=== PATIENT | male | born 1930 | race Hispanic/Latino ===

== ENCOUNTER 2017-01-04 17:10 | Inpatient (IN) | payer MEDICARE, BC ==
[2017-01-04 17:32] VITALS: BMI 26.5
--- NOTE | 2017-01-04 17:42 | ED PDOC ---
Arrival/HPI - General Chief Complaint: Weakness/Neurological Deficit Time Seen by Provider: 01/04/17 17:23 Historian: Patient, Spouse - History of Present Illness Narrative History of Present Illness (Text): 01/04/17 17:37 An 86 year old male, whose past medical history includes high cholesterol and diabetes, was sent by Dr. Lozada for acute stroke. Patient had an MRI of brain done today. Patient reports he had visual changes that developed two days ago. Notes he has less sight in left eye. Patient also notes some decrease in strength and weakness of bilateral legs. Denies any numbness or weakness in legs. Denies any other complaints at this time. Denies any history of stroke. PMD: Dr. Lozada Medications: Metformin Symptom Onset: Sudden Symptom Course: Unchanged Activities at Onset: Rest Context: Home Past Medical History - Provider Review Nursing Documentation Reviewed: Yes - Infectious Disease Hx of Infectious Diseases: None - Endocrine/Metabolic Hx Diabetes Mellitus Type 2: Yes - Psychiatric Hx Substance Use: No Family/Social History - Physician Review Nursing Documentation Reviewed: Yes Family/Social History: Other (non contributory) Smoking Status: Unknown If Ever Smoked Hx Alcohol Use: No Hx Substance Use: No Allergies/Home Meds Allergies/Adverse Reactions: Allergies No Known Allergies Allergy (Verified 01/04/17 17:30) Home Medications: Home Meds Medication Instructions Recorded Confirmed Celecoxib [CeleBREX] 200 mg PO DAILY 01/04/17 01/04/17 Colesevelam HCl [Welchol] 2 tab PO TID 01/04/17 01/04/17 Glimepiride [Amaryl] 4 mg PO BID 01/04/17 01/04/17 [place]-3S/Dha/Epa/Fish Oil [Fish 2 tab PO BID 01/04/17 01/04/17 Oil [place]-3 Softgel] Tamsulosin [Flomax] 0.4 mg PO DAILY 01/04/17 01/04/17 metFORMIN [glucOPHAGE] 500 mg PO DAILY 01/04/17 01/04/17 Review of Systems - Physician Review All systems were reviewed & negative as marked: Yes - Review of Systems Constitutional: Other (weakness in b/l legs). absent: Fevers Eyes: Vision Changes Musculoskeletal: absent: Other (numbness or weakness in legs) Physical Exam Vital Signs Reviewed: Yes Vital Signs Temp Pulse Resp BP Pulse Ox 01/04/17 19:11 97.8 F 55 L 12 130/76 95 01/04/17 17:33 59 L 20 121/66 96 01/04/17 17:31 97.9 F 57 L 17 121/66 98 Appearance: Positive for: Well-Appearing, Non-Toxic, Comfortable Pain Distress: None Mental Status: Positive for: Alert and Oriented X 3 Finger Stick Blood Glucose: 123 - Systems Exam Head: Present: Atraumatic, Normocephalic Pupils: Present: PERRL Extroacular Muscles: Present: EOMI Conjunctiva: Present: Normal Mouth: Present: Moist Mucous Membranes Neck: Present: Normal Range of Motion Respiratory/Chest: Present: Clear to Auscultation, Good Air Exchange. No: Respiratory Distress, Accessory Muscle Use Cardiovascular: Present: Regular Rate and Rhythm, Normal S1, S2. No: Murmurs Abdomen: Present: Normal Bowel Sounds. No: Tenderness, Distention, Peritoneal Signs Back: Present: Normal Inspection Upper Extremity: Present: Normal Inspection. No: Cyanosis, Edema Lower Extremity: Present: Normal Inspection. No: Edema Neurological: Present: GCS=15, CN II-XII Intact, Speech Normal, Motor Func Grossly Intact, Normal Sensory Function, Normal Cerebellar Funct, Norm Deep Tendon Reflexes, Memory Normal Skin: Present: Warm, Dry, Normal Color. No: Rashes Psychiatric: Present: Alert, Oriented x 3, Normal Insight, Normal Concentration Medical Decision Making ED Course and Treatment: 01/04/17 17:51 EKG: Ordered, reviewed, and independently interpreted the EKG. Rate : 56 BPM Rhythm : sinus bradycardia Interpretation : Incomplete right bundle branch block, no STEMI 01/04/17 18:09 chest xray: Creator : Lane Ascencio MD FINDINGS: LUNGS: Left lower lobe infiltrate obscuring the left cardiac border findings accentuated by portable technique and poor inspiratory effort. PLEURA: Small bilateral pleural effusions CARDIOVASCULAR: No radiographic findings to suggest acute or significant cardiovascular disease. OSSEOUS STRUCTURES: No significant abnormalities. VISUALIZED UPPER ABDOMEN: Normal. IMPRESSION: 11 x 9 mm accentuating markings at the lung bases particularly left lower lobe. Two-view chest may be beneficial for clarification of these findings. 01/04/17 18:[address] Lenin Badillo, who recommends giving patient Aspirin. - Lab Interpretations Lab Results: 01/04/17 17:40 01/04/17 17:40 Lab Results 01/04/17 17:40: Blood Type Pending, Antibody Screen Pending, BBK History Checked No verified bt 01/04/17 17:40: Sodium 141, Potassium 4.8, Chloride 109 H, Carbon Dioxide 25, Anion Gap 12, BUN 20, Creatinine 1.1, Est GFR ( Amer) > 60, Est GFR (Non- Af Amer) > 60, Random Glucose 112 H, Calcium 9.8, Total Bilirubin 0.7, AST 30, ALT 18, Alkaline Phosphatase 71, Troponin I < 0.01, Total Protein 7.0, Albumin 4.2, Globulin 2.9, Albumin/Globulin Ratio 1.4, Triglycerides 175 H, Cholesterol 198, LDL Cholesterol Direct 123, HDL Cholesterol 47 01/04/17 17:40: PT 11.1, INR 1.03, APTT 27.5 01/04/17 17:40: WBC 6.0, RBC 4.34, Hgb 13.8 L, Hct 39.7 L, MCV 91.5, MCH 31.8, MCHC 34.8, RDW 13.3, Plt Count 182, MPV 9.3, Gran % 72.4 H, Lymph % (Auto) 16.8 L, [place] % (Auto) 6.5 H, Eos % (Auto) 4.0, Baso % (Auto) 0.3, Gran # 4.31, Lymph # 1.0 L, [place] # 0.4, Eos # 0.2, Baso # 0.02 01/04/17 17:23: POC Glucose (mg/dL) 123 H - RAD Interpretation Radiology Orders: 01/04/17 17:33 CHEST PORTABLE [RAD] Stat - Medication Orders Current Medication Orders: Glimepiride (Amaryl) 4 mg PO BID ENDER Insulin Human Regular (Humulin R High) 0 units SC ACHS ENDER PRN Reason: Protocol Metformin HCl (Glucophage) 500 mg PO DAILY ENDER Tamsulosin HCl (Flomax) 0.4 mg PO DAILY ENDER Discontinued Medications Aspirin (Aspirin Chewable) 324 mg PO STAT STA Stop: 01/04/17 17:47 Last Admin: 01/04/17 17:52 Dose: 324 mg NIHSS Scale ([place]) Time Performed: 17:25 rTPA Inclusion/Exclusion - Inclusion Criteria for Altepase Patient is 18 years or Older: Yes NIHSS Stroke Scale 3 - Date/Time Evaluation Performed Date Performed: 01/04/17 Time Performed: 17:25 - How Severe is the Stroke Level of Consciousness: 0=Alert LOC to Questions: 0=Both comments correct LOC to commands: 0=Obeys both correctly Best Gaze: 0=Normal Visual: 0=No visual loss Facial: 0=Normal Motor Arm - Left: 0=No drift Motor Arm - Right: 0=No drift Motor Leg - Left: 0=No drift Motor Leg - Right: 0=No drift Limb Ataxia: 0=Absent Sensory: 0=Normal Best Language: 0=No aphasia Dysarthia: 0=Normal articulation Extinction & Inattention (Neglect): 0=Normal, no object Score: 0 Severity Of Stroke: 0 = No Stroke - Scribe Statement The provider has reviewed the documentation as recorded by the Summeribwindy Hernandez Provider Scribe Attestation: All medical record entries made by the Scribe were at my direction and personally dictated by me. I have reviewed the chart and agree that the record accurately reflects my personal performance of the history, physical exam, medical decision making, and the department course for this patient. I have also personally directed, reviewed, and agree with the discharge instructions and disposition. Disposition/Present on Arrival - Present on Arrival History of DVT/PE: No History of Uncontrolled Diabetes: No Urinary Catheter: No History of Decub. Ulcer: No History Surgical Site Infection Following: None - Disposition
[2017-01-04 18:03] LABS: BASO # 0.02 K/mm3 (0.0-2.0); BASO % 0.3 % (0.0-3.0); EOS # 0.2 (0.0-0.7); GRAN # 4.31 (1.4-6.5); GRAN % 72.4 % (50.0-68.0); HEMATOCRIT 39.7 % (42.0-52.0); LYMPH % 16.8 % (22.0-35.0); MEAN CELL VOLUME 91.5 fl (80.0-105.0); MEAN CORPUSCULAR HEMOGLOBIN 31.8 pg (25.0-35.0); MEAN CORPUSCULAR HGB CONC 34.8 g/dl (31.0-37.0); MEAN PLATELET VOLUME 9.3 fl (7.0-11.0); MONO # 0.4 (0.1-0.6); MONO % 6.5 % (1.0-6.0); RED CELL DISTRIBUTION WIDTH 13.3 % (11.5-14.5)
--- NOTE | 2017-01-04 18:08 | RAD ---
HISTORY: CVA. Technique: Single view portable semi erect @ 17:55 COMPARISON: No prior. FINDINGS: LUNGS: Left lower lobe infiltrate obscuring the left cardiac border findings accentuated by portable technique and poor inspiratory effort. PLEURA: Small bilateral pleural effusions CARDIOVASCULAR: No radiographic findings to suggest acute or significant cardiovascular disease. OSSEOUS STRUCTURES: No significant abnormalities. VISUALIZED UPPER ABDOMEN: Normal. OTHER FINDINGS: None. IMPRESSION: 11 x 9 mm accentuating markings at the lung bases particularly left lower lobe. Two-view chest may be beneficial for clarification of these findings.
[2017-01-04 18:10] LABS: INR 1.03 (0.93-1.08); PARTIAL THROMBOPLASTIN TIME 27.5 Seconds (23.7-30.8)
[2017-01-04 18:11] LABS: ALB/GLOB RATIO 1.4 (1.1-1.8); ALKALINE PHOSPHATASE 71 U/L (38-126); ALT/SGPT 18 U/L (7-56); AST/SGOT 30 U/L (17-59); BILIRUBIN,TOTAL 0.7 mg/dL (0.2-1.3); BLOOD UREA NITROGEN 20 mg/dL (7-21); CALCIUM 9.8 mg/dL (8.4-10.5); CARBON DIOXIDE 25 mmol/L (21-33); CHLORIDE 109 mmol/L (98-107); CHOLESTEROL 198 mg/dL (130-200); GFR AFRICAN-AMERICAN > 60; GLUCOSE,RANDOM 112 mg/dL (70-110); POTASSIUM 4.8 mmol/L (3.6-5.0); SODIUM 141 mmol/L (132-148)
[2017-01-04 18:25] LABS: TROPONIN I < 0.01 ng/mL
[2017-01-04 19:14] VITALS: O2SAT 95
--- NOTE | 2017-01-04 21:53 | HP ---
HISTORY OF PRESENT ILLNESS: I know Reinaldo for many years. He is a nice 86-year-old man who was brought in by his who tells me he has been a little bit off lately. Starting Tuesday, he had an episode of holding the clicker for the TV, he did not know what it was and it lasted a little while but for the most part he has been close to being himself. When I saw him in the office, he did remember 3 out of 3 objects within 10 minutes, which I thought was pretty good. He was still a little bit off to me, so I was concerned and sent him for an MRI. I got one done in an hour after seeing him and it showed an acute stroke. I discussed it with the radiologist who told him to go to the ER and they would not go, they went home. I called the daughter who I know very well who is a doctor who got him back to the emergency room. We are trying to put him in for an acute stroke if the neurologist gets some carotid Dopplers and see if we can keep him as good as we can, although I do not see too much deficit, a little bit slight sight in the left eye and may be mild decreased strength in both of his legs but minimal. PAST MEDICAL HISTORY: He has a past medical history of diabetes and hypertension. ALLERGIES: HE HAS NO KNOWN DRUG ALLERGIES. FAMILY HISTORY: There is hypertension and diabetes in the family. SOCIAL HISTORY: No smoking, rare alcohol, no drugs. MEDICATIONS: We are trying to collect his medications from the pharmacy. REVIEW OF SYSTEMS: He had a slight vision change in the left eye. No hearing changes. No sore throat. No neck pain, or chest pain or shortness of breath or abdominal pain. He tells me both of his legs are a little bit weak, questionable numbness from time to time. No skin issues. PHYSICAL EXAMINATION: GENERAL: He is well-appearing, nontoxic, comfortable, joking. He is alert and oriented x3 as we said. Blood sugar was 123. VITAL SIGNS: He has 97.9 temperature, 60 pulse, 18 respiratory rate, 121/66 blood pressure, and 98% O2 saturation on room air. HEENT: His head is atraumatic, normocephalic. Extraocular muscles are intact. Pupils are equal and reactive to light. Throat is moist. Tongue is midline. NECK: Supple. HEART: Regular rate. Normal S1 and S2. LUNGS: Decreased breath sounds, but clear to auscultation. ABDOMEN: Soft, nontender. Positive bowel sounds. No guarding. No rebound. No CVA tenderness. EXTREMITIES: No edema. NEUROLOGIC: His GCS is 15. Cranial nerves II through XII are grossly intact. Normal speech. Neurologically, he tells me his left eye is a little bit off and he has got weak legs, but I find him to have equal strength bilaterally, 4/5 bilaterally. SKIN: Warm and dry. LABORATORY DATA: He had multiple tests. He had a chest x-ray. He had an MRI, which showed left [employer] acute stroke. He had a 11 x 9 mm accentuating markings on the left lung bases, partially left lower lobe. PLAN: We will repeat a 2-view x-ray to make sure it is okay. We will get Neurology consulted, get him back on his medications once we find it. He was given an aspirin already. We will check his labs tomorrow, get Physical Therapy onboard, and watch his blood sugars. He is here for acute stroke. Lane Lozada DO
[2017-01-04] MEDS: Insulin Reg-HIGH-Coverage SC SCH (22:25)
[2017-01-05 07:33] LABS: HEMATOCRIT 41.3 % (42.0-52.0); MEAN CELL VOLUME 91.6 fl (80.0-105.0); MEAN CORPUSCULAR HEMOGLOBIN 32.4 pg (25.0-35.0); MEAN CORPUSCULAR HGB CONC 35.4 g/dl (31.0-37.0); MEAN PLATELET VOLUME 8.7 fl (7.0-11.0); RED CELL DISTRIBUTION WIDTH 13.3 % (11.5-14.5); WHITE BLOOD COUNT 5.8 10^3/ul (4.5-11.0)
[2017-01-05 07:40] LABS: ALB/GLOB RATIO 1.6 (1.1-1.8); ALKALINE PHOSPHATASE 75 U/L (38-126); ALT/SGPT 32 U/L (7-56); AST/SGOT 20 U/L (17-59); BILIRUBIN,TOTAL 0.8 mg/dL (0.2-1.3); BLOOD UREA NITROGEN 19 mg/dL (7-21); CALCIUM 9.4 mg/dL (8.4-10.5); CARBON DIOXIDE 25 mmol/L (21-33); CHLORIDE 109 mmol/L (95-110); GFR AFRICAN-AMERICAN > 60; GLUCOSE,RANDOM 129 mg/dL (70-110); POTASSIUM 4.4 mmol/L (3.6-5.0); SODIUM 142 mmol/L (132-148); TOTAL PROTEIN 6.7 g/dL (5.8-8.3)
[2017-01-05 09:42] VITALS: TEMP 98.2
[2017-01-05] MEDS: Insulin Reg-HIGH-Coverage SC SCH ×2 (10:29→13:02)
--- NOTE | 2017-01-05 11:02 | CARD ---
APPROVED REPORT EKG Measurement Heart [id number] MI [id number] <Conclusion> Sinus bradycardia with sinus arrhythmia Incomplete right bundle branch block
[2017-01-05 11:07] VITALS: BP 146/65; PULSE 56; RESP 18
--- NOTE | 2017-01-05 13:32 | RAD ---
HISTORY: cxr COMPARISON: 01/04/2017 TECHNIQUE: Chest PA and lateral FINDINGS: LUNGS: No active pulmonary disease. PLEURA: No significant pleural effusion identified. No pneumothorax apparent. CARDIOVASCULAR: Normal. OSSEOUS STRUCTURES: No significant abnormalities. VISUALIZED UPPER ABDOMEN: Normal. OTHER FINDINGS: None. IMPRESSION: No active disease.
--- NOTE | 2017-01-05 13:53 | CP.PCM.CON ---
<Maricel Badillo - Last Filed: 01/05/17 13:48> History of Present Illness - History of Present Illness History of Present Illness: Neurology Consult Note for Amairani Blood PGY2 Reason for consult: CVA This is an 86Y M with PMH HTN, HLD, DM and BPH who complained of transient loss of peripheral vision on R 2 days ago. Patient was watching tv at home and then noticed the R side of the TV was not showing the picture. Patient did not have any other episodes. The vision loss improved on its own. At the time he did not have weakness, slurred speech, facial droop, numbness/tingling, tongue biting or loss of consciousness. He later went to Dr. Lozada at his office who ordered an MRI. Patient had an MRI at [facility] [place] [facility] which showed L PUBLIC ADDRESS TECHNICIAN infarct. Patient was then transferred to ED for further evaluation. This am, patient reports feeling well. He denies having any vision changes, weakness, CP, SOB, n/v/d, numbness/ tingling, fever or chills. PMH: HTN, HLD, BPH, DM PSH: Denies Home meds: As per MAR All: NKDA SH: Denies EtOH, drug or tobacco use Review of Systems - Review of Systems All systems: reviewed and no additional remarkable complaints except Review of Systems: + transient peripheral vision loss Past Patient History - Infectious Disease Hx of Infectious Diseases: None - Past Social History Smoking Status: Unknown If Ever Smoked Alcohol: None Drugs: Denies Home Situation {Lives}: With Family - CARDIAC Hx Hypertension: Yes - ENDOCRINE/METABOLIC Hx Diabetes Mellitus Type 2: Yes - PSYCHIATRIC Hx Substance Use: No Meds Allergies/Adverse Reactions: Allergies Allergy/AdvReac Type Severity Reaction Status Date / Time No Known Allergies Allergy Verified 01/04/17 17:30 - Medications Medications: Current Medications Glimepiride (Amaryl) 4 mg PO BID [facility] Last Admin: 01/05/17 10:28 Dose: 4 mg Insulin Human Regular (Humulin R High) 0 units SC ACHS ENDER PRN Reason: Protocol Last Admin: 01/05/17 13:02 Dose: 4 units Metformin HCl (Glucophage) 500 mg PO DAILY [facility] Last Admin: 01/05/17 10:28 Dose: 500 mg Tamsulosin HCl (Flomax) 0.4 mg PO DAILY [facility] Last Admin: 01/05/17 10:28 Dose: 0.4 mg Physical Exam - Constitutional Appears: No Acute Distress - Head Exam Head Exam: ATRAUMATIC, NORMAL INSPECTION, NORMOCEPHALIC - Eye Exam Eye Exam: Normal appearance, PERRL Pupil Exam: NORMAL ACCOMODATION, PERRL - ENT Exam ENT Exam: Mucous Membranes Moist - Respiratory Exam Respiratory Exam: Clear to Auscultation Bilateral, NORMAL BREATHING PATTERN. absent: Rales, Rhonchi, Wheezes - Cardiovascular Exam Cardiovascular Exam: REGULAR RHYTHM, +S1, +S2. absent: Gallop, Rubs, Systolic Murmur - GI/Abdominal Exam GI & Abdominal Exam: Normal Bowel Sounds, Soft. absent: Mass, Rebound, Rigid, Tenderness - Extremities Exam Extremities exam: Positive for: normal inspection. Negative for: calf tenderness, pedal edema - Neurological Exam Neurological exam: Alert, CN II-XII Intact, Oriented x3 - Expanded Neurological Exam Expanded Patient oriented to: person, place, time Speech: Fluid Speech Cranial nerves: EOM's Intact: Normal, Facial Palsey w/Forehead Movement: Normal , Facial [place]y w/o Forehead Movement: Normal, Facial Sensation: Normal, Tongue Deviation: Normal Cerebellar Function: Finger to Nose: Normal Upper motor neuron: Babinski Sign: Normal, Pronator Drift: Normal, Sensory Extinction: Normal Neuro motor strength exam: Left Upper Extremity: 5, Right Upper Extremity: 5, Left Lower Extremity: 5, Right Lower Extremity: 5 Coma Scale Eye Opening: SPONTANEOUS Coma Scale Motor Response: OBEYS COMMANDS Coma Scale Verbal: Oriented Coma Scale Total: 15 - Psychiatric Exam Psychiatric exam: Normal Affect, Normal Mood - Skin Skin Exam: Dry, Intact, Normal Color, Warm Results - Vital Signs Recent Vital Signs: Last Vital Signs Temp 98.2 F 01/05/17 08:00 Pulse 56 L 01/05/17 11:05 Resp 18 01/05/17 11:05 BP 146/65 01/05/17 11:05 Pulse Ox 95 01/05/17 11:05 - Labs Result Diagrams: 01/05/17 07:20 01/05/17 07:20 Labs: Laboratory Results - last 24 hr 01/04/17 01/04/17 01/05/17 19:20 22:17 07:20 WBC 5.8 RBC 4.51 Hgb 14.6 Hct 41.3 L MCV 91.6 MCH 32.4 MCHC 35.4 RDW 13.3 Plt Count 161 MPV 8.7 Sodium Potassium Chloride Carbon Dioxide Anion Gap BUN Creatinine Est GFR ( Amer) Est GFR (Non-Af Amer) POC Glucose (mg/dL) 97 Random Glucose Calcium Total Bilirubin AST ALT Alkaline Phosphatase Total Protein Albumin Globulin Albumin/Globulin Ratio Blood Type Confirm O POSITIVE 01/05/17 01/05/17 01/05/17 07:20 09:05 11:57 WBC RBC Hgb Hct MCV MCH MCHC RDW Plt Count MPV Sodium 142 Potassium 4.4 Chloride 109 Carbon Dioxide 25 Anion Gap 12 BUN 19 Creatinine 1.1 Est GFR ( Amer) > 60 Est GFR (Non-Af Amer) > 60 POC Glucose (mg/dL) 160 H 234 H Random Glucose 129 H Calcium 9.4 Total Bilirubin 0.8 AST 20 ALT 32 Alkaline Phosphatase 75 Total Protein 6.7 Albumin 4.1 Globulin 2.5 Albumin/Globulin Ratio 1.6 Blood Type Confirm Assessment & Plan - Assessment and Plan (Free Text) Assessment: This is an 86Y M with PMH HTN, HLD, DM and BPH who complained of transient loss of peripheral vision on R 2 days ago found to have L PUBLIC ADDRESS TECHNICIAN infarct on MRI. Patient does not have any focal neurological deficits at this time. Plan: - HgbA1c: 7.6- Recommend better glucose control - Carotid doppler ordered - Recommend patient take ASA 81mg and Lipitor 20mg daily - As per PT, patient not a candidate for rehab- has normal functioning No further neurological work up needed at this time. Patient is stable to d/c home from neuro stand point. Will sign off at this time. Thank you for this consultation. Please re-consult if needed. Case seen, discussed and reviewed with Dr. Badillo. Amairani Badillo PGY2 - Date & Time Date: 01/05/17 Time: 13:58 <Edwin Badillo - Last Filed: 01/05/17 16:18> Meds - Medications Medications: Current Medications Aspirin (Aspirin Chewable) 81 mg PO DAILY ENDER Atorvastatin Calcium (Lipitor) 20 mg PO DIN ENDER Glimepiride (Amaryl) 4 mg PO BID [facility] Last Admin: 01/05/17 10:28 Dose: 4 mg Insulin Human Regular (Humulin R High) 0 units SC ACHS ENDER PRN Reason: Protocol Last Admin: 01/05/17 13:02 Dose: 4 units Metformin HCl (Glucophage) 500 mg PO DAILY [facility] Last Admin: 01/05/17 10:28 Dose: 500 mg Tamsulosin HCl (Flomax) 0.4 mg PO DAILY [facility] Last Admin: 01/05/17 10:28 Dose: 0.4 mg Results - Vital Signs Recent Vital Signs: Last Vital Signs Temp 98.2 F 01/05/17 08:00 Pulse 56 L 01/05/17 11:05 Resp 18 01/05/17 11:05 BP 146/65 01/05/17 11:05 Pulse Ox 95 01/05/17 11:05 - Labs Result Diagrams: 01/05/17 07:20 01/05/17 07:20 Labs: Laboratory Results - last 24 hr 01/04/17 01/04/17 01/05/17 19:20 22:17 07:20 WBC 5.8 RBC 4.51 Hgb 14.6 Hct 41.3 L MCV 91.6 MCH 32.4 MCHC 35.4 RDW 13.3 Plt Count 161 MPV 8.7 Sodium Potassium Chloride Carbon Dioxide Anion Gap BUN Creatinine Est GFR ( Amer) Est GFR (Non-Af Amer) POC Glucose (mg/dL) 97 Random Glucose Calcium Total Bilirubin AST ALT Alkaline Phosphatase Total Protein Albumin Globulin Albumin/Globulin Ratio Blood Type Confirm O POSITIVE 01/05/17 01/05/17 01/05/17 07:20 09:05 11:57 WBC RBC Hgb Hct MCV MCH MCHC RDW Plt Count MPV Sodium 142 Potassium 4.4 Chloride 109 Carbon Dioxide 25 Anion Gap 12 BUN 19 Creatinine 1.1 Est GFR ( Amer) > 60 Est GFR (Non-Af Amer) > 60 POC Glucose (mg/dL) 160 H 234 H Random Glucose 129 H Calcium 9.4 Total Bilirubin 0.8 AST 20 ALT 32 Alkaline Phosphatase 75 Total Protein 6.7 Albumin 4.1 Globulin 2.5 Albumin/Globulin Ratio 1.6 Blood Type Confirm Attending/Attestation - Attestation I have personally seen and examined this patient.: Yes I have fully participated in the care of the patient.: Yes I have reviewed all pertinent clinical information: Yes
--- NOTE | 2017-01-05 16:32 | US ---
PROCEDURE: Bilateral carotid artery duplex ultrasound HISTORY: Carotid stenosis CVA PHYSICIAN(S): Aleks Downing MD. TECHNIQUE: Duplex sonography and color-flow Doppler were used to evaluate the carotid bifurcations and limited segments of the vertebral arteries bilaterally. FINDINGS: There is mild smooth heterogeneous plaque noted at the carotid bifurcations bilaterally. The peak systolic velocity in the proximal right internal carotid artery is 96 cm/sec. This corresponds to a 20 to 39% proximal right ICA stenosis. Normal systolic velocities are noted in the proximal right external carotid artery. There is blunted antegrade flow in the small right vertebral artery. The peak systolic velocity in the proximal left internal carotid artery is 94 cm/sec. This corresponds to a 20 to 39% proximal left ICA stenosis. Normal systolic velocities are noted in the proximal left external carotid artery. There is antegrade flow in the l dominant eft vertebral artery. IMPRESSION: 1. 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 2. Antegrade flow in both vertebral arteries.
--- NOTE | 2017-01-06 00:25 | DS ---
HOSPITAL COURSE: He is in the emergency room still. He came in last night with an acute CVA on MRI. Neurology has not seen him yet. Tests were not done yet. Physical Therapy has not seen him yet. Fortunately, he has improved this morning, I believe, since yesterday. He feels better. He slept well. No deficits at this time. PHYSICAL EXAMINATION: VITAL SIGNS: He has 97.8 temp, 57 pulse, 130/76 blood pressure, 12 respiratory rate, 95% O2 sat on room air. HEENT: Head is atraumatic and normocephalic. Tongue is midline. His vision is also a little bit better. HEART: Regular rate. LUNGS: Clear to auscultation. ABDOMEN: Soft. EXTREMITIES: No edema. He can move all 4 extremities. Good strength equally bilaterally, may be a little bit stronger today than yesterday. MEDICATIONS: He is on Amaryl, Flomax, Glucophage, and insulin. LABORATORY DATA: He has a 5.8 white count, 14.6 hemoglobin, 41.3 hematocrit with a 161 platelets. INR is 1.03. He has got a 142 sodium, potassium 4.2, BUN 19, creatinine 1.1, GFR is greater than 60, sugar is 129. Calcium is 9.4. Total bili is 0.8, AST is 20, ALT is 32, alk phos 75, total protein 6.7, albumin is 4.1, and globulin 2.5. We will wait to see what Neurology has to say, Physical Therapy has to say, waiting for carotid Doppler, MRA of the head and then hopefully later on this afternoon, we could discharge him, and that is my plan. Lane Lozada DO
== END 2017-01-05 17:50 | disposition home or self-care (01) | DRG 66 ==
LOC: ED 17:10 → ERH 18:22 → 2RNO 01-05 11:11
PROVIDERS: ADMIT Family Medicine; ATTEND Family Medicine
DX: I63.532 Cerebral infarction due to unspecified occlusion or stenosis of left posterior cerebral artery (principal); E11.9 Type 2 diabetes mellitus without complications; I10 Essential (primary) hypertension; N40.0 Benign prostatic hyperplasia without lower urinary tract symptoms; E78.00 Pure hypercholesterolemia, unspecified; R29.700 NIHSS score 0

== ENCOUNTER 2017-01-09 10:29 | Observation (INO) | payer MEDICARE, BC ==
[2017-01-09 10:42] VITALS: BMI 27.1
[2017-01-09 10:54] LABS: BASO # 0.02 K/mm3 (0.0-2.0); BASO % 0.3 % (0.0-3.0); EOS # 0.2 (0.0-0.7); EOS % 3.7 % (1.5-5.0); GRAN # 4.55 (1.4-6.5); HEMATOCRIT 40.5 % (42.0-52.0); LYMPH # 1.3 (1.2-3.4); LYMPH % 19.8 % (22.0-35.0); MEAN CORPUSCULAR HEMOGLOBIN 32.1 pg (25.0-35.0); MEAN CORPUSCULAR HGB CONC 35.3 g/dl (31.0-37.0); MONO # 0.4 (0.1-0.6); MONO % 6.2 % (1.0-6.0); RED CELL DISTRIBUTION WIDTH 13.1 % (11.5-14.5); WHITE BLOOD COUNT 6.5 10^3/ul (4.5-11.0)
[2017-01-09 10:58] LABS: ALB/GLOB RATIO 1.5 (1.1-1.8); ALKALINE PHOSPHATASE 83 U/L (38-126); ALT/SGPT 30 U/L (7-56); AST/SGOT 21 U/L (17-59); BILIRUBIN,TOTAL 0.7 mg/dL (0.2-1.3); BLOOD UREA NITROGEN 20 mg/dL (7-21); CALCIUM 9.5 mg/dL (8.4-10.5); CARBON DIOXIDE 23 mmol/L (21-33); CHLORIDE 108 mmol/L (98-107); CHOLESTEROL 189 mg/dL (130-200); GFR AFRICAN-AMERICAN > 60; GLUCOSE,RANDOM 161 mg/dL (70-110); POTASSIUM 4.5 mmol/L (3.6-5.0); SODIUM 141 mmol/L (132-148); TOTAL PROTEIN 7.1 g/dL (5.8-8.3)
--- NOTE | 2017-01-09 11:04 | CT ---
PROCEDURE: CT HEAD WITHOUT CONTRAST. HISTORY: Code Stroke COMPARISON: Comparison made with prior MRI brain 01/04/2017 TECHNIQUE: Axial computed tomography images were obtained through the head/brain without intravenous contrast. Radiation dose: Total exam DLP = 781.19 mGy-cm. This CT exam was performed using one or more of the following dose reduction techniques: Automated exposure control, adjustment of the mA and/or kV according to patient size, and/or use of iterative reconstruction technique. FINDINGS: HEMORRHAGE: No acute parenchymal subarachnoid nor extra-axial hemorrhage. Hemorrhage. BRAIN: Previously noted acute infarct in the left posterolateral thalamus and posterior body of the caudate nucleus of less well seen on this study compared to high-resolution MRI. Mild chronic periventricular white matter ischemic changes the seen extending peripherally into the deep and subcortical white matter both cerebral hemispheres. In addition, there appear to be a few scattered chronic bilateral basal nuclei lacunar type infarcts. Note that the possibility of a hyperacute infarct cannot be completely excluded on this study therefore clinical correlation recommended Moderate generalized volume loss. . VENTRICLES: No obstructive hydrocephalus. CALVARIUM: Calvarium unremarkable. PARANASAL SINUSES: There is small focal area polypoid like mucosal thickening and a mucous retention cyst formation left maxillary sinus. MASTOID AIR CELLS: Unremarkable as visualized. No inflammatory changes. OTHER FINDINGS: None. IMPRESSION: No acute intracranial hemorrhage. Previously noted acute infarct left posterolateral thalamus and posterior body caudate less well seen compared to high-resolution MRI Mild chronic white matter ischemic changes with scattered chronic bilateral basal nuclei lacunar type infarcts. Note these findings were discussed with Dr. Stratton at approximately at 10:58 P a.m. with written down and read back verification. Moderate volume loss.
[2017-01-09 11:08] LABS: INR 0.99 (0.93-1.08); PARTIAL THROMBOPLASTIN TIME 26.1 Seconds (23.7-30.8)
[2017-01-09 11:12] LABS: TROPONIN I < 0.01 ng/mL
--- NOTE | 2017-01-09 11:16 | ED PDOC ---
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 Patient currently states he "feels fine" but reported that he didn't feel well upon awakening this morning. Of note, family states that this is how he described his symptoms prior to being diagnosed with his most recent stroke. Currently, he denies headache, denies blurred vision or loss of vision, denies dizziness, denies lack of coordination, denies acute gait instability. Denies speech difficulty, denies numbness or tingling to arms or legs, denies palpitations, denies chest pain or shortness of breath, denies numbness or acute focal weakness. Time/Duration: Prior to Arrival (upon awakening this am at 0845) Past Medical History - Infectious Disease Hx of Infectious Diseases: None - Cardiac Hx Hypertension: Yes - Endocrine/Metabolic Hx Diabetes Mellitus Type 2: Yes - Psychiatric Hx Substance Use: No Family/Social History Family/Social History: Unknown Family HX Smoking Status: Unknown If Ever Smoked Hx Alcohol Use: No Hx Substance Use: No Allergies/Home Meds Allergies/Adverse Reactions: Allergies No Known Allergies Allergy (Verified 01/09/17 10:39) Home Medications: Home Meds Medication Instructions Recorded Confirmed Celecoxib [CeleBREX] 200 mg PO DAILY 01/04/17 01/09/17 Colesevelam HCl [Welchol] 2 tab PO TID 01/04/17 01/09/17 Glimepiride [Amaryl] 4 mg PO BID 01/04/17 01/09/17 Meridian-3S/Dha/Epa/Fish Oil [Fish 2 tab PO BID 01/04/17 01/09/17 Oil Meridian-3 Softgel] Tamsulosin [Flomax] 0.4 mg PO DAILY 01/04/17 01/09/17 metFORMIN [glucOPHAGE] 500 mg PO DAILY 01/04/17 01/09/17 Review of Systems - Review of Systems Constitutional: Fatigue. absent: Fevers Eyes: absent: Vision Changes (he denies), Eye Pain Respiratory: absent: SOB Cardiovascular: absent: Chest Pain Gastrointestinal: absent: Abdominal Pain Genitourinary Male: absent: Dysuria, Hematuria, Urinary Output Changes Musculoskeletal: absent: Back Pain Skin: absent: Rash Neurological: absent: Headache, Dizziness, Focal Weakness, Gait Changes, Speech Changes, Facial Droop, Disequilibrium Endocrine: absent: Polyuria Hemo/Lymphatic: absent: Easy Bleeding Physical Exam - Physical Exam Narrative Physical Exam (Text): Head: Atraumatic. Normocephalic. No orbital tenderness. Eyes: PERRL. EOMI. Conjunctivae are not pale. ENT: Mucous membranes are moist and intact. Oropharynx is clear and symmetric. Neck: Supple. Full ROM. No JVD. No lymphadenopathy. Cardiovascular: Regular rate. Regular rhythm. Systolic murmur. Distal pulses intact. Pulmonary/Chest: No evidence of respiratory distress. Clear to auscultation bilaterally. No wheezing, rales or rhonchi. Abdominal: Soft and non-distended. There is no tenderness. No rebound, guarding, or rigidity. No organomegaly. Good bowel sounds. Back: No CVA tenderness. Rectal: no gross bleeding noted Extremities: No edema. No cyanosis. No clubbing. Full range of motion in all extremities. No calf tenderness. Skin: Skin is warm and dry. No petechiae. No purpura. Neurological: Alert, awake, and oriented to person, place, time, and situation. Normal speech. No facial droop. Visual acuity and visual tse are at baseline. No slurred speech. Normal finger to nose. Normal heel to terry. No dysmetria. No focal motor or sensory deficits. No meningeal signs. Reflexes symmetric and intact. Psychiatric: Good eye contact. Normal interaction, affect, and behavior. Family reports that he has periods of forgetfullness intermittently for " several months". ' Vital Signs Reviewed: Yes Vital Signs Temp Pulse Resp BP Pulse Ox 01/09/17 13:27 60 18 138/60 01/09/17 11:53 60 18 138/60 98 01/09/17 10:46 97.8 F 76 17 151/86 H 98 Temperature: Afebrile Pulse: Regular Respiratory Rate: Normal Appearance: Positive for: Well-Appearing, Non-Toxic, Comfortable Pain Distress: None Mental Status: Positive for: Alert and Oriented X 3 Medical Decision Making ED Course and Treatment: Impression: Patient with recent history of CVA, presents with "not feeling well " when he awoke this AM. Currently he denies any symptoms. History supplemented by , son, and daughter at bedside. Plan: -- EKG -- Head CT -- Chest X-ray -- Brain MRI -- Labs -- Urinalysis -- Reassess and disposition, serial neuro exams with direct communication with family, PMD and neurologist. Prior Visits: Notes and results from previous visits were reviewed. Patient was last seen in the emergency department on 01/04/2017 for acute CVA. Patient was admitted. Progress Notes: Patient's history obtained from patient, , and son on initial presentation. Prior to arrival I spoke directly with his PMD Dr. Lane Lozada to review his recent admission, MRI and symptoms. Patient on initial exam states that he currently has no symptoms. Of noted, family states that when he awoke this AM he had expressed that he "wasn't feeling himself" but denied headache or acute visual symptoms or specific weakness or pain. Patient recently had stroke where he had reportedly presented with similar complaints. He denies any acute visual symptoms at this time. By history, patient felt his normal self last night before going to bed, and was watching a baseball game on TV without any complaints last night as per the patient and his . Based on this history, stroke was considered and emergency CT ordered with emergency consultation with neurologist. I discussed initial presentation and history with Dr. Edwin Badillo and updated Dr. Yaneth Lozada. 01/09/2017 11:[address] IMPRESSION: No acute intracranial hemorrhage. Previously noted acute infarct left posterolateral thalamus and posterior body caudate less well seen compared to high-resolution MRI. Mild chronic white matter ischemic changes with scattered chronic bilateral basal nuclei lacunar type infarcts. Note these findings were discussed with Dr. Stratton at approximately at 10:58AM with written down and read back verification. Moderate volume loss. Dicator: Butch Renner DO Based on recent MRI and history of recent stroke, MRI ordered after consultation with neurology: 01/09/2017 11:29 Brain MRI Subacute infarct posterior body left caudate nucleus and left posterolateral thalamus. This infarct appears less conspicuous compared the prior MRI. Mild chronic periventricular white matter ischemic changes. No acute intracranial hemorrhage. Moderate volume loss. Dicator: Butch Solis DO 01/09/2017 13:32 Chest X-ray IMPRESSION: Mckay Bibasilar atelectasis, developing infiltrates could be excluded followup radiographs. Dictator: Butch Solis DO Upon return from CT/MRI, I reviewed exam, CT and MRI readings with patient, family and PMD. Serial neuro exams in Emergency department, he continues to have no acute focal neurologic findings. Patient TOOK ASPIRIN PRIOR TO COMING TO THE Emergency department, confirmed by his . Patient is NOT a tpa candidate as he has had recent stroke, as well as no clear time of onset of symptoms, as well as very minimal symptoms at this time. Contraindications to tpa reviewed in depth with patient and family and PMD as well as confirmed with neurology. Have continued to monitor patient in the Emergency department, on monitor he is in normal sinus rhythm with occasional nonsustaned PACs. Patient admitted for monitoring, neurology consultation, serial exams. 01/09/17 15:11 - Lab Interpretations Lab Results: 01/09/17 10:44 01/09/17 10:44 Lab Results 01/09/17 10:44: Sodium 141, Potassium 4.5, Chloride 108 H, Carbon Dioxide 23, Anion Gap 15, BUN 20, Creatinine 1.2, Est GFR ( Amer) > 60, Est GFR (Non- Af Amer) 57, Random Glucose 161 H, Calcium 9.5, Total Bilirubin 0.7, AST 21, ALT 30, Alkaline Phosphatase 83, Troponin I < 0.01, Total Protein 7.1, Albumin 4.3, Globulin 2.8, Albumin/Globulin Ratio 1.5, Triglycerides 141, Cholesterol 189, LDL Cholesterol Direct 124, HDL Cholesterol 44 01/09/17 10:44: PT 10.7, INR 0.99, APTT 26.1 01/09/17 10:44: WBC 6.5, RBC 4.45, Hgb 14.3, Hct 40.5 L, MCV 91.0, MCH 32.1, MCHC 35.3, RDW 13.1, Plt Count 171, MPV 9.0, Gran % 70.0 H, Lymph % (Auto) 19.8 L, Nobles % (Auto) 6.2 H, Eos % (Auto) 3.7, Baso % (Auto) 0.3, Gran # 4.55, Lymph # 1.3, Nobles # 0.4, Eos # 0.2, Baso # 0.02 - RAD Interpretation Radiology Orders: 01/09/17 10:41 HEAD W/O (CODE STROKE) [CT] Stat CHEST PORTABLE [RAD] Stat 01/09/17 10:42 BRAIN WITHOUT CONTRAST [MRI] Stat - Medication Orders Current Medication Orders: Aspirin (Aspirin Chewable) 81 mg PO DAILY [facility] Glimepiride (Amaryl) 4 mg PO BID [facility] Insulin Human Regular (Humulin R High) 0 units SC ACHS ENDER PRN Reason: Protocol Metformin HCl (Glucophage) 500 mg PO BID [facility] Non-Formulary Medication (Meridian-3s/Dha/Epa/Fish Oil [Fish Oil Meridian-3 Softgel]) 2 tab PO BID [facility] Tamsulosin HCl (Flomax) 0.4 mg PO DAILY [facility] NIHSS Scale ([place]) Time Performed: 10:50 - How Severe is the Stoke Baseline Level of Consciousness: 0=Alert LOC to Questions: 0=Both comments correct LOC to commands: 0=Obeys both correctly Best Gaze: 0=Normal Visual: 0=No visual loss Facial: 0=Normal Motor Arm - Left: 0=No drift Motor Arm - Right: 0=No drift Motor Leg - Left: 0=No drift Motor Leg - Right: 0=No drift Limb Ataxia: 0=Absent Sensory: 0=Normal Best Language: 0=No aphasia Dysarthia: 0=Normal articulation Extinction & Inattention (Neglect): 0=Normal, no object Score: 0 Risk Level: No Stroke Risk Disposition/Present on Arrival - Present on Arrival Any Indicators Present on Arrival: No History of DVT/PE: No History of Uncontrolled Diabetes: No Urinary Catheter: No History of Decub. Ulcer: No History Surgical Site Infection Following: None - Disposition Have Diagnosis and Disposition been Completed?: Yes Diagnosis: CVA (cerebral vascular accident) Disposition: HOSPITALIZED Disposition Time: 11:30 Patient Plan: Admission, Telemetry Condition: SERIOUS
--- NOTE | 2017-01-09 11:30 | MRI ---
PROCEDURE: MRI BRAIN WITHOUT CONTRAST HISTORY: hx of cva, weakness COMPARISON: Comparison made with prior MRI dated 01/04/2015 TECHNIQUE: Multiplanar, multisequence MR images of the brain were obtained without intravenous contrast enhancement. FINDINGS: HEMORRHAGE: No acute parenchymal, subarachnoid or extra-axial hemorrhage. No evidence of hemosiderin deposition identified on gradient echo weighted sequence. DWI: Re- demonstrated is a subacute infarct involving the posterior body of the left caudate and posterolateral the left thalamus. . The infarct is less conspicuous compared the prior MRI. BRAIN PARENCHYMA: Mild chronic periventricular white matter ischemic changes are again noted. . . . Moderate generalized volume loss VENTRICLES: No obstructive hydrocephalus CRANIUM: No acute calvarial abnormalities. ORBITS: Orbits and contents grossly unremarkable PARANASAL SINUSES/MASTOIDS: Clear VASCULAR SYSTEM: Visualized major vascular flow voids at skull base are patent. OTHER FINDINGS: None. IMPRESSION: Subacute infarct posterior body left caudate nucleus and left posterolateral thalamus. This infarct appears less conspicuous compared the prior MRI. Mild chronic periventricular white matter ischemic changes No acute intracranial hemorrhage. Moderate volume loss.
--- NOTE | 2017-01-09 13:34 | RAD ---
HISTORY: code stroke COMPARISON: Comparison made with chest radiograph dated 01/05/2017. FINDINGS: LUNGS: Bibasilar atelectasis; developing infiltrates could be excluded followup radiographs. PLEURA: No significant pleural effusion identified, no pneumothorax apparent. CARDIOVASCULAR: Heart appears enlarged. TheNormal. OSSEOUS STRUCTURES: Mild degenerative changes of both shoulder girdles. Mild multilevel degenerative spondylosis of the thoracic spine VISUALIZED UPPER ABDOMEN: Normal. OTHER FINDINGS: None. IMPRESSION: Mckay Bibasilar atelectasis; developing infiltrates could be excluded followup radiographs.
[2017-01-09 14:49] LABS: URINE BILIRUBIN NEGATIVE (NEGATIVE); URINE BLOOD NEGATIVE (NEGATIVE); URINE GLUCOSE (UA) 250 mg/dL (NEGATIVE); URINE KETONE TRACE mg/dL (NEGATIVE); URINE LEUKOCYTE ESTERASE NEGATIVE Leu/uL (NEGATIVE); URINE UROBILINOGEN 0.2 E.U./dL (<1 E.U./dL)
[2017-01-09 14:52] LABS: URINE APPEARANCE CLEAR (CLEAR); URINE COLOR YELLOW (YELLOW); URINE PROTEIN NEGATIVE mg/dL (<30 mg/dL)
[2017-01-09] MEDS: Insulin Reg-HIGH-Coverage SC SCH ×2 (16:59→22:12)
[2017-01-09] MEDS: DHA PO SCH (19:18)
[2017-01-09] MEDS: OMEGA PO SCH (19:18)
[2017-01-09] MEDS: EPA PO SCH (19:18)
[2017-01-09] MEDS: FISH OIL PO SCH (19:18)
--- NOTE | 2017-01-10 00:31 | HP ---
HISTORY OF PRESENT ILLNESS: I know him very well from the office and recent CVA last week. I got a call from his daughter who is a doctor I have known for many years that he felt weak and felt funny this morning, and we sent him straight to the emergency room. He has a recent CVA. He did well and was sent home on aspirin. He has always been reluctant to take aspirin because his nose bleeds very quickly from them. PAST MEDICAL HISTORY: Diabetes and hypertension. ALLERGIES: NO KNOWN DRUG ALLERGIES. FAMILY HISTORY: There is hypertension and diabetes in the family. SOCIAL HISTORY: No smoking, rare alcohol, no drugs. MEDICATIONS: He is on Celebrex occasionally, WelChol, metformin, Amaryl, omega, fish oil, Flomax for BPH. REVIEW OF SYSTEMS: He had a slight change this morning when he felt weak, this was not right when he woke up, so they called 911, came to the hospital. He does have a slight vision change from the stroke a week ago, but he said this seems to be improving. No sore throat. No neck pain. No chest pain or shortness of breath. No abdominal pain. No nausea, vomiting, constipation, or diarrhea. His legs that were bad last week with heaviness is not that way, the legs are fine at this time. No skin issues. No anxiety. No depression. No sweating. PHYSICAL EXAMINATION: GENERAL: He is well-appearing, nontoxic, comfortable. He is joking. VITAL SIGNS: On physical exam, he has a 97.8 temp, 76 pulse, 17 respiratory rate, 151/86 blood pressure, 98% of O2 sat on oxygen. HEENT: His head is atraumatic, normocephalic. His extraocular muscles are intact. His pupils equal, reactive to light and accommodation. Throat is moist. Tongue is actually midline at this time. NECK: Supple. CARDIOPULMONARY: Heart is regular rate. Normal S1 and S2. No AFib. LUNGS: Clear to auscultation with decreased breath sounds. ABDOMEN: Soft, nontender. Positive bowel sounds. No guarding, no rebound, no CVA tenderness. EXTREMITIES: Have no edema. He can move all 4 extremities well. He has good strength equally bilaterally hands and feet. NEUROLOGIC: A GCS of 15. Cranial nerves II through XII grossly intact. Normal speech. Neurologically, he is fine except the left eye has little off, but he is not complaining at all at this time. SKIN: Warm and dry. No apparent ulcers. He is comfortable. THYROID: Apparently midline. No appreciable lymphadenopathy appreciated. LABORATORY DATA: He has multiple tests. He had a 141 sodium, potassium 4.5, BUN 20, creatinine 1.6, GFR is 57, sugar is 161, calcium is 9.5, total bili is 0.7, AST is 21, ALT is 30, alk phos 83 and 0.01 is his troponin. 7.1 is his total protein, albumin is 12.3, globulin 2.8, triglycerides 141, cholesterol is 189, LDL is 124, HDL is 44, and INR is 0.99. He is taking an aspirin a day. White count 6.5, hemoglobin 14.3, hematocrit 40.5, platelets of 171. He had an MRI of the brain which showed subacute infarct posterior left caudate nucleus of left posterolateral thalamus. This infarct appears less conspicuous compared from a prior MRI, mild chronic periventricular white mater ischemic changes. No acute intracranial hemorrhage, moderate volume loss. He also had a CAT scan of the brain. This showed no acute intracranial hemorrhage, previously noted acute infarct, left posterolateral thalamus and posterior seen compared to the high resolution of the MRI. Mild chronic white mater ischemic changes, chronic bilateral basal nuclei lacunar type infarcts, moderate volume loss. IMPRESSION AND PLAN: We will watch him overnight. Get neurological consult. Get cardiology consult. Check his blood sugars. Check his labs tomorrow. He will be in observation status. Hopefully, he will do very well. This is an H and P on the patient who had most probably a transient ischemic attack and status post cerebrovascular accident last week. Lane Lozada DO [facility]
[2017-01-10 05:58] VITALS: O2SAT 97
[2017-01-10 07:15] LABS: HEMATOCRIT 37.7 % (42.0-52.0); MEAN CORPUSCULAR HEMOGLOBIN 31.5 pg (25.0-35.0); MEAN CORPUSCULAR HGB CONC 34.2 g/dl (31.0-37.0); MEAN PLATELET VOLUME 8.8 fl (7.0-11.0); RED CELL DISTRIBUTION WIDTH 13.1 % (11.5-14.5); WHITE BLOOD COUNT 5.8 10^3/ul (4.5-11.0)
[2017-01-10 07:51] LABS: ALB/GLOB RATIO 1.4 (1.1-1.8); ALKALINE PHOSPHATASE 55 U/L (38-126); ALT/SGPT 29 U/L (7-56); AST/SGOT 23 U/L (17-59); BILIRUBIN,TOTAL 0.5 mg/dL (0.2-1.3); BLOOD UREA NITROGEN 23 mg/dL (7-21); CARBON DIOXIDE 26 mmol/L (21-33); CHLORIDE 110 mmol/L (98-107); GFR AFRICAN-AMERICAN > 60; GLUCOSE,RANDOM 81 mg/dL (70-110); SODIUM 143 mmol/L (132-148); TOTAL PROTEIN 6.1 g/dL (5.8-8.3)
[2017-01-10 07:55] LABS: POTASSIUM 4.6 mmol/L (3.6-5.0)
[2017-01-10] MEDS: Insulin Reg-HIGH-Coverage SC SCH ×2 (08:31→11:30)
--- NOTE | 2017-01-10 09:47 | CP.PCM.CON ---
<Maricel Badillo - Last Filed: 01/10/17 11:46> History of Present Illness - History of Present Illness History of Present Illness: Neurology Consult Note for Amairani Blood PGY2 Reason for consult: TIA This is an 86Y M with PMH HTN, HLD, DM, BPH, CVA who was recently admitted for CVA in [facility] last week who came to ED because patient states he was not feeling well. As per family, he reported feeling the same way when he had the CVA. Patient denies having any vision changes, slurred speech, facial droop, numbness /tingling or weakness at the time. Head CT was done which showed no acute hemorrhage with noted acute infarct from previous CT in L posterolateral thalamus and posterior body of caudate which was less well seen. MRI brain showed subacute infarct posterior body of L caudate nucleus and L posterolateral thalamus and is less conspicuous to previous MRI. This am pt denies CP, SOB, n/v/d, numbness/tingling, vision changes, fever or chills. PMH: HTN, HLD, BPH, DM, CVA PSH: Denies Home meds: As per MAR All: NKDA SH: Denies EtOH, drug or tobacco use Review of Systems - Review of Systems All systems: reviewed and no additional remarkable complaints except Review of Systems: as per HPI Past Patient History - Infectious Disease Hx of Infectious Diseases: None - Past Social History Smoking Status: Unknown If Ever Smoked - CARDIAC Hx Hypertension: Yes - ENDOCRINE/METABOLIC Hx Diabetes Mellitus Type 2: Yes - MUSCULOSKELETAL/RHEUMATOLOGICAL Hx Falls: No - PSYCHIATRIC Hx Substance Use: No Meds Allergies/Adverse Reactions: Allergies Allergy/AdvReac Type Severity Reaction Status Date / Time No Known Allergies Allergy Verified 01/09/17 10:39 - Medications Medications: Current Medications Aspirin (Aspirin Chewable) 81 mg PO DAILY [facility] Atorvastatin Calcium (Lipitor) 80 mg PO DIN [facility] Glimepiride (Amaryl) 4 mg PO BID [facility] Last Admin: 01/09/17 18:44 Dose: 4 mg Insulin Human Regular (Humulin R High) 0 units SC ACHS [facility] PRN Reason: Protocol Last Admin: 01/10/17 08:31 Dose: Not Given Metformin HCl (Glucophage) 500 mg PO BID [facility] Last Admin: 01/09/17 19:15 Dose: 500 mg Non-Formulary Medication ([place]-3s/Dha/Epa/Fish Oil [Fish Oil [place]-3 Softgel]) 2 tab PO BID [facility] Last Admin: 01/09/17 19:18 Dose: Not Given Tamsulosin HCl (Flomax) 0.4 mg PO DAILY [facility] Physical Exam - Constitutional Appears: No Acute Distress - Head Exam Head Exam: ATRAUMATIC, NORMAL INSPECTION, NORMOCEPHALIC - Eye Exam Eye Exam: Normal appearance, PERRL Pupil Exam: NORMAL ACCOMODATION, PERRL - ENT Exam ENT Exam: Mucous Membranes Moist - Respiratory Exam Respiratory Exam: Clear to Auscultation Bilateral, NORMAL BREATHING PATTERN. absent: Rales, Rhonchi, Wheezes - Cardiovascular Exam Cardiovascular Exam: REGULAR RHYTHM, +S1, +S2. absent: Gallop, Rubs, Systolic Murmur - GI/Abdominal Exam GI & Abdominal Exam: Normal Bowel Sounds, Soft. absent: Rebound, Rigid, Tenderness - Extremities Exam Extremities exam: Positive for: normal inspection. Negative for: calf tenderness, pedal edema - Neurological Exam Neurological exam: Alert, CN II-XII Intact, Oriented x3 Additional comments: No focal neurological deficits noted - Psychiatric Exam Psychiatric exam: Normal Affect, Normal Mood - Skin Skin Exam: Dry, Normal Color, Warm Results - Vital Signs Recent Vital Signs: Last Vital Signs Temp 98.4 F 01/10/17 05:57 Pulse 53 L 01/10/17 05:57 Resp 20 01/10/17 05:57 BP 115/52 L 01/10/17 05:57 Pulse Ox 97 01/10/17 05:57 - Labs Result Diagrams: 01/10/17 07:10 01/10/17 07:10 Labs: Laboratory Results - last 24 hr 01/09/17 01/09/17 01/09/17 11:22 14:00 16:52 WBC RBC Hgb Hct MCV MCH MCHC RDW Plt Count MPV Sodium Potassium Chloride Carbon Dioxide Anion Gap BUN Creatinine Est GFR ( Amer) Est GFR (Non-Af Amer) POC Glucose (mg/dL) 217 H Random Glucose Calcium Total Bilirubin AST ALT Alkaline Phosphatase Total Protein Albumin Globulin Albumin/Globulin Ratio Urine Color Yellow Urine Appearance Clear Urine pH 6.0 Ur Specific [place] 1.020 Urine Protein Negative Urine Glucose (UA) 250 H Urine Ketones Trace H Urine Blood Negative Urine Nitrate Negative Urine Bilirubin Negative Urine Urobilinogen 0.2 Ur Leukocyte Esterase Negative Blood Type O POSITIVE Antibody Screen Negative BBK History Checked Patient has bt 01/10/17 01/10/17 07:10 07:10 WBC 5.8 RBC 4.10 Hgb 12.9 L Hct 37.7 L MCV 92.0 MCH 31.5 MCHC 34.2 RDW 13.1 Plt Count 153 MPV 8.8 Sodium 143 Potassium 4.6 Chloride 110 H Carbon Dioxide 26 Anion Gap 12 BUN 23 H Creatinine 1.1 Est GFR ( Amer) > 60 Est GFR (Non-Af Amer) > 60 POC Glucose (mg/dL) Random Glucose 81 Calcium 9.0 Total Bilirubin 0.5 AST 23 ALT 29 Alkaline Phosphatase 55 Total Protein 6.1 Albumin 3.6 Globulin 2.5 Albumin/Globulin Ratio 1.4 Urine Color Urine Appearance Urine pH Ur Specific [place] Urine Protein Urine Glucose (UA) Urine Ketones Urine Blood Urine Nitrate Urine Bilirubin Urine Urobilinogen Ur Leukocyte Esterase Blood Type Antibody Screen BBK History Checked Assessment & Plan - Assessment and Plan (Free Text) Assessment: This is an 86Y M with PMH HTN, HLD, DM, BPH, CVA who was recently admitted for [facility] last week who came to ED because patient states he was not feeling well. Head CT was done which showed no acute hemorrhage with noted acute infarct from previous CT in L posterolateral thalamus and posterior body of caudate which was less well seen. MRI brain showed subacute infarct posterior body of L caudate nucleus and L posterolateral thalamus and is less conspicuous to previous MRI. Symptoms can be secondary to cerebral hypoperfusion since BP has been low since admission. Patient also noted to be bradycardic on EKG. Plan: - Continue ASA - Will increase Lipitor to 80mg x 3 weeks then decrease down to 40mg daily - Physical therapy eval - Maintain euglycemia - Adequate hydration, avoid sudden drops in BP - Cardiology evaluation for bradycardia Case seen, discussed and reviewed with Dr. Badillo. Amairani Badillo PGY2 - Date & Time Date: 01/10/17 Time: 09:51 <Edwin Badillo - Last Filed: 01/10/17 13:07> Meds - Medications Medications: Current Medications Aspirin (Aspirin Chewable) 81 mg PO DAILY [facility] Last Admin: 01/10/17 10:37 Dose: 81 mg Atorvastatin Calcium (Lipitor) 80 mg PO DIN [facility] Glimepiride (Amaryl) 4 mg PO BID [facility] Last Admin: 01/10/17 10:37 Dose: 4 mg Insulin Human Regular (Humulin R High) 0 units SC ACHS [facility] PRN Reason: Protocol Last Admin: 01/10/17 08:31 Dose: Not Given Metformin HCl (Glucophage) 500 mg PO BID [facility] Last Admin: 01/10/17 10:37 Dose: 500 mg Non-Formulary Medication ([place]-3s/Dha/Epa/Fish Oil [Fish Oil [place]-3 Softgel]) 2 tab PO BID [facility] Last Admin: 01/10/17 10:38 Dose: Not Given Tamsulosin HCl (Flomax) 0.4 mg PO DAILY [facility] Last Admin: 01/10/17 10:37 Dose: 0.4 mg Results - Vital Signs Recent Vital Signs: Last Vital Signs Temp 98.2 F 01/10/17 12:00 Pulse 68 01/10/17 12:00 Resp 18 01/10/17 12:00 BP 119/60 01/10/17 12:00 Pulse Ox 97 01/10/17 05:57 - Labs Result Diagrams: 01/10/17 07:10 01/10/17 07:10 Labs: Laboratory Results - last 24 hr 01/09/17 01/09/17 01/10/17 14:00 16:52 07:10 WBC 5.8 RBC 4.10 Hgb 12.9 L Hct 37.7 L MCV 92.0 MCH 31.5 MCHC 34.2 RDW 13.1 Plt Count 153 MPV 8.8 Sodium Potassium Chloride Carbon Dioxide Anion Gap BUN Creatinine Est GFR ( Amer) Est GFR (Non-Af Amer) POC Glucose (mg/dL) 217 H Random Glucose Calcium Total Bilirubin AST ALT Alkaline Phosphatase Total Protein Albumin Globulin Albumin/Globulin Ratio Urine Color Yellow Urine Appearance Clear Urine pH 6.0 Ur Specific [place] 1.020 Urine Protein Negative Urine Glucose (UA) 250 H Urine Ketones Trace H Urine Blood Negative Urine Nitrate Negative Urine Bilirubin Negative Urine Urobilinogen 0.2 Ur Leukocyte Esterase Negative 01/10/17 07:10 WBC RBC Hgb Hct MCV MCH MCHC RDW Plt Count MPV Sodium 143 Potassium 4.6 Chloride 110 H Carbon Dioxide 26 Anion Gap 12 BUN 23 H Creatinine 1.1 Est GFR ( Amer) > 60 Est GFR (Non-Af Amer) > 60 POC Glucose (mg/dL) Random Glucose 81 Calcium 9.0 Total Bilirubin 0.5 AST 23 ALT 29 Alkaline Phosphatase 55 Total Protein 6.1 Albumin 3.6 Globulin 2.5 Albumin/Globulin Ratio 1.4 Urine Color Urine Appearance Urine pH Ur Specific [place] Urine Protein Urine Glucose (UA) Urine Ketones Urine Blood Urine Nitrate Urine Bilirubin Urine Urobilinogen Ur Leukocyte Esterase Attending/Attestation - Attestation I have personally seen and examined this patient.: Yes I have fully participated in the care of the patient.: Yes I have reviewed all pertinent clinical information: Yes
[2017-01-10] MEDS ORDERED: Sodium Chloride 0.9% 1,000 ML IV SCH (10:00)
[2017-01-10] MEDS: DHA PO SCH (10:38)
[2017-01-10] MEDS: OMEGA PO SCH (10:38)
[2017-01-10] MEDS: EPA PO SCH (10:38)
[2017-01-10] MEDS: FISH OIL PO SCH (10:38)
--- NOTE | 2017-01-10 12:22 | CARD ---
APPROVED REPORT EKG Measurement Heart [id number] 194P-2 [id number] <Conclusion> Sinus bradycardia with premature atrial complexes Incomplete right bundle branch block Borderline ECG
[2017-01-10 12:25] VITALS: BP 119/60; PULSE 68; RESP 18; TEMP 98.2
--- NOTE | 2017-01-10 19:33 | CARD ---
APPROVED REPORT EXAM: Two-dimensional and M-mode echocardiogram with Doppler and color Doppler. INDICATION CVA/TIA 2D DIMENSIONS Left Atrium (2D)3.6 (1.6-4.0cm)IVSd1.1 (0.7-1.1cm) LVDd4.2 (3.9-5.9cm)PWd1.4 (0.7-1.1cm) LVDs2.7 (2.5-4.0cm)FS (%) 36.0 % LVEF (%)65.9 (>50%) M-Mode DIMENSIONS Aortic Root3.10 (2.2-3.7cm)Aortic Cusp Exc.1.30 (1.5-2.0cm) Aortic Valve AoV Peak Kvdoclzx268.0cm/Mary Peak GR.13mmHg Mitral Valve E/A ratio0.0 TDI E/Lateral E'0.0E/Medial E'0.0 Tricuspid Valve TR Peak [id number] [id number] Peak Gr.20mmHg [id number] LEFT VENTRICLE The left ventricle is normal size. There is borderline concentric left ventricular hypertrophy. The left ventricular function is normal. The left ventricular ejection fraction is within the normal range. There is normal LV segmental wall motion. Transmitral Doppler flow pattern is Grade I-abnormal relaxation pattern. RIGHT VENTRICLE The right ventricle is normal size. There is normal right ventricular wall thickness. The right ventricular systolic function is normal. ATRIA The left atrium size is normal. The right atrium size is normal. AORTIC VALVE The aortic valve is mildly sclerotic. No aortic regurgitation is present. There is no aortic valvular stenosis. MITRAL VALVE The mitral valve is mildly thickened. There is no mitral valve regurgitation noted. There is no mitral valve stenosis. TRICUSPID VALVE The tricuspid valve is normal in structure. There is no tricuspid valve regurgitation noted. PULMONIC VALVE There is trace pulmonic valvular regurgitation. GREAT VESSELS The aortic root is normal in size. The IVC was not visualized. PERICARDIAL EFFUSION There is a trace loculated anterior pericardial effusion. <Conclusion> The left ventricle is normal size. The left ventricular function is normal. The left ventricular ejection fraction is within the normal range. There is normal LV segmental wall motion. Transmitral Doppler flow pattern is Grade I-abnormal relaxation pattern.
--- NOTE | 2017-01-11 08:48 | DS ---
BRIEF HISTORY AND HOSPITAL COURSE: I saw Reinaldo resting comfortably in bed. He told me he slept well last night. He is eating well. He feels well. I saw Dr. Alexander this morning. He will take a look at him this morning. Hopefully, he will be discharged this afternoon after lunch. He will go home on his Amaryl, aspirin, Flomax, Glucophage, Lipitor, and Lovaza. He has no chest pain, no shortness of breath, no abdominal pain, no vision changes, nothing new. No arm weakness or leg weakness. At this time, he feels well. He has 98.4 temp, 53 pulse, 115/52 blood pressure, 20 respiratory rate, 97% O2 sat on room air. His laboratories revealed 5.8 white count, 12.9 hemoglobin, 37.7 hematocrit, and 153,000 platelets. He has 143 sodium, potassium 4.6, BUN is 23, creatinine 1.1. GFR is greater than 60, sugar is 81, calcium is 9, total bilirubin is 0.5, AST is 23, ALT is 29, alkaline phosphatase is 55, troponin less than 0.01, total bilirubin is 6.1, albumin is 3.6, globulin 2.5. Urine was clean. Waiting for Dr. Alexander to see him. Also, Dr. Badillo, the neurologist, is supposed to see him and give us his point of view. Nothing from Nursing. Nursing said nothing new with him. Nothing new on his vital signs or his telemetry. radiographer angiogram shows sinus rhythm. We are awaiting Neurology and Cardiology; hopefully, we will discharge him after lunch. He will be followed as an outpatient. We changed the observation status. He had a possible TIA situation on top of his stroke he had last week and he is a diabetic. discussed w/ family at length Lane Lozada DO MTDD
--- NOTE | 2017-01-11 09:09 | CON ---
CARDIOLOGY CONSULTATION DATE: 01/10/2017 HISTORY OF PRESENT ILLNESS: The patient is an 86-year-old male, who presents with visual disturbances. CT scan and MRI shows a subacute infarct in the posterior left caudal nucleus and part of the thalamus. The patient's cardiac risk factors includes diabetes mellitus, and hypercholesterolemia. The patient is free of cardiac disease. No previous history of atrial fibrillation. No previous myocardial infarction. He denies angina. Denies shortness of breath. SOCIAL HISTORY: The patient does not smoke. REVIEW OF SYSTEMS: A 14-point review of systems reviewed in detail. There are no cardiac symptoms noted. His visual disturbances have improved. PHYSICAL EXAMINATION: VITAL SIGNS: Blood pressure 115/52, the heart rate is in the 60s and normal sinus rhythm with occasional APCs. NECK: Negative JVD. LUNGS: Without rales. HEART: S1, S2 with a 1/6 systolic ejection murmur. EXTREMITIES: Without edema. EKG shows normal sinus rhythm with APCs. LABORATORY DATA: Include a hemoglobin of 12.9. Chemistries, troponin is negative x1. BUN and creatinine is unremarkable. The glucose is 217. IMPRESSION: 1. Cerebrovascular accident. 2. Atrial premature contraction's without documented atrial fibrillation. 3. Diabetes mellitus. 4. Hypercholesterolemia. 5. Atherosclerosis. Given these findings, I have an extended discussion with the patient's daughter who is a Secondary Art Teacher in the [employer]. The possibility of paroxysmal atrial fibrillation as a cause of his CVA is real. They decided against implantation of the LINQ monitoring system. Instead, we will obtain an echocardiogram. If there is no dilated left atrium or left ventricle, we will consider placing the patient on aspirin and Plavix. If there is a dilated left atrium and ventricle, we will consider placing the patient on anticoagulation and low-dose baby aspirin. Aleks Alexander MD
--- NOTE | 2017-01-11 21:15 | DS ---
HISTORY OF PRESENT ILLNESS: He did very well overnight. No complaints. He is feeling better. There are no acute strokes at this time, just the once in a week earlier. He will go home on his aspirin and his Lipitor. Awaiting for Dr. Alexander to review the 2D echo, and we are going to add either Plavix or possibly Eliquis. I will discuss that with Dr. Alexander today, and I will call up the patient, and I will know the addition of a new medication. He will also have increased metformin to 500 twice a day. I will be following him in the outpatient this week. This is a discharge summary on the patient, who had a questionable TIA, felt funny, observation status, overnight stay for not feeling well. Thought he was having another stroke, but was not. Lane Lozada DO
--- NOTE | 2017-01-12 12:46 | CARD ---
APPROVED REPORT EKG Measurement Heart [id number] [place] 182P-13 [id number] <Conclusion> Normal sinus rhythm Incomplete RBBB.
== END 2017-01-10 16:18 | disposition home or self-care (01) ==
LOC: ED 10:29 → INTOOBSV 11:12 → ERH 11:12 → UNDOADMIN 11:24 → ERH 17:25 → 2RNO 17:44
PROVIDERS: ADMIT Family Medicine; ATTEND Family Medicine
DX: I69.398 Other sequelae of cerebral infarction (principal); H53.9 Unspecified visual disturbance; I49.1 Atrial premature depolarization; E11.9 Type 2 diabetes mellitus without complications; I10 Essential (primary) hypertension; N40.0 Benign prostatic hyperplasia without lower urinary tract symptoms; E78.00 Pure hypercholesterolemia, unspecified; Z79.84 Long term (current) use of oral hypoglycemic drugs
CPT/HCPCS: 36415; 70450; 70551; 71010; 80053; 80061; 81003; 82948; 83036; 84484; 85025; 85027; 85610; 85730; 86850; 86900; 93005; 93306; 97116; 97161; 99285; G0378; G8978; G8979; G8980; J7040

== ENCOUNTER 2018-06-07 14:55 | Emergency (ER) | payer MEDICARE, BC ==
[2018-06-07 14:56] VITALS: BMI 23.6
[2018-06-07 15:28] VITALS: BP 138/74; PULSE 81; RESP 16; TEMP 97.9; O2SAT 97
[2018-06-07 16:24] LABS: URINE BILIRUBIN NEGATIVE (NEGATIVE); URINE BLOOD TRACE-LYSED (NEGATIVE); URINE GLUCOSE (UA) >=1000 mg/dL (NEGATIVE); URINE LEUKOCYTE ESTERASE TRACE Leu/uL (NEGATIVE); URINE PROTEIN NEGATIVE mg/dL (<30 mg/dL); URINE UROBILINOGEN 0.2 E.U./dL (<1 E.U./dL)
[2018-06-07 16:28] LABS: URINE APPEARANCE SL CLOUDY (CLEAR); URINE COLOR YELLOW (YELLOW)
--- NOTE | 2018-06-07 16:35 | ED PDOC ---
Arrival/HPI - General Chief Complaint: Male Genitourinary Time Seen by Provider: 06/07/18 15:48 Historian: Patient - History of Present Illness Narrative History of Present Illness (Text): 87 y/o male with PMH of HLD, DM, CVA presents to the ED c/o dysuria and urinary frequency x 4 days. Pt was placed on cipro 3 days ago but has not had any relief of symptoms. Pt saw PMD Dr. Lozada yesterday, and was advised to continue antibiotic and followup with urology. Pt did not like the office of the urologist, prompting visit to ED. Denies fevers, chills, nausea, vomiting, abdominal pain, dizziness, headache, rectal pain, hematuria, penile discharge, testicular pain or swelling, confusion, numbness, weakness, paresthesias, back pain, or any other associated symptoms. Past Medical History - Provider Review Nursing Documentation Reviewed: Yes - Infectious Disease Hx of Infectious Diseases: None - Cardiac Hx Cardiac Disorders: Yes Hx Hypertension: Yes - Pulmonary Hx Respiratory Disorders: No - Neurological Hx Neurological Disorder: Yes HX Cerebrovascular Accident: Yes - HEENT Hx HEENT Disorder: No - Renal Hx Renal Disorder: No - Endocrine/Metabolic Hx Endocrine Disorders: Yes Hx Diabetes Mellitus Type 2: Yes - Hematological/Oncological Hx Blood Disorders: No - Integumentary Hx Dermatological Disorder: Yes Hx Melanoma: Yes - Musculoskeletal/Rheumatological Hx Falls: No - Genitourinary/Gynecological Hx Genitourinary Disorders: Yes Hx Prostate Problems: Yes - Psychiatric Hx Psychophysiologic Disorder: No Hx Substance Use: No - Surgical History Other/Comment: SKIN R/T MELANOMA - Anesthesia Hx Anesthesia: No Family/Social History - Physician Review Nursing Documentation Reviewed: Yes Family/Social History: No Known Family HX Smoking Status: Former Smoker Hx Alcohol Use: No Hx Substance Use: No Allergies/Home Meds Allergies/Adverse Reactions: Allergies No Known Allergies Allergy (Verified 01/09/17 10:39) Home Medications: Home Meds Medication Instructions Recorded Confirmed Glimepiride [Amaryl] 4 mg PO BID 01/04/17 06/07/18 Tamsulosin [Flomax] 0.4 mg PO DAILY 01/04/17 06/07/18 metFORMIN [glucOPHAGE] 500 mg PO DAILY 01/04/17 06/07/18 Atorvastatin [Lipitor] 40 mg PO DAILY 04/28/17 06/07/18 Clopidogrel [Plavix] 75 mg PO DAILY 04/29/17 06/07/18 Review of Systems - Review of Systems Constitutional: Normal. absent: Fatigue, Fevers Eyes: Normal. absent: Vision Changes ENT: Normal. absent: Sore Throat, Sinus Congestion Respiratory: Normal. absent: SOB, Cough Cardiovascular: Normal. absent: Chest Pain, Palpitations, Syncope Gastrointestinal: Normal. absent: Abdominal Pain, Nausea, Vomiting, Appetite Changes Genitourinary Male: Dysuria, Frequency. absent: Hematuria Musculoskeletal: Normal. absent: Arthralgias, Back Pain Skin: Normal. absent: Rash Neurological: Normal. absent: Headache, Dizziness Endocrine: Normal Hemo/Lymphatic: Normal Psychiatric: Normal Physical Exam Vital Signs Reviewed: Yes Vital Signs Temp Pulse Resp BP Pulse Ox 06/07/18 15:20 97.9 F 81 16 138/74 97 Temperature: Afebrile Blood Pressure: Normal Pulse: Regular Respiratory Rate: Normal Appearance: Positive for: Well-Appearing, Non-Toxic, Comfortable Pain Distress: None Mental Status: Positive for: Alert and Oriented X 3 Finger Stick Blood Glucose: 164 - Systems Exam Head: Present: Atraumatic, Normocephalic Pupils: Present: PERRL Extroacular Muscles: Present: EOMI Conjunctiva: Present: Normal Mouth: Present: Moist Mucous Membranes Neck: Present: Normal Range of Motion. No: Meningeal Signs Respiratory/Chest: Present: Clear to Auscultation, Good Air Exchange. No: Respiratory Distress, Accessory Muscle Use Cardiovascular: Present: Regular Rate and Rhythm, Normal S1, S2 Abdomen: Present: Normal Bowel Sounds. No: Tenderness, Distention, Peritoneal Signs, Rebound, Guarding Back: Present: Normal Inspection. No: CVA Tenderness, Midline Tenderness, Paraspinal Tenderness Upper Extremity: Present: Normal Inspection, Normal ROM, NORMAL PULSES, Neurovascularly Intact, Capillary Refill < 2s. No: Cyanosis, Edema, Temperature Abnormalties Lower Extremity: Present: Normal ROM Neurological: Present: GCS=15, CN II-XII Intact, Speech Normal, Motor Func Grossly Intact, Normal Sensory Function, Gait Normal Skin: Present: Warm, Dry, Normal Color. No: Rashes Psychiatric: Present: Alert, Oriented x 3, Normal Insight, Normal Concentration, Normal Affect, Normal Mood Medical Decision Making ED Course and Treatment: Initial Plan: * UA, culture UA suspicious for UTI Spoke with Dr. Lozada who recommends discharge home with change in antibiotic. Prescribed keflex, first dose here. Will give urology followup with Dr. Olivares. Diagnostic testing results and plan of care discussed with patient. Strict instructions given regarding prescription use, importance of followup, and signs/symptoms to return to ER including fever, chills, altered mental status, abdominal pain, nausea, vomiting, or any other new/worsening symptoms. Pt verbalized understanding of discussion. Patient is A&Ox3, ambulating with steady gait, with vital signs stable for discharge. - Lab Interpretations Lab Results: Urine Color Yellow (YELLOW) 06/07/18 16:00 Urine Appearance Sl cloudy (CLEAR) 06/07/18 16:00 Urine pH 6.0 (4.7-8.0) 06/07/18 16:00 Ur Specific [place] 1.020 (1.005-1.035) 06/07/18 16:00 Urine Protein Negative mg/dL (<30 mg/dL) 06/07/18 16:00 Urine Glucose (UA) >=1000 mg/dL (NEGATIVE) 06/07/18 16:00 Urine Ketones Negative mg/dL (NEGATIVE) 06/07/18 16:00 Urine Blood Trace-lysed (NEGATIVE) H 06/07/18 16:00 Urine Nitrate Negative (NEGATIVE) 06/07/18 16:00 Urine Bilirubin Negative (NEGATIVE) 06/07/18 16:00 Urine Urobilinogen 0.2 E.U./dL (<1 E.U./dL) 06/07/18 16:00 Ur Leukocyte Esterase Trace Bon/uL (NEGATIVE) H 06/07/18 16:00 I have reviewed the lab results: Yes Disposition/Present on Arrival - Present on Arrival Any Indicators Present on Arrival: No History of DVT/PE: No History of Uncontrolled Diabetes: No Urinary Catheter: No History of Decub. Ulcer: No History Surgical Site Infection Following: None - Disposition Have Diagnosis and Disposition been Completed?: Yes Diagnosis: UTI (urinary tract infection) Disposition: HOME/ ROUTINE Disposition Time: 16:30 Patient Plan: Discharge Condition: STABLE Discharge Instructions (ExitCare): Urinary Tract Infections in Adults Additional Instructions: Keflex every 12 hours for [address] Olivares, urology within [address] Lozada within 2 days Return to ER with any new/worsening symptoms Prescriptions: Cephalexin [Keflex] 500 mg PO Q12 7 Days #13 capsule Referrals: Jonatan Olivares MD [Staff Provider] - Follow up with primary Lane Lozada DO [Staff Provider] - Follow up with primary Forms: Content [employer]: [employer] (Sing[place]an)
[2018-06-07 16:38] LABS: URINE BACTERIA MOD /hpf; URINE WBC 15 - 20 /hpf (0-6)
== END 2018-06-07 17:13 | disposition home or self-care (01) ==
LOC: ED 14:55
DX: N39.0 Urinary tract infection, site not specified (principal); E78.5 Hyperlipidemia, unspecified; E11.9 Type 2 diabetes mellitus without complications; I10 Essential (primary) hypertension; Z86.73 Personal history of transient ischemic attack (TIA), and cerebral infarction without residual deficits; Z87.891 Personal history of nicotine dependence

== ENCOUNTER 2018-06-16 17:19 | Outpatient (CLI) | payer MEDICARE, BC | END 2018-06-16 17:20 | disposition home or self-care (01) | LOC: RAD 17:20 ==

== ENCOUNTER 2018-06-23 06:21 | Emergency (ER) | payer MEDICARE, BC ==
[2018-06-23 06:21] VITALS: BMI 23.6
[2018-06-23 06:45] VITALS: RESP 18; TEMP 97.5
--- NOTE | 2018-06-23 07:00 | ED PDOC ---
Arrival/HPI - General Chief Complaint: Male Genitourinary Time Seen by Provider: 06/23/18 06:50 Historian: Patient - History of Present Illness Narrative History of Present Illness (Text): 06/23/18 06:59 87M w/ h/o CVA, basal cell carcinoma s/p resection presenting to the Emergency Room for dysuria and difficulty voiding for the past several weeks. The patient states he had been experiencing a sense of bladder fullness and decreased urinary stream with intermittent dysuria over the past few weeks. He reports seeing Dr. Lozada(PCP)after urinalysis revealed he had a UTI and was treated with Ciprofloxacin. Subsequently, cultures and sensitivities revealed pathogens that showed sensitivity to Keflex and was thus given a regimen to start on. However, the patient had been seeing Dr. August(urology) for his urinary complaints and had been given Proscar, Flomax and additional medications to assist with voiding with no real alleviation in his symptoms. CT a/p perfomed on 06/16/18 revealed enlarged prostate with no evidence of obstruction. He was advised to present to the Emergency Room for Redman placement and follow up on 06/27/18. PCP: Dr. Lozada Specialist: Dr. Mirna August(urology) Time/Duration: > month Symptom Onset: Gradual Symptom Course: Unchanged Quality: Fullness Severity Level: Moderate Context: Home Past Medical History - Provider Review Nursing Documentation Reviewed: Yes - Travel History Have you recently traveled outside [place] w/in the past 3 mons?: No - Infectious Disease Hx of Infectious Diseases: None - Cardiac Hx Cardiac Disorders: Yes Hx Hypertension: Yes - Pulmonary Hx Respiratory Disorders: No - Neurological Hx Neurological Disorder: Yes HX Cerebrovascular Accident: Yes - HEENT Hx HEENT Disorder: No - Renal Hx Renal Disorder: No - Endocrine/Metabolic Hx Endocrine Disorders: Yes Hx Diabetes Mellitus Type 2: Yes - Hematological/Oncological Hx Blood Disorders: No - Integumentary Hx Dermatological Disorder: Yes Hx Melanoma: Yes - Musculoskeletal/Rheumatological Hx Falls: No - Genitourinary/Gynecological Hx Genitourinary Disorders: Yes Hx Prostate Problems: Yes - Psychiatric Hx Psychophysiologic Disorder: No Hx Substance Use: No - Surgical History Other/Comment: SKIN R/T MELANOMA - Anesthesia Hx Anesthesia: No Family/Social History - Physician Review Nursing Documentation Reviewed: Yes Family/Social History: Unknown Family HX Smoking Status: Former Smoker Hx Alcohol Use: No Hx Substance Use: No Allergies/Home Meds Allergies/Adverse Reactions: Allergies No Known Allergies Allergy (Verified 01/09/17 10:39) Home Medications: Home Meds Medication Instructions Recorded Confirmed Glimepiride [Amaryl] 4 mg PO BID 01/04/17 06/23/18 Tamsulosin [Flomax] 0.4 mg PO DAILY 01/04/17 06/23/18 metFORMIN [glucOPHAGE] 500 mg PO DAILY 01/04/17 06/23/18 Atorvastatin [Lipitor] 40 mg PO DAILY 04/28/17 06/23/18 Clopidogrel [Plavix] 75 mg PO DAILY 04/29/17 06/23/18 Review of Systems - Physician Review All systems were reviewed & negative as marked: Yes - Review of Systems Genitourinary Male: Dysuria, Urinary Output Changes (decreased urinary stream) Physical Exam Vital Signs Reviewed: Yes Vital Signs Temp Pulse Resp BP Pulse Ox 06/23/18 06:37 97.5 F L 103 H 18 123/60 95 Temperature: Afebrile Blood Pressure: Normal Pulse: Tachycardic Respiratory Rate: Normal Appearance: Positive for: Well-Appearing, Non-Toxic, Comfortable Pain Distress: None Mental Status: Positive for: Alert and Oriented X 3 - Systems Exam Head: Present: Atraumatic, Normocephalic Pupils: Present: PERRL Extroacular Muscles: Present: EOMI Conjunctiva: Present: Normal Mouth: Present: Moist Mucous Membranes Neck: Present: Normal Range of Motion Respiratory/Chest: Present: Clear to Auscultation, Good Air Exchange. No: Respiratory Distress Cardiovascular: Present: Regular Rate and Rhythm, Normal S1, S2 Abdomen: Present: Tenderness (slight fullness noted to suprapubic region.), Normal Bowel Sounds. No: Distention Upper Extremity: Present: Normal Inspection, Capillary Refill < 2s Neurological: Present: Speech Normal, Motor Func Grossly Intact, Normal Sensory Function Skin: Present: Warm, Dry, Normal Color Psychiatric: Present: Alert, Oriented x 3, Normal Insight, Normal Concentration Medical Decision Making ED Course and Treatment: 06/23/18 07:23 Impression 87y/o M w/ h/o CVA presenting to the Emergency Room for decreased urinary output. Plan --Urinalysis --Urine culture & sensitivities --Urology Consult --Indwelling Redman Placement --Reassess & disposition Progress Notes 06/23/18 07:26 Patient noted to void, but reports in small amounts twice. Attempt to call Dr. Mirna August(urology) with no response. Will attempt again in 15 mins. 06/23/18 07:[address] August who requests bladder scan, Redman placement and post void volume measurements. He agrees with lab submission of urine for culture and specimen. He states he will attempt to come evaluate patient in the Emergency Room prior to his office hours at 0830, but in case he is unable to requests for patient to be discharged with a leg bag and follow up visit on 06/27/18. Relegated updated plan to patient and family. 06/23/18 07:57 Bladder scan reveals urinary volume of 200mL. UA negative for nitrites, esterases and bacteria. 06/23/18 08:16 Post void residual 200mL. Spoke to Dr. August who states patient may keep Redman in and see him in office today or take the Redman out and resume his usual appointment on 06/27/18. Shared decision making with patient and family deciding to keep Redman in place and see Dr. August in office. Nurse prompted to change into leg bag. Patient evaluated by Dr. Lozada(PCP). - Lab Interpretations Lab Results: Lab Results 06/23/18 06:50: Urine Color Yellow, Urine Appearance Clear, Urine pH 6.0, Ur Specific Goodman 1.015, Urine Protein 30 H, Urine Glucose (UA) 250 H, Urine Ketones Negative, Urine Blood Negative, Urine Nitrate Negative, Urine Bilirubin Negative, Urine Urobilinogen 0.2, Ur Leukocyte Esterase Negative, Urine RBC 0 - 2, Urine WBC 1 - 3, Ur Epithelial Cells None, Amorphous Sediment Few, Urine Bacteria Small, Coarse Granular Casts Trace, Urine Other Fiber I have reviewed the lab results: Yes Disposition/Present on Arrival - Present on Arrival Any Indicators Present on Arrival: No History of DVT/PE: No History of Uncontrolled Diabetes: No Urinary Catheter: No History of Decub. Ulcer: No History Surgical Site Infection Following: None - Disposition Have Diagnosis and Disposition been Completed?: Yes Diagnosis: Urinary retention, Prostate enlargement Disposition: HOME/ ROUTINE Disposition Time: 08:37 Patient Plan: Discharge Condition: IMPROVED Discharge Instructions (ExitCare): Urinary Retention (DC), Redman Catheter, Male Print Language: GIBRALTARIAN Additional Instructions: All medical record entries made by the Scribe were at my direction and personally dictated by me. I have reviewed the chart and agree that the record accurately reflects my personal performance of the history, physical exam, medical decision making, and the department course for this patient. I have also personally directed, reviewed, and agree with the discharge instructions and disposition. Please follow up with Dr. August in office at 0930 or later today Referrals: Lane Lozada DO [Primary Care Provider] - Follow up with primary Daquan August MD [Staff Provider] - Follow up with primary Forms: [employer] [facility] (Kyrgyz)
[2018-06-23 07:32] LABS: URINE BILIRUBIN NEGATIVE (NEGATIVE); URINE BLOOD NEGATIVE (NEGATIVE); URINE GLUCOSE (UA) 250 mg/dL (NEGATIVE); URINE LEUKOCYTE ESTERASE NEGATIVE Leu/uL (NEGATIVE); URINE PROTEIN 30 mg/dL (<30 mg/dL); URINE UROBILINOGEN 0.2 E.U./dL (<1 E.U./dL)
[2018-06-23 07:37] LABS: URINE APPEARANCE CLEAR (CLEAR); URINE COLOR YELLOW (YELLOW)
[2018-06-23 07:39] LABS: URINE AMORPHOUS SEDIMENT FEW /hpf; URINE BACTERIA SMALL /hpf; URINE RBC 0 - 2 /hpf (0-2)
[2018-06-23 07:41] LABS: URINE COARSE GRANULAR CAST TRACE /hpf
[2018-06-23 08:58] VITALS: BP 124/87; PULSE 74; O2SAT 98
== END 2018-06-23 09:00 | disposition home or self-care (01) ==
LOC: ED 06:21
DX: N40.1 Benign prostatic hyperplasia with lower urinary tract symptoms (principal); R33.8 Other retention of urine

== ENCOUNTER 2018-06-26 06:35 | Outpatient (CLI) | payer MEDICARE, BC | END 2018-06-26 06:36 | disposition home or self-care (01) | LOC: CARDIO 06:35 ==

== ENCOUNTER 2018-06-30 06:07 | Inpatient (IN) | payer MEDICARE, BC ==
[2018-06-29 06:40] VITALS: BMI 21.8
[2018-06-30] MEDS ORDERED: Iohexol 350mgl/ml 50 ML ONE (06:48)
[2018-06-30] MEDS ORDERED: Lidocaine PF 2% (5 ml) Inj (For Cardiac Arrhy) ONE (06:48)
[2018-06-30] MEDS ORDERED: Iodixanol 320 MG/ML 100 ML BOTTLE IV ONE (06:48)
[2018-06-30] MEDS ORDERED: Phenylephrine 10 mg/ml Inj ONE (06:48)
[2018-06-30] MEDS ORDERED: Iodixanol 320 MG/ML 200 ML BOTTLE IV ONE (06:48)
[2018-06-30] MEDS ORDERED: Heparin 2,000 ML IV ONE (06:49)
[2018-06-30] MEDS ORDERED: Nitroglycerin 50mg in D5W 0 MG/0 ML BOTTLE IV ONE (06:49)
[2018-06-30 07:03] LABS: BASO # 0.02 K/mm3 (0.0-2.0); BASO % 0.2 % (0.0-3.0); EOS # 0.3 (0.0-0.7); EOS % 2.6 % (1.5-5.0); HEMOGLOBIN 12.5 g/dL (14.0-18.0); LYMPH # 0.8 (1.2-3.4); LYMPH % 6.8 % (22.0-35.0); MEAN CELL VOLUME 94.1 fl (80.0-105.0); MEAN CORPUSCULAR HEMOGLOBIN 31.8 pg (25.0-35.0); MEAN CORPUSCULAR HGB CONC 33.8 g/dl (31.0-37.0); MEAN PLATELET VOLUME 8.7 fl (7.0-11.0); MONO # 0.6 (0.1-0.6); MONO % 4.9 % (1.0-6.0); RBC 3.93 10^6/uL (3.5-6.1); RED CELL DISTRIBUTION WIDTH 12.7 % (11.5-14.5); WHITE BLOOD COUNT 11.7 10^3/uL (4.5-11.0)
[2018-06-30] MEDS ORDERED: Adenosine 90 mg/30mL IV ONE (07:06)
[2018-06-30 07:11] LABS: INR 1.04; PARTIAL THROMBOPLASTIN TIME 33.8 Seconds (26.9-38.3); PROTHROMBIN TIME 11.8 SECONDS (9.4-12.5)
[2018-06-30 07:28] LABS: BLOOD UREA NITROGEN 18 mg/dL (7-21); GFR NON-AFRICAN AMERICAN > 60
[2018-06-30] MEDS ORDERED: Midazolam 2 MG/2 ML VIAL ONE ×2 (08:20→08:30)
[2018-06-30] MEDS ORDERED: Iodixanol 320 mg/ml 150 ml Bottle IV ONE (08:48)
[2018-06-30] MEDS ORDERED: Eptifibatide 20 mg/10mL Inj IVP ONE (09:04)
--- NOTE | 2018-06-30 09:20 | CARD ---
APPROVED REPORT Date of service: 06/30/2018 EKG Measurement Heart [id number] <Conclusion> Normal sinus rhythm Inferior infarct, age undetermined Abnormal ECG
[2018-06-30] MEDS ORDERED: Sodium Chloride 0.9% 1,000 ML IV SCH (09:30)
--- NOTE | 2018-06-30 14:22 | CARDCATH ---
PROCEDURE DATE: 06/30/2018 PROCEDURES: 1. Cardiac catheterization and percutaneous transluminal coronary angioplasty. HISTORY: The patient is an 87-year-old male who presents with angina and a positive stress test. He suffers from diabetes mellitus, hypercholesterolemia, and had a CVA in the past. Because of this, cardiac catheterization was recommended. The right femoral artery was cannulated with a 6-Bulgarian sheath. There were no complications. I performed moderate sedation which included the presence of an independent trained observer that assisted in monitoring the patient's level of consciousness and physiologic status. After administration of Versed and fentanyl, my intra service time was 1 hour. The findings on catheterization revealed the left ventricle that contracted normally. Estimated ejection fraction of 60%. The patient had a right dominant circulation. 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 The RCA revealed diffuse atherosclerosis with a long 80-90% stenosis in the proximal portion as well as 80% stenosis in the proximal portion of a large RV branch. The left main artery was unremarkable. The LAD revealed 80% stenoses in its proximal portion and another 80% stenosis in its midportion. The circumflex artery revealed diffuse atherosclerosis without discrete critical lesions. Supra-aortic valvular injection revealed no AI. The patient was started on intravenous Angiomax under fluoroscopic guide, the guiding catheter was placed in the ostium of the left main artery. An 0.014 ATW wire was used to cross the two critical lesions. Two drug-eluting stents were placed, one in the proximal and one in the mid LAD with excellent results with no residual stenosis and NATHANIEL III flow. Two drug-eluting stents were placed in the RCA with excellent results with no residual stenosis and NATHANIEL III flow. Angio-Seal was used to close the femoral artery site. The patient tolerated the procedure well. In summary, the procedure was successful for PTCA and stent of four coronary lesions, two in the LAD, two in the RCA. 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 Given these findings, the patient will need to remain on aspirin and definitely on Plavix. His PRU was found to be subtherapeutic. He has been taking Plavix for a year. He received Integrilin and we will double up his Plavix dose. We will then measure his PRU in 1 week. Aleks Alexander MD [facility] # [id number]
[2018-06-30] MEDS: Insulin Reg-MEDIUM-Coverage SC SCH ×3 (14:51→23:13)
[2018-06-30 16:19] LABS: URINE BILIRUBIN NEGATIVE (NEGATIVE); URINE BLOOD LARGE (NEGATIVE); URINE GLUCOSE (UA) 250 mg/dL (NEGATIVE); URINE LEUKOCYTE ESTERASE NEGATIVE Leu/uL (NEGATIVE); URINE PROTEIN NEGATIVE mg/dL (<30 mg/dL); URINE UROBILINOGEN 0.2 E.U./dL (<1 E.U./dL)
[2018-06-30 16:20] LABS: URINE APPEARANCE CLEAR (CLEAR); URINE COLOR YELLOW (YELLOW)
[2018-06-30 17:14] LABS: URINE RBC 25 - 30 /hpf (0-2)
--- NOTE | 2018-06-30 19:07 | HP ---
DATE OF EXAM: 06/30/2018 HISTORY OF PRESENT ILLNESS: I have been working him up on the outpatient for bladder stones, surgery with Dr. Taran August. So in the process, he did a stress test with Cardiology, Dr. Alexander, found that to be positive. He went for cardiac cath today and had four stents placed, so he is going to be here overnight. He is comfortable after the procedure, a little bit groggy from the anesthesia. He has been put in Intensive. PAST MEDICAL HISTORY: History being 87 years of age with diabetes, high cholesterol, history of cancer. He had a CVA with no deficits. He has skin cancer with bladder stones, UTI history, basal cell carcinoma, melanoma with his brother, removal of basal cell from the arm at [facility]. He had basal cell in the ear. He has arthritis, a chronic urinary tract infection with dysuria. He has bladder stones. We will get Urology involved. He had a left heart cath with four stents. He usually walks with a cane. SOCIAL HISTORY: He quit smoking in 1958. FAMILY HISTORY: His father and grandfather had heart attacks. ALLERGIES: NO KNOWN DRUG ALLERGIES. MEDICATIONS: He had been on Macrodantin. He is going to be on Ecotrin, Flomax, insulin coverage, Lipitor, Macrodantin 50 mg daily, Plavix, Proscar, IV fluids. REVIEW OF SYSTEMS: No acute vision or hearing changes. No chest pain or shortness of breath at this time. No abdominal pain. No extremity pain. No skin issues that he knows of. He is kind of groggy, tired. PHYSICAL EXAMINATION: VITAL SIGNS: He has a 97.5 temp, 89 pulse, 118/56 blood pressure, 18 respiratory rate, and 99% O2 sat on room air. HEENT: Head; atraumatic and normocephalic. HEART: Regular rate. LUNGS: Decreased breath sounds. ABDOMEN: Soft, nontender. Positive bowel sounds. EXTREMITIES: No edema. NEUROLOGICAL: Alert and oriented x3 for the most part, a little groggy right now. SKIN: As far as I could tell is intact, a little poor turgor. LABORATORY DATA: Sodium is 137, potassium 4.4, BUN 18, creatinine 0.9, GFR is greater than 60, sugar is 207, I will put him on coverage, calcium is 10, INR is 1.04. White count 7.7, we will keep an eye on that, hemoglobin 12.5, hematocrit 37, platelets are 284. ASSESSMENT AND PLAN: He will be seen by Cardiology and by Urology. We will check his labs tomorrow. Hopefully tomorrow we will be able to discharge him. Hopefully he will do well. Reinaldo Stokes is here with coronary artery disease, coronary stent, four of them were placed by Dr. Alexander. Lane Lozada DO
--- NOTE | 2018-06-30 22:39 | CARD ---
APPROVED REPORT Date of service: 06/30/2018 EKG Measurement Heart [id number]-12 [id number] <Conclusion> Normal sinus rhythm Incomplete right bundle branch block Borderline ECG
[2018-06-30] MEDS: Meropenem IV 1 gm in NS 1 GM/50 ML BAG IVPB SCH (23:54)
[2018-07-01] MEDS: Vancomycin 750mg 750 MG/250 ML BAG IVPB SCH ×3 (00:05→22:50)
[2018-07-01] MEDS: Meropenem IV 1 gm in NS 1 GM/50 ML BAG IVPB SCH ×3 (05:37→21:56)
--- NOTE | 2018-07-01 05:47 | CON ---
DATE: 06/30/2018 UROLOGY CONSULTATION REASON FOR CONSULTATION: Urinary retention and voiding dysfunction. HISTORY OF PRESENT ILLNESS: Mr. Stokes is a very pleasant gentleman who is currently under the care of Dr. Aleks Alexander and also Dr. Lane Lozada. Mr. Stokes is a very pleasant gentleman. He has significant voiding dysfunction, irritative and obstructive complaints, decreased force of stream, and nocturia. He has bladder stones. He has hematuria. We have been discussing options for treatment; in fact, we have scheduled for a cystolitholapaxy for stone for Tuesday and in preparation for that procedure he was scheduled for a stress test. The stress was abnormal and so in fact we canceled the procedure for the stone. He had, instead of having the stone treated, he ended up having a cardiac catheterization and actually 4 stents were placed today by Dr. Alexander. I had a chance to speak to Dr. Alexander as well and also to Dr. Lozada. Now Urology is consulted regarding voiding dysfunction, specifically the patient is basically in and out of retention. He has to strain to urinate. With lying flat and trying to urinate, he got in trouble, but other times he is okay and he empties his bladder. We have found residuals anywhere between a 100 to 350. Today, the patient actually could not urinate and then he was able to subsequently urinate with about 450 mL and the bladder scan was subsequently 0 and a Redman catheter was inserted via the urethra and it showed 0 residual. There is a little bit of blood in the urine and it is the other reason for the consult. Blood shows a little bit of clot material. Urology is consulted for further recommendations. PAST MEDICAL AND SURGICAL HISTORY: As listed above, others unremarkable. A patient of Dr. Lane Lozada. SOCIAL HISTORY: He has a , children, and grandchildren. He is retired. His daughter happens to be a physician. Many discussions about options for treatment here. We discussed the patient's benefit. on his own. REVIEW OF SYSTEMS: Listed above, others noncontributory. PHYSICAL EXAMINATION: GENERAL: A well-nourished male who is currently resting comfortably. ABDOMEN: Relatively soft. The groin looks grossly intact. No abnormalities are appreciated. The remainder of the exam is otherwise unremarkable. LABORATORY DATA: See chart. DIAGNOSES: He has voiding dysfunction, decreased flow of stream, intermittent bouts of urinary retention and bladder calcified. ASSESSMENT AND PLAN: A very pleasant gentleman with the above history. We discussed various options with the patient, the family, and the . From Urology standpoint when he is cleared medically, we are going to plan for a cystoscope and a litholapaxy for the stones that are in the bladder and flush out any stones and hope that, that will decrease some of his irritation complaints. Again, he also has a history of coronary angioplasty. I do want to mention that I spoke to Dr. Alexander who performed some tests regarding platelet function then later assessed getting for a second. But despite the fact that the patient is on the Plavix, Plavix seems to not be having any major effect on the patient. The patient is on the Plavix now with an extent that he is going to be on that Plavix for quite some time. We will have to discuss whether or not we treat the stones. With the new cardiac stents, he is about as optimized as you are going to get according to Dr. Alexander with the patient having now wide open blood vessels. The issue is that we are not going to want to stop the Plavix. But perhaps we are able under direct vision with a laser and good visualization, to be able to get rid of all the stones. Hence, leave a large Redman catheter for any postoperative bleeding that may occur. We will discuss this, but we are not going to recommend stopping the Plavix. What we are going to review instead is as follows; we are going to monitor the patient and if he is okay then we are not going to do any further treatment, if he is not okay we are going to recommend inserting a Redman catheter. That is the short term; if it is not okay [facility], we are going to plan to treat the stones in the bladder even with the presence of Plavix and possible risk for bleeding rather than the , so further plans will follow pending the results of the consult. Plan for today as follows; 1. Monitor the patient, measure bladder scans, try to keep away from the Redman catheter, when he is able to stand try to have the patient stand to void and then further plans will follow. Taran August MD [facility] # [phone]
[2018-07-01 07:58] LABS: BASO # 0.02 K/mm3 (0.0-2.0); BASO % 0.2 % (0.0-3.0); EOS # 0.4 (0.0-0.7); EOS % 5.2 % (1.5-5.0); LYMPH # 0.5 (1.2-3.4); MEAN CELL VOLUME 94.9 fl (80.0-105.0); MEAN CORPUSCULAR HGB CONC 32.6 g/dl (31.0-37.0); MEAN PLATELET VOLUME 8.7 fl (7.0-11.0); MONO # 0.7 (0.1-0.6); MONO % 8.7 % (1.0-6.0); RBC 3.36 10^6/uL (3.5-6.1); RED CELL DISTRIBUTION WIDTH 12.9 % (11.5-14.5); WHITE BLOOD COUNT 8.2 10^3/uL (4.5-11.0)
[2018-07-01 07:59] LABS: HEMOGLOBIN 10.4 g/dL (14.0-18.0)
[2018-07-01 08:11] LABS: ALB/GLOB RATIO 1.2 (1.1-1.8); ALBUMIN 3.2 g/dL (3.0-4.8); ALT/SGPT 22 U/L (7-56); AST/SGOT 24 U/L (17-59); BLOOD UREA NITROGEN 18 mg/dL (7-21); GFR NON-AFRICAN AMERICAN > 60
[2018-07-01] MEDS ORDERED: Aspirin 325 mg EC Tablets PO STA (09:33)
[2018-07-01] MEDS ORDERED: Sodium Chloride 0.9% 1,000 ML IV STA (09:43)
--- NOTE | 2018-07-01 09:43 | PCM.RRT ---
<AldenAmeena - Last Filed: 07/01/18 09:50> MACROECONOMICS PROFESSOR Nurse Assessment - Situation Date: 07/01/18 Time MACROECONOMICS PROFESSOR was called: 09:14 MACROECONOMICS PROFESSOR Responder Arrival Time: 09:15 MACROECONOMICS PROFESSOR Location:: [address] [place] [address] Room Number: [id number] MACROECONOMICS PROFESSOR Reason for Call: Chest Pain, Respiratory Distress MACROECONOMICS PROFESSOR Called By: RN, Physician - IV IV Inserted during MACROECONOMICS PROFESSOR?: No - Respiratory Oxygen Delivery Method: Nasal Cannula @L/min Oxygen Flow Rate: 2 Received Nebulizer Treatments:: No Was the Patient Ventilated with Bag/Mask 100% O2?: No Secretions Suctioned?: No Was the Patient Intubated?: No Was the Patient Placed on a Ventilator?: No - Diagnostic Test Ordered EKG: Yes (In progress) Chest X-Ray: Yes CT Scan: No - Stat Labs Ordered MACROECONOMICS PROFESSOR Stat Labs Ordered: CBC, BMP, TROPONIN MACROECONOMICS PROFESSOR Other Labs Ordered: Mg/ Phos CPR started during MACROECONOMICS PROFESSOR?: No - Vital Signs Vital Sign: Rapid Response Vital Sign Blood Pressure 131/70 Pulse Rate 72 Respiratory Rate 16 Temperature 97.7 F Oxygen Saturation 100 - Finger Stick Blood Glucose Finger Stick Blood Glucose: 368 - Sepsis Screen Part 2 Sepsis Screen Part 2: Glucose elevated, Pt not on steroids - Vital Signs at end of MACROECONOMICS PROFESSOR Vital Signs at end of MACROECONOMICS PROFESSOR: Rapid Response End Vital Sign Blood Pressure 119/63 Pulse Rate 72 Respiratory Rate 18 Temperature 97.7 F O2 Sat by Pulse Oximetry 99 - Recommendations Notifications: Attending Physician, Consultations, Family or Designated Caregiver I.Reason for MACROECONOMICS PROFESSOR - A) Acute Change in Patient: (Select all that apply): Staff member or family is worried about patient - Neurological Status (Select all that apply): Oriented, Verbal, Follows Commands - Respiratory Oxygen Delivery Method: Nasal Cannula @L/min Oxygen Flow Rate: 2 - Constitutional Appears: Other (anxious) - Head Head Exam: ATRAUMATIC, NORMOCEPHALIC - Eyes Eye Exam: EOMI, Normal appearance - Cardiovascular Exam Cardiovascular Exam: Tachycardia Additional comments: distant heart sounds - Neurological Exam Neurological Exam: Alert, Awake, Oriented x3 - Extremities Exam Extremities Exam: Normal Inspection Plan - Assessment of Findings&Treatment Plan 87 year old male with a past medical history of CVA, DM II, and dyslipidemia who was on the telemetry floor s/p PCI yesterday who suddenly became short of breath and diaphoretic. At the time of my examination, the patient was already placed on director business intelligence with 2L of oxygen was being adminstered via [place]. The patient appeared anxious on exam. Vital signs were normal. An immediate 12 lead EKG was performed considering the high likelihood of an ACS.The EKG showed ST elevations in leads II, III, and aVF. A previous EKG was examined that did not show these findings. Dr. Alexander, (the data collector who performed the patient PCI yesterday) was immediately contacted and informed about the new findings/events. Dr. Alexander asked for a code heart to be called and for the patient to be given 90 mg of Brilinta.The patient will be taken to cardiac lab intern per institutional protocol. The house doctor and other staff will accompany the patient to the cardiac lab intern for a safe hand off to the data collector, Dr. Alexander. The plan is that he be monitored in the ICU post cardiac catheterization. <Yamilex Naidu - Last Filed: 07/01/18 17:05> MACROECONOMICS PROFESSOR Nurse Assessment - Vital Signs Vital Sign: Rapid Response Vital Sign Blood Pressure 131/70 Pulse Rate 72 Respiratory Rate 16 Temperature 97.7 F Oxygen Saturation 100 - Vital Signs at end of MACROECONOMICS PROFESSOR Vital Signs at end of MACROECONOMICS PROFESSOR: Rapid Response End Vital Sign Blood Pressure 96/55 Pulse Rate 76 Respiratory Rate 18 Temperature 97.7 F O2 Sat by Pulse Oximetry 99 Attending/Attestation - Attestation I have personally seen and examined this patient.: Yes I have fully participated in the care of the patient.: Yes I have reviewed all pertinent clinical information, including history, physical exam and plan: Yes Notes (Text): 07/01/18 17:02 Attending note; Patient seen and examined with resident during rapid response. Patient was complaining of chest discomfort, diaphoresis and arm numbness. Patient was alert and awake during examination. EKG showed ST elevation in 2 3 aVF. Case discussed with building associate Dr. Alexander in detail. Patient was given brillinta. Going to cardiac cath for acute inferior wall VT. Case discussed with PMD Dr. stephenson and quality assurance practice manager Dr. Allen in detail. Addendum; status post cardiac cath With PCI of right coronary artery. Patient is started on aspirin, Brilinta and started on IV Integrilin drip. The diagnosis and treatment plan discussed with family in detail by PMD and cardiology by the bedside. Monitor closely in ICU. 07/01/18 17:04
[2018-07-01 09:53] LABS: BASO # 0.01 K/mm3 (0.0-2.0); BASO % 0.1 % (0.0-3.0); EOS # 0.3 (0.0-0.7); EOS % 4.2 % (1.5-5.0); HEMOGLOBIN 10.3 g/dL (14.0-18.0); LYMPH # 0.7 (1.2-3.4); LYMPH % 9.3 % (22.0-35.0); MEAN CELL VOLUME 94.9 fl (80.0-105.0); MEAN CORPUSCULAR HEMOGLOBIN 30.8 pg (25.0-35.0); MEAN CORPUSCULAR HGB CONC 32.5 g/dl (31.0-37.0); MEAN PLATELET VOLUME 8.4 fl (7.0-11.0); MONO # 0.4 (0.1-0.6); MONO % 4.9 % (1.0-6.0); RBC 3.34 10^6/uL (3.5-6.1); RED CELL DISTRIBUTION WIDTH 12.8 % (11.5-14.5); WHITE BLOOD COUNT 7.3 10^3/uL (4.5-11.0)
[2018-07-01] MEDS ORDERED: Lidocaine PF 2% (5 ml) Inj (For Cardiac Arrhy) ONE (09:57)
[2018-07-01] MEDS ORDERED: Iodixanol 320 MG/ML 200 ML BOTTLE IV ONE (09:58)
[2018-07-01] MEDS ORDERED: Iohexol 350mgl/ml 50 ML ONE (09:58)
[2018-07-01] MEDS ORDERED: Midazolam 2 MG/2 ML VIAL ONE ×2 (09:58→10:31)
[2018-07-01] MEDS ORDERED: Iodixanol 320 MG/ML 100 ML BOTTLE IV ONE (09:58)
[2018-07-01] MEDS ORDERED: Heparin 2,000 ML IV ONE (09:59)
--- NOTE | 2018-07-01 10:00 | RAD ---
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 FINDINGS: LUNGS: Mild bibasilar chronic interstitial changes. No focal consolidation. Please note that chest x-ray has limited sensitivity for the detection of pulmonary masses. PLEURA: No significant pleural effusion identified. No definite pneumothorax . CARDIOVASCULAR: Heart size appears within normal limits. Atherosclerotic calcifications of the aorta. OSSEOUS STRUCTURES: Degenerative changes of the spine. VISUALIZED UPPER ABDOMEN: Unremarkable. OTHER FINDINGS: None. IMPRESSION: Mild bibasilar chronic interstitial changes.
[2018-07-01 10:13] LABS: TROPONIN I 0.05 ng/mL
[2018-07-01] MEDS ORDERED: Eptifibatide 20 mg/10mL Inj IVP ONE (10:23)
[2018-07-01 10:30] LABS: ALB/GLOB RATIO 1.2 (1.1-1.8); ALBUMIN 3.1 g/dL (3.0-4.8); ALT/SGPT 23 U/L (7-56); AST/SGOT 23 U/L (17-59); BLOOD UREA NITROGEN 21 mg/dL (7-21); GFR NON-AFRICAN AMERICAN > 60
[2018-07-01] MEDS ORDERED: Eptifibatide 0.75 mg/ml 75 MG/100 ML BAG IV ONE (10:36)
[2018-07-01] MEDS: Eptifibatide 0.75 mg/ml 75 MG/100 ML BAG IV SCH ×2 (11:00→19:45)
--- NOTE | 2018-07-01 11:11 | PN ---
DATE: 07/01/2018 This is a note for thoroughness to the chart of Reinaldo Kike. I received a phone call this morning at approximately 6:15 a.m. from the nurse on 2R regarding management of his Redman catheter. The question was whether to remove a catheter. My first response is, to my knowledge, the patient did not have a Redman. The last time I spoke to the nurse was about 6 p.m. last evening with about the patient had a bladder scan of about 950 mL. I had seen the patient earlier in the day. He was voiding on and off with some difficulty. See the consult note for further plans at that point. So when I spoke to the nurse, the plan was for a straight cath. Apparently, there was some difficulty with that catheterization from that shift. This is a different shift, the 7 p.m. to 7 a.m. shift. It is now calling me. But apparently at that time, there was some difficulty with the catheterization. I have not heard back since from then until now. But at that time, then subsequently they called the house doctor, the general medical examiner, who then inserted Redman catheter when he was asked for assistance. He actually left it with a balloon in. It did not drain right away, but then apparently drained later. According to the nurse, the bladder scan showed 950 mL. Initially, it did not come out well. She used the word "it dripped out." Subsequently, between 7 p.m. and 11 p.m. about 1000 mL came out. Then, she is calling because between 11 p.m. and 6 a.m. only 100 mL came out and now she is calling for management of the Erdman. At this point, we discussed options. I recommended removing the Redman catheter now. But I am putting a note to the chart for thoroughness, because I had subsequently spoke to the medical doctor, who inserted a Redman catheter and I spoke to the nursing catalyst plant supervisor to speak to the nursing staff regarding management of this patient. From Urology standpoint, again I want to emphasize the following that this morning when I received a phone regarding management of his Redman, as far as I know, the patient did not have a Redman. I asked the nursing catalyst plant supervisor to review with the nursing staff that if the patient is in the hospital and he has an urologist, who physically came to see him and then he is lying there with a catheter, most likely his expectation is that the urologist is managing his Redman catheter, and the urologist managing the Redman catheter has no idea he has a catheter in place. The next plan is to review the definition of a straight cath versus a Redman catheter and then a straight catheter specifically in this particular patient my concern is the blowing up the balloon. The straight cath has no balloon on it and that to review with the nursing staff that if there is a difficulty with inserting the catheter, the next thing to do is to call the urologist back and ask management decisions at that point rather than calling the house doctor. At this point, we are going to maintain the patient without a Redman catheter. We are going to monitor him and if he needs a Redman catheter back in, I have asked the nursing staff to call me back, directly to me. I reviewed this with the nursing catalyst plant supervisor with the nurse on the floor and also with the house doctor as well. From both a patient expectation and also from a definition of a straight catheter through an indwelling Redman catheter. Further plans will follow. Taran August MD
--- NOTE | 2018-07-01 11:31 | CP.PCM.PCO ---
Physician Communication Note - Physician Communication Note Physician Communication Note: Code heart called,went to phlebotomy lab assistant; started Abx empirically for fever
--- NOTE | 2018-07-01 14:33 | RAD ---
HISTORY: fever COMPARISON: Chest x-ray performed 06/26/18 TECHNIQUE: Chest, one view. FINDINGS: LUNGS: Chronic appearing interstitial changes. Left basilar atelectasis/infiltrate. PLEURA: No significant pleural effusion identified. No definite pneumothorax . CARDIOVASCULAR: Heart size appears within normal limits. Atherosclerotic calcifications present. OSSEOUS STRUCTURES: Degenerative changes. Osseous demineralization. VISUALIZED UPPER ABDOMEN: Unremarkable. OTHER FINDINGS: None. IMPRESSION: Chronic appearing interstitial changes. Left basilar atelectasis/infiltrate.
[2018-07-01] MEDS: Insulin Reg-MEDIUM-Coverage SC SCH ×3 (14:59→22:29)
--- NOTE | 2018-07-01 16:04 | PN ---
DATE: 07/01/2018 SUBJECTIVE: I came to see Reinaldo this morning. He was sitting in bed. He ate his breakfast in good spirits. No complaints. Yesterday, he had four stents placed by Dr. Aleks Alexander for 80% blockages, and within 30 seconds or less, after I left the room, his daughter, who is a physician, asked me to come back again. He had some diaphoresis, right hand numbness, and some questionable chest discomfort versus a feeling. We had called the Rapid Response. The EKG showed a inferior wall OH. Within an hour, he was taken to the dental laboratory worker. He was given sublingual nitro and he did well with the cardiac catheterization, ballooned opened up the part that was closed. His EKG came back to normal and he was being put in the intensive care unit where he will be on medicines. He is on Brilinta, Ecotrin, Flomax, Lipitor, Merrem, Proscar, IV fluids, Tylenol, vancomycin. Integrilin was ordered through Dr. Alexander. He is presently comfortable. He has also had a history of bladder stones with urinary bleeding, bleeding in the catheter. He had multiple issues with being very uncomfortable in his bladder and urinating. At 9:50, a catheter was placed. He had some blood. He has had some issues with his bladder and his urine and some hematuria. The medications were adjusted as needed for him. PHYSICAL EXAMINATION: VITAL SIGNS: He has a 97.7 temp, 68 pulse, 131/70 blood pressure, 16 respiratory rate, and 100% O2 sat on 2 L. HEENT: Head; atraumatic and normocephalic. He is a little bit stressed, understandable, but he is in good spirits. HEART: Regular rate. LUNGS: Decreased breath sounds. ABDOMEN: Soft. EXTREMITIES: No edema. LABORATORY DATA: He had a 7.3 white count at this point, 10.3 hemoglobin, 205 platelets. Sodium 135, potassium 4.3, BUN is 21, creatinine 1, GFR is greater than 60. His blood sugars are between 180 and 353 and 368. Calcium is 9, phosphorous 3.1, magnesium 1.8, total bili is 0.4, AST is 23, ALT is 23, alk phos 55, lactate dehydrogenase is 332, total creatine kinase is 22. His troponin I was only 0.05 at the time he started with the inferior wall OH which has by now reversed, total protein was 5.9. He had a very rough morning, a lot of issues were going on. He also has, on top of all of this, 101 temperature last night with chills and he was placed on antibiotics, Merrem and vancomycin by Infectious Disease for his fever. So, with the few things going on, possible urosepsis, coronary artery disease, inferior wall myocardial infarction, second cardiac catheterization with stent placement. He will be in the intensive care unit. Lane Lozada DO
--- NOTE | 2018-07-01 19:36 | CON ---
DATE: 07/01/2018 PROFESSOR OF ANTHROPOLOGY CONSULT LOCATION: [facility]. REQUESTING PHYSICIAN: Lane Lozada DO CHIEF COMPLAINT: The patient initially presented for cardiac catheterization. This morning during his hospital stay, the patient had acute myocardial infarction and required code heart. HISTORY OF PRESENT ILLNESS: Mr. Stokes is an 87-year-old male that initially presented to the hospital because the patient has a history of bladder stones and required surgery for that. He is followed by Dr. August. The patient's drafter electronic, Dr. Alexander did a stress test and noted some abnormalities and found to be positive, came in for cardiac cath and had four coronary artery stents placed and the decision was made for him to be at the hospital overnight. This morning, code heart was called, the patient had developed diaphoresis, and feeling unwell. EKG reveal that there was abnormality, possible inferior wall myocardial infarction, code heart was called. The patient's drafter electronic, Dr. Alexander took him to the dental laboratory technician apprentice and he required balloon angioplasty of one of the four stents that was placed during the cardiac catheterization 24 hours prior. At this time, the patient has been admitted to the Intensive Care Unit. He is hemodynamically stable, postprocedure awake and alert. Family is at bedside. The patient has no chest pain. No complaints of shortness of breath. He is oxygenating well with 2 L of nasal cannula. At this time, he is on Brilinta. He is comfortable with family at bedside. PAST MEDICAL HISTORY: Significant for diabetes, hyperlipidemia, skin cancer, bladder stones, arthritis, and chronic UTI. ALLERGIES: THE PATIENT HAS NO KNOWN ALLERGIES. MEDICATIONS: His medications can be evaluated as per the nurse's intake. SOCIAL HISTORY: He stopped smoking in 1959 and no history of drug or EtOH abuse. FAMILY HISTORY: Noncontributory. REVIEW OF SYSTEMS: CONSTITUTIONAL: All negative. EARS, NOSE AND THROAT: All negative. CARDIOVASCULAR: The patient had code heart today, requiring balloon angioplasty of the coronary stents placed yesterday. RESPIRATORY: All negative. GASTROINTESTINAL: All negative. GENITOURINARY: The patient has the chronic UTI and bladder stones. NEUROPSYCHIATRIC: All negative. HEMATOLOGIC: All negative. IMMUNOLOGIC: All negative. ENDOCRINE: All negative. SKIN: Intact and all negative. PHYSICAL EXAMINATION: VITAL SIGNS: Temperature 97.7, pulse 68, respirations are 18, and BP is 131/70. SKIN: Warm and dry. HEENT: Head is atraumatic and normocephalic. Eyes; reactive to light. Ears, nose and throat seemed to be within normal limits. NECK: Supple. No JVD. No thyroid enlargement. No lymph nodes. HEART: Regular rate and rhythm. Normal S1 and S2. LUNGS: Reveal good breath sounds bilaterally. ABDOMEN: Soft. Decreased bowel sounds. GENITALIA AND RECTAL: Deferred. MUSCULOSKELETAL: No joint deformities. EXTREMITIES: Reveal no significant lower extremity edema. NEUROLOGICAL: He seemed to be grossly intact. LABORATORY DATA: As far as his laboratories are concerned; his white count is 7.3, hemoglobin is 10.3, his hematocrit is 31.7 with platelets of 205,000. The patient's sodium is 135, potassium is 4.3, chloride is 101, CO2 of 27 with a BUN of 21, creatinine 1, and glucose of 353. The patient's chest x-ray reveals mild bibasilar on chronic interstitial changes. IMPRESSION: As far as my impression, the patient has coronary artery disease, status post 4 stents being placed. This morning, he had acute myocardial infarction with electrocardiogram changes, requiring a balloon angioplasty. The patient has a history of diabetes, hyperlipidemia, skin cancer, anemia, bladder stones, arthritis, and chronic urinary tract infection. PLAN: As far as our plan, we will continue to monitor closely in the Intensive Care Unit. The patient is on O2 via nasal cannula. The patient is on Brilinta as well as Ecotrin, Flomax, Lipitor, meropenem, Proscar, and IV fluid as well as vancomycin. The patient also is on insulin regimen. We will follow closely and treat aggressively along with the other consultants and the primary care doctor. Tomer Allen MD
--- NOTE | 2018-07-01 20:51 | CARD ---
APPROVED REPORT Date of service: 07/01/2018 EKG Measurement Heart [id number] <Conclusion> Normal sinus rhythm RSR' or QR pattern in V1 suggests right ventricular conduction delay Abnormal ECG
[2018-07-02] MEDS: Eptifibatide 0.75 mg/ml 75 MG/100 ML BAG IV SCH (05:09)
[2018-07-02] MEDS: Meropenem IV 1 gm in NS 1 GM/50 ML BAG IVPB SCH ×3 (05:09→22:00)
[2018-07-02 05:43] LABS: BASO # 0.01 K/mm3 (0.0-2.0); BASO % 0.1 % (0.0-3.0); EOS # 0.3 (0.0-0.7); EOS % 3.3 % (1.5-5.0); HEMOGLOBIN 9.6 g/dL (14.0-18.0); LYMPH # 0.5 (1.2-3.4); LYMPH % 5.7 % (22.0-35.0); MEAN CELL VOLUME 94.5 fl (80.0-105.0); MEAN CORPUSCULAR HGB CONC 32.8 g/dl (31.0-37.0); MEAN PLATELET VOLUME 8.2 fl (7.0-11.0); MONO # 0.5 (0.1-0.6); MONO % 6.4 % (1.0-6.0); RBC 3.1 10^6/uL (3.5-6.1); RED CELL DISTRIBUTION WIDTH 12.8 % (11.5-14.5); WHITE BLOOD COUNT 8.1 10^3/uL (4.5-11.0)
[2018-07-02 06:05] LABS: BLOOD UREA NITROGEN 15 mg/dL (7-21); CALCIUM 8.5 mg/dL (8.4-10.5); GFR NON-AFRICAN AMERICAN > 60
[2018-07-02] MEDS: Insulin Reg-MEDIUM-Coverage SC SCH ×4 (09:26→22:00)
--- NOTE | 2018-07-02 10:16 | PN ---
DATE: 07/02/2018 ACCORDION MAKER NOTE SUBJECTIVE: The patient is resting in bed with O2 via nasal cannula. No complaints of chest pain. No shortness of breath, cough, wheezing and chest congestion. No fever, chills, nausea and vomiting. He states that he does have frequent urination secondary to his bladder stones and recurrent UTI's. The patient continues to be on Brilinta IV. PHYSICAL EXAMINATION: VITAL SIGNS: His temperature is 98.5, pulse is 63, respirations are 21 and BP is 116/44. SKIN: Warm and dry. HEENT: Head is atraumatic and normocephalic. Eyes; reactive to light. Ears, nose and throat seem to be within normal limits. NECK: Supple. No JVD. No thyroid enlargement. No lymph nodes. HEART: Regular rate and rhythm. Normal S1 and S2. LUNGS: Reveals good breath sounds bilaterally. ABDOMEN: Soft. Decreased bowel sounds. GENITALIA: Deferred. RECTAL: Deferred. MUSCULOSKELETAL: No joint deformities. EXTREMITIES: Reveals no significant lower extremity edema. NEUROLOGICAL: He seems to be grossly intact. LABORATORY DATA: As far his laboratories are concerned, his white count is 8.1, hemoglobin is 9.6, hematocrit 29.3 with platelets of 191,000. Sodium is 138, potassium 4.3, chloride 104, CO2 of 28 with the BUN of 15, creatinine is 0.8 and glucose of 161. IMPRESSION: As far as impression, the patient has coronary artery disease and is status post four stents be in place. He has acute myocardial infarction with EKG changes as yesterday and he is status post balloon angioplasty. He has a history of diabetes, hyperlipidemia, skin cancer, anemia, bladder stones, arthritis and chronic urinary tract infections. PLAN: As far as our plan, we will continue to monitor closely and he is on O2 via nasal cannula as well as Brilinta and Ecotrin. He continues to get Flomax, Lipitor, meropenem, Proscar and IV fluids as well as vancomycin. The patient will continue on his insulin regimen as well and we will continue to treat aggressively along with the other consultants and the primary care doctor. Tomer Allen MD [facility] # [id number]
--- NOTE | 2018-07-02 10:21 | CP.PCM.CON ---
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 He was found to have CAD, underwent cardiac cath and stents were placed. Post-procedure he was doing well until he developed 101.8 F temperature. According to the daughter who is a physician, he was shivering and was somewhat disoriented. Before the antibiotics were started, he defervesced and had better mental function as per the daughter. The next morning, the patient developed respiratory issues and he again went to the laborer carpentry dock and is now in the ICU for closer monitoring. He has no more fevers, had urinary retention but has now resolved since having urinary cath done, no headache or dizziness, no chest pain, no cough or rhinorrhea, no sore throat, no abdominal pain, no diarrhea, no dysuria. Infectious Diseases consult is requested to further evaluate and manage. Review of Systems - Review of Systems All systems: reviewed and no additional remarkable complaints except (as per HPI) Past Patient History - Infectious Disease Hx of Infectious Diseases: None - Past Social History Smoking Status: Former Smoker - CARDIAC Hx Cardiac Disorders: Yes Hx Angina: Yes Hx Hypercholesterolemia: Yes Other/Comment: + stress test 07/14 - PULMONARY Hx Respiratory Disorders: No - NEUROLOGICAL Hx Neurological Disorder: Yes Hx Transient Ischemic Attacks (TIA): Yes (01/11) - HEENT Hx HEENT Problems: No - RENAL Hx Chronic Kidney Disease: No - ENDOCRINE/METABOLIC Hx Endocrine Disorders: Yes Hx Diabetes Mellitus Type 2: Yes - HEMATOLOGICAL/ONCOLOGICAL Hx Cancer: Yes (skin cancer) - INTEGUMENTARY Hx Dermatological Problems: Yes Hx Basil Cell: Yes Other/Comment: skin cancer surgery on right arm and recently the left ear - MUSCULOSKELETAL/RHEUMATOLOGICAL Hx Musculoskeletal Disorders: Yes Hx Arthritis: Yes Hx Falls: No Hx Unsteady Gait: Yes Other/Comment: uses a cane for ambulation - GASTROINTESTINAL Hx Gastrointestinal Disorders: No - GENITOURINARY/GYNECOLOGICAL Hx Genitourinary Disorders: Yes Hx Hematuria: Yes Hx Urinary Tract Infection: Yes Other/Comment: work up in progress for bladder stones - PSYCHIATRIC Hx Psychophysiologic Disorder: No Hx Substance Use: No - SURGICAL HISTORY Hx Surgeries: Yes Other/Comment: surgery X4 for skin cancer - ANESTHESIA Hx Anesthesia Reactions: No Hx Malignant Hyperthermia: No Meds Allergies/Adverse Reactions: Allergies Allergy/AdvReac Type Severity Reaction Status Date / Time No Known Allergies Allergy Verified 01/09/17 10:39 - Medications Medications: Current Medications Acetaminophen (Tylenol 325mg Tab) 650 mg PO Q4H PRN PRN Reason: Fever >100.4 F Last Admin: 06/30/18 23:11 Dose: 650 mg Aspirin (Ecotrin) 81 mg PO DAILY [facility] Atorvastatin Calcium (Lipitor) 40 mg PO DIN [facility] Last Admin: 07/01/18 20:06 Dose: 40 mg Finasteride (Proscar) 5 mg PO DAILY [facility] Last Admin: 07/01/18 14:50 Dose: 5 mg Meropenem (Merrem Iv 1 Gm Premix) 1 gm in 50 mls @ 100 mls/hr IVPB Q8 [facility]; Protocol Stop: 07/07/18 23:16 Last Admin: 07/02/18 05:09 Dose: 100 mls/hr Vancomycin HCl (Vancomycin 750 Mg In Ns) 750 mg in 250 mls @ 167 mls/hr IVPB Q12H [facility]; Protocol Stop: 07/08/18 23:16 Last Admin: 07/01/18 22:50 Dose: 167 mls/hr Insulin Human Regular (Humulin R Med) 0 units SC ACHS [facility]; Protocol Last Admin: 07/02/18 09:26 Dose: Not Given Tamsulosin HCl (Flomax) 0.4 mg PO DAILY [facility] Last Admin: 07/01/18 14:54 Dose: 0.4 mg Ticagrelor (Brilinta) 60 mg PO Q12 [facility] Last Admin: 07/01/18 21:56 Dose: 60 mg Physical Exam - Constitutional Appears: No Acute Distress, Chronically Ill - Head Exam Head Exam: NORMAL INSPECTION - Neck Exam Neck exam: Negative for: Meningismus - Respiratory Exam Respiratory Exam: Decreased Breath Sounds - Cardiovascular Exam Cardiovascular Exam: +S1, +S2 - GI/Abdominal Exam GI & Abdominal Exam: Soft. absent: Tenderness Results - Vital Signs Recent Vital Signs: Last Vital Signs Temp 98.5 F 07/02/18 04:00 Pulse 63 07/02/18 06:10 Resp 21 07/02/18 06:10 BP 116/44 L 07/02/18 06:00 Pulse Ox 100 07/02/18 06:10 - Labs Result Diagrams: 07/02/18 05:00 07/02/18 05:00 Labs: Laboratory Results - last 24 hr 07/01/18 07/01/18 07/01/18 07:00 09:30 14:47 WBC RBC Hgb Hct MCV MCH MCHC RDW Plt Count MPV Neut % (Auto) Lymph % (Auto) [place] % (Auto) Eos % (Auto) Baso % (Auto) Lymph # (Auto) [place] # (Auto) Eos # (Auto) Baso # (Auto) Absolute Neuts (auto) Sodium 135 Potassium 4.3 Chloride 101 Carbon Dioxide 27 Anion Gap 11 BUN 21 Creatinine 1.0 Est GFR ( Amer) > 60 Est GFR (Non-Af Amer) > 60 POC Glucose (mg/dL) 274 H Random Glucose 353 H* D Calcium 9.0 Phosphorus 3.1 Magnesium 1.8 Total Bilirubin 0.4 AST 23 ALT 23 Alkaline Phosphatase 65 Lactate Dehydrogenase 332 L Total Creatine Kinase 22 L Troponin I 0.05 D Total Protein 5.9 Albumin 3.1 Globulin 2.7 Albumin/Globulin Ratio 1.2 Procalcitonin 0.15 L 07/01/18 07/01/18 07/01/18 17:48 19:50 22:03 WBC RBC Hgb Hct MCV MCH MCHC RDW Plt Count MPV Neut % (Auto) Lymph % (Auto) [place] % (Auto) Eos % (Auto) Baso % (Auto) Lymph # (Auto) [place] # (Auto) Eos # (Auto) Baso # (Auto) Absolute Neuts (auto) Sodium Potassium Chloride Carbon Dioxide Anion Gap BUN Creatinine Est GFR ( Amer) Est GFR (Non-Af Amer) POC Glucose (mg/dL) 256 H 358 H 167 H Random Glucose Calcium Phosphorus Magnesium Total Bilirubin AST ALT Alkaline Phosphatase Lactate Dehydrogenase Total Creatine Kinase Troponin I Total Protein Albumin Globulin Albumin/Globulin Ratio Procalcitonin 07/02/18 07/02/18 07/02/18 05:00 05:00 07:12 WBC 8.1 RBC 3.10 L Hgb 9.6 L Hct 29.3 L MCV 94.5 MCH 31.0 MCHC 32.8 RDW 12.8 Plt Count 191 MPV 8.2 Neut % (Auto) 84.5 H Lymph % (Auto) 5.7 L [place] % (Auto) 6.4 H Eos % (Auto) 3.3 Baso % (Auto) 0.1 Lymph # (Auto) 0.5 L [place] # (Auto) 0.5 Eos # (Auto) 0.3 Baso # (Auto) 0.01 Absolute Neuts (auto) 6.85 H Sodium 138 Potassium 4.3 Chloride 104 Carbon Dioxide 28 Anion Gap 11 BUN 15 Creatinine 0.8 Est GFR ( Amer) > 60 Est GFR (Non-Af Amer) > 60 POC Glucose (mg/dL) 161 H Random Glucose 154 H Calcium 8.5 Phosphorus Magnesium Total Bilirubin AST ALT Alkaline Phosphatase Lactate Dehydrogenase Total Creatine Kinase Troponin I Total Protein Albumin Globulin Albumin/Globulin Ratio Procalcitonin Assessment & Plan - Assessment and Plan (Free Text) Plan: Assessment systemic inflammatory response syndrome, with post-op fever R/O sepsis but so far no source identified CAD S/P PCI 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
[2018-07-02] MEDS: Vancomycin 750mg 750 MG/250 ML BAG IVPB SCH (12:19)
--- NOTE | 2018-07-02 20:32 | CARD ---
APPROVED REPORT Date of service: 07/02/2018 EKG Measurement Heart [id number] <Conclusion> Normal sinus rhythm Incomplete right bundle branch block Possible Inferior infarct, age undetermined Abnormal ECG
[2018-07-02 21:13] LABS: HEMOGLOBIN 9.3 g/dL (14.0-18.0)
[2018-07-03] MEDS: Meropenem IV 1 gm in NS 1 GM/50 ML BAG IVPB SCH ×2 (05:21→14:49)
[2018-07-03 06:52] LABS: HEMOGLOBIN 9.7 g/dL (14.0-18.0); MEAN CELL VOLUME 93.3 fl (80.0-105.0); MEAN CORPUSCULAR HEMOGLOBIN 30.8 pg (25.0-35.0); MEAN PLATELET VOLUME 8.6 fl (7.0-11.0); RBC 3.15 10^6/uL (3.5-6.1); RED CELL DISTRIBUTION WIDTH 12.6 % (11.5-14.5); WHITE BLOOD COUNT 7.7 10^3/uL (4.5-11.0)
[2018-07-03 07:14] LABS: ALB/GLOB RATIO 1.1 (1.1-1.8); ALBUMIN 2.8 g/dL (3.0-4.8); ALT/SGPT 33 U/L (7-56); AST/SGOT 34 U/L (17-59); BLOOD UREA NITROGEN 16 mg/dL (7-21); CALCIUM 8.6 mg/dL (8.4-10.5); GFR NON-AFRICAN AMERICAN > 60
--- NOTE | 2018-07-03 07:34 | CP.CCUPN ---
<Edgard Hamlin - Last Filed: 07/03/18 13:51> CCU Subjective - Physician Review Events Since Last Encounter (Free Text): 07/03/18 07:32 off integrilin drip Subjective (Free Text): 07/03/18 07:32 Seen and examined, denies chest pain, SOB, blood in the urine of stool. Reports difficulty urinating. CCU Objective - Vital Signs / Intake & Output Vital Signs (Last 4 hours): Vital Signs Temp Pulse Resp BP Pulse Ox 07/03/18 06:53 94 H 07/03/18 06:50 74 11 L 98 07/03/18 06:40 59 L 17 97 07/03/18 06:30 57 L 13 98 07/03/18 06:20 91 H 41 H 85 L 07/03/18 06:10 63 28 H 97 07/03/18 06:00 72 128/58 L 100 07/03/18 05:50 72 15 98 07/03/18 05:40 55 L 10 L 97 07/03/18 05:30 97 H 30 H 85 L 07/03/18 05:20 77 32 H 97 07/03/18 05:10 59 L 56 H 100 07/03/18 05:00 72 29 H 137/64 94 L 07/03/18 04:50 59 L 20 96 07/03/18 04:40 80 32 H 98 07/03/18 04:30 86 19 83 L 07/03/18 04:20 61 23 100 07/03/18 04:10 80 31 H 92 L 07/03/18 04:02 136/80 07/03/18 04:01 83 10 L 78 L 07/03/18 04:00 97.8 F 95 H 30 H 80 L 07/03/18 03:57 60 36 H 07/03/18 03:56 60 30 H 07/03/18 03:55 57 L 21 07/03/18 03:54 56 L 07/03/18 03:53 67 28 H 07/03/18 03:52 64 07/03/18 03:51 71 30 H 07/03/18 03:50 65 15 100 07/03/18 03:43 79 29 H 07/03/18 03:42 78 07/03/18 03:40 89 31 H 88 L Intake and Output (Last 8hrs): Intake & Output 07/02/18 07/03/18 07/03/18 22:59 06:59 14:59 Intake Total 300 Output Total 800 Balance -500 Intake: IV 100 Left inner forearm 100 Oral 200 Output: Urine 800 Urine, Voided 800 - Physical Exam Physical Exam Limitations: Negative for: Altered Mental Status Head: Positive for: Atraumatic, Normocephalic Extroacular Muscles: Positive for: EOMI Conjunctiva: Positive for: Normal Mouth: Positive for: Moist Mucous Membranes Neck: Positive for: Normal Range of Motion Respiratory/Chest: Positive for: Clear to Auscultation, Good Air Exchange. Negative for: Respiratory Distress, Accessory Muscle Use Cardiovascular: Positive for: Regular Rate and Rhythm, Normal S1, S2. Negative for: Tachycardic, Bradycardic Abdomen: Positive for: Tenderness, Normal Bowel Sounds. Negative for: Distention, Peritoneal Signs Upper Extremity: Positive for: Normal Inspection. Negative for: Cyanosis, Edema Lower Extremity: Positive for: Normal Inspection. Negative for: Edema Neurological: Positive for: GCS=15, CN II-XII Intact Skin: Positive for: Warm, Dry, Normal Color Psychiatric: Positive for: Alert, Oriented x 3 - Medications Active Medications: Active Medications Generic Name Dose Route Start Last Admin Trade Name Freq PRN Reason Stop Dose Admin Acetaminophen 650 mg 06/30/18 22:51 06/30/18 23:11 Tylenol 325mg Tab PO 650 mg Q4H PRN Administration Fever >100.4 F Aspirin 81 mg 07/02/18 10:00 07/02/18 10:11 Ecotrin PO 81 mg DAILY ENDER Administration Atorvastatin Calcium 40 mg 06/30/18 17:00 07/02/18 17:18 Lipitor PO 40 mg DIN ENDER Administration Finasteride 5 mg 07/01/18 10:00 07/02/18 10:11 Proscar PO 5 mg DAILY ENDER Administration Meropenem 1 gm in 50 mls @ 100 mls/hr 06/30/18 23:15 07/03/18 05:21 Merrem Iv 1 Gm Premix IVPB 07/07/18 23:16 100 mls/hr Q8 ENDER Administration Protocol Insulin Human Regular 0 units 06/30/18 11:30 07/02/18 22:00 Humulin R Med SC Not Given ACHS ENDER Protocol Tamsulosin HCl 0.4 mg 07/01/18 10:00 07/02/18 10:11 Flomax PO 0.4 mg DAILY ENDER Administration Ticagrelor 60 mg 07/01/18 22:00 07/02/18 22:00 Brilinta PO 60 mg Q12 ENDER Administration - Patient Studies Lab Studies: Microbiology Studies 06/30/18 22:39 Blood Culture - Preliminary Blood NO GROWTH AFTER 48 HOURS 06/30/18 23:30 Urine Culture - Final Urine,Redman No Growth (<1,000 CFU/ML) Lab Studies 07/03/18 07/03/18 07/02/18 Range/Units 05:30 05:30 22:05 WBC 7.7 (4.5-11.0) 10^3/uL RBC 3.15 L (3.5-6.1) 10^6/uL Hgb 9.7 L (14.0-18.0) g/dL Hct 29.4 L (42.0-52.0) % MCV 93.3 (80.0-105.0) fl MCH 30.8 (25.0-35.0) pg MCHC 33.0 (31.0-37.0) g/dl RDW 12.6 (11.5-14.5) % Plt Count 216 (120.0-450.0) 10^3/uL MPV 8.6 (7.0-11.0) fl Sodium 137 (132-148) mmol/L Potassium 3.7 (3.6-5.0) mmol/L Chloride 104 (98-107) mmol/L Carbon Dioxide 24 (21-33) mmol/L Anion Gap 13 (10-20) BUN 16 (7-21) mg/dL Creatinine 0.8 (0.8-1.5) mg/dl Est GFR ( Amer) > 60 Est GFR (Non-Af Amer) > 60 POC Glucose (mg/dL) 219 H (65-110) mg/dL Random Glucose 211 H (70-110) mg/dL Calcium 8.6 (8.4-10.5) mg/dL Total Bilirubin 0.4 (0.2-1.3) mg/dL AST 34 (17-59) U/L ALT 33 (7-56) U/L Alkaline Phosphatase 69 (38-126) U/L Total Protein 5.4 L (5.8-8.3) g/dL Albumin 2.8 L (3.0-4.8) g/dL Globulin 2.6 gm/dL Albumin/Globulin Ratio 1.1 (1.1-1.8) 07/02/18 07/02/18 07/02/18 Range/Units 21:00 16:07 11:13 WBC (4.5-11.0) 10^3/uL RBC (3.5-6.1) 10^6/uL Hgb 9.3 L (14.0-18.0) g/dL Hct 28.5 L (42.0-52.0) % MCV (80.0-105.0) fl MCH (25.0-35.0) pg MCHC (31.0-37.0) g/dl RDW (11.5-14.5) % Plt Count (120.0-450.0) 10^3/uL MPV (7.0-11.0) fl Sodium (132-148) mmol/L Potassium (3.6-5.0) mmol/L Chloride (98-107) mmol/L Carbon Dioxide (21-33) mmol/L Anion Gap (10-20) BUN (7-21) mg/dL Creatinine (0.8-1.5) mg/dl Est GFR ( Amer) Est GFR (Non-Af Amer) POC Glucose (mg/dL) 264 H 234 H (65-110) mg/dL Random Glucose (70-110) mg/dL Calcium (8.4-10.5) mg/dL Total Bilirubin (0.2-1.3) mg/dL AST (17-59) U/L ALT (7-56) U/L Alkaline Phosphatase (38-126) U/L Total Protein (5.8-8.3) g/dL Albumin (3.0-4.8) g/dL Globulin gm/dL Albumin/Globulin Ratio (1.1-1.8) Laboratory Results - last 24 hr 07/02/18 07/02/18 07/02/18 11:13 16:07 21:00 WBC RBC Hgb 9.3 L Hct 28.5 L MCV MCH MCHC RDW Plt Count MPV Sodium Potassium Chloride Carbon Dioxide Anion Gap BUN Creatinine Est GFR ( Amer) Est GFR (Non-Af Amer) POC Glucose (mg/dL) 234 H 264 H Random Glucose Calcium Total Bilirubin AST ALT Alkaline Phosphatase Total Protein Albumin Globulin Albumin/Globulin Ratio 07/02/18 07/03/18 07/03/18 22:05 05:30 05:30 WBC 7.7 RBC 3.15 L Hgb 9.7 L Hct 29.4 L MCV 93.3 MCH 30.8 MCHC 33.0 RDW 12.6 Plt Count 216 MPV 8.6 Sodium 137 Potassium 3.7 Chloride 104 Carbon Dioxide 24 Anion Gap 13 BUN 16 Creatinine 0.8 Est GFR ( Amer) > 60 Est GFR (Non-Af Amer) > 60 POC Glucose (mg/dL) 219 H Random Glucose 211 H Calcium 8.6 Total Bilirubin 0.4 AST 34 ALT 33 Alkaline Phosphatase 69 Total Protein 5.4 L Albumin 2.8 L Globulin 2.6 Albumin/Globulin Ratio 1.1 EKG/Cardiology Studies: Cardiology / EKG Studies 07/02/18 11:15 ELECTROCARDIOGRAM DAILY Comment: Reason For Exam: chest pain Fingerstick Blood Sugar Results: 219 Critical Care Progress Note - Nutrition Nutrition: Nutrition Category Date Time Status Consistent Carbohydrate [DIET] Diets 06/30/18 Breakfast Ordered Assessment/Plan - Assessment and Plan (Free Text) Assessment: Pt is an 87 yo male with a PMH of 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 One of the stents thrombosed and pt underwent another cath to revascularize the throbmosis. Pt was sent to ICU for a integrilin drip. 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 Cardio - HTN - HLD - CAD - EKG stat - no longer on Brilinta drip - continue Brilinta PO - ASA - lipitor - will send pt on ASA81, Brilinta 60BID, Statin Pulm - maintain O2 sat>92 GI - carb consistent diet Nephro/ - BPH - Bladder stones - BUN/Cr 16/0.8 - tamsulosin - finasteride - Urology consulted, Dr August Heme/ Onc - Hgb 9.7 - INR 1.04 - Right groin US ID - merrem - procal 0.15 - ID consulted, Dr Pennie Gonzalez - DM - ISS Dispo: pt to be discharged from Cardio standpoint Pt seen, examined, assessment and plan discussed with Dr Esme Hamlin PGY1 - Date & Time Date: 07/03/18 Time: 07:34 <Florentino Victoria - Last Filed: 07/03/18 14:17> CCU Objective - Vital Signs / Intake & Output Vital Signs (Last 4 hours): Vital Signs Pulse Resp BP Pulse Ox 07/03/18 11:00 82 20 117/52 L 82 L Intake and Output (Last 8hrs): Intake & Output 07/02/18 07/03/18 07/03/18 22:59 06:59 14:59 Intake Total 300 Output Total 800 Balance -500 Intake: IV 100 Left inner forearm 100 Oral 200 Output: Urine 800 Urine, Voided 800 - Medications Active Medications: Active Medications Generic Name Dose Route Start Last Admin Trade Name Freq PRN Reason Stop Dose Admin Acetaminophen 650 mg 06/30/18 22:51 06/30/18 23:11 Tylenol 325mg Tab PO 650 mg Q4H PRN Administration Fever >100.4 F Aspirin 81 mg 07/02/18 10:00 07/03/18 09:09 Ecotrin PO 81 mg DAILY ENDER Administration Atorvastatin Calcium 40 mg 06/30/18 17:00 07/02/18 17:18 Lipitor PO 40 mg DIN ENDER Administration Finasteride 5 mg 07/01/18 10:00 07/03/18 09:09 Proscar PO 5 mg DAILY ENDER Administration Meropenem 1 gm in 50 mls @ 100 mls/hr 06/30/18 23:15 07/03/18 05:21 Merrem Iv 1 Gm Premix IVPB 07/07/18 23:16 100 mls/hr Q8 ENDER Administration Protocol Insulin Human Regular 0 units 06/30/18 11:30 07/03/18 12:06 Humulin R Med SC 3 units ACHS ENDER Administration Protocol Tamsulosin HCl 0.4 mg 07/01/18 10:00 07/03/18 09:09 Flomax PO 0.4 mg DAILY ENDER Administration Ticagrelor 60 mg 07/01/18 22:00 07/03/18 09:09 Brilinta PO 60 mg Q12 ENDER Administration - Patient Studies Lab Studies: Microbiology Studies 06/30/18 22:39 Blood Culture - Preliminary Blood NO GROWTH AFTER 48 HOURS 06/30/18 23:30 Urine Culture - Final Urine,Redman No Growth (<1,000 CFU/ML) Lab Studies 07/03/18 07/03/18 07/03/18 Range/Units 11:50 07:47 05:30 WBC (4.5-11.0) 10^3/uL RBC (3.5-6.1) 10^6/uL Hgb (14.0-18.0) g/dL Hct (42.0-52.0) % MCV (80.0-105.0) fl MCH (25.0-35.0) pg MCHC (31.0-37.0) g/dl RDW (11.5-14.5) % Plt Count (120.0-450.0) 10^3/uL MPV (7.0-11.0) fl Sodium 137 (132-148) mmol/L Potassium 3.7 (3.6-5.0) mmol/L Chloride 104 (98-107) mmol/L Carbon Dioxide 24 (21-33) mmol/L Anion Gap 13 (10-20) BUN 16 (7-21) mg/dL Creatinine 0.8 (0.8-1.5) mg/dl Est GFR ( Amer) > 60 Est GFR (Non-Af Amer) > 60 POC Glucose (mg/dL) 242 H 221 H (65-110) mg/dL Random Glucose 211 H (70-110) mg/dL Calcium 8.6 (8.4-10.5) mg/dL Total Bilirubin 0.4 (0.2-1.3) mg/dL AST 34 (17-59) U/L ALT 33 (7-56) U/L Alkaline Phosphatase 69 (38-126) U/L Total Protein 5.4 L (5.8-8.3) g/dL Albumin 2.8 L (3.0-4.8) g/dL Globulin 2.6 gm/dL Albumin/Globulin Ratio 1.1 (1.1-1.8) 07/03/18 07/02/18 07/02/18 Range/Units 05:30 22:05 21:00 WBC 7.7 (4.5-11.0) 10^3/uL RBC 3.15 L (3.5-6.1) 10^6/uL Hgb 9.7 L 9.3 L (14.0-18.0) g/dL Hct 29.4 L 28.5 L (42.0-52.0) % MCV 93.3 (80.0-105.0) fl MCH 30.8 (25.0-35.0) pg MCHC 33.0 (31.0-37.0) g/dl RDW 12.6 (11.5-14.5) % Plt Count 216 (120.0-450.0) 10^3/uL MPV 8.6 (7.0-11.0) fl Sodium (132-148) mmol/L Potassium (3.6-5.0) mmol/L Chloride (98-107) mmol/L Carbon Dioxide (21-33) mmol/L Anion Gap (10-20) BUN (7-21) mg/dL Creatinine (0.8-1.5) mg/dl Est GFR ( Amer) Est GFR (Non-Af Amer) POC Glucose (mg/dL) 219 H (65-110) mg/dL Random Glucose (70-110) mg/dL Calcium (8.4-10.5) mg/dL Total Bilirubin (0.2-1.3) mg/dL AST (17-59) U/L ALT (7-56) U/L Alkaline Phosphatase (38-126) U/L Total Protein (5.8-8.3) g/dL Albumin (3.0-4.8) g/dL Globulin gm/dL Albumin/Globulin Ratio (1.1-1.8) 07/02/18 Range/Units 16:07 WBC (4.5-11.0) 10^3/uL RBC (3.5-6.1) 10^6/uL Hgb (14.0-18.0) g/dL Hct (42.0-52.0) % MCV (80.0-105.0) fl MCH (25.0-35.0) pg MCHC (31.0-37.0) g/dl RDW (11.5-14.5) % Plt Count (120.0-450.0) 10^3/uL MPV (7.0-11.0) fl Sodium (132-148) mmol/L Potassium (3.6-5.0) mmol/L Chloride (98-107) mmol/L Carbon Dioxide (21-33) mmol/L Anion Gap (10-20) BUN (7-21) mg/dL Creatinine (0.8-1.5) mg/dl Est GFR ( Amer) Est GFR (Non-Af Amer) POC Glucose (mg/dL) 264 H (65-110) mg/dL Random Glucose (70-110) mg/dL Calcium (8.4-10.5) mg/dL Total Bilirubin (0.2-1.3) mg/dL AST (17-59) U/L ALT (7-56) U/L Alkaline Phosphatase (38-126) U/L Total Protein (5.8-8.3) g/dL Albumin (3.0-4.8) g/dL Globulin gm/dL Albumin/Globulin Ratio (1.1-1.8) Laboratory Results - last 24 hr 07/02/18 07/02/18 07/02/18 16:07 21:00 22:05 WBC RBC Hgb 9.3 L Hct 28.5 L MCV MCH MCHC RDW Plt Count MPV Sodium Potassium Chloride Carbon Dioxide Anion Gap BUN Creatinine Est GFR ( Amer) Est GFR (Non-Af Amer) POC Glucose (mg/dL) 264 H 219 H Random Glucose Calcium Total Bilirubin AST ALT Alkaline Phosphatase Total Protein Albumin Globulin Albumin/Globulin Ratio 07/03/18 07/03/18 07/03/18 05:30 05:30 07:47 WBC 7.7 RBC 3.15 L Hgb 9.7 L Hct 29.4 L MCV 93.3 MCH 30.8 MCHC 33.0 RDW 12.6 Plt Count 216 MPV 8.6 Sodium 137 Potassium 3.7 Chloride 104 Carbon Dioxide 24 Anion Gap 13 BUN 16 Creatinine 0.8 Est GFR ( Amer) > 60 Est GFR (Non-Af Amer) > 60 POC Glucose (mg/dL) 221 H Random Glucose 211 H Calcium 8.6 Total Bilirubin 0.4 AST 34 ALT 33 Alkaline Phosphatase 69 Total Protein 5.4 L Albumin 2.8 L Globulin 2.6 Albumin/Globulin Ratio 1.1 07/03/18 11:50 WBC RBC Hgb Hct MCV MCH MCHC RDW Plt Count MPV Sodium Potassium Chloride Carbon Dioxide Anion Gap BUN Creatinine Est GFR ( Amer) Est GFR (Non-Af Amer) POC Glucose (mg/dL) 242 H Random Glucose Calcium Total Bilirubin AST ALT Alkaline Phosphatase Total Protein Albumin Globulin Albumin/Globulin Ratio Radiology Impressions: Radiology Impressions Chest X-Ray 07/03/18 07:24 IMPRESSION: There is a patchy infiltrate in the lingular segment of the left upper lobe adjacent to the left heart border. EKG/Cardiology Studies: Cardiology / EKG Studies 07/03/18 11:03 EKG [ELECTROCARDIOGRAM] Stat Comment: Reason For Exam: c/o chest pain Critical Care Progress Note - Nutrition Nutrition: Nutrition Category Date Time Status Consistent Carbohydrate [DIET] Diets 06/30/18 Breakfast Ordered Attending/Attestation - Attestation I have personally seen and examined this patient.: Yes I have fully participated in the care of the patient.: Yes I have reviewed all pertinent clinical information: Yes Notes (Text): 07/03/18 14:13 87 yo male with early thrombosis of recently put stent, s/p integrillin and now on Brillinta, who recovered nicely from his TX recently. He does have UTI due to cystic bladder stones that he is passing, ID and are on board. cardiology cleared him for discharge home. ccm time 40 min
[2018-07-03] MEDS: Insulin Reg-MEDIUM-Coverage SC SCH ×2 (08:21→12:06)
--- NOTE | 2018-07-03 08:22 | PN ---
DATE: 07/02/2018 SUBJECTIVE: He had a very rough day yesterday. He went through an emergent cardiac cath. He had an episode of a diaphoresis and chest discomfort feeling and right hand numbness. He then proceeded to have an EKG showing inferior wall RI, he was taken straight to the offset label rewinder. He had one section that to be ballooned. He did very well. He was put on Integrilin. He was then placed on Brilinta Intensive Care Unit. He did very well. The EKG reversed to normal sinus rhythm. He is now in Intensive Care Unit, much improved. He is also urinating out a lot of kidney stones which was the original issue we had. I feel like it will be another 24 hours in the Intensive Care Unit if he does well. I think he is out of the as far as the heart is concerned. MEDICATIONS: He is on Brilinta, Ecotrin, Flomax, insulin, Lipitor, Merrem IV, Proscar, and Tylenol. He also has urinary tract infection. PHYSICAL EXAMINATION: VITAL SIGNS: He has a temperature of 98.5, pulse 68, 116/44 blood pressure, 21 respiratory rate, and 100% O2 saturation on 2 liters. HEENT: His head is atraumatic and normocephalic. HEART: Regular rate. LUNGS: Clear to auscultation. ABDOMEN: Soft and nontender. He is eating. EXTREMITIES: No edema out of bed to chair. LABORATORY DATA: He has 8.1 white count, 9.6 hemoglobin, 29.3 hematocrit with 191 platelets. He has a 138 sodium, potassium 4.3, BUN 15, creatinine 0.8, GFR is greater than 60, sugar is 154, and calcium is 8.5. He has been through a lot in the past 36 hours, he is doing so much better. ASSESSMENT AND PLAN: He is being seen by Infections Disease, Cardiology, the food production supervisor, and Urology. If he does well in 24 hours, I will try to discharge him home tomorrow. Lane Lozada DO MTDGregory
[2018-07-03] MEDS ORDERED: Potassium Chloride 20 mEq ER Tab PO ONE (09:05)
--- NOTE | 2018-07-03 10:02 | RAD ---
Date of service: 07/03/2018 HISTORY: Assess for consolidation/HCAP COMPARISON: 07/01/2018 TECHNIQUE: 1 view obtained. FINDINGS: LUNGS: There is a patchy infiltrate in the lingular segment of the left upper lobe adjacent to the left heart border. PLEURA: No significant pleural effusion identified, no pneumothorax apparent. CARDIOVASCULAR: Aortic calcification Normal cardiac size. Mild vascular congestion OSSEOUS STRUCTURES: No significant abnormalities. VISUALIZED UPPER ABDOMEN: Normal. OTHER FINDINGS: None. IMPRESSION: There is a patchy infiltrate in the lingular segment of the left upper lobe adjacent to the left heart border.
--- NOTE | 2018-07-03 10:09 | CARD ---
APPROVED REPORT Date of service: 07/01/2018 EKG Measurement Heart [id number] 196P-16 [id number] <Conclusion> Normal sinus rhythm Nonspecific intraventricular block of RBBB type ST elevation in the inferior leads with minimal reciprocal changes. May represent an acute process. CCR Serial tracings recommended Abnormal ECG
[2018-07-03 11:09] VITALS: BP 117/52; RESP 20
--- NOTE | 2018-07-03 13:10 | PN ---
DATE: 07/03/2018 SUBJECTIVE: He is sitting in the intensive care unit. He got out of bed to chair. Today he is waiting for physical therapy to walk him and see what they recommend. He is on Brilinta, Ecotrin, Flomax, Lipitor, Merrem IV, Proscar, and Tylenol. I think we are probably going to stop the Merrem today. The blood cultures and urine cultures came back negative. I will wait for Infectious Disease to get involved. PHYSICAL EXAMINATION: VITAL SIGNS: He has 97.8 temperature, 77 pulse, 137/64 blood pressure; 92%, 100%, 82% O2 sat that varies on him. HEAD: Atraumatic, normocephalic. HEART: Regular rate. LUNGS: Decreased breath sounds, but clear. ABDOMEN: Soft, discomfort in the bladder area. EXTREMITIES: No edema. Physical Therapy has to walk him to see what he could do. LABORATORY DATA: He has 7.7 white count, 9.7 hemoglobin, 29.4 hematocrit, 216 platelets. He has 137 sodium, potassium 3.7, BUN 16, creatinine 0.8, GFR is greater than 60, sugar is 211, calcium is 8.6. Total bilirubin is 0.4, AST is 34, ALT is 32, alk phos 69, total protein is 5.4. Urine with large blood. ASSESSMENT AND PLAN: He has bladder full of bladder stones. I am waiting for Urology to see him to give us his opinion of anything we could do. I believe Cardiology wants him to be discharged on the medication he is on now and Infectious Disease has to stop the antibiotics or put him on tablets. We have to see if he can walk, so a lot of things are going on. Hopefully, later on today, he can be discharged. Reinaldo Stokes with chronic kidney disease, bladder stones, possible UTI. Lane Lozada DO MTDD
--- NOTE | 2018-07-03 14:50 | CP.PCM.APN ---
Subjective - Date & Time of Evaluation Date of Evaluation: 07/03/18 Time of Evaluation: 12:00 - Subjective Subjective: pt seen and examined at bedside, pt denies cp Review of Systems - Review of Systems All systems: reviewed and no additional remarkable complaints except Objective - Vital Signs/Intake and Output Vital Signs (last 24 hours): Temp Pulse Resp BP Pulse Ox 98.8 F 82 20 117/52 L 82 L 07/03/18 08:00 07/03/18 11:00 07/03/18 11:00 07/03/18 11:00 07/03/18 11:00 Intake and Output: 07/03/18 07/03/18 06:59 18:59 Intake Total 300 Output Total 800 Balance -500 - Medications Medications: Current Medications Acetaminophen (Tylenol 325mg Tab) 650 mg PO Q4H PRN PRN Reason: Fever >100.4 F Last Admin: 06/30/18 23:11 Dose: 650 mg Aspirin (Ecotrin) 81 mg PO DAILY [facility] Last Admin: 07/03/18 09:09 Dose: 81 mg Atorvastatin Calcium (Lipitor) 40 mg PO DIN [facility] Last Admin: 07/02/18 17:18 Dose: 40 mg Finasteride (Proscar) 5 mg PO DAILY [facility] Last Admin: 07/03/18 09:09 Dose: 5 mg Meropenem (Merrem Iv 1 Gm Premix) 1 gm in 50 mls @ 100 mls/hr IVPB Q8 [facility]; Protocol Stop: 07/07/18 23:16 Last Admin: 07/03/18 05:21 Dose: 100 mls/hr Insulin Human Regular (Humulin R Med) 0 units SC ACHS [facility]; Protocol Last Admin: 07/03/18 12:06 Dose: 3 units Tamsulosin HCl (Flomax) 0.4 mg PO DAILY [facility] Last Admin: 07/03/18 09:09 Dose: 0.4 mg Ticagrelor (Brilinta) 60 mg PO Q12 [facility] Last Admin: 07/03/18 09:09 Dose: 60 mg - Labs Labs: 07/03/18 05:30 07/03/18 05:30 PT 11.8 SECONDS (9.4-12.5) 06/30/18 06:45 INR 1.04 06/30/18 06:45 APTT 33.8 Seconds (26.9-38.3) 06/30/18 06:45 - Constitutional Appears: No Acute Distress - Eye Exam Eye Exam: Normal appearance - Respiratory Exam Respiratory Exam: Clear to Ausculation Bilateral - Cardiovascular Exam Cardiovascular Exam: Irregular Rhythm, +S1, +S2 - GI/Abdominal Exam GI & Abdominal Exam: Soft, Normal Bowel Sounds - Neurological Exam Neurological Exam: Alert, Awake - Skin Skin Exam: Dry, Intact, Warm Assessment and Plan - Assessment and Plan (Free Text) Plan: pt s/p [address] Alexander for possible DC home per PMD. BPCI/TIC - BPCIA/TIC Educated pt/family on BPCIA/CIR/Med to Bed Programs: N/A Flyers given, including [facility] Beneficiary letter: N/A Pt/family verbalized understanding & agreed to program: N/A
[2018-07-03 15:30] VITALS: PULSE 74; O2SAT 100
[2018-07-03 15:45] VITALS: TEMP 97.7
--- NOTE | 2018-07-03 15:48 | PN ---
DATE: 07/03/2018 CARDIOLOGY FOLLOWUP SUBJECTIVE: The patient is in a chair, asymptomatic. PHYSICAL EXAMINATION VITAL SIGNS: Blood pressure 117/52 and heart rate in the 80s. NECK: Negative JVD. LUNGS: Without rales. HEART: Reveals S1 and S2. EXTREMITIES: Without edema. The right groin site had a small hematoma and left groin site is stable. LABORATORY DATA: Unremarkable. Hemoglobin 9.7. IMPRESSION: 1. Stable post emergency percutaneous transluminal coronary angioplasty and stent of an in-stent thrombosis on Tuesday. 2. Multivessel percutaneous transluminal coronary angioplasty and stent. 3. Diabetes mellitus. 4. Coronary artery disease. 5. Hypercholesterolemia. 6. Diabetes mellitus. Given these findings, the patient is doing well post catheterization and angioplasty. The ultrasound report is negative for pseudoaneurysm. Aleks Alexander MD
--- NOTE | 2018-07-03 16:03 | CARD ---
APPROVED REPORT Date of service: 07/03/2018 EKG Measurement Heart [id number] [place] 150P-28 [id number] <Conclusion> Normal sinus rhythm Incomplete right bundle branch block Inferior infarct, age undetermined Cannot rule out Anterior infarct, age undetermined Abnormal ECG
--- NOTE | 2018-07-03 16:08 | CARDCATH ---
PROCEDURE DATE: 07/01/2018 HISTORY: The patient is an 87-year-old male who underwent previous PTCA and stent today before of the LAD and RCA. He was doing well the morning of the this morning until he developed substernal pressure with diaphoresis and noted to have ST elevations in II, III and aVF. The patient was brought to the labor gang supervisor for emergency procedure. PROCEDURE: Emergency cardiac catheterization and PT and PTCA. The left femoral artery was cannulated with 6-Congolese sheath. There were no complications. I performed moderate sedation which included the presence and independent trained observer that assisted in monitoring the patient's level of consciousness and physiologic status. After administration of Versed and fentanyl, intra service time was 45 minutes. The left femoral artery was cannulated. The 6-Congolese sheath. Initial angiogram revealed an occluded RCA at the previous proximal stent. The stent in the LAD both in the mid and distal portion were patent. The patient was started on intravenous Angiomax and IV Integrilin. Under fluoroscopic guide, the guide was placed in the ostium of the RCA, an 0.014 ATW wire was used to cross the lesion, balloons of the total occlusion followed by increasing balloon size to 2.5 with dilated from the proximal stent into the distal stent. Repeat coronary arteriography revealed an excellent result with no residual stenosis and NATHANIEL III flow. Manual compression closed left femoral artery site. The patient tolerated the procedure well. IN SUMMARY: The procedure was an emergency PTCA and acute stent thrombosis of the RCA. This is done by the left femoral artery. Cardiac catheterization revealed an occluded RCA, but patent two stent in the LAD. Given these findings, we will change his antiplatelet therapy to aspirin and Brilinta. We will cancel any urologic procedures planned. Aleks Alexander MD
--- NOTE | 2018-07-03 16:53 | US ---
PROCEDURE: Duplex arterial ultrasound of the right groin. HISTORY: Recent cardiac catheterization. Pain and pulsatile mass in the right groin. Evaluate for pseudoaneurysm or fistula. PHYSICIAN(S): Aleks Downing MD. FINDINGS: The right common femoral artery is patent with a normal triphasic waveform. No sonographic evidence of a pseudoaneurysm or AV fistula is seen. The right superficial femoral artery and profunda femoral artery are patent proximally. The visualized venous segments the right groin are patent and compressible. There is a small 2 cm hematoma in the right groin IMPRESSION: 1. No sonographic evidence for pseudoaneurysm or AV fistula in the right groin.
--- NOTE | 2018-07-04 05:11 | PN ---
DATE: 07/03/2018 SUBJECTIVE: The patient was seen earlier today in 129, bed 1. No fevers. No chills. Comfortable. PHYSICAL EXAMINATION: VITAL SIGNS: Temperature is 97, blood pressure is 120/70, respiratory rate is 18. HEENT: Unremarkable. NECK: Supple. LUNGS: Decreased breath sounds. HEART: Normal S1 and S2. LABORATORY DATA: Laboratory examination reveals a white count of 7.7, hemoglobin of 9. Chemistries are noted. Microbiology reveals blood cultures and urine cultures are negative. ASSESSMENT AND PLAN: This is an 87-year-old male who was seen earlier today in the intensive care unit in 129, bed 1. On examination, he was found to have responsive, postoperative fever, was given antibiotics. Cultures are negative. The patient is with coronary artery disease, cerebrovascular accident, hyperlipidemia, dyslipidemia, benign prostatic hypertrophy. Case was discussed with the staff with negative urine culture and negative blood cultures. Benson Casper MD
== END 2018-07-03 15:50 | disposition home or self-care (01) | DRG 246 ==
LOC: CATH 06:07 → 2RSO 10:02 → CATH 07-01 11:13 → CCU 07-01 11:14
PROVIDERS: ADMIT Family Medicine; ATTEND Internal Medicine Cardiovascular Disease
PROC: 027137Z Dilation of Coronary Artery, Two Arteries with Four or More Drug-eluting Intraluminal Devices, Percutaneous Approach (ICD-10-PCS; principal; 2018-06-30)
PROC: 4A023N8 Measurement of Cardiac Sampling and Pressure, Bilateral, Percutaneous Approach (ICD-10-PCS; 2018-06-30)
PROC: B2111ZZ Fluoroscopy of Multiple Coronary Arteries using Low Osmolar Contrast (ICD-10-PCS; 2018-06-30)
PROC: 3E033PZ Introduction of Platelet Inhibitor into Peripheral Vein, Percutaneous Approach (ICD-10-PCS; 2018-06-30)
PROC: 3E033PZ Introduction of Platelet Inhibitor into Peripheral Vein, Percutaneous Approach (ICD-10-PCS; 2018-06-30)
PROC: 02703ZZ Dilation of Coronary Artery, One Artery, Percutaneous Approach (ICD-10-PCS; 2018-07-01)
PROC: 4A023N7 Measurement of Cardiac Sampling and Pressure, Left Heart, Percutaneous Approach (ICD-10-PCS; 2018-07-01)
PROC: B2111ZZ Fluoroscopy of Multiple Coronary Arteries using Low Osmolar Contrast (ICD-10-PCS; 2018-07-01)
DX: I25.119 Atherosclerotic heart disease of native coronary artery with unspecified angina pectoris (principal); I21.19 ST elevation (STEMI) myocardial infarction involving other coronary artery of inferior wall; R65.10 Systemic inflammatory response syndrome (SIRS) of non-infectious origin without acute organ dysfunction; N39.0 Urinary tract infection, site not specified; T82.867A Thrombosis due to cardiac prosthetic devices, implants and grafts, initial encounter; N21.0 Calculus in bladder; R31.9 Hematuria, unspecified; R33.8 Other retention of urine; R35.0 Frequency of micturition; R50.82 Postprocedural fever; Z86.73 Personal history of transient ischemic attack (TIA), and cerebral infarction without residual deficits; Z87.440 Personal history of urinary (tract) infections; Z85.820 Personal history of malignant melanoma of skin; E11.22 Type 2 diabetes mellitus with diabetic chronic kidney disease; E78.00 Pure hypercholesterolemia, unspecified; E78.5 Hyperlipidemia, unspecified; I12.9 Hypertensive chronic kidney disease with stage 1 through stage 4 chronic kidney disease, or unspecified chronic kidney disease; N18.9 Chronic kidney disease, unspecified; N20.0 Calculus of kidney; N40.0 Benign prostatic hyperplasia without lower urinary tract symptoms; Z87.442 Personal history of urinary calculi; Z87.891 Personal history of nicotine dependence; Y84.0 Cardiac catheterization as the cause of abnormal reaction of the patient, or of later complication, without mention of misadventure at the time of the procedure

== ENCOUNTER 2018-07-07 12:55 | Inpatient (IN) | payer MEDICARE, BC ==
[2018-07-07 13:00] VITALS: BMI 22.1
[2018-07-07] MEDS ORDERED: Sodium Chloride 0.9% 1,000 ML IV SCH (13:45)
[2018-07-07 14:08] LABS: BASO # 0.01 K/mm3 (0.0-2.0); BASO % 0.1 % (0.0-3.0); EOS # 0.1 (0.0-0.7); EOS % 0.5 % (1.5-5.0); HEMOGLOBIN 10.8 g/dL (14.0-18.0); LYMPH # 0.2 (1.2-3.4); LYMPH % 1.4 % (22.0-35.0); MEAN CELL VOLUME 92.5 fl (80.0-105.0); MEAN CORPUSCULAR HGB CONC 33.5 g/dl (31.0-37.0); MONO # 0.2 (0.1-0.6); MONO % 1.4 % (1.0-6.0); PLATELET COUNT 287 10^3/uL (120.0-450.0); RBC 3.48 10^6/uL (3.5-6.1); RED CELL DISTRIBUTION WIDTH 12.7 % (11.5-14.5); URINE BILIRUBIN NEGATIVE (NEGATIVE); URINE BLOOD TRACE-INTACT (NEGATIVE); URINE GLUCOSE (UA) 500 mg/dL (NEGATIVE); URINE LEUKOCYTE ESTERASE TRACE Leu/uL (NEGATIVE); URINE PROTEIN NEGATIVE mg/dL (<30 mg/dL); URINE UROBILINOGEN 0.2 E.U./dL (<1 E.U./dL); WHITE BLOOD COUNT 12.5 10^3/uL (4.5-11.0)
[2018-07-07 14:10] LABS: URINE APPEARANCE CLEAR (CLEAR); URINE COLOR YELLOW (YELLOW)
[2018-07-07 14:15] LABS: URINE AMORPHOUS SEDIMENT FEW /hpf; URINE BACTERIA MANY /hpf
--- NOTE | 2018-07-07 14:16 | ED PDOC ---
Arrival/HPI - General Chief Complaint: Fever Historian: Patient - History of Present Illness Narrative History of Present Illness (Text): 07/07/18 16:22 87 year old male, with a past medical history of CVA, basal cell carcinoma, HLD, and DM,, who presents to the emergency department complaining of body chills onset prior to arrival. Patient reports he was en route to the hospital for out patient bladder ultrasound when symptoms began. He endorses recent cardiac catheterization with stent placement x 2. He denies any fevers, shortness of breath, nausea, vomiting, diarrhea, chest pain, or any other complaints. Time/Duration: Prior to Arrival Symptom Onset: Sudden Symptom Course: Unchanged Activities at Onset: Light Context: Sitting Past Medical History - Provider Review Nursing Documentation Reviewed: Yes - Infectious Disease Hx of Infectious Diseases: None - Cardiac Other/Comment: Cardiac cath - Pulmonary Hx Respiratory Disorders: No - Neurological HX Cerebrovascular Accident: Yes (with no deficits.) - HEENT Hx HEENT Disorder: No - Renal Hx Renal Disorder: No - Endocrine/Metabolic Hx Diabetes Mellitus Type 2: Yes - Hematological/Oncological Hx Cancer: Yes (skin cancer) - Integumentary Hx Dermatological Disorder: Yes Hx Basal Cell Carcinoma: Yes Other/Comment: skin cancer surgery on right arm and recently the left ear - Musculoskeletal/Rheumatological Hx Arthritis: Yes - Gastrointestinal Hx Gastrointestinal Disorders: No - Genitourinary/Gynecological Hx Genitourinary Disorders: Yes Hx Hematuria: Yes Hx Urinary Tract Infection: Yes Other/Comment: work up in progress for bladder stones - Psychiatric Hx Psychophysiologic Disorder: No Hx Substance Use: No - Surgical History Other/Comment: surgery X4 for skin cancer. cardiac cath - Anesthesia Hx Anesthesia: Yes Hx Anesthesia Reactions: No Hx Malignant Hyperthermia: No - Suicidal Assessment Feels Threatened In Home Enviroment: No Family/Social History - Physician Review Nursing Documentation Reviewed: Yes Family/Social History: Unknown Family HX Smoking Status: Former Smoker Hx Alcohol Use: No Hx Substance Use: No Allergies/Home Meds Allergies/Adverse Reactions: Allergies No Known Allergies Allergy (Verified 07/07/18 13:00) Home Medications: Home Meds Medication Instructions Recorded Confirmed Glimepiride [Amaryl] 4 mg PO BID 01/04/17 07/07/18 Tamsulosin [Flomax] 0.4 mg PO DAILY 01/04/17 07/07/18 metFORMIN [glucOPHAGE] 1,000 mg PO DAILY 01/04/17 07/07/18 Atorvastatin [Lipitor] 40 mg PO DAILY 04/28/17 07/07/18 Finasteride [Proscar] 5 mg PO DAILY 06/26/18 07/07/18 Nitrofurantoin Macrocrystals 100 mg PO Q12H 06/26/18 07/07/18 [Macrobid] Aspirin [Ecotrin] 81 mg PO DAILY 07/03/18 07/07/18 Ticagrelor [Brilinta] 60 mg PO BID 07/03/18 07/07/18 Review of Systems - Physician Review All systems were reviewed & negative as marked: Yes - Review of Systems Constitutional: Other (+chills). absent: Fevers Respiratory: absent: SOB, Cough Cardiovascular: absent: Chest Pain Gastrointestinal: absent: Nausea, Vomiting Musculoskeletal: absent: Back Pain, Neck Pain Neurological: absent: Headache, Dizziness Endocrine: absent: Diaphoresis Physical Exam Vital Signs Temp Pulse Resp BP Pulse Ox 07/07/18 13:59 97.9 F 111 H 18 158/72 H 96 Temperature: Afebrile Blood Pressure: Hypertensive Pulse: Tachycardic Respiratory Rate: Normal Appearance: Positive for: Well-Appearing, Non-Toxic, Comfortable Pain Distress: None Mental Status: Positive for: Alert and Oriented X 3 - Systems Exam Head: Present: Atraumatic, Normocephalic Pupils: Present: PERRL Extroacular Muscles: Present: EOMI Conjunctiva: Present: Normal Mouth: Present: Moist Mucous Membranes Neck: Present: Normal Range of Motion Respiratory/Chest: Present: Clear to Auscultation, Good Air Exchange. No: Respiratory Distress, Accessory Muscle Use Cardiovascular: Present: Regular Rate and Rhythm, Normal S1, S2. No: Murmurs Abdomen: No: Tenderness, Distention, Peritoneal Signs Back: Present: Normal Inspection Upper Extremity: Present: Normal Inspection. No: Cyanosis, Edema Lower Extremity: Present: Normal Inspection. No: Edema Neurological: Present: GCS=15, CN II-XII Intact, Speech Normal Skin: Present: Dry, Normal Color, Cold. No: Warm, Rashes Psychiatric: Present: Alert, Oriented x 3, Normal Insight, Normal Concentration Medical Decision Making ED Course and Treatment: 07/07/18 14:13 Impression: 87 year old male presents to the emergency department complaining of body chills prior to arrival. Differential Diagnosis included but are not limited to: Plan: -- EKG -- Labs -- Chest X-ray -- Blood culture -- Urine culture -- IV Fluids -- Blood culture -- Reassess and disposition Prior Visits: Notes and results from previous visits were reviewed. Progress Notes: 07/07/18 16:14 Chest X-Ray reviewed by radiologist, shows: Subtle patchy infiltrates within the lateral aspects of bilateral mid lung zones. Bladder Ultrasound reviewed by radiologist, shows: -Prevoid urinary bladder: Measures approximately 10.5 x 8.0 x 9.9 cm, calculated volume 574.2 mL -Postvoid urinary bladder: Patient unable to void. -Enlarged heterogeneous prostate gland. Recommend correlation with PSA. -Trabeculated urinary bladder contour with evidence of numerous small urinary bladder diverticula. Bilateral ureteral jets were not identified. Echogenic foci consistent with urinary bladder calculi. 07/07/18 16:20 Spoke with Kierra Sherman M.D, who is aware and agrees with the plan to admit p atient. - Lab Interpretations Lab Results: Urine Color Yellow (YELLOW) 07/07/18 13:55 Urine Appearance Clear (CLEAR) 07/07/18 13:55 Urine pH 6.0 (4.7-8.0) 07/07/18 13:55 Ur Specific [place] 1.015 (1.005-1.035) 07/07/18 13:55 Urine Protein Negative mg/dL (<30 mg/dL) 07/07/18 13:55 Urine Glucose (UA) 500 mg/dL (NEGATIVE) H 07/07/18 13:55 Urine Ketones 15 mg/dL (NEGATIVE) H 07/07/18 13:55 Urine Blood Trace-intact (NEGATIVE) H 07/07/18 13:55 Urine Nitrate Negative (NEGATIVE) 07/07/18 13:55 Urine Bilirubin Negative (NEGATIVE) 07/07/18 13:55 Urine Urobilinogen 0.2 E.U./dL (<1 E.U./dL) 07/07/18 13:55 Ur Leukocyte Esterase Trace Bon/uL (NEGATIVE) H 07/07/18 13:55 - RAD Interpretation Radiology Orders: 07/07/18 13:03 CHEST PORTABLE [RAD] Stat BLADDER ONLY/RESIDUAL URINE [US] Stat - Medication Orders Current Medication Orders: Sodium Chloride (Sodium Chloride 0.9%) 1,000 mls @ 60 mls/hr IV .[id number] ENDER - Scribe Statement The provider has reviewed the documentation as recorded by the Tawnya Zhou Provider Scribe Attestation: All medical record entries made by the Scribe were at my direction and personally dictated by me. I have reviewed the chart and agree that the record accurately reflects my personal performance of the history, physical exam, medical decision making, and the department course for this patient. I have also personally directed, reviewed, and agree with the discharge instructions and disposition. Disposition/Present on Arrival - Present on Arrival Any Indicators Present on Arrival: No History of DVT/PE: No History of Uncontrolled Diabetes: No Urinary Catheter: No History of Decub. Ulcer: No History Surgical Site Infection Following: None - Disposition Have Diagnosis and Disposition been Completed?: Yes Diagnosis: UTI (urinary tract infection) Disposition: HOSPITALIZED Disposition Time: 14:45 Condition: FAIR
[2018-07-07 14:48] LABS: ALB/GLOB RATIO 1.2 (1.1-1.8); ALBUMIN 3.7 g/dL (3.0-4.8); ALT/SGPT 27 U/L (7-56); ANISOCYTOSIS 1+; AST/SGOT 36 U/L (17-59); BLOOD UREA NITROGEN 16 mg/dL (7-21); CALCIUM 9.2 mg/dL (8.4-10.5); GFR NON-AFRICAN AMERICAN > 60; HYPOCHROMIA 1+; LYMPHOCYTE 3 % (22.0-35.0); MONOCYTE 2 % (1.0-6.0); NEUTROPHIL 95 % (50.0-70.0); PLATELET ESTIMATE NORMAL (NORMAL); TROPONIN I 0.33 ng/mL
--- NOTE | 2018-07-07 15:00 | US ---
Indication: r/o bladder stones Technique: Bladder only/residual urine ultrasound Comparison: None available Findings: Prevoid urinary bladder: Measures approximately 10.5 x 8.0 x 9.9 cm, calculated volume 574.2 mL Postvoid urinary bladder: Patient unable to void. Trabeculated urinary bladder contour with evidence of numerous small urinary bladder diverticula. Bilateral ureteral jets were not identified. Echogenic foci consistent with urinary bladder calculi. The heterogeneous appearing prostate gland measures approximately 7.1 x 6.1 x 7.6 cm, volume 173.5 mL. No significant pelvic free fluid identified. Impression: Prevoid urinary bladder: Measures approximately 10.5 x 8.0 x 9.9 cm, calculated volume 574.2 mL Postvoid urinary bladder: Patient unable to void. Enlarged heterogeneous prostate gland. Recommend correlation with PSA. Trabeculated urinary bladder contour with evidence of numerous small urinary bladder diverticula. Bilateral ureteral jets were not identified. Echogenic foci consistent with urinary bladder calculi.
[2018-07-07] MEDS ORDERED: cefTRIAXone 1 gm 1 GM/100 ML BAG IVPB STA (15:01)
[2018-07-07] MEDS: Sodium Chloride 0.9% 1,000 ML IV SCH (15:12)
--- NOTE | 2018-07-07 15:34 | RAD ---
HISTORY: r/o infiltrate COMPARISON: Chest x-ray performed 07/03/18 TECHNIQUE: Chest, one view. FINDINGS: LUNGS: Subtle patchy infiltrates within the lateral aspects of bilateral mid lung zones. PLEURA: No significant pleural effusion identified. No definite pneumothorax . CARDIOVASCULAR: The cardiomediastinal silhouette appears within normal limits of size. No significant atherosclerotic calcification present. OSSEOUS STRUCTURES: No acute osseous abnormality identified. VISUALIZED UPPER ABDOMEN: Unremarkable. OTHER FINDINGS: None. IMPRESSION: Subtle patchy infiltrates within the lateral aspects of bilateral mid lung zones.
--- NOTE | 2018-07-07 15:35 | CARD ---
APPROVED REPORT Date of service: 07/07/2018 EKG Measurement Heart [id number] [id number] <Conclusion> Sinus tachycardia RSR' or QR pattern in V1 suggests right ventricular conduction delay Inferior infarct, age undetermined Possible Anterior infarct, age undetermined Abnormal ECG
[2018-07-07] MEDS ORDERED: Meropenem IV 1 gm in NS 1 GM/50 ML BAG IVPB SCH (18:00)
[2018-07-07] MEDS ORDERED: Vancomycin 1gm in NS 250ml 1 GM/250 ML BAG IVPB STA (18:01)
[2018-07-07 19:27] LABS: VENOUS BLOOD GAS BASE EXCESS 1.6 mmol/L (0.0-2.0); VENOUS BLOOD GAS PO2 157 mm/Hg (30-55); VENOUS BLOOD PH 7.48 (7.32-7.43)
[2018-07-07] MEDS: Vancomycin 1gm in NS 250ml 1 GM/250 ML BAG IVPB SCH (19:49)
[2018-07-07] MEDS ORDERED: Influenza Vaccine 60 mcg/0.5 mL SYR (4YR UP) IM ONE (23:12)
[2018-07-07] MEDS ORDERED: Pneumococcal 23-Valent Vaccine IM ONE (23:12)
--- NOTE | 2018-07-08 00:24 | CON ---
DATE OF CONSULTATION: 07/07/2018 CARDIOLOGY CONSULTATION HISTORY: The patient is an 87-year-old male, who recently underwent PTCA and stent of two lesions in the LAD as well as two lesions in the RCA. He had acute stent thrombosis of the right coronary artery the next morning due to his presumed Plavix intake, which later on he admitted he was not taking, and he was changed to . On 07/03/2018, the patient underwent emergency PTCA and stents for occluded RCA with successful recannulization He was doing well, however, having difficulty with urination with frequency. He presented today with shaking chills. He denies chest pain, denies shortness of breath. PHYSICAL EXAMINATION: VITAL SIGNS: Temperature is 99.8, blood pressure 135/67. NECK: Negative JVD. LUNGS: Without rales. CARDIAC: Heart rate S1, S2. EXTREMITIES: Without edema. LABORATORY DATA: EKG shows no acute changes. White count of up to 12,000. Chemistries, BUN and creatinine are unremarkable with a troponin of 0.33, which is likely a residual from his acute coronary artery syndrome on 07/03/2018. IMPRESSION: 1. Rule out urinary tract infection. 2. Sepsis. 3. Status post percutaneous transluminal coronary angioplasty and stent of two vessels. 4. Status post non-ST elevation myocardial infarction. 5. Coronary artery disease. 6. Diabetes mellitus. 7. Kidney stones. Given these findings, we will continue the patient on his aspirin and . The patient will likely need IV antibiotics after cultures are back. Aleks Alexander MD
--- NOTE | 2018-07-08 01:30 | HP ---
DATE OF EXAM: 07/07/2018 HISTORY OF PRESENT ILLNESS: I was called by the family. He is having some chills and not feeling well, body aches and rigors and he has a history of having a recent catheterization with four stents placed and then he had another inferior wall ID and had another cath with a balloon and now he went home. He also has a history of bladder stones and was seen urologist, now he came in with a fever, chills and send him to the emergency room. He had a CVA in the past, diabetes, history of skin cancer, basal cell carcinoma on the right arm and left ear, hematuria, urinary tract infection, and bladder stones. Surgery x4 for skin cancer, cardiac cath. FAMILY HISTORY: Unknown. SOCIAL HISTORY: Former smoker. No alcohol. No drugs. ALLERGIES: NO KNOWN DRUG ALLERGIES. MEDICATIONS: He is on Amaryl, Flomax, Glucophage, Lipitor, and Proscar. He has been on Macrobid, Ecotrin, and Brilinta now. REVIEW OF SYSTEMS: No acute vision or hearing changes. He got chills and rigors and shaking. No shortness of breath. No cough. No chest pain or palpitations. No nausea, vomiting, constipation, or diarrhea. No neck pain or back pain. No headache. No dizziness. He is little bit weak. He has got lower abdomen discomfort. No extremity issues. No skin issues. PHYSICAL EXAMINATION: VITAL SIGNS: 99.8 temperature, 111 pulse, 18 respiratory rate, 158/72 blood pressure, and 96% O2 sat. GENERAL: He is not well-appearing, little bit toxic, uncomfortable, very tired, not sleeping well, clinically exhausted looking, thin and frail, alert and oriented x3. HEENT: Head is atraumatic and normocephalic. Extraocular muscles are intact. Pupils are equal and reactive to light and accommodation. Throat is normal. HEART: Regular rate. Normal S1 and S2. LUNGS: Decreased breath sounds, but clear to auscultation. ABDOMEN: Soft and nontender. Positive bowel sounds. EXTREMITIES: No edema. GCS is 15. Cranial nerves II through XII grossly intact. SKIN: Warm and dry. No apparent ulcers. NEUROLOGIC: Alert and oriented x3. LABORATORY DATA: He had multiple issues going on, I sent him to the emergency room for bladder stone, ultrasound ended up in the ER with chills. He had multiple tests done. Chest x-ray showed mid zone bilateral patchy infiltrates. Also he had trabeculated urinary bladder and numerous small urinary bladder diverticula, bilateral ureteral jets were not identified. Multiple urinary bladder calculi and enlarged prostate. EKG showed sinus tachycardia, inferior infarct age undetermined, and possible anterior infarct age undetermined. He has a 12.5 white count, 10.8 hemoglobin, 32.2 hematocrit with 287 platelets. Sodium 132, potassium 4.6, BUN 16, creatinine 0.9, GFR is greater than 60, sugar is 266, and calcium is 9.2. AST is 36, ALT is 27, alk phos is 94, and troponin is 0.33. He was just recently cath, urine had many bacteria. ASSESSMENT AND PLAN: He is here for urinary tract infection and sepsis probably. I will wait for Infectious Disease, also bilateral mid zone infiltrates, bladder stones, recent cardiac catheterization x2 with stent placement, and inferior wall myocardial infarction. We will have Cardiology, Infectious Disease, Urology, and Pulmonary consults. We will watch him closely. Lane Lozada DO
[2018-07-08] MEDS: Meropenem IV 1 gm in NS 1 GM/50 ML BAG IVPB SCH ×4 (01:51→21:18)
--- NOTE | 2018-07-08 01:52 | CON ---
DATE OF CONSULTATION: 07/07/2018 HISTORY OF PRESENT ILLNESS: This is an 87-year-old gentleman with history of coronary artery disease, recent stent placement, CVA, hyperlipidemia, diabetes mellitus type 2, who presented to [facility] with rigors, body chills of acute onset. Of note, the patient has recurrent UTI with history of bladder stones. The patient was suggested to have cystoscopy, which was canceled before due to coronary artery disease requiring stenting, which was done. However, cystoscopy has never been done afterwards. The patient was admitted to ER where he received antibiotics, fluid, and was admitted to telemetry floor. No nausea, no vomiting, no diarrhea, and no constipation. PAST MEDICAL HISTORY: CVA, carcinoma , and diabetes. FAMILY HISTORY: Noncontributory. HOME MEDICATIONS: Glimepiride, tamsulosin, metformin, Lipitor, Proscar, nitrofurantoin, aspirin, and Brilinta. ALLERGIES: NKDA. SOCIAL HISTORY: No alcohol or illicit drug abuse. No tobacco smoking, however, ex-smoker. REVIEW OF SYSTEMS: Review of 12 organs system, other than mentioned in history of present illness is negative. FAMILY HISTORY: Noncontributory. PHYSICAL EXAMINATION: VITAL SIGNS: Blood pressure 138/67, temperature 101.3, heart rate 97, oxygen saturation 95% on room air, respiratory rate 18. HEENT: Head and neck, atraumatic. LUNGS: Clear to auscultation bilaterally. HEART: Regular rate and rhythm, S1 and S2 are normal. ABDOMEN: Soft, mildly tender in suprapubic area. SKIN: Moist. NEURO: The patient moves all extremities spontaneously. MUSCULOSKELETAL: No C/C/E. NEURO: The patient moves all extremities spontaneously. PSYCH: The patient is alert, awake, and oriented x3. LABORATORY DATA: WBC 12.5, hemoglobin 10.8, platelet count 287. Sodium 132, potassium 4.6, chloride 94, carbon dioxide 26, BUN 16, creatinine 0.9, glucose 266, troponin 0.33. Urine positive for bacteria, wbc's, leukocyte esterase, but negative for nitrites. Chest x-ray showed questionable faint infiltrates. Bladder ultrasound showed more than 570 mL of urine retained in the bladder. However, the patient was unable to void. ASSESSMENT AND PLAN: This is an 87-year-old gentleman, who presented with severe sepsis secondary to urinary tract infection in the setting of urinary retention and the cystic bladder stones. Septic workup was initiated including blood culture, urine culture, procalcitonin. Broad-spectrum antibiotics were started meropenem, vancomycin, and IV fluid were given. Redman catheter was placed by Genitourinary consult. The patient is also on Brilinta since we placed stents. We will continue to target euvolemia, glycemia, normothermia, and oxygen saturation more than 90%. We will continue with deep venous thrombosis and gastrointestinal prophylaxis. Florentino Victoria MD
[2018-07-08] MEDS: Sodium Chloride 0.9% 1,000 ML IV SCH ×3 (05:46→21:18)
[2018-07-08] MEDS: Vancomycin 1gm in NS 250ml 1 GM/250 ML BAG IVPB SCH ×2 (06:22→19:47)
[2018-07-08 06:24] LABS: HEMOGLOBIN 10.4 g/dL (14.0-18.0); MEAN CELL VOLUME 93.2 fl (80.0-105.0); MEAN CORPUSCULAR HEMOGLOBIN 30.7 pg (25.0-35.0); MEAN CORPUSCULAR HGB CONC 32.9 g/dl (31.0-37.0); MEAN PLATELET VOLUME 8.3 fl (7.0-11.0); RBC 3.39 10^6/uL (3.5-6.1); RED CELL DISTRIBUTION WIDTH 12.8 % (11.5-14.5); WHITE BLOOD COUNT 8.2 10^3/uL (4.5-11.0)
--- NOTE | 2018-07-08 06:27 | PCM.URO ---
Urology Progress Note - Objective Lab Studies: Reviewed (see dictated note as well pt with adequate urine output plans:for now maintain alexander catheter) Lab Results Last 24 Hours: Laboratory Results - last 24 hr 07/07/18 07/07/18 07/07/18 13:55 13:55 13:55 WBC 12.5 H D RBC 3.48 L Hgb 10.8 L Hct 32.2 L MCV 92.5 MCH 31.0 MCHC 33.5 RDW 12.7 Plt Count 287 MPV 8.0 Neut % (Auto) 96.6 H Lymph % (Auto) 1.4 L [place] % (Auto) 1.4 Eos % (Auto) 0.5 L Baso % (Auto) 0.1 Lymph # (Auto) 0.2 L [place] # (Auto) 0.2 Eos # (Auto) 0.1 Baso # (Auto) 0.01 Absolute Neuts (auto) 12.05 H Neutrophils % (Manual) 95 H Lymphocytes % (Manual) 3 L Monocytes % (Manual) 2 Platelet Evaluation Normal Hypochromasia 1+ Anisocytosis (manual) 1+ pO2 VBG pH VBG pCO2 VBG HCO3 VBG Total CO2 VBG O2 Sat (Calc) VBG Base Excess VBG Potassium Glucose Lactate FiO2 Sodium 132 Potassium 4.6 Chloride 94 L Carbon Dioxide 26 Anion Gap 17 BUN 16 Creatinine 0.9 Est GFR ( Amer) > 60 Est GFR (Non-Af Amer) > 60 POC Glucose (mg/dL) Random Glucose 266 H Calcium 9.2 Total Bilirubin 0.6 AST 36 ALT 27 Alkaline Phosphatase 94 Lactate Dehydrogenase 491 Total Creatine Kinase 48 Troponin I 0.33 H* D Total Protein 6.9 Albumin 3.7 Globulin 3.2 Albumin/Globulin Ratio 1.2 Venous Blood Potassium Urine Color Yellow Urine Appearance Clear Urine pH 6.0 Ur Specific Dairy 1.015 Urine Protein Negative Urine Glucose (UA) 500 H Urine Ketones 15 H Urine Blood Trace-intact H Urine Nitrate Negative Urine Bilirubin Negative Urine Urobilinogen 0.2 Ur Leukocyte Esterase Trace H Urine RBC 2 - 5 H Urine WBC 2 - 5 Ur Epithelial Cells None Amorphous Sediment Few Urine Bacteria Many 07/07/18 07/07/18 17:38 19:11 WBC RBC Hgb Hct MCV MCH MCHC RDW Plt Count MPV Neut % (Auto) Lymph % (Auto) [place] % (Auto) Eos % (Auto) Baso % (Auto) Lymph # (Auto) [place] # (Auto) Eos # (Auto) Baso # (Auto) Absolute Neuts (auto) Neutrophils % (Manual) Lymphocytes % (Manual) Monocytes % (Manual) Platelet Evaluation Hypochromasia Anisocytosis (manual) pO2 157 H VBG pH 7.48 H VBG pCO2 33.0 L VBG HCO3 24.6 VBG Total CO2 25.6 VBG O2 Sat (Calc) 99.2 H VBG Base Excess 1.6 VBG Potassium 4.0 Glucose 229 H Lactate 1.0 FiO2 21.0 Sodium 131.0 L Potassium Chloride 98.0 Carbon Dioxide Anion Gap BUN Creatinine Est GFR ( Amer) Est GFR (Non-Af Amer) POC Glucose (mg/dL) 219 H Random Glucose Calcium Total Bilirubin AST ALT Alkaline Phosphatase Lactate Dehydrogenase Total Creatine Kinase Troponin I Total Protein Albumin Globulin Albumin/Globulin Ratio Venous Blood Potassium 4.0 Urine Color Urine Appearance Urine pH Ur Specific Dairy Urine Protein Urine Glucose (UA) Urine Ketones Urine Blood Urine Nitrate Urine Bilirubin Urine Urobilinogen Ur Leukocyte Esterase Urine RBC Urine WBC Ur Epithelial Cells Amorphous Sediment Urine Bacteria Intake & Output: Intake & Output 07/07/18 07/07/18 07/08/18 06:59 18:59 06:59 Intake Total 1640 Output Total 1675 Balance -35 Weight 150 lb 151 lb 4.8 oz Intake: IV 800 Left Wrist 800 Oral 240 Tube Feeding 0 TPN/PPN 0 Blood Product 0 Lipid 0 Albumin 0 Other 600 Output: Urine 1675 Urethral (Alexander) 1675 Stool 0 Urine/Stool Mix 0 Emesis 0 Oral Regurgitation 0 Other 0 Other: Voiding Method Toilet # Bowel Movements 0 Vital Signs: Vital Signs - 24 hr 07/07/18 07/07/18 07/07/18 13:59 14:29 15:22 Temperature 97.9 F 99.8 F H 99.8 F H Pulse Rate 111 H 110 H 97 H Pulse Rate [ Apical] Respiratory 18 18 18 Rate Blood Pressure 158/72 H 135/67 138/67 O2 Sat by Pulse 96 97 95 Oximetry 07/07/18 07/07/18 07/07/18 18:17 18:20 18:25 Temperature Pulse Rate 93 H 94 H 92 H Pulse Rate [ Apical] Respiratory Rate Blood Pressure O2 Sat by Pulse Oximetry 07/07/18 07/07/18 07/07/18 18:32 19:00 20:01 Temperature 98 F Pulse Rate 88 90 83 Pulse Rate [ Apical] Respiratory 26 H 20 Rate Blood Pressure 105/50 L 95/47 L O2 Sat by Pulse 98 98 Oximetry 07/07/18 07/07/18 07/07/18 21:00 22:00 22:56 Temperature Pulse Rate 77 71 Pulse Rate [ 94 H Apical] Respiratory 11 L 23 18 Rate Blood Pressure 104/45 L 109/44 L O2 Sat by Pulse 97 99 Oximetry 07/07/18 07/08/18 07/08/18 23:00 00:00 00:18 Temperature 98.9 F Pulse Rate 76 76 71 Pulse Rate [ Apical] Respiratory 26 H 21 Rate Blood Pressure 113/51 L 119/46 L O2 Sat by Pulse 99 98 Oximetry 07/08/18 07/08/18 07/08/18 00:56 01:00 01:10 Temperature Pulse Rate 65 65 65 Pulse Rate [ Apical] Respiratory 19 19 21 Rate Blood Pressure 105/50 L O2 Sat by Pulse 98 98 99 Oximetry 07/08/18 07/08/18 07/08/18 01:20 01:30 01:40 Temperature Pulse Rate 65 63 65 Pulse Rate [ Apical] Respiratory 22 21 23 Rate Blood Pressure O2 Sat by Pulse 97 99 99 Oximetry 07/08/18 07/08/18 07/08/18 01:50 02:00 02:10 Temperature Pulse Rate 66 74 70 Pulse Rate [ Apical] Respiratory 16 24 20 Rate Blood Pressure 105/42 L O2 Sat by Pulse 99 99 100 Oximetry 07/08/18 07/08/18 07/08/18 02:17 02:20 02:30 Temperature Pulse Rate 68 74 Pulse Rate [ Apical] Respiratory 22 25 H Rate Blood Pressure O2 Sat by Pulse 100 99 100 Oximetry 07/08/18 07/08/18 07/08/18 02:40 02:50 03:00 Temperature Pulse Rate 63 66 75 Pulse Rate [ Apical] Respiratory 21 23 30 H Rate Blood Pressure 120/53 L O2 Sat by Pulse 100 100 100 Oximetry 07/08/18 07/08/18 07/08/18 03:10 03:20 03:30 Temperature Pulse Rate 68 68 71 Pulse Rate [ Apical] Respiratory 20 23 23 Rate Blood Pressure O2 Sat by Pulse 98 98 99 Oximetry 07/08/18 07/08/18 07/08/18 03:40 03:50 04:00 Temperature Pulse Rate 69 67 67 Pulse Rate [ Apical] Respiratory 24 23 24 Rate Blood Pressure 125/44 L O2 Sat by Pulse 99 99 99 Oximetry 07/08/18 07/08/18 07/08/18 04:10 04:20 04:30 Temperature Pulse Rate 70 69 74 Pulse Rate [ Apical] Respiratory 30 H 26 H 28 H Rate Blood Pressure O2 Sat by Pulse 97 99 99 Oximetry 07/08/18 07/08/18 07/08/18 04:40 04:50 05:00 Temperature Pulse Rate 66 67 78 Pulse Rate [ Apical] Respiratory 24 23 26 H Rate Blood Pressure 135/55 L O2 Sat by Pulse 99 99 99 Oximetry 07/08/18 07/08/18 07/08/18 05:10 05:20 05:30 Temperature Pulse Rate 68 73 84 Pulse Rate [ Apical] Respiratory 24 25 H Rate Blood Pressure O2 Sat by Pulse 99 98 98 Oximetry 07/08/18 07/08/18 07/08/18 05:40 05:50 06:00 Temperature Pulse Rate 79 80 76 Pulse Rate [ Apical] Respiratory 19 13 20 Rate Blood Pressure 117/44 L O2 Sat by Pulse 98 99 99 Oximetry 07/08/18 06:10 Temperature Pulse Rate 68 Pulse Rate [ Apical] Respiratory Rate Blood Pressure O2 Sat by Pulse 98 Oximetry
[2018-07-08 07:23] LABS: ALB/GLOB RATIO 1.1 (1.1-1.8); ALBUMIN 3.1 g/dL (3.0-4.8); ALT/SGPT 20 U/L (7-56); AST/SGOT 27 U/L (17-59); BLOOD UREA NITROGEN 13 mg/dL (7-21); CALCIUM 8.8 mg/dL (8.4-10.5); GFR NON-AFRICAN AMERICAN > 60
--- NOTE | 2018-07-08 10:43 | CP.PCM.PN ---
Subjective - Date & Time of Evaluation Date of Evaluation: 07/08/18 Time of Evaluation: 07:15 - Subjective Subjective: Patient seen and examined. Doing better today. Objective - Vital Signs/Intake and Output Vital Signs (last 24 hours): Temp Pulse Resp BP Pulse Ox 98.9 F 68 22 108/41 L 98 07/08/18 00:00 07/08/18 07:47 07/08/18 07:40 07/08/18 07:00 07/08/18 07:40 Intake and Output: 07/08/18 07/08/18 06:59 18:59 Intake Total 1640 Output Total 1675 Balance -35 - Medications Medications: Current Medications Acetaminophen (Tylenol 325mg Tab) 650 mg PO Q4H PRN PRN Reason: Pain, moderate (4-7) Last Admin: 07/08/18 10:25 Dose: 650 mg Aspirin (Ecotrin) 81 mg PO DAILY [facility] Last Admin: 07/08/18 09:19 Dose: 81 mg Atorvastatin Calcium (Lipitor) 40 mg PO DAILY [facility] Finasteride (Proscar) 5 mg PO DAILY [facility] Last Admin: 07/08/18 09:20 Dose: 5 mg Glimepiride (Amaryl) 4 mg PO BID [facility] Last Admin: 07/08/18 09:19 Dose: 4 mg Sodium Chloride (Sodium Chloride 0.9%) 1,000 mls @ 100 mls/hr IV .Q10H [facility] Last Admin: 07/08/18 05:46 Dose: 100 mls/hr Meropenem (Merrem Iv 1 Gm Premix) 1 gm in 50 mls @ 100 mls/hr IVPB Q8 [facility]; Protocol Stop: 07/16/18 22:01 Last Admin: 07/08/18 05:46 Dose: 100 mls/hr Vancomycin HCl (Vancomycin 1gm) 1 gm in 250 mls @ 167 mls/hr IVPB Q12H [facility]; Protocol Stop: 07/14/18 19:16 Last Admin: 07/08/18 06:22 Dose: 167 mls/hr Metformin HCl (Glucophage) 1,000 mg PO DAILY [facility] Last Admin: 07/08/18 09:19 Dose: 1,000 mg Tamsulosin HCl (Flomax) 0.4 mg PO DAILY [facility] Last Admin: 07/08/18 09:19 Dose: 0.4 mg Ticagrelor (Brilinta) 60 mg PO BID [facility] Last Admin: 07/08/18 09:19 Dose: 60 mg - Labs Labs: 07/08/18 06:00 07/08/18 06:00 - Constitutional Appears: Non-toxic, No Acute Distress - Head Exam Head Exam: NORMAL INSPECTION - Eye Exam Eye Exam: Normal appearance - ENT Exam ENT Exam: Mucous Membranes Moist - Neck Exam Neck Exam: Full ROM - Respiratory Exam Respiratory Exam: Clear to Ausculation Bilateral, NORMAL BREATHING PATTERN - Cardiovascular Exam Cardiovascular Exam: REGULAR RHYTHM, +S1, +S2 - GI/Abdominal Exam GI & Abdominal Exam: Soft, Normal Bowel Sounds - Extremities Exam Extremities Exam: Normal Inspection - Neurological Exam Neurological Exam: Alert, Awake - Psychiatric Exam Psychiatric exam: Normal Affect - Skin Skin Exam: Normal Color, Warm Assessment and Plan - Assessment and Plan (Free Text) Assessment: Patient is 87yo male with PMhx of CVA, CAD with stents, DM, HLD, admitted with severe sepsis 2/2 UTI CAD CVA DM HLD Dehydration Severe Sepsis UTI - currently afebrile, HD stable, comfortable in NAD, doing well - Labs, imaging, chart reviewed - WBc downtrending, Cr normal, good UOP - Urology following - ID following Recommend: - cont with supp o2 as needed, duonebs PRN - Abx as per ID - follow up cultures, UCx, BCx, Procal - follow up ID - IVF hydration - ASA, Brillinta, BB - Statin - follow up cardio, repeat cardiac enzymes - GI ppx - DVT ppx - Monitor in MICU
--- NOTE | 2018-07-08 15:38 | PN ---
DATE: 07/08/2018 SUBJECTIVE: I saw him in the Intensive Care Unit today. He came in with a chills, rigors, and looks like an infection situation, elevated white count of 12 with a low grade temperature of 99.8. He is seen out of bed to chair doing a lot better. He was started on Merrem and vancomycin. Discussed at length with his son and daughter, the daughter is a doctor. Multiple questions spent at least 30-40 minutes with them. He also has a Redman catheter in place which is making his bladder much better. He was able to sleep last night. He has had no chest pain. No shortness of breath. No abdominal pain. No chills. No fevers. No problems at this time. He is able to stand and walk from bed to the chair. Much better spirits. He also has a little bit of an appetite, he ate and went to the bathroom. PHYSICAL EXAMINATION: GENERAL: Very alert and comfortable. No complaints. VITAL SIGNS: He has a 98.4 temperature, 68 pulse, 22 respiratory rate, and 98% O2 saturation on 2 liters. HEENT: His head is atraumatic and normocephalic. HEART: Regular rate. LUNGS: Decreased breath sounds, but clear. ABDOMEN: Soft. EXTREMITIES: No edema. MEDICATIONS: He is currently on Amaryl, Brilinta, Ecotrin, Flomax, Glucophage, Lipitor, Merrem, Proscar, IV fluids, Tylenol, and vancomycin. LABORATORY DATA: He has an 8.2 white count better than 12.5 when he came in, hemoglobin is 10.4, hematocrit 31.6, and platelets 276. Lactate was 1. He has a 137 sodium, potassium 3.9, BUN 13, creatinine 1, GFR is greater than 60, sugar is 65, sugar is also 219, calcium is 8.8, and total bili is 0.5. AST is 27, ALT is 20, alk phos 68, total protein is 5.9, his troponin was 0.33, but he also had cath twice within the past week. He had many bacteria in the urine. Chest x-ray did show bilateral mid lung zone pneumonia. ASSESSMENT AND PLAN: He is being treated for bilateral pneumonia and for urinary tract infection. He is doing better physical therapy; out of bed to chair. Discussed at length with the son and daughter. Check his labs tomorrow. Out of bed to chair. If he does well tomorrow, we will get him out of Intensive Care Unit tomorrow. I will see him with the cultures tomorrow. Lane Lozada DO [facility]
--- NOTE | 2018-07-08 20:21 | PN ---
DATE: 07/08/[address] Aleks Alexander. SUBJECTIVE: The patient denies any chest pain. The patient was reported to me by the family to have had a run of atrial fibrillation while in the emergency room. My review of all the rhythm strips that are recorded were missing that episode of atrial fibrillation. PHYSICAL EXAMINATION: VITAL SIGNS: Blood pressure 112/50, heart rate 74, temperature 98.4 and respirations 36. HEENT: Normocephalic. CHEST: Clear. HEART: S1 and S2. Regular. EXTREMITIES: No edema. LABORATORY DATA: Today's hemoglobin and hematocrit 10.4 and 31.6, white count and platelet count are within normal limits. Today's SMA-7 is within normal limits except for glucose of 65. Troponin on admission was 0.33. Admitting EKG with sinus tachycardia at rate of 121, old inferior infarct and poor R wave progression. The most recent cardiac catheterization was one week ago. The patient underwent emergency [employer] for acute stent thrombosis in the RCA and was found to have patent two stents in the LAD at that time. ASSESSMENT: 1. Coronary artery disease with history of recent PTCA for acute stent thrombosis of the right coronary artery on 07/03/2018. 2. Rule out urosepsis. 3. Questionable run of atrial fibrillation. 4. Borderline troponin elevation. RECOMMENDATIONS: Continue current Brilinta at 60 mg twice a day, aspirin 81 mg once a day, metformin 1 g daily, Lipitor 40 mg once a day, IV meropenem at 1 g every 8 hours, normal saline at 100 mL an hour, and IV vancomycin 1 g every 12 hours. Start atenolol 12.5 mg daily. Tank Bhakta MD
--- NOTE | 2018-07-08 21:14 | CON ---
DATE OF CONSULTATION: 07/08/2018 The patient is seen earlier this morning in Room 129, Bed 3. CHIEF COMPLAINT: Fever and shortness of breath for several days. HISTORY OF PRESENT ILLNESS: This is an 87-year-old male with past medical history significant for recent hospitalization, history of basal cell carcinoma, hyperlipidemia, diabetes mellitus, asthma, coronary artery disease, BPH, cerebrovascular accident, who had recent hospitalization and now returns with fever. The patient had been in the intensive care unit earlier this month and at this time the patient was admitted to the emergency room, was seen by Dr. Kumar in the emergency room yesterday, complained of fevers and chills, and the patient had the recent cardiac catheterization and stent placements and he is complaining of shortness of breath. PAST MEDICAL HISTORY: Significant for coronary artery disease, cerebrovascular accident, basal cell cancer, hyperlipidemia, diabetes, asthma, BPH. PAST SURGICAL HISTORY: Significant for cardiac catheterization with stent placement. MEDICATIONS: Include the patient to be on metformin, ticagrelor, tamsulosin, Macrobid, atorvastatin, aspirin. ALLERGIES: THE PATIENT HAS NO KNOWN ALLERGIES. REVIEW OF SYSTEMS: A 12-point review of systems is performed. PHYSICAL EXAMINATION: GENERAL: The patient is in bed, in no acute distress. He is answering appropriately. VITAL SIGNS: Temperature of 98, respiratory rate of 22, heart rate of 68, and blood pressure is 108/40. HEENT: Unremarkable. NECK: Supple. LUNGS: Decreased breath sounds. HEART: Normal S1, S2. ABDOMEN: Soft, nontender. No organomegaly. No rebound or guarding. No masses. LABORATORY DATA: White count of 12,500, hemoglobin of 10, platelets of 287,000. BUN of 16, creatinine of 0.9, troponin 0.33. The patient had a chest x-ray, which shows bilateral infiltrates. ASSESSMENT AND PLAN: He is an 87-year-old who was admitted with fevers, leukocytosis, tachycardia, infiltrate, recent hospitalization. 1. Sepsis with healthcare-associated pneumonia. We will treat the patient with vancomycin and meropenem. Pending blood cultures, urine cultures, sputum cultures, MRSA screen and procalcitonin. We will follow with you. Overall, long-term prognosis is quite poor. Benson Casper MD [facility] # [id number]
[2018-07-08 23:24] VITALS: O2SAT 97
[2018-07-09] MEDS: Meropenem IV 1 gm in NS 1 GM/50 ML BAG IVPB SCH ×3 (05:56→21:12)
[2018-07-09] MEDS: Vancomycin 1gm in NS 250ml 1 GM/250 ML BAG IVPB SCH (06:19)
[2018-07-09] MEDS: Sodium Chloride 0.9% 1,000 ML IV SCH (06:20)
[2018-07-09 06:31] LABS: HEMOGLOBIN 9.8 g/dL (14.0-18.0); MEAN CELL VOLUME 93.1 fl (80.0-105.0); MEAN CORPUSCULAR HEMOGLOBIN 30.7 pg (25.0-35.0); MEAN PLATELET VOLUME 8.4 fl (7.0-11.0); RBC 3.19 10^6/uL (3.5-6.1); RED CELL DISTRIBUTION WIDTH 12.9 % (11.5-14.5); WHITE BLOOD COUNT 6.5 10^3/uL (4.5-11.0)
[2018-07-09 06:42] LABS: ALB/GLOB RATIO 1.1 (1.1-1.8); ALBUMIN 2.8 g/dL (3.0-4.8); ALT/SGPT 37 U/L (7-56); AST/SGOT 46 U/L (17-59); BLOOD UREA NITROGEN 10 mg/dL (7-21); CALCIUM 8.2 mg/dL (8.4-10.5); GFR NON-AFRICAN AMERICAN > 60
[2018-07-09] MEDS ORDERED: Potassium Chloride 20 mEq ER Tab PO ONE (09:46)
[2018-07-09] MEDS ORDERED: Potassium Chloride 40 mEq/30 ml LIQ UD PO ONE (10:42)
--- NOTE | 2018-07-09 10:48 | CP.PCM.PN ---
Subjective - Date & Time of Evaluation Date of Evaluation: 07/09/18 Time of Evaluation: 07:45 - Subjective Subjective: Pt seen and examined, sleeping comfortably in NAD. Family at bedside. Objective - Vital Signs/Intake and Output Vital Signs (last 24 hours): Temp Pulse Resp BP Pulse Ox 97.8 F 62 23 96/41 L 97 07/08/18 16:00 07/09/18 04:00 07/08/18 23:10 07/09/18 10:34 07/08/18 23:10 Intake and Output: 07/09/18 07/09/18 06:59 18:59 Intake Total 2210 Output Total 1300 Balance 910 - Medications Medications: Current Medications Acetaminophen (Tylenol 325mg Tab) 650 mg PO Q4H PRN PRN Reason: Pain, moderate (4-7) Last Admin: 07/08/18 10:25 Dose: 650 mg Aspirin (Ecotrin) 81 mg PO DAILY [facility] Last Admin: 07/09/18 10:32 Dose: 81 mg Atenolol (Tenormin) 12.5 mg PO DAILY [facility] Last Admin: 07/09/18 10:34 Dose: Not Given Atorvastatin Calcium (Lipitor) 40 mg PO DAILY [facility] Last Admin: 07/09/18 10:40 Dose: Not Given Finasteride (Proscar) 5 mg PO DAILY [facility] Last Admin: 07/09/18 10:32 Dose: 5 mg Glimepiride (Amaryl) 4 mg PO BID [facility] Last Admin: 07/08/18 09:19 Dose: 4 mg Meropenem (Merrem Iv 1 Gm Premix) 1 gm in 50 mls @ 100 mls/hr IVPB Q8 [facility]; Protocol Stop: 07/16/18 22:01 Last Admin: 07/09/18 05:56 Dose: 100 mls/hr Metformin HCl (Glucophage) 1,000 mg PO DAILY [facility] Last Admin: 07/09/18 10:33 Dose: 1,000 mg Tamsulosin HCl (Flomax) 0.4 mg PO DAILY [facility] Last Admin: 07/09/18 10:32 Dose: 0.4 mg Ticagrelor (Brilinta) 60 mg PO BID [facility] Last Admin: 07/09/18 10:32 Dose: 60 mg - Labs Labs: 07/09/18 05:40 07/09/18 05:40 - Constitutional Appears: Non-toxic, No Acute Distress - Head Exam Head Exam: NORMAL INSPECTION - Eye Exam Eye Exam: Normal appearance - ENT Exam ENT Exam: Mucous Membranes Moist - Respiratory Exam Respiratory Exam: Clear to Ausculation Bilateral, NORMAL BREATHING PATTERN - Cardiovascular Exam Cardiovascular Exam: REGULAR RHYTHM, +S1, +S2 - GI/Abdominal Exam GI & Abdominal Exam: Soft, Normal Bowel Sounds - Neurological Exam Neurological Exam: Alert, Awake - Psychiatric Exam Psychiatric exam: Normal Mood - Skin Skin Exam: Normal Color, Warm Assessment and Plan - Assessment and Plan (Free Text) Assessment: Patient is 87yo male with PMhx of CVA, CAD with stents, DM, HLD, admitted with severe sepsis 2/2 UTI CAD CVA DM HLD Dehydration Severe Sepsis UTI - currently afebrile, HD stable, comfortable in NAD, doing well - Labs, imaging, chart reviewed - Cr normal, good UOP - Urology following - ID following - overall clinically significantly improved Recommend: - cont with supp o2 as needed, duonebs PRN - Abx as per ID - follow up cultures, UCx, BCx - follow up ID - DC IVF - ASA, Brillinta, BB - Statin - follow up cardio - GI ppx - DVT ppx - Stable, transfer to tele
[2018-07-09 13:09] VITALS: TEMP 97.7
--- NOTE | 2018-07-09 13:20 | PN ---
DATE: 07/09/2018 SUBJECTIVE: The patient is responsive, was seen earlier this morning in 129, bed 3 and family member sleeping in the chair. There have been no fevers reported. The patient is doing better. PHYSICAL EXAMINATION: VITAL SIGNS: Temperature of 97.8, blood pressure is 121/43, respiratory rate of 20, heart rate of 65. HEENT: Unremarkable. NECK: Supple. LUNGS: Have decreased breath sounds. HEART: Normal S1, S2. ABDOMEN: Soft. LABORATORY DATA: The laboratory examination reveals the patient's white count is down to 6.5, hemoglobin of 9 and platelets are 238 with a BUN of 10, creatinine of 0.7. Troponin is elevated 0.16 and procalcitonin is 0.39. Urinalysis is noted. Microbiology reveals the blood cultures are negative. Urine cultures are negative and nasal MRSA screen is negative. Review of orders reveals the patient to be on meropenem and vancomycin. ASSESSMENT AND PLAN: This is an 87-year-old, admitted with fevers, leukocytosis, tachycardia, infiltrate, recent hospitalization. Sepsis with healthcare-associated pneumonia. We will discontinue the vancomycin as the methicillin-resistant Staphylococcus aureus screen is negative. Blood and urine cultures are negative. Procalcitonin is negative and today is day #3 of meropenem, would complete 4 to 7 days of antibiotics. We will discontinue the vancomycin. Case discussed with Dr. Lane Lozada. Benson Casper MD
--- NOTE | 2018-07-09 14:02 | PN ---
DATE: 07/09/2018 SUBJECTIVE: I saw him resting in the Intensive Care Unit. He is sitting up in bed. He is eating his food. He is feeling better, breathing better. He actually slept two nights in a row. He has a Redman catheter in him which I told him we are keeping it in. I will change the catheter every 30 days. He is comfortable right now. He is in good spirits. Breathing well. No chest pain; that is solved. No shortness of breath, that has improved. No abdominal pain, that has improved. He sat out of the bed to chair yesterday, will do that again today. He is on Amaryl, Brilinta, Ecotrin, Flomax, Glucophage, Lipitor, Merrem IV, Proscar, IV fluids, Tenormin and Tylenol. PHYSICAL EXAMINATION: GENERAL: He is much more alert, comfortable. VITAL SIGNS: He has a 97.8 temperature which is better, 62 pulse, 121/42 blood pressure, 23 respiratory rate, and 97% O2 saturation on room air. HEENT: His head is atraumatic and normocephalic. HEART: Regular rate. LUNGS: Decreased breath sounds, but clear. He is in for bilateral pneumonia which I think is improving. ABDOMEN: Soft, nontender. Even though he has bladder stones that pain has dissipated with a Redman catheter. EXTREMITIES: No edema. He is moving better. He can move his legs and arms better which is great.. LABORATORY DATA: He has 6.5 white count; much improved, 9.8 hemoglobin, 29.7 hematocrit with 238 platelets. He has 137 sodium, potassium 3.5; I will give him some potassium. BUN 10, creatinine 0.7. GFR is greater than 60, sugar is 61. Calcium is 8.2. Total bilirubin is 0.4, AST is 46, ALT is 37, alkaline phosphatase 67. Troponin I dropped to 0.16, He has a 5.5 albumin. Urine when he came in. ASSESSMENT AND PLAN: The plan is get chest x-ray tomorrow. Hopefully change him to tomorrow afternoon and discharge him tomorrow afternoon if everything goes well and transfer him to telemetry today. Discussed with the family, the daughter is a doctor so they understand what the plan is. He has incentive spirometry, is to use breaths every hour, drink a glass of water and for the most part I am happy with him and I will transfer him to telemetry and if he does well in the next 24 hours, I hope we will get him discharged tomorrow afternoon. Lane Lozada DO MTDGregory
--- NOTE | 2018-07-09 17:14 | PN ---
DATE: 07/09/2018 PULMONARY PROGRESS NOTE SUBJECTIVE: The patient was seen and examined at the bedside. He states he feels better with less shortness of breath. Family is at bedside. PHYSICAL EXAMINATION: VITAL SIGNS: His temperature is 97.8, pulse 62, respirations 20, blood pressure is 110/70, pulse oximetry on nasal cannula is 97%. HEENT: Head normocephalic and atraumatic. NECK: Supple with no jugular vein distention. CARDIOVASCULAR: S1, S2, no S3, regular. PULMONARY: Slightly diminished breath sounds at both bases with no rhonchi, rales, or wheezing. GASTROINTESTINAL: Soft and nontender. No organomegaly. EXTREMITIES: No pedal edema. No cyanosis. SKIN: No acute skin rash. NEUROLOGIC: No focal deficits. LABORATORY DATA: Reviewed. His WBCs are 6.5, hemoglobin of 9.8, platelet count 238,000. His potassium is slightly reduced at 3.5. The rest of the chemistries are within normal limits. ASSESSMENT AND PLAN: 1. Urosepsis. 2. History of cerebrovascular accident. 3. Coronary artery disease status post stenting. 4. Abnormal chest x-ray. PLAN: I have reviewed his initial chest x-ray and as per my yesterdays' note, I do not see an infiltrate. So, it was my opinion that his bout of high fever and chills was caused by urinary retention and urosepsis. I have discussed it with ICU team as well as Dr. Casper of Infectious Disease who is treating him with double antibiotics. We will continue following closely and repeat chest x-ray and if needed CT. Abhijeet Anderson MD DD:
--- NOTE | 2018-07-09 22:13 | PN ---
DATE: 07/09/2018 SUBJECTIVE: The patient denies chest pain, no reported groin bleeding. PHYSICAL EXAMINATION: VITAL SIGNS: Blood pressure 96/41, heart rate 62, temperature 97.8, and respirations 20. HEENT: Normocephalic. CHEST: Clear. HEART: S1 and S2, regular. EXTREMITIES: No edema. LABORATORY DATA: Today's hemoglobin and hematocrit 9.8 and 29.7. White count and platelet count are within normal limits. Today's SMA-7: Sodium 137, potassium 3.5, chloride 107, CO2 of 24, glucose 61, BUN 10, and creatinine 0.7. ASSESSMENT: 1. Coronary artery disease, status post recent percutaneous transluminal coronary angioplasty to acute stent thrombosis of the right coronary artery. 2. Mild hypokalemia. 3. Borderline elevated troponin. RECOMMENDATIONS: Continue Brilinta 60 mg twice a day, aspirin 81 mg once a day, Lipitor at 40 mg once a day, IV meropenem at 1 g every 8 hours and Tenormin 12.5 mg once a day. The patient did receive 20 mEq of K-Dur today. Tank Bhakta MD
[2018-07-10] MEDS: Meropenem IV 1 gm in NS 1 GM/50 ML BAG IVPB SCH (05:40)
[2018-07-10 06:56] LABS: HEMOGLOBIN 9.4 g/dL (14.0-18.0); MEAN CELL VOLUME 92.2 fl (80.0-105.0); MEAN CORPUSCULAR HEMOGLOBIN 30.4 pg (25.0-35.0); MEAN PLATELET VOLUME 8.5 fl (7.0-11.0); RBC 3.09 10^6/uL (3.5-6.1); RED CELL DISTRIBUTION WIDTH 12.8 % (11.5-14.5); WHITE BLOOD COUNT 6.5 10^3/uL (4.5-11.0)
[2018-07-10 07:09] LABS: ALBUMIN 2.7 g/dL (3.0-4.8); ALT/SGPT 42 U/L (7-56); AST/SGOT 38 U/L (17-59); BLOOD UREA NITROGEN 13 mg/dL (7-21); CALCIUM 8.5 mg/dL (8.4-10.5); GFR NON-AFRICAN AMERICAN > 60
--- NOTE | 2018-07-10 07:57 | PN ---
DATE: 07/10/2018 PULMONARY NOTE SUBJECTIVE: The patient appears comfortable this morning. He is not short of breath at rest. PHYSICAL EXAMINATION: VITAL SIGNS: Temperature is 97.7, pulse 71, respirations 18, blood pressure 116/60, and oxygen saturation on room air - 98%. HEENT: Normocephalic and atraumatic. NECK: No JVD. CARDIOVASCULAR: Systolic ejection murmur at the lower left sternal border. No S3 gallop. LUNGS: Decreased breath sounds at the bases. No rhonchi. No wheezing. GI: Soft, nontender and nondistended. Bowel sounds are positive. EXTREMITIES: No clubbing, cyanosis or edema. Calves are nontender to palpation. SKIN: No acute rash. NEUROLOGIC: Exam is limited at the present time. IMPRESSION: 1. Urosepsis. 2. Coronary artery disease, status post multiple cardiac stents. 3. Mild anemia. 4. Abnormal chest x-ray. PLAN: The patient appears very comfortable this morning. He is not short of breath at rest. He does state that he is feeling much, much better overall. I did discuss the case with the night nurse at length. The night nurse stated the patient had a very good night. I did review the note by my partner Dr. Anderson, and the last chest x-ray which was done. There are no significant/acute changes on the most present film - compared to the previous films. In addition, the procalcitonin is negative. I would continue with the antibiotic coverage as per infectious disease. Input by Dr. Casper is noted. Temperatures have fully resolved. The leukocytosis has also fully resolved. Clinical status of the patient is significantly improved - compared to his initial presentation. However, given the above, the future status/prognosis for this elderly patient does remain guarded. I will discuss the above with the entire ICU team in the next few moments. I will also discuss the above with the attending physician later this morning. José Miguel Wood MD MTDGregory
--- NOTE | 2018-07-10 08:28 | CON ---
DATE: 07/08/2018 PULMONARY CONSULTATION The patient was seen and examined at bedside in Intensive Care Unit. He is currently on nasal cannula. His oxygen saturation is actually 97-98 on nasal cannula. He is not in respiratory distress. His daughter, who is a diesel automotive technician present at the bedside. HISTORY OF PRESENT ILLNESS: The patient was admitted to [facility] after he developed chills and fever up to [address] [facility] to have an ultrasound of his bladder and kidneys. He has a history of recent cardiac catheterization with stent placement. He had one episode of chills after the cardiac catheterization one week ago as well. His other medical history includes CVA, hyperlipidemia, and diabetes mellitus. He is not complaining of cough, but does cough occasionally. His other complaints negative for nausea, vomiting, diarrhea, or constipation. PAST MEDICAL HISTORY: See above. FAMILY HISTORY: No history of inherited diseases. HOME MEDICATIONS: Glimepiride, tamsulosin, metformin, Lipitor, Proscar, Macrobid, aspirin and Brilinta. ALLERGIES: NO KNOWN ALLERGIES. SOCIAL HISTORY: Nonsmoker, nondrinker, never used illicit drugs. REVIEW OF SYSTEMS: Conducted by reviewing all sources. RESPIRATORY: See history of present illness. CARDIOVASCULAR: Recent cardiac catheterization and multiple stent placements. UROLOGIC: The patient is being worked up for BPH and urinary obstruction. The rest of the systems were reviewed and found to be negative. PHYSICAL EXAMINATION VITAL SIGNS: His blood pressure is 130/60, temperature is 99.2, heart rate 88, oxygen saturation 95% on room air, and respiratory rate is 20. HEENT: Examination of head, normocephalic and atraumatic. LUNGS: Few coarse rhonchi. No wheezing. CARDIOVASCULAR: S1 and S2, regular. PULMONARY: Clear to auscultation with few basilar rhonchi. No wheezing. GASTROINTESTINAL: Soft, nontender. No organomegaly. : Within normal limits SKIN: Clear with no acute skin rash. No cyanosis. NEUROLOGIC: Limited at present time. PSYCHIATRIC: The patient is awake, alert, and oriented. LABORATORY DATA: WBC on admission 12.5, hemoglobin of 10.8, platelet count 287,000. Cardiac troponins are 0.33. Urine is positive for bacteria. Blood cultures are pending. CHEST X-RAY: I personally reviewed the chest x-ray which reveals some increased interstitial markings, but no acute infiltrates or effusions. ASSESSMENT 1. Sepsis syndrome. 2. Urinary tract infection. 3. Rule out pneumonia. PLAN: The patient was started on broad-spectrum antibiotics, meropenem, and vancomycin as well as intravenous fluids. Nebulizer treatment and supplemental oxygen were supplied with this treatment. His condition started improving and currently, he is not in acute distress. We will await repeat chest x-ray. In the meantime, continue with current intervention. The case was discussed with ICU team. Abhijeet Anderson MD MTDD
--- NOTE | 2018-07-10 10:34 | RAD ---
Date of service: 07/10/2018 HISTORY: pneu COMPARISON: 07/07/2018 TECHNIQUE: Chest PA and lateral views FINDINGS: LUNGS: Interstitial changes in both lower lobes. No focal consolidation PLEURA: No significant pleural effusion identified. No pneumothorax apparent. CARDIOVASCULAR: Aortic calcification Normal cardiac size. No pulmonary vascular congestion. OSSEOUS STRUCTURES: No significant abnormalities. VISUALIZED UPPER ABDOMEN: Normal. OTHER FINDINGS: None. IMPRESSION: Interstitial changes in both lower lobes. No focal consolidation
--- NOTE | 2018-07-10 11:59 | OP ---
PROCEDURE DATE: 07/07/2018 It is a bedside procedure. PREOPERATIVE DIAGNOSES: Urinary retention, bladder stones, hematuria, urgency, frequency, and nocturia. POSTOPERATIVE DIAGNOSES: Urinary retention, bladder stones, hematuria, urgency, frequency, and nocturia. PROCEDURE: Insertion of a Redman catheter. SURGEON: Taran August MD ESTIMATED BLOOD LOSS: None. COMPLICATIONS: None. We inserted a Redman catheter with greater than 500 mL of clear yellow urine. INDICATIONS: See the history and physical, consultation. The patient is admitted now with "urosepsis" (the possibility for pneumonia). He has a very complicated history, long history. He is an 87-year-old gentleman, almost 88, in September would be 88. He has the following urology history of bladder stones, urinary retention, urgency, frequency, but he also has intermittent retention. On retrograde bladder scan is not in retention. We discussed options for insertion of Redman catheter. He was going to undergo treatment for bladder stones but then on further workup, he was found to have coronary artery disease requiring stents and he is now on Brilinta, some of the blood thinner. In the interim, we decided not to be treating his stones. He passed some stones on his own, some of the stones are small and passable, some are little bit larger. After discussing various options at this point and given the medical history, the patient is now admitted. He is currently on the second floor here where we inserted Redman catheter for retention and he is actually going to the ICU for monitoring given his age and general medical condition. DESCRIPTION OF PROCEDURE: After explaining to the patient and the family in detail about what we are going to do, under sterile technique, we inserted a Redman catheter via the urethra. We used a coud tip catheter inserted without any difficulty. He has a normal phallus without discharge. Redman catheter is inserted. The urine is noted to be clear and left to straight drainage. The plan is to maintain Redman, see how the patient does clinically and then we can discuss further options. Taran August MD
--- NOTE | 2018-07-10 12:44 | PN ---
DATE: 07/10/2018 SUBJECTIVE: See the previously dictated notes from 07/07/2018. Over the course of weekend, I spoke with the nursing staff and today I see the patient is resting comfortably in bed. He is much happy with an indwelling Redman catheter. He said he is getting good enough sleep. The urine is clear. PAST MEDICAL AND SURGICAL HISTORY: No other changes. The patient is still in the ICU. PHYSICAL EXAMINATION: No change. DIAGNOSES: Urinary retention, voiding dysfunction, bladder stones, hematuria, urgency, frequency, irritated and obstructive complaints. ASSESSMENT AND PLAN: In summary, a very pleasant 87-year-old gentleman, he may be going home today. He may be going to telemetry, then home. We will have to see that from urology standpoint, we will maintain the Redman. I also recommend that we place the Redman through a leg bag the daytime use, then overnight, then for night time and then further plans being followed using the treatment of the stone. He can use discussed using Flomax . Further plans to follow. But for now, maintain Redman, do not remove, and then further plans to follow. Taran August MD
--- NOTE | 2018-07-10 15:16 | PCM.URO ---
Urology Progress Note - Objective Lab Studies: Reviewed (maintain alexander) Lab Results Last 24 Hours: Laboratory Results - last 24 hr 07/10/18 07/10/18 06:35 06:35 WBC 6.5 RBC 3.09 L Hgb 9.4 L Hct 28.5 L MCV 92.2 MCH 30.4 MCHC 33.0 RDW 12.8 Plt Count 224 MPV 8.5 Sodium 137 Potassium 3.9 Chloride 105 Carbon Dioxide 26 Anion Gap 9 L BUN 13 Creatinine 0.8 Est GFR ( Amer) > 60 Est GFR (Non-Af Amer) > 60 Random Glucose 169 H Calcium 8.5 Total Bilirubin 0.2 AST 38 ALT 42 Alkaline Phosphatase 70 Total Protein 5.4 L Albumin 2.7 L Globulin 2.6 Albumin/Globulin Ratio 1.0 L Intake & Output: Intake & Output 07/09/18 07/10/18 07/10/18 18:59 06:59 18:59 Intake Total 100 Output Total 1300 Balance -1200 Weight 187 lb Intake: IV 100 Anitbiotics 100 IVPB 0 Oral 0 Output: Urine 1300 Urethral (Alexander) 1300 Stool 0 Urine/Stool Mix 0 Emesis 0 Oral Regurgitation 0 Other 0 Other: # Bowel Movements 2 Vital Signs: Vital Signs - 24 hr 07/09/18 07/09/18 07/09/18 15:20 15:30 15:40 Pulse Rate 77 74 73 Respiratory 27 H Rate 07/09/18 07/09/18 07/09/18 15:50 16:00 16:10 Pulse Rate 71 72 74 Respiratory 29 H 25 H 22 Rate 07/09/18 07/09/18 07/09/18 16:20 16:30 16:40 Pulse Rate 70 71 69 Respiratory 27 H 23 28 H Rate 07/09/18 07/09/18 07/09/18 16:50 17:00 17:10 Pulse Rate 80 72 76 Respiratory 19 27 H Rate 07/09/18 07/09/18 07/09/18 17:20 17:30 17:40 Pulse Rate 82 85 81 Respiratory 20 27 H 20 Rate 07/09/18 07/09/18 07/09/18 17:50 18:00 18:10 Pulse Rate 80 82 87 Respiratory 36 H 35 H 16 Rate 07/09/18 07/09/18 07/09/18 18:20 18:30 18:40 Pulse Rate 80 82 82 Respiratory 18 18 Rate 07/09/18 07/09/18 07/09/18 18:50 19:00 19:10 Pulse Rate 79 77 81 Respiratory 24 36 H 22 Rate 07/09/18 07/09/18 07/09/18 19:23 19:30 19:40 Pulse Rate 72 70 72 Respiratory 16 17 Rate 07/09/18 07/09/18 07/09/18 19:50 20:00 20:03 Pulse Rate 73 71 68 Respiratory 15 17 Rate 07/09/18 07/09/18 07/09/18 20:10 20:20 20:30 Pulse Rate 74 72 80 Respiratory 22 26 H Rate 07/09/18 07/09/18 07/09/18 20:40 20:50 21:00 Pulse Rate 69 69 73 Respiratory 23 24 18 Rate 07/09/18 07/09/18 07/09/18 21:10 21:20 21:30 Pulse Rate 71 71 77 Respiratory 15 17 19 Rate 07/09/18 07/09/18 07/09/18 21:40 21:50 22:00 Pulse Rate 74 70 70 Respiratory 25 H 18 22 Rate 07/09/18 07/09/18 07/10/18 22:10 22:20 02:00 Pulse Rate 68 81 84 Respiratory 24 20 Rate 07/10/18 06:00 Pulse Rate 71 Respiratory Rate
--- NOTE | 2018-07-10 15:43 | PN ---
DATE: 07/10/2018 SUBJECTIVE: The patient is sitting in a chair, awake, feeling well. OBJECTIVE: VITAL SIGNS: Blood pressure is 100 systolic, heart rate in the 70s. NECK: Negative JVD. LUNGS: Without rales. HEART: S1, S2. EXTREMITIES: Without edema. LABORATORY DATA: Hemoglobin is 9.4. Chemistries are unremarkable. Glucose is 169. IMPRESSION: 1. Recent non-ST elevation myocardial infarction. 2. Urinary sepsis. 3. Status post percutaneous transluminal coronary angioplasty and stent of two vessels. 4. Number for the patient is resistant to Plavix. Given these findings, the patient will continue on the Brilinta 60 mg twice a day. The patient will be treated with urology. Will continue will continue on his Redman catheter. Aleks Alexander MD
[2018-07-10 16:36] VITALS: BP 104/45; PULSE 82; RESP 23
--- NOTE | 2018-07-10 19:09 | CP.PCM.PN ---
Subjective - Date & Time of Evaluation Date of Evaluation: 07/10/18 Time of Evaluation: 06:30 - Subjective Subjective: No fevers, not in distress. Objective - Vital Signs/Intake and Output Vital Signs (last 24 hours): Temp Pulse Resp BP Pulse Ox 97.7 F 68 23 96/41 L 97 07/09/18 12:00 07/09/18 20:03 07/08/18 23:10 07/09/18 10:34 07/08/18 23:10 - Medications Medications: Current Medications Acetaminophen (Tylenol 325mg Tab) 650 mg PO Q4H PRN PRN Reason: Pain, moderate (4-7) Last Admin: 07/08/18 10:25 Dose: 650 mg Aspirin (Ecotrin) 81 mg PO DAILY [facility] Last Admin: 07/09/18 10:32 Dose: 81 mg Atenolol (Tenormin) 12.5 mg PO DAILY [facility] Last Admin: 07/09/18 10:34 Dose: Not Given Atorvastatin Calcium (Lipitor) 40 mg PO DAILY [facility] Last Admin: 07/09/18 10:40 Dose: Not Given Finasteride (Proscar) 5 mg PO DAILY [facility] Last Admin: 07/09/18 10:32 Dose: 5 mg Glimepiride (Amaryl) 4 mg PO BID [facility] Last Admin: 07/08/18 09:19 Dose: 4 mg Meropenem (Merrem Iv 1 Gm Premix) 1 gm in 50 mls @ 100 mls/hr IVPB Q8 [facility]; Pro tocol Stop: 07/16/18 22:01 Last Admin: 07/09/18 13:47 Dose: 100 mls/hr Metformin HCl (Glucophage) 1,000 mg PO DAILY [facility] Last Admin: 07/09/18 10:33 Dose: 1,000 mg Tamsulosin HCl (Flomax) 0.4 mg PO DAILY [facility] Last Admin: 07/09/18 10:32 Dose: 0.4 mg Ticagrelor (Brilinta) 60 mg PO BID [facility] Last Admin: 07/09/18 17:54 Dose: 60 mg - Labs Labs: 07/09/18 05:40 07/09/18 05:40 - Constitutional Appears: Chronically Ill - Head Exam Head Exam: NORMAL INSPECTION - Respiratory Exam Respiratory Exam: Decreased Breath Sounds - Cardiovascular Exam Cardiovascular Exam: +S1, +S2 - GI/Abdominal Exam GI & Abdominal Exam: Soft. 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
--- NOTE | 2018-07-10 21:22 | CON ---
DATE: 07/07/2018 UROLOGY CONSULT REASON FOR THE CONSULTATION: Urinary retention. HISTORY OF PRESENT ILLNESS: A pleasant gentleman, who is 87, almost 88-year-old admitted with urosepsis. The consultation is for insertion of Redman catheter and management recommendations. The patient is very pleasant, known well to hospital. He is intermittently on retention from bladder scans are 100 mL to about 300 mL. He had bladder stones (irrigation of bladder stones could resolve retention). Urgency, frequency, nocturia, irritated and obstructive complaints. He is now admitted with urosepsis. From Urology standpoint, he has retention with the bladder scan and his belly abdominal wall artery. PAST MEDICAL AND SURGICAL HISTORY: He has coronary artery disease. He has recently had cardiac stent placed by Dr. Alexander. 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 From urology standpoint, at this point, we have the patient with voiding dysfunction and Urology is consulted for the problems listed below. PAST MEDICAL AND SURGICAL HISTORY: As listed. REVIEW OF SYSTEMS: As listed. PHYSICAL EXAMINATION: ABDOMEN: Relatively distended. GENITOURINARY: Normal phallus without discharge. RECTAL: Deferred. See the separately dictated procedure note. We inserted the Redman catheter with large residual, greater than 400 mL. DIAGNOSES: 1. Gross hematuria. 2. Bladder stones. 3. Urinary retention. 4. Irritated and obstructive complaints. In summary, a very pleasant gentleman. We will see how he does clinically. He is now uroseptic. The risk of infection . From Urology standpoint, we would recommend leaving the Redman as it is draining steadily now, that has been going in and out, and making decision. We will see the patient in a week and then make further recommendations and plan. For now, plan is as follows: 1. Maintain Redman. 2. Antibiotic. 3. Follow urine output and make decisions and follow the patient clinically. Taran August MD
--- NOTE | 2018-07-11 01:37 | DS ---
HISTORY OF PRESENT ILLNESS: He is doing quite well in the Intensive Care Unit. I try to discharge him to telemetry as I did not have any bed. Awaiting to gave him physical therapy if had any recommendations, we just told him services. 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 He will go home on doxycycline 100 mg twice a day for 5 days. He will continue with his regular medications Amaryl, Brilinta, Ecotrin, Flomax, Glucophage, Lipitor, Proscar, Tenormin, and Tylenol. He is in good spirits and feeling a lot better. No chills. No shortness of breath. No abdominal pain. No chest pain. PHYSICAL EXAMINATION: VITAL SIGNS: He has a temperature of 97.7, he has a pulse of 71, he has a respiratory rate of 22, and blood pressure is 121/43. HEENT: Head is atraumatic and normocephalic. HEART: Regular rate. LUNGS: Decreased breath sounds, but clear. ABDOMEN: Soft. EXTREMITIES: No edema. LABORATORY DATA: He has a 6.5 white count, 9.4 hemoglobin, 28.5 hematocrit with 224 platelets. Sodium 137, potassium 3.9, BUN is 13, creatinine 0.8, GFR is greater than 60, sugar is 169, calcium is 8.5, and total bili is 0.2. AST is 38, ALT is 42, alk phos is 70, and total protein is 5.4. ASSESSMENT AND PLAN: He has been through a lot with his heart a week ago with coronary artery disease, 2 catheterizations, multiple stents ballooned, and bladder full stones. He will be on Redman catheter, I am hoping for Urology to teach him how to do the Redman catheter and the leg bag. I discussed with the to pick him up, I think they are going to arrange to pick him up after lunch. She will see what the chest x-ray says, physical therapy, he will be on doxycycline and then he is going leg bag, we keep the Redman catheter in. We will see him in the office this week. We will follow up with Dr. August in a week. Lane Lozada DO MTDGregory
== END 2018-07-10 14:00 | disposition home or self-care (01) | DRG 871 ==
LOC: ED 12:55 → ERH 15:03 → 2RNO 16:56 → CCU 18:37
PROVIDERS: ADMIT Family Medicine; ATTEND Family Medicine
PROC: 0T9B70Z Drainage of Bladder with Drainage Device, Via Natural or Artificial Opening (ICD-10-PCS; principal; 2018-07-10)
DX: A41.9 Sepsis, unspecified organism (principal); J18.9 Pneumonia, unspecified organism; I21.4 Non-ST elevation (NSTEMI) myocardial infarction; N39.0 Urinary tract infection, site not specified; N21.0 Calculus in bladder; R65.20 Severe sepsis without septic shock; E11.9 Type 2 diabetes mellitus without complications; E86.0 Dehydration; E87.6 Hypokalemia; I25.10 Atherosclerotic heart disease of native coronary artery without angina pectoris; N20.0 Calculus of kidney; E78.5 Hyperlipidemia, unspecified; I10 Essential (primary) hypertension; N40.1 Benign prostatic hyperplasia with lower urinary tract symptoms; R33.8 Other retention of urine; R31.0 Gross hematuria; D64.9 Anemia, unspecified; T82.867D Thrombosis due to cardiac prosthetic devices, implants and grafts, subsequent encounter; Y83.1 Surgical operation with implant of artificial internal device as the cause of abnormal reaction of the patient, or of later complication, without mention of misadventure at the time of the procedure; Z79.02 Long term (current) use of antithrombotics/antiplatelets; Z87.891 Personal history of nicotine dependence; Z85.828 Personal history of other malignant neoplasm of skin; Z79.84 Long term (current) use of oral hypoglycemic drugs; Z79.82 Long term (current) use of aspirin; Z86.73 Personal history of transient ischemic attack (TIA), and cerebral infarction without residual deficits

== ENCOUNTER 2018-07-12 05:42 | Inpatient (IN) | payer MEDICARE, BC ==
[2018-07-12] MEDS ORDERED: Sodium Chloride 0.9% 1,000 ML IV SCH (07:00)
--- NOTE | 2018-07-12 07:23 | ED PDOC ---
Arrival/HPI - General Chief Complaint: Male Genitourinary Historian: Spouse - History of Present Illness Narrative History of Present Illness (Text): 07/12/18 08:01 87 year old M with past medical history of CVA, basal cell carcinoma, HLD, and DM presents with , complaining of alexander catheter not draining urine since last night. Per , patient's urine has been coming out of penis instead. On 07/10/2018, Patient visited Dr. August and had alexander catether changed, multiple bladder stones removed and prescribed antibiotics. Patient also complains of subjective fever and chills. Patient denies hematuria any other complaint. Time/Duration: Prior to Arrival Symptom Onset: Sudden Symptom Course: Unchanged Activities at Onset: Light Context: Home Past Medical History - Provider Review Nursing Documentation Reviewed: Yes - Infectious Disease Hx of Infectious Diseases: None - Cardiac Hx Cardiac Disorders: Yes - Pulmonary Hx Respiratory Disorders: Yes (USED TO SMOKE CIGARETTES.QUIT IN HIS 30'S) - Neurological HX Cerebrovascular Accident: Yes - HEENT Hx HEENT Disorder: No - Renal Hx Renal Disorder: Yes (BLADDER INFECTION) Hx Kidney Stones: Yes - Endocrine/Metabolic Hx Diabetes Mellitus Type 2: Yes - Hematological/Oncological Hx Blood Disorders: Yes Hx Cancer: Yes (skin cancer WITH SX) - Integumentary Hx Dermatological Disorder: Yes Hx Basal Cell Carcinoma: Yes Other/Comment: skin cancer surgery on right arm and recently the left ear - Musculoskeletal/Rheumatological Hx Musculoskeletal Disorders: Yes Hx Arthritis: Yes Hx Falls: No Hx Unsteady Gait: Yes (CANE) - Gastrointestinal Hx Gastrointestinal Disorders: No - Genitourinary/Gynecological Hx Genitourinary Disorders: Yes (RETENTION) Hx Hematuria: Yes Hx Prostate Problems: Yes (ENLARGED-BPH) Hx Urinary Tract Infection: Yes Other/Comment: work up in progress for bladder stones HAD PASSED 19 STONES - Psychiatric Hx Psychophysiologic Disorder: No Hx Substance Use: No - Surgical History Hx Cardiac Catheterization: Yes (4 STENTS) Hx Coronary Stent: Yes (4) Other/Comment: surgery X4 for skin cancer. cardiac cath - Anesthesia Hx Anesthesia: Yes Hx Anesthesia Reactions: No Hx Malignant Hyperthermia: No - Suicidal Assessment Feels Threatened In Home Enviroment: No Family/Social History - Physician Review Nursing Documentation Reviewed: Yes Family/Social History: Unknown Family HX Smoking Status: Former Smoker Hx Alcohol Use: No Hx Substance Use: No Allergies/Home Meds Allergies/Adverse Reactions: Allergies No Known Allergies Allergy (Verified 07/12/18 11:57) Home Medications: Home Meds Medication Instructions Recorded Confirmed Tamsulosin [Flomax] 0.4 mg PO Q12 01/04/17 07/15/18 metFORMIN [glucOPHAGE] 1,000 mg PO BID 01/04/17 07/15/18 Atorvastatin [Lipitor] 40 mg PO DAILY 04/28/17 07/15/18 Finasteride [Proscar] 5 mg PO DAILY 06/26/18 07/15/18 Aspirin [Ecotrin] 81 mg PO DAILY 07/03/18 07/15/18 Ticagrelor [Brilinta] 60 mg PO BID 07/03/18 07/15/18 Celecoxib [Celebrex] 200 mg PO DAILY 07/12/18 07/15/18 Clopidogrel [Plavix] 75 mg PO DAILY 07/12/18 07/15/18 Review of Systems - Physician Review All systems were reviewed & negative as marked: Yes - Review of Systems Constitutional: Fevers, Other (chills) ENT: absent: Sore Throat, Rhinorrhea Respiratory: absent: SOB, Cough Cardiovascular: absent: Chest Pain, Syncope Gastrointestinal: absent: Abdominal Pain, Diarrhea, Nausea, Vomiting Genitourinary Male: absent: Dysuria, Hematuria Neurological: absent: Headache, Dizziness Physical Exam Vital Signs Reviewed: Yes Vital Signs Temp Pulse Resp BP Pulse Ox 07/12/18 06:55 100.5 F H 07/12/18 06:46 100.5 F H 118 H 20 158/75 H 98 07/12/18 05:50 97.3 F L 100 H 19 140/100 H 97 Temperature: Afebrile Blood Pressure: Hypertensive Pulse: Tachycardic Respiratory Rate: Normal Appearance: Positive for: Well-Appearing, Non-Toxic, Comfortable Pain Distress: Mild Mental Status: Positive for: Alert and Oriented X 3 - Systems Exam Head: Present: Atraumatic, Normocephalic Pupils: Present: PERRL Extroacular Muscles: Present: EOMI Conjunctiva: Present: Other (mild pallor) Mouth: Present: Dry Neck: Present: Normal Range of Motion Respiratory/Chest: Present: Clear to Auscultation, Good Air Exchange. No: Respiratory Distress, Accessory Muscle Use Cardiovascular: Present: Normal S1, S2, Tachycardic. No: Murmurs Abdomen: No: Tenderness, Distention, Peritoneal Signs Back: Present: Normal Inspection. No: CVA Tenderness Upper Extremity: Present: Normal Inspection. No: Cyanosis, Edema Lower Extremity: Present: Normal Inspection. No: Edema Neurological: Present: GCS=15, Speech Normal Skin: Present: Warm, Dry, Normal Color. No: Rashes Psychiatric: Present: Alert, Oriented x 3, Normal Insight, Normal Concentration Medical Decision Making ED Course and Treatment: 07/12/18 07:18 87 year old M presents with complaining of alexander catether not draining urine since last night. Patient reports catheter has been previously changed by Dr. August. Nurses were able to flush 500 cc of urine and noted low grade fever. Dr. Lozada has been previously contacted by previous physician. Plan: -- Urinalysis -- Vancomycin -- Saline IV -- Reassess and disposition Prior Visits: Notes and results from previous visits were reviewed. Progress Notes: 07/12/18 07:38 Dr. Lozada visited patient at bedside, accepts patient under his care and admit. Consult Dr. Casper, Dr. Olivares and Dr. Alexander 07/12/18 07:57 Not ordering fluid bolus for sepsis due to advanced age but patient is receiving IV fluid. 07/12/18 08:17 EKG shows Sinus at 103 BPM with incomplete RBBB, no acute ST/T wave a bnormalities. Similar to EKG on 07/07/18. Interpreted by me. 07/12/18 10:11 Chest X-ray Chronic interstitial changes. No focal consolidation - Medication Orders Current Medication Orders: Sodium Chloride (Sodium Chloride 0.9%) 1,000 mls @ 100 mls/hr IV .Q10H ENDER Last Admin: 07/12/18 07:10 Dose: 100 mls/hr eMAR Start Stop Document 07/12/18 07:10 RG (Rec: 07/12/18 07:10 RG [id number]) Intravenous Solution Start Date 07/12/18 Start Time 07:10 Discontinued Medications Acetaminophen (Tylenol 650 Mg Supp) 650 mg RC STAT STA Stop: 07/12/18 06:47 Last Admin: 07/12/18 06:55 Dose: 650 mg MAR Pain/Vitals Document 07/12/18 06:55 RG (Rec: 07/12/18 07:09 [id number]) Vitals Temperature (97.6 F-99.6 F) 100.5 F Temperature Source Rectal - Scribe Statement The provider has reviewed the documentation as recorded by the Tawnya King All medical record entries made by the Tawnya were at my direction and personally dictated by me. I have reviewed the chart and agree that the record accurately reflects my personal performance of the history, physical exam, medical decision making, and the department course for this patient. I have also personally directed, reviewed, and agree with the discharge instructions and disposition. Disposition/Present on Arrival - Present on Arrival Any Indicators Present on Arrival: No History of DVT/PE: No History of Uncontrolled Diabetes: No Urinary Catheter: No History of Decub. Ulcer: No History Surgical Site Infection Following: None - Disposition Have Diagnosis and Disposition been Completed?: Yes Diagnosis: UTI (urinary tract infection), Sepsis, Hyperglycemia Disposition: HOSPITALIZED Disposition Time: 07:40 Patient Plan: Admission Condition: STABLE
[2018-07-12] MEDS ORDERED: Vancomycin 1gm in NS 250ml 1 GM/250 ML BAG IVPB STA ×2 (07:44→08:01)
[2018-07-12 07:48] LABS: URINE BILIRUBIN NEGATIVE (NEGATIVE); URINE BLOOD LARGE (NEGATIVE); URINE COLOR YELLOW (YELLOW); URINE GLUCOSE (UA) NEGATIVE (NEGATIVE); URINE LEUKOCYTE ESTERASE SMALL Leu/uL (NEGATIVE); URINE PROTEIN TRACE mg/dL (<30 mg/dL); URINE UROBILINOGEN 0.2 E.U./dL (<1 E.U./dL)
[2018-07-12 07:48] LABS: BASO # 0.01 K/mm3 (0.0-2.0); BASO % 0.1 % (0.0-3.0); EOS # 0.2 (0.0-0.7); EOS % 1.3 % (1.5-5.0); HEMOGLOBIN 10.9 g/dL (14.0-18.0); LYMPH # 0.4 (1.2-3.4); LYMPH % 3.1 % (22.0-35.0); MEAN CELL VOLUME 92.8 fl (80.0-105.0); MEAN CORPUSCULAR HEMOGLOBIN 30.3 pg (25.0-35.0); MEAN CORPUSCULAR HGB CONC 32.6 g/dl (31.0-37.0); MEAN PLATELET VOLUME 8.7 fl (7.0-11.0); MONO # 0.2 (0.1-0.6); MONO % 1.6 % (1.0-6.0); PLATELET COUNT 323 10^3/uL (120.0-450.0); RED CELL DISTRIBUTION WIDTH 12.7 % (11.5-14.5); WHITE BLOOD COUNT 14.2 10^3/uL (4.5-11.0)
[2018-07-12 07:48] LABS: VENOUS BLOOD GAS BASE EXCESS 2.4 mmol/L (0.0-2.0); VENOUS BLOOD PH 7.42 (7.32-7.43)
[2018-07-12 07:49] LABS: URINE APPEARANCE CLEAR (CLEAR)
[2018-07-12 07:55] LABS: ALB/GLOB RATIO 1.2 (1.1-1.8); ALBUMIN 3.9 g/dL (3.0-4.8); ALT/SGPT 47 U/L (7-56); AST/SGOT 46 U/L (17-59); BLOOD UREA NITROGEN 13 mg/dL (7-21); CALCIUM 9.7 mg/dL (8.4-10.5); GFR NON-AFRICAN AMERICAN > 60
[2018-07-12 07:55] LABS: URINE RBC 20 - 25 /hpf (0-2)
[2018-07-12 07:56] LABS: URINE AMORPHOUS SEDIMENT FEW /hpf; URINE BACTERIA MANY /hpf; URINE EPITHELIAL CELLS 0 - 2 /hpf (0-5)
[2018-07-12] MEDS ORDERED: Meropenem IV 1 gm in NS 1 GM/50 ML BAG IVPB STA (08:00)
[2018-07-12 08:23] LABS: INR 1.16; PARTIAL THROMBOPLASTIN TIME 35.2 Seconds (26.9-38.3); PROTHROMBIN TIME 13.1 SECONDS (9.4-12.5)
[2018-07-12 08:25] LABS: EOSINOPHIL 5 % (0.0-3.0); LYMPHOCYTE 3 % (22.0-35.0); NEUTROPHIL 92 % (50.0-70.0)
[2018-07-12 08:26] LABS: PLATELET ESTIMATE NORMAL (NORMAL)
[2018-07-12] MEDS ORDERED: Barium Sulfate Susp 2.1% w/v, 2.0% w/w 450 mL Bottle PO ONE (09:14)
[2018-07-12] MEDS: Sodium Chloride 0.45% 1,000 ML IV SCH (09:22)
--- NOTE | 2018-07-12 09:28 | RAD ---
Date of service: 07/12/2018 HISTORY: Sepsis Patient COMPARISON: 07/10/2018 TECHNIQUE: 1 view obtained. FINDINGS: LUNGS: Chronic interstitial changes. No focal consolidation PLEURA: No significant pleural effusion identified, no pneumothorax apparent. CARDIOVASCULAR: Aortic calcification Normal cardiac size. No pulmonary vascular congestion. OSSEOUS STRUCTURES: No significant abnormalities. VISUALIZED UPPER ABDOMEN: Normal. OTHER FINDINGS: None. IMPRESSION: Chronic interstitial changes. No focal consolidation
--- NOTE | 2018-07-12 10:42 | HP ---
DATE OF EXAM: 07/12/2018 HISTORY OF PRESENT ILLNESS: I known Reinaldo very well from many years and recent 3 admission to the hospital. He is an 87-year-old white male who is dealing with a bladder stone issues with multiple urinary tract infection. He is now had a Redman catheter placed with unchanged yesterday by the Urologist Dr. August. He then got clogged and leaking around it and this morning in the emergency room there is 500 mL plus bladder stones and some blood clots. He is an 87-year-old white man with history of CVA, basal cell carcinoma, high cholesterol and diabetes. He had 2 caths about 3 weeks ago, one with 4 stents placed, the second one was within 24 hours for a ballooned open up clogged area which did very well with no subsequent damage to the heart. Now dealing with a bladder stones, Redman catheter, trying to prevent urinary tract infections. He has multiple bladder stones at least in the past 2 weeks, passed. He is here with a temperature of 100+, lethargic and a little bit of bloody urine with stones. He had a CVA, bladder infections, kidney stones, bladder stones, diabetes, skin cancer and removed. He has been transfused at basal cell carcinoma, skin cancer on the right arm, recently in the left ear. He has arthritis, no falls. He is unsteady, but uses the cane. He has a urinary retention, hematuria, enlarged prostate, I think bladder stones he passed. He has 4 stents in the coronary arteries, 4 skin cancer surgeries and cardiac cath. FAMILY HISTORY: Hypertension in the family. SOCIAL HISTORY: Former smoker. No alcohol. No drugs. ALLERGIES: NO KNOWN DRUG ALLERGIES. MEDICATIONS: He is on Amaryl, Flomax, Glucophage, Lipitor, Proscar, Ecotrin and Brilinta and he is on Macrobid. On the outpatient, he has fevers. No chills at this time, he had chills the last time, very lethargic. No sore throat. No shortness of breath or cough. No chest pain. No palpitations. No abdominal pain. No nausea, vomiting, constipation and diarrhea. No back pain. He has having some problems urinating, discomfort with the Redman catheter. He had some hematuria, stones, bladder distention. No headache or dizziness. PHYSICAL EXAMINATION: VITAL SIGNS: He is 100.5 temp, 118 pulse, 20 respiratory rate, 150/75 blood pressure also 140/100 blood pressure and 97% O2 sat. GENERAL: He is lethargic in the ER this morning. He is alert, if you speak to him, not toxic but uncomfortable, not his baseline. He looks washed out. Alert and oriented x3. HEENT: Head is atraumatic and normocephalic. Extraocular muscles intact. Pupil equally reactive to light. Throat is dry. NECK: Supple. No JVD. Thyroid is midline. No palpable lymphadenopathy cervically. Good range of motion. HEART: Regular rate. Normal S1 and S2. LUNGS: Decreased breath sounds. Poor inspiration, but clear to auscultation bilaterally. No wheezes. No rhonchi. No rales. ABDOMEN: At this time, is soft and nontender. Positive bowel sounds. No guarding. No rebound. No CVA tenderness. No bladder tenderness. He said he has that earlier when the Redman catheter came in with leaking. EXTREMITIES: No edema. NEUROLOGIC: GCS is 15. Cranial nerves II through XII grossly intact. SKIN: Warm and dry. No apparent rash. Poor turgor. Alert and oriented x3. LABORATORY DATA: He has multiple tests done. He has urine which showed large blood, small leukocyte, many bacteria. Sodium 138, potassium 4.4, BUN 13, creatinine 0.8, GFR is greater than 60, sugar is 228, calcium is 9.7, phosphorous 2.9, magnesium 1.5, total bili is 0.7, AST is 46, ALT is 47, alk phos 102 and total protein 7.1. His lactate was elevated at 2.5. INR was 1.16. White count is 40.2, elevated; 10.9 hemoglobin, 32.4 hematocrit with a 323 platelets. Chest x-ray is pending. He is here for UTI, sepsis picture, bladder stones with urinary retention, he will need to have Urology Dr. August is away, we are calling Dr. Olivares. Dr. Alexander is his [employer] and Infectious Disease they already started him on Merrem and vancomycin. He is on IV fluids. He might need to have continues bladder irrigation to empty out the bladder, I will discuss that with Urology. Lane Lozada DO MARCOS
[2018-07-12 10:55] LABS: VENOUS BLOOD GAS BASE EXCESS 3.2 mmol/L (0.0-2.0); VENOUS BLOOD GAS PO2 43 mm/Hg (30-55); VENOUS BLOOD PH 7.41 (7.32-7.43)
[2018-07-12] MEDS: Insulin Reg-MEDIUM-Coverage SC SCH ×3 (11:53→22:40)
[2018-07-12] MEDS: Meropenem IV 1 gm in NS 1 GM/50 ML BAG IVPB SCH ×2 (13:33→21:45)
[2018-07-12 14:25] VITALS: BMI 20.7
[2018-07-12] MEDS ORDERED: Pneumococcal 23-Valent Vaccine IM ONE (14:25)
[2018-07-12 19:20] LABS: HEMOGLOBIN 9.6 g/dL (14.0-18.0); MEAN CORPUSCULAR HEMOGLOBIN 30.6 pg (25.0-35.0); MEAN CORPUSCULAR HGB CONC 33.2 g/dl (31.0-37.0); MEAN PLATELET VOLUME 8.4 fl (7.0-11.0); RBC 3.14 10^6/uL (3.5-6.1); WHITE BLOOD COUNT 10.8 10^3/uL (4.5-11.0)
--- NOTE | 2018-07-12 20:06 | CARD ---
APPROVED REPORT Date of service: 07/12/2018 EKG Measurement Heart [id number] <Conclusion> Unusual P axis, possible ectopic atrial tachycardia Incomplete right bundle branch block Inferior infarct, age undetermined Poor R wave progression in Precordial leads Abnormal ECG
[2018-07-13] MEDS: Sodium Chloride 0.45% 1,000 ML IV SCH (02:00)
--- NOTE | 2018-07-13 02:56 | CON ---
DATE: 07/12/2018 ENDOCRINOLOGY CONSULTATION HISTORY OF PRESENT ILLNESS: This is an 87-year-old male with known history of type 2 diabetes on oral hypoglycemic therapy, presenting here with urinary retention secondary to bacteremia and a concomitant urinary tract infection, who is now being referred for diabetic evaluation and management. PAST MEDICAL HISTORY: As mentioned above, history of type 2 diabetes on a combination of metformin taken as 1 g daily and Amaryl at 4 mg b.i.d. History of hypertension and dyslipidemia. History of coronary artery disease. He also has underlying COPD. FAMILY HISTORY: Positive for hypertension and heart disease. SOCIAL HISTORY: The patient has a supportive family. No known substance use. REVIEW OF SYSTEMS: As mentioned above, admits to generalized body weakness with episodes of bouts of dizziness and lightheadedness. Also admits to bifrontal headaches with noticeable visual blurring. No chest pains or palpitations. Often his oral intake has been variable with occasional dyspepsia and with lower abdominal and pelvic pain. Also admits to recent dysuria and nocturia as noted. PHYSICAL EXAMINATION: GENERAL: This is an average built male in no apparent distress. VITAL SIGNS: Blood pressure of 140/80, pulse of 70 beats per minute and regular, temperature 98, respirations 20. HEENT: Head normocephalic. Eyes anicteric with pink conjunctivae. Funduscopy not possible at this time. Ears, nose, and throat otherwise normal. NECK: Supple. Thyroid gland is normal sized. No carotid bruits or any cervical adenopathy. CARDIOPULMONARY: Some adynamic precordium. S1 and S2 is rapid and regular. LUNGS: Clear to auscultation. ABDOMEN: Flat, soft with positive bowel sounds. EXTREMITIES: No peripheral edema. Pulses are +2 bilaterally. LABORATORIES: Showed the chemistries; BUN of 23, sodium 138, potassium 4.4, chloride 99, CO2 of 26, glucose 218, and creatinine 3.3. The patient's glucose levels have ranged from 116 to 235 mg/dL. ASSESSMENT: This is an 87-year-old male with uncontrolled type 2 diabetes, presenting here with bacteremia with underlying urinary tract infection, who is now being referred for diabetic evaluation and management. PLAN OF MANAGEMENT: We will continue with the Amaryl given at 4 mg t.i.d. as ordered. We will also consider the addition of Januvia if hyperglycemic level persists and would actually discourage the use of metformin therapy, especially with advanced age in the patient and concomitant underlying bacteremia. We will obtain hemoglobin A1c to confirm his prior glycemic control and baseline thyroid function studies will be ordered. We will also obtain serial chemistries and supplement accordingly as needed. We will follow. Barbra Lee MD
[2018-07-13] MEDS: Meropenem IV 1 gm in NS 1 GM/50 ML BAG IVPB SCH ×3 (05:51→21:48)
[2018-07-13 07:17] LABS: HEMOGLOBIN 9.5 g/dL (14.0-18.0); MEAN CELL VOLUME 92.3 fl (80.0-105.0); MEAN CORPUSCULAR HEMOGLOBIN 30.6 pg (25.0-35.0); MEAN CORPUSCULAR HGB CONC 33.2 g/dl (31.0-37.0); MEAN PLATELET VOLUME 8.9 fl (7.0-11.0); RBC 3.1 10^6/uL (3.5-6.1); RED CELL DISTRIBUTION WIDTH 12.9 % (11.5-14.5); WHITE BLOOD COUNT 7.7 10^3/uL (4.5-11.0)
[2018-07-13 07:43] LABS: ALBUMIN 2.7 g/dL (3.0-4.8); ALT/SGPT 25 U/L (7-56); AST/SGOT 30 U/L (17-59); BLOOD UREA NITROGEN 14 mg/dL (7-21); CALCIUM 8.3 mg/dL (8.4-10.5); GFR NON-AFRICAN AMERICAN > 60
[2018-07-13] MEDS: Budesonide 0.5 mg/2 ml Inhal Susp UD IH SCH (08:38)
[2018-07-13] MEDS: Arformoterol 15 mcg/2 ml Inh Sol IH SCH (08:38)
[2018-07-13] MEDS: Insulin Reg-MEDIUM-Coverage SC SCH (08:55)
--- NOTE | 2018-07-13 09:18 | CON ---
DATE OF CONSULTATION: 07/13/2018 CARDIOLOGY CONSULTATION HISTORY: The patient is an 87-year-old male, who presents with issues related to his Redman catheter. The patient's past medical history includes recent non-STEMI as well as multivessel PTCA and stent in the past. The patient is resistant to Plavix and was placed on Brilinta 60 b.i.d. He has had multiple kidney stones, which he has passed. Currently, the patient is chest-pain free. No shortness of breath. He does suffer from hypertension, diabetes, and hypercholesterolemia. SOCIAL HISTORY: The patient does not smoke. REVIEW OF SYSTEMS: Fourteen-point review of systems is reviewed in detail. No angina. No shortness of breath. No edema in the lower extremities. No bleeding issues noted. PHYSICAL EXAMINATION: VITAL SIGNS: Blood pressure is 103 systolic, heart rate is in the 70s. NECK: Negative JVD. LUNGS: Without rales. HEART: Reveals S1, S2. EXTREMITIES: Without edema. EKG shows no acute changes. LABORATORY DATA: Hemoglobin is 9.5. Troponin is negative x1. BUN and creatinine are unremarkable with a glucose of 126. IMPRESSION: 1. Stable angina. 2. Coronary artery disease. 3. History of multivessel percutaneous transluminal coronary angioplasty and stent. 4. Recent tyt-AR-jslbswehi myocardial infarction. 5. Kidney stones. 6. Diabetes mellitus. 7. Hypertension. 8. Hypercholesterolemia. PLAN: Given these findings, the patient's cardiac status is stable. We will continue on low-dose aspirin as well as Brilinta 60 b.i.d. Aleks Alexander MD
--- NOTE | 2018-07-13 09:48 | CON ---
DATE OF CONSULTATION: 07/13/2018 PULMONARY CONSULTATION REASON FOR CONSULTATION: Hemoptysis. REFERRING PHYSICIAN: Dr. Lozada. SOURCE OF HISTORY: History is obtained via extensive discussion with the night nurse. I have also reviewed the chart at length. I have also discussed the case with the patient at length. The patient does not appear to be an adequate historian. HISTORY OF PRESENT ILLNESS: The patient is a chronically ill 87-year-old male, with past medical history significant for bladder stones, multiple urinary tract infections, coronary artery disease, status post multiple cardiac stents, status post recent myocardial infarction, diabetes mellitus, hypercholesterolemia, who presents back to [facility] with multiple blood clots in his Redman catheter. In the emergency room, the patient was noted to have high fevers. He was thus admitted for additional evaluation. Again, I did discuss the case with the night nurse at length. There is no history of shortness of breath at rest or dyspnea on exertion There is a history of chronic occasional cough with no significant sputum production. There is no history of chest pain or chest pain - brought on or made worse with deep respirations. The patient did cough up a very small amount (5-10 mL) of blood yesterday--?? from throat. This episode was during the daytime. The night nurse notes no hemoptysis during her shift. As above, the patient did present with fevers. No history of chills or infectious exposure. No history of night sweats, weight loss or appetite change prior to the above events. No history of calf pains. No history of syncope or diaphoresis. No history of recent travel or trauma. REVIEW OF SYSTEMS: No history of nausea, vomiting or diarrhea. No acute neurologic symptoms. Rest of the review of systems is negative. ALLERGIES: NO KNOWN ALLERGIES. SOCIAL HISTORY: Positive for former tobacco usage. No alcohol. FAMILY HISTORY: No inheritable diseases. MEDICATIONS: Home medications include Glucophage, Brilinta, Flomax, Proscar, Plavix, Celebrex, Lipitor, and Ecotrin. PHYSICAL EXAMINATION: GENERAL: The patient appears comfortable at rest. He is not short of breath. VITAL SIGNS: (Last noted in the computer): Temperature 98.7, pulse 71, respirations 18, blood pressure 103/48. Oxygen saturation on room air is 95%. HEENT: Normocephalic, atraumatic. NECK: No JVD. CARDIOVASCULAR: Systolic ejection murmur at the lower left sternal border. No S3 gallop. LUNGS: Decreased breath sounds at the bases. Minimal bilateral rhonchi. No wheezing. EXTREMITIES: No clubbing, cyanosis, or edema. Calves are nontender to palpation. GASTROINTESTINAL: Abdomen is soft, nontender and nondistended. Bowel sounds are positive. SKIN: No acute rash. NEUROLOGIC: Exam limited at the present time. PERTINENT LABORATORY DATA: CAT scan of the chest was done yesterday and reviewed. There is evidence of pulmonary fibrosis with subpleural honeycombing. There is no pulmonary mass or nodule noted. His central airways are clear. CBC: White count 10.8K, hemoglobin 9.6, hematocrit 28.9, platelets of 220,000. Complete metabolic profile: Glucose 228. Rest of the metabolic profile is within normal limits. IMPRESSION: 1. Urosepsis. 2. Mild bronchitis. 3. Pulmonary fibrosis. 4. Coronary artery disease, status post multiple cardiac stents. 5. Anemia. PLAN: Again, I did discuss the case with the night nurse at length. I have also reviewed the chart at length. I have also discussed the case with the patient at length. The patient presents back to [facility] with main complaints of blood clots blocking his Redman catheter. The patient does have a history of recent urinary tract infection. As above, the patient did present with high fevers. His urinalysis was consistent with an acute infection. He was thus admitted for additional evaluation. I did review the nursing notes and discussed the case with the nurse at length. Apparently, yesterday during the day, the patient coughed up a very small amount of blood(? from throat). There have been no signs of further hemoptysis over the past, at least 12 hours. Keeping in mind, the patient is on Brilinta and Plavix at home. He also presented with blood clots in his Redman catheter. I did review the CT scan of the chest. Findings are noted above. Specifically, there are no signs of pulmonary mass or nodule noted. The central airways are clear. On physical exam, the patient does have minimal bronchospasm. He was a former smoker. I will start him on nebulizer treatments this morning. Inputs by Endocrine and Infectious Disease are also noted. The patient does appear clinically improved this morning. Again, there have been no signs of hemoptysis for least 12 hours. However, given the above, the future status/prognosis for this elderly patient does remain guarded. I will discuss the above with Dr. Lozada. Thank you very much for this pulmonary consultation. José Miguel Wood MD MTDGregory
--- NOTE | 2018-07-13 10:42 | CT ---
Date of service: 07/12/2018 PROCEDURE: CT Chest without contrast HISTORY: hemoptosis COMPARISON: None available. TECHNIQUE: Contiguous axial images were obtained through the chest without intravenous contrast enhancement. Sagittal and coronal reconstructions were performed. Radiation dose: Total exam DLP = 416.23 mGy-cm. This CT exam was performed using one or more of the following dose reduction techniques: Automated exposure control, adjustment of the mA and/or kV according to patient size, and/or use of iterative reconstruction technique. FINDINGS: LUNGS: There is peripheral interstitial fibrosis in both lungs especially at the lung bases. Emphysematous changes are also seen. There are no prior studies for comparison. MEDIASTINUM: Unremarkable thoracic aorta. No aneurysm. Normal sized heart. Main pulmonary artery unremarkable. No vascular congestion. No lymphadenopathy. Aortic and coronary artery calcifications are seen PLEURA: No pleural fluid. No pneumothorax. BONES: No fracture. No destructive lesion. UPPER ABDOMEN: Grossly unremarkable. OTHER FINDINGS: None. IMPRESSION: There is peripheral interstitial fibrosis in both lungs especially at the lung bases. Emphysematous changes are also seen. There are no prior studies for comparison.
--- NOTE | 2018-07-13 11:31 | PN ---
DATE: 07/13/2018 SUBJECTIVE: I saw him resting in bed. He actually slept very well last night. He has a Redman catheter in place and the urine looks very clear and yellow. He had bladder stones. He is comfortable, slept well, talking quite well. No chest pain or shortness of breath. No abdominal pain. No pain at all. He is very comfortable at this time. He also has bad CAD. MEDICATIONS: He is on Amaryl, Brilinta, Brovana, doxycycline, Ecotrin, Flomax, Glucophage, insulin, Lipitor, Merrem IV, Proscar, Pulmicort, IV fluids, Tylenol, vancomycin. He is on triple antibiotics right now. PHYSICAL EXAMINATION: VITAL SIGNS: He has 98.2 temperature, 78 pulse, 96/50 blood pressure, 18 respiratory rate, 95% O2 sat. HEAD: Atraumatic, normocephalic. HEART: Regular rate. LUNGS: Decreased breath sounds, but clear. ABDOMEN: Soft, nontender. Positive bowel sounds. He has had an appetite. No guarding, no rebound. EXTREMITIES: No edema. He has a very good exam at this time. LABORATORY DATA: He has 7.7 white count, came down nicely, 9.5 hemoglobin, 28.6 hematocrit with 221 platelets. He has lactate which came down to normal 1.2, it was 2.5 when he came in. He has sodium 133, potassium 3.8, BUN 14, creatinine 0.9, GFR is greater than 60, sugar is 126, calcium is 8.3. Total bili is 0.5, AST is 30, ALT is 25, alk phos 61, total protein is 5.3. He had many bacteria in the urine. ASSESSMENT AND PLAN: He is being seen by Endocrinology. There were consults for Cardiology due to his bad coronary artery disease and recent stents. Infectious Disease for intravenous antibiotics. Also Urology for bladder stones, Endocrinology for possible other issues that might be going on, Pulmonary because he coughed up some blood, I believe it was from a very dry throat and straining. The exam was quite well. The CAT scan showed some fibrosis in the lungs, probably from his days of smoking. I want to get him out of bed to chair, he needs physical therapy. I think he will need to have a longer period of time of intravenous antibiotics, this is the third or fourth time in the hospital for the same thing. I think he will need at least 10 to 14 days of intravenous antibiotics. So, I have put in a consult for transitional care unit evaluation once he is done with the hospital side and my plan is for transitional care unit to finish out the antibiotics after three overnights. Long discussions with family every day. Lane Lozada DO
[2018-07-13] MEDS: Vancomycin 1gm in NS 250ml 1 GM/250 ML BAG IVPB SCH ×2 (11:45)
[2018-07-13] MEDS: Insulin Lispro (humaLOG) LOW Coverage SC SCH ×2 (11:49→18:39)
--- NOTE | 2018-07-13 12:50 | CP.PCM.PCO ---
Additional Comments - Additional Comments Additional Comments: Patient afebrile today TMAX 07/12/18 102.4 continue IV antibiotics as per ID, PT eval pending.
--- NOTE | 2018-07-13 14:41 | PN ---
DATE: 07/13/2018 ENDOCRINOLOGY FOLLOWUP NOTE LOCATION: Room #272 SUBJECTIVE: This is an 87-year-old male with known history of type 2 diabetes, hypertension with also recent bladder stone removal with an indwelling catheter in place, presenting here with urosepsis and is now receiving IV antibiotic management and is also being followed closely for metabolic management. His glycemic levels are fluctuating, but improved and the glucose levels overnight have ranged from 116 to 165 mg/dL. LABORATORY DATA: Chemistry showed BUN of 14, sodium 133, potassium 3.8, chloride of 100, CO2 of 28. glucose 126, and creatinine is 0.9. ASSESSMENT: This is an 87-year-old male with uncontrolled type 2 diabetes with optimal glycemic fluctuations and is now being followed closely for metabolic management. PLAN OF MANAGEMENT: We will continue the Amaryl given as 4 mg b.i.d. as ordered. We will discontinue once daily as ordered. We will add Januvia, given as 50 mg once daily in the morning as ordered. We will modify the covering scale to soraida hypoglycemia and detailed orders have been given. We will follow and advise accordingly. Barbra Lee MD
--- NOTE | 2018-07-13 21:21 | CP.PCM.CON ---
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 He has history of urinary bladder stones, and at times he has blood clots clogging the Eduardo. He has also been having fevers. The patient has some suprapubic pain as well. He denies headache or dizziness, no chest pain, no SOB, no cough or rhinorrhea, no nausea or vomiting, no diarrhea, no dysphagia. Infectious Diseases consult is requested to further evaluate and manage. Review of Systems - Review of Systems All systems: reviewed and no additional remarkable complaints except (as per HPI) Past Patient History - Infectious Disease Hx of Infectious Diseases: None - Past Social History Smoking Status: Former Smoker - CARDIAC Hx Cardiac Disorders: Yes (CAD,AAA) - PULMONARY Hx Respiratory Disorders: Yes (USED TO SMOKE CIGARETTES.QUIT IN HIS 30'S) - NEUROLOGICAL Hx Neurological Disorder: Yes HX Cerebrovascular Accident: Yes - HEENT Hx HEENT Problems: Yes (RINCON) - RENAL Hx Chronic Kidney Disease: Yes (BLADDER INFECTION-EDUARDO URINARY RETENTION) Hx Kidney Stones: Yes - ENDOCRINE/METABOLIC Hx Endocrine Disorders: Yes Hx Diabetes Mellitus Type 2: Yes - HEMATOLOGICAL/ONCOLOGICAL Hx Blood Disorders: Yes Hx Cancer: Yes (skin cancer WITH SX BASAL CELL,LEFT EAR,RIGHT ARM.) - INTEGUMENTARY Hx Dermatological Problems: Yes Hx Basil Cell: Yes Other/Comment: skin cancer surgery on right arm and recently the left ear - MUSCULOSKELETAL/RHEUMATOLOGICAL Hx Musculoskeletal Disorders: Yes Hx Arthritis: Yes Hx Falls: No Hx Unsteady Gait: Yes (CANE) - GASTROINTESTINAL Hx Gastrointestinal Disorders: No - GENITOURINARY/GYNECOLOGICAL Hx Genitourinary Disorders: Yes (RETENTION) Hx Hematuria: Yes Hx Prostate Problems: Yes (ENLARGED-BPH) Hx Urinary Tract Infection: Yes Other/Comment: work up in progress for bladder stones HAD PASSED 19 STONES AND MORE - PSYCHIATRIC Hx Psychophysiologic Disorder: No Hx Substance Use: No - SURGICAL HISTORY Hx Surgeries: Yes (STENTS X 4) Hx Cardiac Catheterization: Yes (4 STENTS) Hx Coronary Stent: Yes (4) Other/Comment: surgery X4 for skin cancer. cardiac cath - ANESTHESIA Hx Anesthesia: Yes Hx Anesthesia Reactions: No Hx Malignant Hyperthermia: No Meds Allergies/Adverse Reactions: Allergies Allergy/AdvReac Type Severity Reaction Status Date / Time No Known Allergies Allergy Verified 07/12/18 11:57 - Medications Medications: Current Medications Acetaminophen (Tylenol 325 Mg Supp) 325 mg RC STAT PRN PRN Reason: Fever >100.4 F Last Admin: 07/12/18 10:03 Dose: 325 mg Acetaminophen (Tylenol 325mg Tab) 650 mg PO Q4H PRN PRN Reason: temp greater than 99 Last Admin: 07/12/18 15:26 Dose: 650 mg Aspirin (Ecotrin) 81 mg PO DAILY [facility] Last Admin: 07/12/18 11:51 Dose: 81 mg Atorvastatin Calcium (Lipitor) 40 mg PO DIN [facility] Last Admin: 07/12/18 17:57 Dose: 40 mg Finasteride (Proscar) 5 mg PO DAILY [facility] Last Admin: 07/12/18 11:51 Dose: 5 mg Glimepiride (Amaryl) 4 mg PO BID [facility] Last Admin: 07/12/18 17:59 Dose: Not Given Meropenem (Merrem Iv 1 Gm Premix) 1 gm in 50 mls @ 12.5 mls/hr IVPB Q8 [facility]; Protocol Last Admin: 07/12/18 21:45 Dose: 12.5 mls/hr Sodium Chloride (Sodium Chloride 0.45%) 1,000 mls @ 60 mls/hr IV .[id number] [facility] Last Admin: 07/12/18 09:22 Dose: 60 mls/hr Vancomycin HCl (Vancomycin 1gm) 1 gm in 250 mls @ 167 mls/hr IVPB Q12H [facility]; Protocol Insulin Human Regular (Humulin R Med) 0 units SC ACHS [facility]; Protocol Last Admin: 07/12/18 17:58 Dose: 3 u Metformin HCl (Glucophage Xr) 1,000 mg PO DAILY [facility] Last Admin: 07/12/18 11:51 Dose: 1,000 mg Tamsulosin HCl (Flomax) 0.4 mg PO DAILY [facility] Last Admin: 07/12/18 11:51 Dose: 0.4 mg Ticagrelor (Brilinta) 60 mg PO BID [facility] Last Admin: 07/12/18 21:45 Dose: 60 mg Physical Exam - Constitutional Appears: Chronically Ill - Head Exam Head Exam: NORMAL INSPECTION - Respiratory Exam Respiratory Exam: Decreased Breath Sounds - Cardiovascular Exam Cardiovascular Exam: +S1, +S2 - GI/Abdominal Exam GI & Abdominal Exam: Soft, Tenderness (mild, suprapubic). absent: Distended, Guarding, Rebound, Rigid Results - Vital Signs Recent Vital Signs: Last Vital Signs Temp 99.3 F 07/12/18 18:05 Pulse 57 L 07/12/18 18:00 Resp 20 07/12/18 18:00 BP 95/50 L 07/12/18 18:00 Pulse Ox 100 07/12/18 09:08 - Labs Result Diagrams: 07/13/18 07:00 07/13/18 07:00 Labs: Laboratory Results - last 24 hr 07/12/18 07/12/18 07/12/18 07:21 07:21 07:22 WBC 14.2 H D RBC 3.60 Hgb 10.9 L Hct 33.4 L MCV 92.8 MCH 30.3 MCHC 32.6 RDW 12.7 Plt Count 323 MPV 8.7 Neut % (Auto) 93.9 H Lymph % (Auto) 3.1 L [place] % (Auto) 1.6 Eos % (Auto) 1.3 L Baso % (Auto) 0.1 Lymph # (Auto) 0.4 L [place] # (Auto) 0.2 Eos # (Auto) 0.2 Baso # (Auto) 0.01 Absolute Neuts (auto) 13.29 H Neutrophils % (Manual) 92 H Lymphocytes % (Manual) 3 L Monocytes % (Manual) TEST NOT PERFORMED Eosinophils % (Manual) 5 H Platelet Evaluation Normal PT INR APTT pO2 VBG pH VBG pCO2 VBG HCO3 VBG Total CO2 VBG O2 Sat (Calc) VBG Base Excess VBG Potassium Glucose Lactate FiO2 Crit Value Called To Crit Value Called By Blood Gas Notified Time Sodium 138 Potassium 4.4 Chloride 99 Carbon Dioxide 26 Anion Gap 16 BUN 13 Creatinine 0.8 Est GFR ( Amer) > 60 Est GFR (Non-Af Amer) > 60 POC Glucose (mg/dL) Random Glucose 228 H Calcium 9.7 Phosphorus Magnesium Total Bilirubin 0.7 AST 46 ALT 47 Alkaline Phosphatase 102 Troponin I Total Protein 7.1 Albumin 3.9 Globulin 3.2 Albumin/Globulin Ratio 1.2 Venous Blood Potassium Urine Color Yellow Urine Appearance Clear Urine pH 6.0 Ur Specific [place] 1.010 Urine Protein Trace H Urine Glucose (UA) Negative Urine Ketones Negative Urine Blood Large H Urine Nitrate Negative Urine Bilirubin Negative Urine Urobilinogen 0.2 Ur Leukocyte Esterase Small H Urine RBC 20 - 25 H Urine WBC 5 - 10 H Ur Epithelial Cells 0 - 2 Amorphous Sediment Few Urine Bacteria Many Urine Other Fiber 07/12/18 07/12/18 07/12/18 07:30 07:55 07:55 WBC RBC Hgb Hct MCV MCH MCHC RDW Plt Count MPV Neut % (Auto) Lymph % (Auto) [place] % (Auto) Eos % (Auto) Baso % (Auto) Lymph # (Auto) [place] # (Auto) Eos # (Auto) Baso # (Auto) Absolute Neuts (auto) Neutrophils % (Manual) Lymphocytes % (Manual) Monocytes % (Manual) Eosinophils % (Manual) Platelet Evaluation PT 13.1 H INR 1.16 APTT 35.2 pO2 TNP VBG pH 7.42 VBG pCO2 42.0 VBG HCO3 27.2 VBG Total CO2 28.5 H VBG O2 Sat (Calc) 42.1 VBG Base Excess 2.4 H VBG Potassium 4.4 Glucose 241 H Lactate 2.5 H FiO2 21.0 Crit Value Called [place] [id number] Blood Gas Notified Time 745 Sodium 137.0 Potassium Chloride 102.0 Carbon Dioxide Anion Gap BUN Creatinine Est GFR ( Amer) Est GFR (Non-Af Amer) POC Glucose (mg/dL) Random Glucose Calcium Phosphorus 2.9 Magnesium 1.5 L Total Bilirubin AST ALT Alkaline Phosphatase Troponin I Total Protein Albumin Globulin Albumin/Globulin Ratio Venous Blood Potassium 4.4 Urine Color Urine Appearance Urine pH Ur Specific [place] Urine Protein Urine Glucose (UA) Urine Ketones Urine Blood Urine Nitrate Urine Bilirubin Urine Urobilinogen Ur Leukocyte Esterase Urine RBC Urine WBC Ur Epithelial Cells Amorphous Sediment Urine Bacteria Urine Other 07/12/18 07/12/18 07/12/18 08:17 10:33 10:50 WBC RBC Hgb Hct MCV MCH MCHC RDW Plt Count MPV Neut % (Auto) Lymph % (Auto) [place] % (Auto) Eos % (Auto) Baso % (Auto) Lymph # (Auto) [place] # (Auto) Eos # (Auto) Baso # (Auto) Absolute Neuts (auto) Neutrophils % (Manual) Lymphocytes % (Manual) Monocytes % (Manual) Eosinophils % (Manual) Platelet Evaluation PT INR APTT pO2 43 VBG pH 7.41 VBG pCO2 45.0 VBG HCO3 28.5 H VBG Total CO2 29.9 H VBG O2 Sat (Calc) 77.7 H VBG Base Excess 3.2 H VBG Potassium 4.2 Glucose 228 H Lactate 1.2 FiO2 21.0 Crit Value Called To Crit Value Called By Blood Gas Notified Time Sodium 135.0 Potassium Chloride 100.0 Carbon Dioxide Anion Gap BUN Creatinine Est GFR ( Amer) Est GFR (Non-Af Amer) POC Glucose (mg/dL) 237 H Random Glucose Calcium Phosphorus Magnesium Total Bilirubin AST ALT Alkaline Phosphatase Troponin I 0.03 D Total Protein Albumin Globulin Albumin/Globulin Ratio Venous Blood Potassium 4.2 Urine Color Urine Appearance Urine pH Ur Specific [place] Urine Protein Urine Glucose (UA) Urine Ketones Urine Blood Urine Nitrate Urine Bilirubin Urine Urobilinogen Ur Leukocyte Esterase Urine RBC Urine WBC Ur Epithelial Cells Amorphous Sediment Urine Bacteria Urine Other 07/12/18 07/12/18 07/12/18 16:03 19:00 21:09 WBC 10.8 D RBC 3.14 L Hgb 9.6 L Hct 28.9 L MCV 92.0 MCH 30.6 MCHC 33.2 RDW 13.0 Plt Count 220 MPV 8.4 Neut % (Auto) Lymph % (Auto) [place] % (Auto) Eos % (Auto) Baso % (Auto) Lymph # (Auto) [place] # (Auto) Eos # (Auto) Baso # (Auto) Absolute Neuts (auto) Neutrophils % (Manual) Lymphocytes % (Manual) Monocytes % (Manual) Eosinophils % (Manual) Platelet Evaluation PT INR APTT pO2 VBG pH VBG pCO2 VBG HCO3 VBG Total CO2 VBG O2 Sat (Calc) VBG Base Excess VBG Potassium Glucose Lactate FiO2 Crit Value Called To Crit Value Called By Blood Gas Notified Time Sodium Potassium Chloride Carbon Dioxide Anion Gap BUN Creatinine Est GFR ( Amer) Est GFR (Non-Af Amer) POC Glucose (mg/dL) 235 H 116 H Random Glucose Calcium Phosphorus Magnesium Total Bilirubin AST ALT Alkaline Phosphatase Troponin I Total Protein Albumin Globulin Albumin/Globulin Ratio Venous Blood Potassium Urine Color Urine Appearance Urine pH Ur Specific [place] Urine Protein Urine Glucose (UA) Urine Ketones Urine Blood Urine Nitrate Urine Bilirubin Urine Urobilinogen Ur Leukocyte Esterase Urine RBC Urine WBC Ur Epithelial Cells Amorphous Sediment Urine Bacteria Urine Other Assessment & Plan - Assessment and Plan (Free Text) Plan: Assessment systemic inflammatory response syndrome, R/O due to bladder stones with inter mittent blockage of Eduardo catheter, R/O sepsis source not clear CAD S/P PCI 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 Lozada will monitor clinically
[2018-07-14] MEDS: Insulin Lispro (humaLOG) LOW Coverage SC SCH ×5 (04:13→22:18)
[2018-07-14] MEDS: Vancomycin 1gm in NS 250ml 1 GM/250 ML BAG IVPB SCH (05:11)
[2018-07-14] MEDS: Meropenem IV 1 gm in NS 1 GM/50 ML BAG IVPB SCH ×3 (05:12→22:17)
--- NOTE | 2018-07-14 07:18 | CP.PCM.PN ---
Subjective - Date & Time of Evaluation Date of Evaluation: 07/14/18 Time of Evaluation: 07:17 - Subjective Subjective: PGY-[address] Lee, Carlos Pt sitting comfortably in bed reading newspaper, getting neb treatment. No Fever/chills. No acute complaint. Appetite improves. Did not feel dizzy, blurry vision, tachycardia, palpitation when sugar dipped to 50s this am. Objective - Vital Signs/Intake and Output Vital Signs (last 24 hours): Temp Pulse Resp BP Pulse Ox 97.8 F 73 73 H 122/66 98 07/14/18 06:00 07/14/18 06:00 07/14/18 06:00 07/14/18 06:00 07/14/18 06:00 Intake and Output: 07/14/18 07/14/18 06:59 18:59 Intake Total 1480 Output Total 1775 Balance -295 - Medications Medications: Current Medications Acetaminophen (Tylenol 325 Mg Supp) 325 mg RC STAT PRN PRN Reason: Fever >100.4 F Last Admin: 07/12/18 10:03 Dose: 325 mg Acetaminophen (Tylenol 325mg Tab) 650 mg PO Q4H PRN PRN Reason: temp greater than 99 Last Admin: 07/12/18 15:26 Dose: 650 mg Arformoterol Tartrate (Brovana) 15 mcg IH [id number] [facility] Last Admin: 07/13/18 08:38 Dose: 15 mcg Aspirin (Ecotrin) 81 mg PO DAILY [facility] Last Admin: 07/13/18 09:50 Dose: 81 mg Atorvastatin Calcium (Lipitor) 40 mg PO DIN [facility] Last Admin: 07/13/18 18:36 Dose: 40 mg Budesonide (Pulmicort Respules) 0.5 mg IH [id number] [facility] Last Admin: 07/13/18 08:38 Dose: 0.5 mg Finasteride (Proscar) 5 mg PO DAILY [facility] Last Admin: 07/13/18 09:50 Dose: 5 mg Glimepiride (Amaryl) 4 mg PO BID [facility] Last Admin: 07/13/18 18:36 Dose: 4 mg Meropenem (Merrem Iv 1 Gm Premix) 1 gm in 50 mls @ 12.5 mls/hr IVPB Q8 [facility]; Protocol Last Admin: 07/14/18 05:12 Dose: 12.5 mls/hr Sodium Chloride (Sodium Chloride 0.45%) 1,000 mls @ 60 mls/hr IV .[id number] [facility] Last Admin: 07/13/18 02:00 Dose: Not Given Vancomycin HCl (Vancomycin 1gm) 1 gm in 250 mls @ 167 mls/hr IVPB Q12H [facility]; Protocol Last Admin: 07/14/18 05:11 Dose: 167 mls/hr Doxycycline Hyclate 100 mg/ (Sodium Chloride) 100 mls @ 100 mls/hr IVPB Q12 [facility]; Protocol Last Admin: 07/13/18 21:47 Dose: 100 mls/hr Insulin Human Lispro (Humalog Low) 0 units SC ACHS [facility]; Protocol Last Admin: 07/14/18 04:13 Dose: Not Given Sitagliptin Phosphate (Januvia) 50 mg PO DAILY [facility] Last Admin: 07/13/18 11:44 Dose: 50 mg Tamsulosin HCl (Flomax) 0.4 mg PO DAILY [facility] Last Admin: 07/13/18 09:50 Dose: 0.4 mg Ticagrelor (Brilinta) 60 mg PO BID [facility] Last Admin: 07/13/18 18:36 Dose: 60 mg - Labs Labs: 07/13/18 07:00 07/13/18 07:00 PT 13.1 SECONDS (9.4-12.5) H 07/12/18 07:55 INR 1.16 07/12/18 07:55 APTT 35.2 Seconds (26.9-38.3) 07/12/18 07:55 - Constitutional Appears: No Acute Distress - Head Exam Head Exam: ATRAUMATIC, NORMAL INSPECTION, NORMOCEPHALIC - Eye Exam Eye Exam: EOMI, Normal appearance, PERRL. absent: Scleral icterus Pupil Exam: NORMAL ACCOMODATION - ENT Exam ENT Exam: Mucous Membranes Moist - Neck Exam Additional comments: supple - Respiratory Exam Respiratory Exam: Clear to Ausculation Bilateral. absent: Rales, Rhonchi, Wheezes - Cardiovascular Exam Cardiovascular Exam: REGULAR RHYTHM, +S1, +S2 - GI/Abdominal Exam GI & Abdominal Exam: Soft, Normal Bowel Sounds. absent: Tenderness Additional comments: No suprapubic tenderness - Extremities Exam Extremities Exam: absent: Calf Tenderness, Pedal Edema Additional comments: urine clear/no blood. alexander intact - Back Exam Back Exam: absent: CVA tenderness (L), CVA tenderness (R) - Neurological Exam Neurological Exam: Alert, Awake, Oriented x3 - Psychiatric Exam Psychiatric exam: Normal Affect, Normal Mood - Skin Skin Exam: Dry, Warm Assessment and Plan - Assessment and Plan (Free Text) Plan: Mr Stokes, 87M, with PMHx CVA, CAD with MORALES x 4 (PCI with balloon on 07/11/18, prior stents 3 weeks ago), basal cell carcinoma (R arm, recently L ear recently), HLD, DM, BPH complicated by urinary retention with chronic alexander, admitted for fever 102.2 possibly due to urosepsis vs SIRS r/o alexander obstructi ons. Uncontrolled DM2 - Amaryl 4mg bid - Discontinue januvia 50 AM - ISSS that starts when BG > 350 - Pending A1C - On Heart health/Carb consist diet - (Home: Metformin max) - HOLD; He was on amaryl 4 BID but stopped since the New Year. s/r/d/w Dr Lee
[2018-07-14 07:40] LABS: HEMOGLOBIN 9.7 g/dL (14.0-18.0); MEAN CELL VOLUME 91.3 fl (80.0-105.0); MEAN CORPUSCULAR HEMOGLOBIN 30.3 pg (25.0-35.0); MEAN CORPUSCULAR HGB CONC 33.2 g/dl (31.0-37.0); RBC 3.2 10^6/uL (3.5-6.1); RED CELL DISTRIBUTION WIDTH 12.8 % (11.5-14.5); WHITE BLOOD COUNT 7.2 10^3/uL (4.5-11.0)
[2018-07-14] MEDS ORDERED: Barium Sulfate Susp 2.1% w/v, 2.0% w/w 450 mL Bottle PO ONE (08:04)
[2018-07-14 08:14] LABS: ALBUMIN 2.7 g/dL (3.0-4.8); ALT/SGPT 56 U/L (7-56); AST/SGOT 69 U/L (17-59); BLOOD UREA NITROGEN 13 mg/dL (7-21); CALCIUM 8.3 mg/dL (8.4-10.5); GFR NON-AFRICAN AMERICAN > 60
[2018-07-14] MEDS: Budesonide 0.5 mg/2 ml Inhal Susp UD IH SCH ×2 (08:33→20:15)
[2018-07-14] MEDS: Arformoterol 15 mcg/2 ml Inh Sol IH SCH ×2 (08:33→20:15)
--- NOTE | 2018-07-14 09:58 | PN ---
DATE: 07/14/2018 PULMONARY NOTE SUBJECTIVE: The patient appears comfortable this morning. He is not short of breath at rest. PHYSICAL EXAMINATION: VITAL SIGNS: Temperature is 97.8, pulse 73, respirations 18, blood pressure 122/66. Oxygen saturation on room air - 98%. HEENT: Normocephalic, atraumatic. No JVD. CARDIOVASCULAR: Systolic ejection murmur at the lower left sternal border. No S3 gallop. LUNGS: Decreased breath sounds at the bases. Much less/very minimal rhonchi. No wheezing. GASTROINTESTINAL: Abdomen is soft, nontender and nondistended. Bowel sounds are positive. EXTREMITIES: No clubbing, cyanosis or edema. Calves are nontender to palpation. SKIN: No acute rash. NEUROLOGIC: Exam limited at the present time. IMPRESSION: 1. Urosepsis. 2. Mild bronchitis. 3. Pulmonary fibrosis. 4. Coronary artery disease, status post multiple cardiac stents. 5. Anemia. PLAN: The patient appears quite comfortable this morning. He is not short of breath at rest. He does state to feeling better. I did discuss the case with the night nurse at length. The night nurse stated the patient had an uneventful night. There have been no further signs of hemoptysis. On physical exam, there is certainly less bronchospasm noted. In addition, the alveolar-arterial gradient is also less. I will continue the current nebulizer treatments and inhaled steroids for now. Inputs by Infectious Disease and Endocrine are also noted. Clinical status of the patient has certainly improved - compared to the initial presentation. However, given the above, the future status/prognosis for this elderly patient does remain guarded. I will discuss the above with Dr. Lozada. José Miguel Wood MD MTDD
[2018-07-14] MEDS: Clotrimazole/Betamethasone Cream(15 gm) TOP SCH ×2 (10:29→21:12)
--- NOTE | 2018-07-14 11:12 | PN ---
DATE: 07/14/2018 CARDIOLOGY FOLLOWUP SUBJECTIVE: The patient is chair without shortness of breath, without chest pain. PHYSICAL EXAMINATION VITAL SIGNS: of her 122/66 and heart rate is in normal sinus rhythm in the 70s. The patient is afebrile. NECK: Negative JVD. LUNGS: Without rales. HEART: Reveals S1 and S2. EXTREMITIES: Without edema. LABORATORY DATA: Hemoglobin is 9.7. BUN and creatinine are unremarkable. Glucose is 135. IMPRESSION: 1. Stable angina. 2. Coronary artery disease. 3. Multivessel percutaneous transluminal coronary angioplasty and stent. 4. History of recent non-ST elevation myocardial infarction. 5. Diabetes mellitus. 6. Hypertension. 7. Hypercholesterolemia. 8. Urinary tract infection. Given these findings, the patient is doing well from a cardiac perspective. He is currently on IV antibiotics. Aleks Alexander MD
--- NOTE | 2018-07-14 11:21 | PN ---
DATE: 07/14/2018 SUBJECTIVE: I saw him sitting in bed. Today he is alert. He slept fairly well last night, which is good for him. He does sleep. The Redman catheter is in place with nice yellow clear urine. No No blood. No stones. He is very comfortable. No pain. He does have a skin rash on his back, I get him some Lotrisone cream. MEDICATIONS: He is currently on IV fluids, Amaryl, Brilinta, Brovana, Vibramycin, Ecotrin, Flomax, insulin, Januvia, Lipitor, Lotrisone , Merrem, Proscar, budesonide, Tylenol, vancomycin. OBJECTIVE: VITAL SIGNS: He has a 97.8 temperature, 73 pulse, 122/66 blood pressure, 13 respiratory rate, 98% O2 sat on room air. HEENT: Head is atraumatic, normocephalic. Very alert, talking comfortable back to his baseline, very sharp this morning. HEART: Regular rate. LUNGS: Decreased breath sounds, but clear, a little reddish rash in the back could be fungus, we will put him on Lotrisone cream. ABDOMEN: Soft, nontender, positive bowel sounds. EXTREMITIES: No edema. LABORATORY DATA: The urine is very crystal clear yellow urine. He has a 7.2 white count, 9.7 hemoglobin, 29.2 hematocrit with a 192 platelets. He has a 137 sodium, potassium 3.9, BUN 13, creatinine 0.8, GFR is greater than 60, sugar is 135, calcium 8.3, total bili is 0.3, AST is 69, ALT is 56, alk phos 58, total protein is 5.4. He Is having a good morning. He is doing well. He is on IV antibiotics. The micro was negative which is great. This is fourth time in situation of coming in and looking septic with urine, looking horrible. Elevated temperatures in the 100-101 and with the urine that looking very bad and he quickly response. He will need at least 10 days of antibiotics, but as per infectious disease, I want to get him to TCU for physical therapy and finish off the IV antibiotics. Also a CAT scan of the abdomen and pelvis. I am still looking for another source or possibly this infection although the real pain is from the bladder, bladder stones in the kidneys. I want to make sure, I am not missing anything else. His CAT scan of the chest showed fibrosis. He is to be a smoker. Lives in [place]. I will continue aggressive treatment and care on Reinaldo Stokes. Lane Lozada DO MTDGregory
--- NOTE | 2018-07-14 12:03 | CP.PCM.PN ---
Subjective - Date & Time of Evaluation Date of Evaluation: 07/14/18 Time of Evaluation: 10:15 - Subjective Subjective: Patient is comfortable on a chair, no fevers, did his PT and felt well. Talked to the daughter at bedside who is a senior pricing analyst and states that his father was on Macrobid and Doxycycline prior to coming in for this admission. Pt. states he has no abdominal or suprapubic pain. Objective - Vital Signs/Intake and Output Vital Signs (last 24 hours): Temp Pulse Resp BP Pulse Ox 98 F 62 20 107/57 L 99 07/13/18 17:44 07/13/18 18:00 07/13/18 17:44 07/13/18 17:44 07/13/18 17:44 Intake and Output: 07/13/18 07/14/18 18:59 06:59 Intake Total 2320 Output Total 1300 Balance 1020 - Medications Medications: Current Medications Acetaminophen (Tylenol 325 Mg Supp) 325 mg RC STAT PRN PRN Reason: Fever >100.4 F Last Admin: 07/12/18 10:03 Dose: 325 mg Acetaminophen (Tylenol 325mg Tab) 650 mg PO Q4H PRN PRN Reason: temp greater than 99 Last Admin: 07/12/18 15:26 Dose: 650 mg Arformoterol Tartrate (Brovana) 15 mcg IH [id number] [facility] Last Admin: 07/13/18 08:38 Dose: 15 mcg Aspirin (Ecotrin) 81 mg PO DAILY [facility] Last Admin: 07/13/18 09:50 Dose: 81 mg Atorvastatin Calcium (Lipitor) 40 mg PO DIN [facility] Last Admin: 07/13/18 18:36 Dose: 40 mg Budesonide (Pulmicort Respules) 0.5 mg IH [id number] [facility] Last Admin: 07/13/18 08:38 Dose: 0.5 mg Finasteride (Proscar) 5 mg PO DAILY [facility] Last Admin: 07/13/18 09:50 Dose: 5 mg Glimepiride (Amaryl) 4 mg PO BID [facility] Last Admin: 07/13/18 18:36 Dose: 4 mg Meropenem (Merrem Iv 1 Gm Premix) 1 gm in 50 mls @ 12.5 mls/hr IVPB Q8 [facility]; Protocol Last Admin: 07/13/18 15:30 Dose: 12.5 mls/hr Sodium Chloride (Sodium Chloride 0.45%) 1,000 mls @ 60 mls/hr IV .[id number] [facility] Last Admin: 07/13/18 02:00 Dose: Not Given Vancomycin HCl (Vancomycin 1gm) 1 gm in 250 mls @ 167 mls/hr IVPB Q12H [facility]; Protocol Last Admin: 07/13/18 11:45 Dose: 167 mls/hr Doxycycline Hyclate 100 mg/ (Sodium Chloride) 100 mls @ 100 mls/hr IVPB Q12 [facility]; Protocol Last Admin: 07/13/18 09:50 Dose: 100 mls/hr Insulin Human Lispro (Humalog Low) 0 units SC ACHS [facility]; Protocol Last Admin: 07/13/18 18:39 Dose: Not Given Sitagliptin Phosphate (Januvia) 50 mg PO DAILY [facility] Last Admin: 07/13/18 11:44 Dose: 50 mg Tamsulosin HCl (Flomax) 0.4 mg PO DAILY [facility] Last Admin: 07/13/18 09:50 Dose: 0.4 mg Ticagrelor (Brilinta) 60 mg PO BID [facility] Last Admin: 07/13/18 18:36 Dose: 60 mg - Labs Labs: 07/13/18 07:00 07/13/18 07:00 PT 13.1 SECONDS (9.4-12.5) H 07/12/18 07:55 INR 1.16 07/12/18 07:55 APTT 35.2 Seconds (26.9-38.3) 07/12/18 07:55 - Constitutional Appears: No Acute Distress, Chronically Ill - Head Exam Head Exam: NORMAL INSPECTION - Respiratory Exam Respiratory Exam: Decreased Breath Sounds - Cardiovascular Exam Cardiovascular Exam: +S1, +S2 - GI/Abdominal Exam GI & Abdominal Exam: Soft. 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
--- NOTE | 2018-07-14 12:39 | CT ---
Date of service: 07/14/2018 PROCEDURE: CT Abdomen and Pelvis without intravenous contrast HISTORY: uti COMPARISON: None. TECHNIQUE: Technique. Contrast dose: Radiation dose: Total exam DLP = 472.98 mGy-cm. This CT exam was performed using one or more of the following dose reduction techniques: Automated exposure control, adjustment of the mA and/or kV according to patient size, and/or use of iterative reconstruction technique. FINDINGS: LOWER THORAX: There is interstitial fibrosis in the periphery of both lower lobes. LIVER: Unremarkable. No gross lesion or ductal dilatation. GALLBLADDER AND BILE DUCTS: Unremarkable. PANCREAS: Unremarkable. No gross lesion or ductal dilatation. SPLEEN: Unremarkable. ADRENALS: Unremarkable. No mass. KIDNEYS AND URETERS: Unremarkable. No hydronephrosis. No solid mass. VASCULATURE: Unremarkable. No aortic aneurysm. Aortic calcification BOWEL: Unremarkable. No obstruction. No gross mural thickening. APPENDIX: Unremarkable. Normal appendix. PERITONEUM: Unremarkable. No free fluid. No free air. LYMPH NODES: Unremarkable. No enlarged lymph nodes. BLADDER: See below REPRODUCTIVE: The prostate is severely enlarged measuring 10 cm in height by 7.5 cm wide by 6.6 cm AP. Multiple small stones are seen layered in the urinary bladder. A Redman catheter is seen in place BONES: Multilevel disc degeneration OTHER FINDINGS: None. IMPRESSION: The prostate is severely enlarged measuring 10 cm in height by 7.5 cm wide by 6.6 cm AP. Multiple small stones are seen layered in the urinary bladder. A Redman catheter is seen in place
--- NOTE | 2018-07-14 13:23 | CP.PCM.PCO ---
Additional Comments - Additional Comments Additional Comments: continue IV antibiotics as per ID, CT severly enlarged prostate gland, urology following, keep alexander catheter intact.
--- NOTE | 2018-07-14 13:24 | PN ---
DATE: 07/14/2018 ENDOCRINOLOGY FOLLOWUP NOTE In room 272. SUBJECTIVE: This is an 87-year-old male with recent urinary tract infection, bacteremia and currently receiving IV antibiotics as noted and this is being followed closely also for metabolic management. His glycemic levels were low normal overnight with glucose levels ranging from 59-150 mg/dL. His glucose levels otherwise have ranged from 138-196 mg/dL. LABORATORY DATA: His chemistry showed a BUN of 30, sodium 137, potassium 3.9, chloride 104, CO2 of 27, glucose 135 and creatinine 0.8. ASSESSMENT: This is an 87-year-old male with uncontrolled type 2 diabetes with extremes of glycemic fluctuations presenting here with urinary tract infection and bacteremia with an indwelling catheter and is now being followed closely for metabolic management. PLAN OF MANAGEMENT: We have actually discontinue his Januvia given as 50 mg once daily for now and observe his glycemic fluctuance overnight as noted. We will continue the Amaryl given as 4 mg twice a day as ordered. However, and hold off the initiation of metformin therapy as ordered. We will obtain serial chemistries and supplement accordingly as needed. We will also continue the serial chemistries and supplement accordingly as needed. We will follow with you. Barbra Lee MD
[2018-07-15] MEDS: Meropenem IV 1 gm in NS 1 GM/50 ML BAG IVPB SCH (05:32)
[2018-07-15 07:34] LABS: HEMOGLOBIN 9.3 g/dL (14.0-18.0); MEAN CELL VOLUME 91.8 fl (80.0-105.0); MEAN CORPUSCULAR HEMOGLOBIN 30.5 pg (25.0-35.0); MEAN CORPUSCULAR HGB CONC 33.2 g/dl (31.0-37.0); MEAN PLATELET VOLUME 8.9 fl (7.0-11.0); RBC 3.05 10^6/uL (3.5-6.1); WHITE BLOOD COUNT 7.7 10^3/uL (4.5-11.0)
[2018-07-15 07:54] LABS: ALBUMIN 2.7 g/dL (3.0-4.8); ALT/SGPT 73 U/L (7-56); AST/SGOT 69 U/L (17-59); BLOOD UREA NITROGEN 13 mg/dL (7-21); CALCIUM 8.5 mg/dL (8.4-10.5); GFR NON-AFRICAN AMERICAN > 60
[2018-07-15] MEDS: Insulin Lispro (humaLOG) LOW Coverage SC SCH ×2 (08:01→12:03)
[2018-07-15] MEDS: Budesonide 0.5 mg/2 ml Inhal Susp UD IH SCH (08:07)
[2018-07-15] MEDS: Arformoterol 15 mcg/2 ml Inh Sol IH SCH (08:07)
--- NOTE | 2018-07-15 08:32 | PQF ---
PROVIDER RESPONSE TEXT: As per ID REVIEWER QUERY TEXT: Rule Out Sepsis Clarification Rule out Sepsis is documented in the Medical Record. Please clarify whether: -- Patient has sepsis - Please document confirmed, suspected or probable causative organism - Please document confirmed, suspected or probable localized infection - Please clarify if sepsis is related to a device - Please clarify if sepsis was present on admission -- Sepsis was ruled out (include corresponding diagnosis for patient?s clinical picture and treatment ) -- Patient had sepsis which is resolved -- Other, please specify The patient's Clinical Indicators include: Blood and urine cultures were negative. ID it web development consultant notes SIRS, source unclear. Pleas specify if sepsis determined to be present, was ruled out, undetermined. If present, specify so urce, ? UTI. Query created by: Lesley Stern on 07/14/2018 11:18 AM Electronically signed by: Lane Lozada DO 07/15/2018 8:28 AM
[2018-07-15] MEDS: Clotrimazole/Betamethasone Cream(15 gm) TOP SCH (10:07)
--- NOTE | 2018-07-15 10:13 | PN ---
DATE: 07/15/2018 SUBJECTIVE: The patient appears comfortable this morning. He is not short of breath at rest. OBJECTIVE: VITAL SIGNS: Temperature is 98.3, pulse 77, respirations 18, blood pressure 124/57. Oxygen saturation on room air 96%-98%. HEENT: Normocephalic, atraumatic. NECK: No JVD. CARDIOVASCULAR: Systolic ejection murmur at the lower left sternal border. No S3 gallop. LUNGS: Decreased breath sounds at the bases. No rhonchi. No wheezing. EXTREMITIES: No clubbing, cyanosis or edema. Calves are nontender to palpation. GASTROINTESTINAL: Abdomen is soft, nontender and nondistended. Bowel sounds are positive. SKIN: No acute rash. NEUROLOGIC: Limited at the present time. IMPRESSION: 1. Urosepsis. 2. Mild bronchitis. 3. Pulmonary fibrosis. 4. Coronary artery disease, status post multiple cardiac stents. 5. Anemia. PLAN: The patient appears very comfortable this morning. He is not short of breath at rest. He states he is feeling good. I did discuss the case with the night nurse at length. The night nurse stated the patient had an uneventful night. On physical exam, the patient's bronchospasm has primarily resolved. In addition, there is no significant alveolar arterial gradient. I will continue the current nebulizer treatments and inhaled steroids for now. Inputs by Infectious Disease and Endocrine are also noted. Clinical status of the patient is significantly improved - compared to the initial presentation. His hemoptysis has fully resolved. He does state to feeling much better. However, given the above, the future status/prognosis for this elderly patient does remain guarded. I will discuss the above with Dr. Lozada. José Miguel Wood MD MTDD
--- NOTE | 2018-07-15 11:09 | CP.PCM.PN ---
Subjective - Date & Time of Evaluation Date of Evaluation: 07/15/18 Time of Evaluation: 09:45 - Subjective Subjective: No fevers, not in distress, no abdominal pain, no nausea, no SOB, no cough. Objective - Vital Signs/Intake and Output Vital Signs (last 24 hours): Temp Pulse Resp BP Pulse Ox 97.8 F 73 73 H 122/66 97 07/14/18 06:00 07/14/18 06:00 07/14/18 06:00 07/14/18 06:00 07/14/18 11:25 Intake and Output: 07/14/18 07/14/18 06:59 18:59 Intake Total 1480 Output Total 1775 Balance -295 - Medications Medications: Current Medications Acetaminophen (Tylenol 325 Mg Supp) 325 mg RC STAT PRN PRN Reason: Fever >100.4 F Last Admin: 07/12/18 10:03 Dose: 325 mg Acetaminophen (Tylenol 325mg Tab) 650 mg PO Q4H PRN PRN Reason: temp greater than 99 Last Admin: 07/12/18 15:26 Dose: 650 mg Arformoterol Tartrate (Brovana) 15 mcg IH [id number] [facility] Last Admin: 07/14/18 08:33 Dose: 15 mcg Aspirin (Ecotrin) 81 mg PO DAILY [facility] Last Admin: 07/14/18 10:26 Dose: 81 mg Atorvastatin Calcium (Lipitor) 40 mg PO DIN [facility] Last Admin: 07/13/18 18:36 Dose: 40 mg Betamethasone/Clotrimazole (Lotrisone) 0 gm TOP BID [facility] Last Admin: 07/14/18 10:29 Dose: 1 applic Budesonide (Pulmicort Respules) 0.5 mg IH [id number] [facility] Last Admin: 07/14/18 08:33 Dose: 0.5 mg Finasteride (Proscar) 5 mg PO DAILY [facility] [place] Last Admin: 07/14/18 10:26 Dose: 5 mg Glimepiride (Amaryl) 4 mg PO BID [facility] [place] Last Admin: 07/14/18 10:29 Dose: 4 mg Meropenem (Merrem Iv 1 Gm Premix) 1 gm in 50 mls @ 12.5 mls/hr IVPB Q8 [facility]; Protocol Last Admin: 07/14/18 05:12 Dose: 12.5 mls/hr Sodium Chloride (Sodium Chloride 0.45%) 1,000 mls @ 60 mls/hr IV .[id number] [facility] [place] Last Admin: 07/13/18 02:00 Dose: Not Given Insulin Human Lispro (Humalog Low) 0 units SC ACHS [facility]; Protocol Last Admin: 07/14/18 07:30 Dose: Not Given Tamsulosin HCl (Flomax) 0.4 mg PO DAILY [facility] Last Admin: 07/14/18 10:26 Dose: 0.4 mg Ticagrelor (Brilinta) 60 mg PO BID [facility] Last Admin: 07/14/18 10:26 Dose: 60 mg - Labs Labs: 07/14/18 07:15 07/14/18 07:15 PT 13.1 SECONDS (9.4-12.5) H 07/12/18 07:55 INR 1.16 07/12/18 07:55 APTT 35.2 Seconds (26.9-38.3) 07/12/18 07:55 - Constitutional Appears: Non-toxic, Chronically Ill - Head Exam Head Exam: NORMAL INSPECTION - Neck Exam Neck Exam: absent: Meningismus - Respiratory Exam Respiratory Exam: Decreased Breath Sounds - Cardiovascular Exam Cardiovascular Exam: +S1, +S2 - GI/Abdominal Exam GI & Abdominal Exam: Soft. 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
[2018-07-15 11:56] VITALS: O2SAT 95
[2018-07-15 12:27] VITALS: BP 110/66; PULSE 79; RESP 19; TEMP 97.1
--- NOTE | 2018-07-15 23:59 | PN ---
DATE: 07/15/2018 ENDOCRINOLOGY FOLLOWUP NOTE LOCATION: Room 272. This is an 87-year-old male with recent uncontrolled type 2 diabetes, presenting here with bacteremia and concomitant urinary tract infection with underlying bladder calculi and is now being followed closely for metabolic management. His glycemic levels are fluctuating, but improved and the glucose values have ranged from 77 to 125 and 222 mg/dL. His chemistry showed a BUN of 13, sodium 137, potassium 3.9, chloride 103, CO2 of 29, glucose 71, and creatinine 0.8. His A1c is 7.8%. So at this time, we will continue the Amaryl given as 4 mg b.i.d. before breakfast and dinner as ordered. We will also continue the low-dose correction scale using Humalog insulin as given. We will obtain serial chemistries and supplement accordingly as needed. We will follow. Barbra Lee MD
--- NOTE | 2018-07-16 01:54 | DS ---
HISTORY OF PRESENT ILLNESS: He is being transferred to the Transitional Care Unit. He had UTI with bladder stones, coronary artery disease, diabetes, and pulmonary fibrosis. His urine was crystal clear yellow, which is great. He is being seen by Cardiology, Infectious Disease, Urology, Endocrinology, and Pulmonary. MEDICATIONS: He is on IV fluids, Amaryl, Brilinta, Brovana, Flomax, Lipitor, Lotrisone cream, Merrem IV, Proscar, Pulmicort, and Tylenol. OBJECTIVE: VITAL SIGNS: He has a 98.3 temperature, 77 pulse, 124/57 blood pressure, 18 respiratory rate, and 96% O2 sat on room air. HEENT: Head; atraumatic and normocephalic. HEART: Regular rate. LUNGS: Decreased breath sounds, but clear. ABDOMEN: Soft. EXTREMITIES: No edema. He wants to shower, they would not let him shower on the hospital side, the nurses did not let him shower. LABORATORY DATA: He has 7.7 white count, 9.3 hemoglobin, 28 hematocrit with 254 platelets. Sodium 137, potassium 3.9, BUN 30, creatinine 0.8, GFR is greater than 60, sugar 71, calcium 8.5, and total bili is 0.4. AST is 69, ALT is 73, alk phos 73, and total protein is 5.4. ASSESSMENT AND PLAN: He has got multiple consults, Pulmonary, Endocrinology, Infectious Disease, and Cardiology. He had a bit of urosepsis, mild bronchitis, pulmonary fibrosis, coronary artery disease and multiple stents, and anemia. He is doing much better. He need some physical therapy and more IV antibiotics as per Infectious Disease, I believe 10-14 days. There is a very large prostate with multiple small stones are seen in the urinary bladder and enlarged prostate. We will continue with aggressive treatment and care. Lane Lozada DO MTDD
--- NOTE | 2018-07-16 15:52 | PN ---
DATE: 07/15/2018 LOCATION: Room 272. SUBJECTIVE: This is an 87-year-old male with known history of type 2 diabetes and hypertension, presenting here with urinary tract infection, bacteremia, and currently receiving IV antibiotics and is also being followed closely for further management. His glucose values are fluctuating, but improved and have ranged from 77, 125 and 222 mg/dL. His chemistries showed a BUN of 13, sodium 137, potassium 3.9, chloride 103, CO2 of 29, glucose 71, and creatinine 0.8. So, at this time, we will continue the Amaryl given as 4 mg b.i.d. before meals as ordered. We will continue also the low dose correction scale using Humalog insulin as given. We will obtain serial chemistries and supplement accordingly as needed. We will follow. Barbra Lee MD
== END 2018-07-15 13:20 | DRG 694 ==
LOC: ED 05:42 → ERH 08:00 → 2RSO 10:27
PROVIDERS: ADMIT Family Medicine; ATTEND Family Medicine
DX: N21.0 Calculus in bladder (principal); R04.2 Hemoptysis; R65.10 Systemic inflammatory response syndrome (SIRS) of non-infectious origin without acute organ dysfunction; T83.098A Other mechanical complication of other urinary catheter, initial encounter; N40.1 Benign prostatic hyperplasia with lower urinary tract symptoms; R33.8 Other retention of urine; E11.65 Type 2 diabetes mellitus with hyperglycemia; J44.9 Chronic obstructive pulmonary disease, unspecified; J84.10 Pulmonary fibrosis, unspecified; I25.118 Atherosclerotic heart disease of native coronary artery with other forms of angina pectoris; E11.51 Type 2 diabetes mellitus with diabetic peripheral angiopathy without gangrene; I11.0 Hypertensive heart disease with heart failure; I50.9 Heart failure, unspecified; E78.00 Pure hypercholesterolemia, unspecified; D64.9 Anemia, unspecified; N20.0 Calculus of kidney; E78.5 Hyperlipidemia, unspecified; Y84.6 Urinary catheterization as the cause of abnormal reaction of the patient, or of later complication, without mention of misadventure at the time of the procedure; I25.2 Old myocardial infarction; Z85.828 Personal history of other malignant neoplasm of skin; Z87.891 Personal history of nicotine dependence; Z79.84 Long term (current) use of oral hypoglycemic drugs; Z86.73 Personal history of transient ischemic attack (TIA), and cerebral infarction without residual deficits; Z79.02 Long term (current) use of antithrombotics/antiplatelets; Z79.82 Long term (current) use of aspirin; Z95.5 Presence of coronary angioplasty implant and graft

== ENCOUNTER 2018-07-15 13:23 | Inpatient (IN) | payer OTHER, BC ==
[2018-07-15] MEDS: Meropenem IV 1 gm in NS 1 GM/50 ML BAG IVPB SCH ×2 (14:45→21:31)
[2018-07-15] MEDS: Sodium Chloride 0.45% 1,000 ML IV SCH (14:49)
[2018-07-15] MEDS: Clotrimazole/Betamethasone Cream(15 gm) TOP SCH (17:40)
[2018-07-15] MEDS: Arformoterol 15 mcg/2 ml Inh Sol IH SCH (20:16)
[2018-07-15] MEDS: Budesonide 0.5 mg/2 ml Inhal Susp UD IH SCH (20:16)
[2018-07-16] MEDS: Meropenem IV 1 gm in NS 1 GM/50 ML BAG IVPB SCH ×3 (05:54→21:55)
[2018-07-16] MEDS: Sodium Chloride 0.45% 1,000 ML IV SCH ×2 (05:55→23:01)
[2018-07-16 07:07] LABS: BASO # 0.02 {null, K/mm3} (0.0-2.0); BASO % 0.3 % (0.0-3.0); EOS # 0.5 (0.0-0.7); EOS % 7.1 % (1.5-5.0); HEMOGLOBIN 9.6 g/dL (14.0-18.0); LYMPH # 0.7 (1.2-3.4); LYMPH % 10.6 % (22.0-35.0); MEAN CORPUSCULAR HEMOGLOBIN 29.6 pg (25.0-35.0); MEAN CORPUSCULAR HGB CONC 32.2 g/dl (31.0-37.0); MEAN PLATELET VOLUME 8.5 fl (7.0-11.0); MONO # 0.4 (0.1-0.6); MONO % 5.7 % (1.0-6.0); RBC 3.24 {null, 10^6/uL} (3.5-6.1); RED CELL DISTRIBUTION WIDTH 12.9 % (11.5-14.5); WHITE BLOOD COUNT 6.3 {null, 10^3/uL} (4.5-11.0)
[2018-07-16] MEDS: Budesonide 0.5 mg/2 ml Inhal Susp UD IH SCH ×2 (07:30→20:53)
[2018-07-16] MEDS: Arformoterol 15 mcg/2 ml Inh Sol IH SCH ×2 (07:30→20:53)
[2018-07-16 07:31] LABS: ALT/SGPT 88 U/L (7-56); AST/SGOT 72 U/L (17-59); BLOOD UREA NITROGEN 12 mg/dL (7-21); CALCIUM 8.9 mg/dL (8.4-10.5); GFR NON-AFRICAN AMERICAN > 60
--- NOTE | 2018-07-16 09:10 | PN ---
DATE: 07/16/2018 PULMONARY NOTE SUBJECTIVE: The patient appears comfortable this morning. He is not short of breath at rest. OBJECTIVE: VITAL SIGNS: Temperature is 98.0, pulse 72, respirations 18, blood pressure 117/60. Oxygen saturation on room air - 97%. HEENT: Normocephalic, atraumatic. NECK: No JVD. CARDIOVASCULAR: Systolic ejection murmur at the lower left sternal border. No S3 gallop. LUNGS: Decreased breath sounds at the bases. Very minimal rhonchi. No wheezing. EXTREMITIES: No clubbing, cyanosis or edema. Calves are nontender to palpation. GASTROINTESTINAL: Abdomen is soft, nontender and nondistended. Bowel sounds are positive. SKIN: No acute rash. NEUROLOGIC: Limited at the present time. IMPRESSION: 1. Urosepsis. 2. Mild bronchitis. 3. Pulmonary fibrosis. 4. Coronary artery disease, status post multiple cardiac stents. 5. Anemia. PLAN: The patient appears very comfortable this morning. He is not short of breath at rest. He does state to feeling much better overall. I did discuss the case with the night nurse at length. The night nurse stated the patient had an uneventful night. On physical exam, there is no significant bronchospasm noted. In addition, there is no significant alveolar arterial gradient. I will continue the current nebulizer treatments and inhaled steroids for now. Inputs by Infectious Disease, Genitourinary, and Cardiology are also noted. The patient remains on antibiotic therapy. Clinical status of the patient does appear significantly improved - compared to the initial presentation. However, given the above, the future status/prognosis for this elderly patient does remain guarded. The patient is now on the transitional unit - where he will participate with physical therapy. I will discuss the above with Dr. Lozada. José Miguel Wood MD MTDGregory
[2018-07-16] MEDS: Clotrimazole/Betamethasone Cream(15 gm) TOP SCH ×2 (10:18→17:35)
--- NOTE | 2018-07-16 14:08 | PN ---
DATE: 07/16/2018 LOCATION: Room 321 U. SUBJECTIVE: This is an 87-year-old male admitted with urosepsis and bacteremia and is now receiving IV antibiotic management and is also being followed closely for metabolic management. His glycemic levels are fluctuating but improved and the glucose values have ranged from 88 to 137 mg/dL. His chemistry showed a BUN of 12, sodium 138, Nexium 4.6, chloride 103, CO2 of 30, glucose 88 and creatinine 0.8. ASSESSMENT: This is an 87-year-old male with uncontrolled type 2 diabetes with improved metabolic profile on just oral hypoglycemic drug therapy given as normal therapy as noted. He also has ongoing intravenous IV antibiotic management for a urinary tract infection with bacteremia as noted. PLAN OF MANAGEMENT: We will continue the Amaryl given as 4 mg b.i.d. before meals as ordered. We will obtain serial chemistries and supplement accordingly as needed. We will also continue the low-dose correction scale using Humalog insulin as given. Moreover, we will continue the IV hydration as ordered and obtain serial chemistries and adjust accordingly as indicated. We will follow. Barbra Lee MD
--- NOTE | 2018-07-16 14:51 | HP ---
DATE OF EXAM: 07/16/2018 He was transferred from the hospital side, now he is on the Transitional Care Unit side. HISTORY OF PRESENT ILLNESS: He is an 87-year-old white man who has been in and out of the hospital 3-4 times over the past 2-4 weeks. I have known him for many years. He is having a hard time with bladder stones, went for a cardiac clearance for procedure with urology, ended up having [address] Alexander. Within 24 hours, he had to go back due to an inferior wall MA and chest pain and he had the part ballooned opened, he is doing quite well since then except he is having UTI, sepsis, now he came back again with the same thing. He is doing much better now on IV antibiotics, but he was moved to the Transitional Care Unit for more IV antibiotics. He has a Redman catheter in place with the urine looking quite well per the urologist. He also has some clogging in the Redman catheter due to bladder stones and clots were formed, right now the urine is clear. He is an 87-year-old ill man with a CVA, history of basal cell carcinoma, high cholesterol, diabetes. He had two cardiac caths about 3 weeks ago, 4 stents placed. He had a balloon. He has bladder stones, Redman catheter which I think is a good situation for him. He has much less discomfort in the bladder and penis area and he can sleep now. He has passed over 30-40 bladder stones in the past 3-4 weeks. He had over 100+ temperature to come into the hospital at this time. He has diabetes, skin cancer removed. He has been transfused. He has had skin cancer few times, left ear, on his arms. He has arthritis. He has an unsteady gait that is for he is now in the Transitional Care Unit. He has a very severely enlarged prostate. He has had hematuria. Also has fibrosis in the lungs. FAMILY HISTORY: Hypertension in the family former. SOCIAL HISTORY: Former smoker. No alcohol. No drugs. ALLERGIES: NO KNOWN DRUG ALLERGIES. MEDICATIONS: He is on Amaryl, Flomax, Glucophage, Lipitor, Proscar, Ecotrin, Brilinta. He was on Macrobid in the outpatient, now he is on IV antibiotics. He is on Brilinta, Lotrisone cream, Merrem IV, IV fluids. REVIEW OF SYSTEMS: He has no apparent vision or hearing changes. No sore throat. No neck pain. No chest pain or palpitations. No shortness of breath or cough. No nausea, vomiting, constipation, diarrhea. No bladder discomfort even with a Redman in place. He is actually more comfortable. No leg pain. No. He does have a rash in his back, which looks fungal to me, he is on Lotrisone cream, he had no complaints this morning when I saw him. PHYSICAL EXAMINATION: VITAL SIGNS: He has 98.0 temperature, 70 pulse, 117/60 blood pressure, 18 respiratory rate. He has 97% O2 sat. GENERAL: He is sitting out of bed to chair, much more energy, he is hungry, he is eating much more, alert, talking well, nontoxic, much better in his face with color. He needs a shave. He is alert and oriented x3. HEENT: Head is atraumatic, normocephalic. Extraocular muscles are intact. Pupils are equal, reactive to light and accommodation. Throat is moist. NECK: Supple. No JVD. Thyroid midline. No palpable lymphadenopathy appreciated. Good range of motion. HEART: Regular rate. Normal S1 and S2. LUNGS: Decreased breath sounds, poor inspiration, but clear to auscultation. No wheezes, no rhonchi, no rales. ABDOMEN: Soft, nontender, positive bowel sounds. No guarding or rebound or CVA tenderness. No issues with the bladder. No palpable or bladder swelling. EXTREMITIES: No edema. NEUROLOGIC: GCS is 15. Cranial nerves II-XII grossly intact. Alert and oriented x3. SKIN: Warm and dry in the back. There is a healing fungal rash, from the bed and sweating. LABORATORY DATA: He had some blood test. He has 138 sodium, potassium 4.6, BUN 12, creatinine 0.8, GFR greater than 60, sugar is 88, calcium is 8.9, total bili is 0.5, AST is 76, ALT is 88, which is elevated for him. I will check with GI about elevated liver enzymes, alk phos 82, total protein is 5.9, albumin is 3. White count is 6.3, hemoglobin is 9.6, hematocrit 29.8, platelets of 244. ASSESSMENT AND PLAN: He will be seen by multiple physicians, Cardiology secondary to coronary artery disease and the stents placed and Infectious Disease for IV antibiotics, Urology, Pulmonary, GI for his opinion on elevated liver enzymes. We will continue with aggressive treatment and care on Reinaldo Stokes. For the most, he has improved greatly, 7 days of IV antibiotics. Check his labs tomorrow, out of bed to chair. I talked to the family. Lane Lozada DO MTDGregory
--- NOTE | 2018-07-17 00:26 | CON ---
DATE: 07/16/2018 LOCATION: Patient is seen earlier this morning in room 321. CHIEF COMPLAINT: Weakness since several days. HISTORY OF PRESENT ILLNESS: This is an 87-year-old male known to me, who was admitted to the acute care, now transferred to transitional care. 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 Patient has had cardiac cath and stent. 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 PAST SURGICAL HISTORY: Significant for cardiac catheterization with stent placement. ALLERGIES: PATIENT HAS NO KNOWN ALLERGIES. MEDICATIONS: Reviewed; include metformin, Brilinta, Flomax, and aspirin. REVIEW OF SYSTEMS: A 12-point review of system is performed. PHYSICAL EXAMINATION VITAL SIGNS: Patient is in bed with a temperature of 98, in the hospital patient did have a temperature of 102.4, heart rate of 71, respiratory rate of 18, blood pressure is 128/70. HEENT: Unremarkable. NECK: Supple. LUNGS: Decreased breath sounds. HEART: Normal S1 and S2. ABDOMEN: Soft and nontender. LABORATORY EXAMINATION: Reveals a white count of 14.2, hemoglobin 10, and platelets of 323. Coagulation is noted. Chemistries reveal a BUN of 13, creatinine of 0.8. Urinalysis is noted, 5-10 wbc's and small leukocyte esterase. Microbiology reveals urine culture is negative, blood cultures are negative. note from today is reviewed. ASSESSMENT AND PLAN: This is an 87-year-old with systemic inflammatory response syndrome with urinary bladder stone, negative blood cultures, negative urine cultures, on meropenem. We will complete a short course of antibiotics and follow with you. Benson Casper MD
[2018-07-17] MEDS: Meropenem IV 1 gm in NS 1 GM/50 ML BAG IVPB SCH ×2 (05:59→14:11)
[2018-07-17] MEDS: Insulin Lispro (humaLOG) LOW Coverage SC SCH ×4 (06:50→21:26)
--- NOTE | 2018-07-17 07:18 | CP.PCM.PN ---
Subjective - Date & Time of Evaluation Date of Evaluation: 07/17/18 Time of Evaluation: 07:18 - Subjective Subjective: PGY-3 for Carlos Salmon No acute event overnight. Family visits from out of states and enjoyed easter treat brought by family. Appetite improves compared to last week. Tolerated physical therapy yesterday. No fever/chills Objective - Vital Signs/Intake and Output Vital Signs (last 24 hours): Temp Pulse Resp BP Pulse Ox 97.5 F L 71 201 H 129/78 97 07/16/18 10:00 07/16/18 10:00 07/16/18 10:00 07/16/18 10:00 07/16/18 10:00 Intake and Output: 07/17/18 07/17/18 06:59 18:59 Output Total 1999 Balance -1999 - Medications Medications: Current Medications Acetaminophen (Tylenol 325 Mg Supp) 325 mg RC Q4H PRN PRN Reason: Fever >100.4 F Acetaminophen (Tylenol 325mg Tab) 650 mg PO Q4H PRN PRN Reason: mild pain 1-4 Arformoterol Tartrate (Brovana) 15 mcg IH [id number] [facility] Last Admin: 07/16/18 20:53 Dose: 15 mcg Aspirin (Ecotrin) 81 mg PO 0800 [facility] Last Admin: 07/16/18 08:05 Dose: 81 mg Atorvastatin Calcium (Lipitor) 40 mg PO DIN [facility] Last Admin: 07/16/18 17:25 Dose: 40 mg Betamethasone/Clotrimazole (Lotrisone) 1 gm TOP BID [facility] Last Admin: 07/16/18 17:35 Dose: Not Given Budesonide (Pulmicort Respules) 0.5 mg IH [id number] [facility] Last Admin: 07/16/18 20:53 Dose: 0.5 mg Finasteride (Proscar) 5 mg PO DAILY [facility] Last Admin: 07/16/18 10:18 Dose: 5 mg Glimepiride (Amaryl) 4 mg PO BIDWM [facility] Last Admin: 07/16/18 17:25 Dose: 4 mg Sodium Chloride (Sodium Chloride 0.45%) 1,000 mls @ 60 mls/hr IV .[id number] [facility] Last Admin: 07/16/18 23:01 Dose: 60 mls/hr Meropenem (Merrem Iv 1 Gm Premix) 1 gm in 50 mls @ 100 mls/hr IVPB Q8 [facility]; Protocol Last Admin: 07/17/18 05:59 Dose: 100 mls/hr Insulin Human Lispro (Humalog Low) 0 units SC ACHS [facility]; Protocol Last Admin: 07/17/18 06:50 Dose: Not Given Tamsulosin HCl (Flomax) 0.4 mg PO DAILY [facility] Last Admin: 07/16/18 10:18 Dose: 0.4 mg Ticagrelor (Brilinta) 60 mg PO BID [facility] Last Admin: 07/16/18 17:25 Dose: 60 mg - Labs Labs: 07/16/18 06:00 07/16/18 06:00 - Constitutional Appears: No Acute Distress - Head Exam Head Exam: ATRAUMATIC, NORMAL INSPECTION, NORMOCEPHALIC - Eye Exam Eye Exam: EOMI, Normal appearance, PERRL. absent: Scleral icterus Pupil Exam: NORMAL ACCOMODATION - ENT Exam ENT Exam: Mucous Membranes Moist - Neck Exam Additional comments: supple - Respiratory Exam Respiratory Exam: Clear to Ausculation Bilateral. absent: Rales, Rhonchi, Wheezes - Cardiovascular Exam Cardiovascular Exam: REGULAR RHYTHM, +S1, +S2 - GI/Abdominal Exam GI & Abdominal Exam: Soft, Normal Bowel Sounds. absent: Guarding, Rigid, Tenderness Additional comments: No suprapubic tenderss - Extremities Exam Extremities Exam: absent: Calf Tenderness, Pedal Edema Additional comments: alexander intact, clear light straw color urine, no blood. - Back Exam Back Exam: absent: CVA tenderness (L), CVA tenderness (R) - Neurological Exam Neurological Exam: Alert, Awake, Oriented x3 - Psychiatric Exam Psychiatric exam: Normal Affect, Normal Mood - Skin Skin Exam: Dry, Warm Assessment and Plan - Assessment and Plan (Free Text) Plan: Mr Stokes, 87M, with PMHx CVA, CAD with MORALES x 4 (PCI with balloon on 07/11/18, prior stents 4 weeks ago), basal cell carcinoma (R arm, recently L ear recently), HLD, DM, BPH complicated by urinary retention with chronic alexander, recently admitted for SIRS with urinary bladder stone on mere, negative blood and urine culture. Uncontrolled DM2 with labile sugar, A1C 7.8 - Amaryl 4mg bid with meal - ISSS - low - On Heart health/Carb consist diet - (Home: Metformin max) - HOLD; He was on amaryl 4 BID but stopped since the New Year. s/r/d/w Dr Lee
[2018-07-17] MEDS: Budesonide 0.5 mg/2 ml Inhal Susp UD IH SCH ×2 (07:21→19:55)
[2018-07-17] MEDS: Arformoterol 15 mcg/2 ml Inh Sol IH SCH ×2 (07:21→19:55)
[2018-07-17 07:28] LABS: HEMOGLOBIN 10.1 g/dL (14.0-18.0); MEAN CELL VOLUME 92.1 fl (80.0-105.0); MEAN CORPUSCULAR HEMOGLOBIN 29.7 pg (25.0-35.0); MEAN CORPUSCULAR HGB CONC 32.3 g/dl (31.0-37.0); MEAN PLATELET VOLUME 8.7 fl (7.0-11.0); RBC 3.4 {null, 10^6/uL} (3.5-6.1); RED CELL DISTRIBUTION WIDTH 12.9 % (11.5-14.5); WHITE BLOOD COUNT 7.8 {null, 10^3/uL} (4.5-11.0)
--- NOTE | 2018-07-17 07:44 | CP.PCM.CON ---
<Scott Staples - Last Filed: 07/17/18 12:55> History of Present Illness - History of Present Illness History of Present Illness: PGY4 GI fellow consult note Patient is a 87-year-old male with a past medical history of CVA, BPH, diabetes, CHF, CAD status post cardiac stenting early June 2018, hyperlipidemia, GERD, basal cell carcinoma of the skin as well as history of urinary stones admitted for urosepsis. GI consulted for abnormal liver tests. During my encounter the TCU, patient was without any acute complaints. He denies any known history of liver problems. He states he is not sure what medications he is on but denies any new medications, alcohol, significant Tylenol use nor any herbal supplemental use. no prior EGD nor colonoscopy. He states that he moves his bowels usually every day or at the every other day without signs of bleeding. However, he states been a few days since he has had a bowel movement which he attributes to decreased by mouth intake. 12 point review of systems negative other than stated above. Medical history: See above Surgical history: Cardiac cath with stent early June 2018 Medications: Reviewed in chart Family history: Hypertension Social history: Former smoker, denied 2 Allergies: No known drug allergies Past Patient History - Infectious Disease Hx of Infectious Diseases: None - Past Social History Smoking Status: Former Smoker - CARDIAC Hx Cardiac Disorders: Yes (cad, AAA) - PULMONARY Hx Respiratory Disorders: Yes (USED TO SMOKE CIGARETTES.QUIT IN HIS 30'S) - NEUROLOGICAL HX Cerebrovascular Accident: Yes - HEENT Hx HEENT Problems: Yes ([place]OG[place]) - RENAL Hx Chronic Kidney Disease: Yes (BLADDER INFECTION-EDUARDO URINARY RETENTION) Hx Kidney Stones: Yes - ENDOCRINE/METABOLIC Hx Diabetes Mellitus Type 2: Yes - HEMATOLOGICAL/ONCOLOGICAL Hx Blood Disorders: Yes Hx Cancer: Yes (skin cancer WITH SX BASAL CELL,LEFT EAR,RIGHT ARM.) - INTEGUMENTARY Hx Dermatological Problems: Yes Hx Basil Cell: Yes Other/Comment: skin cancer surgery on right arm and recently the left ear - MUSCULOSKELETAL/RHEUMATOLOGICAL Hx Arthritis: Yes - GASTROINTESTINAL Hx Gastrointestinal Disorders: No - GENITOURINARY/GYNECOLOGICAL Hx Genitourinary Disorders: Yes (RETENTION) Hx Hematuria: Yes Hx Prostate Problems: Yes (ENLARGED-BPH) Hx Urinary Tract Infection: Yes Other/Comment: work up in progress for bladder stones HAD PASSED 19 STONES AND MORE - PSYCHIATRIC Hx Psychophysiologic Disorder: No - SURGICAL HISTORY Hx Surgeries: Yes (STENTS X 4) Other/Comment: surgery X4 for skin cancer. cardiac cath - ANESTHESIA Hx Anesthesia: Yes Hx Anesthesia Reactions: No Hx Malignant Hyperthermia: No Meds Allergies/Adverse Reactions: Allergies Allergy/AdvReac Type Severity Reaction Status Date / Time No Known Allergies Allergy Verified 07/12/18 11:57 - Medications Medications: Current Medications Acetaminophen (Tylenol 325 Mg Supp) 325 mg RC Q4H PRN PRN Reason: Fever >100.4 F Acetaminophen (Tylenol 325mg Tab) 650 mg PO Q4H PRN PRN Reason: mild pain 1-4 Arformoterol Tartrate (Brovana) 15 mcg IH [id number] [facility] Last Admin: 07/17/18 07:21 Dose: 15 mcg Aspirin (Ecotrin) 81 mg PO 0800 [facility] Last Admin: 07/16/18 08:05 Dose: 81 mg Atorvastatin Calcium (Lipitor) 40 mg PO DIN [facility] Last Admin: 07/16/18 17:25 Dose: 40 mg Betamethasone/Clotrimazole (Lotrisone) 1 gm TOP BID [facility] Last Admin: 07/16/18 17:35 Dose: Not Given Budesonide (Pulmicort Respules) 0.5 mg IH [id number] [facility] Last Admin: 07/17/18 07:21 Dose: 0.5 mg Finasteride (Proscar) 5 mg PO DAILY [facility] Last Admin: 07/16/18 10:18 Dose: 5 mg Glimepiride (Amaryl) 4 mg PO BIDWM [facility] Last Admin: 07/16/18 17:25 Dose: 4 mg Sodium Chloride (Sodium Chloride 0.45%) 1,000 mls @ 60 mls/hr IV .[id number] [facility] Last Admin: 07/16/18 23:01 Dose: 60 mls/hr Meropenem (Merrem Iv 1 Gm Premix) 1 gm in 50 mls @ 100 mls/hr IVPB Q8 [facility]; Protocol Last Admin: 07/17/18 05:59 Dose: 100 mls/hr Insulin Human Lispro (Humalog Low) 0 units SC ACHS [facility]; Protocol Last Admin: 07/17/18 06:50 Dose: Not Given Tamsulosin HCl (Flomax) 0.4 mg PO DAILY [facility] Last Admin: 07/16/18 10:18 Dose: 0.4 mg Ticagrelor (Brilinta) 60 mg PO BID [facility] Last Admin: 07/16/18 17:25 Dose: 60 mg Physical Exam - Constitutional Appears: Well, No Acute Distress - Head Exam Head Exam: ATRAUMATIC, NORMAL INSPECTION - Eye Exam Eye Exam: EOMI. absent: Scleral icterus - ENT Exam ENT Exam: Mucous Membranes Moist. absent: Mucous Membranes Dry - Respiratory Exam Respiratory Exam: NORMAL BREATHING PATTERN. absent: Accessory Muscle Use - Cardiovascular Exam Cardiovascular Exam: REGULAR RHYTHM, RRR - GI/Abdominal Exam GI & Abdominal Exam: Normal Bowel Sounds, Soft. absent: Bruit, Diminished Bowel Sounds, Distended, Firm, Guarding, Hernia, Mass, Organomegaly, Pulsatile Mass, Rebound, Rigid, Tenderness - Extremities Exam Extremities exam: Positive for: normal inspection. Negative for: pedal edema - Neurological Exam Neurological exam: Alert, CN II-XII Intact - Psychiatric Exam Psychiatric exam: Normal Affect, Normal Mood - Skin Skin Exam: Normal Color, Warm Results - Vital Signs Recent Vital Signs: Last Vital Signs Temp 97.5 F L 07/16/18 10:00 Pulse 71 07/16/18 10:00 Resp 201 H 07/16/18 10:00 BP 129/78 07/16/18 10:00 Pulse Ox 97 07/16/18 10:00 - Labs Result Diagrams: 07/17/18 07:00 07/17/18 07:00 Labs: Laboratory Results - last 24 hr 07/17/18 07/17/18 05:55 07:00 WBC 7.8 D RBC 3.40 L Hgb 10.1 L Hct 31.3 L MCV 92.1 MCH 29.7 MCHC 32.3 RDW 12.9 Plt Count 241 MPV 8.7 POC Glucose (mg/dL) 139 H Assessment & Plan - Assessment and Plan (Free Text) Assessment: 87-year-old male with past medical history of CVA, diabetes, CHF, CAD status post stenting in June 2018, renal stones admitted for urosepsis, GI consulted for abnormal liver tests. # Abnormal liver tests: CMP with mild elevation in transaminases. No cholestatic abnormalities. no history of liver disease. patient unsure regarding details of his medication regimen. Perhaps related to statin? liver tests are improving. Plan: Screen for viral hepatitis Monitor liver tests Continue statin Patient seen and examined with Dr. Jose. Please see attestation for further recommendations/changes. portions of this note dictated but not severely proofread <Becky Jsoe - Last Filed: 07/17/18 13:05> Meds - Medications Medications: Current Medications Acetaminophen (Tylenol 325 Mg Supp) 325 mg RC Q4H PRN PRN Reason: Fever >100.4 F Acetaminophen (Tylenol 325mg Tab) 650 mg PO Q4H PRN PRN Reason: mild pain 1-4 Arformoterol Tartrate (Brovana) 15 mcg IH [id number] [facility] Last Admin: 07/17/18 07:21 Dose: 15 mcg Aspirin (Ecotrin) 81 mg PO 0800 [facility] Last Admin: 07/17/18 08:10 Dose: 81 mg Atorvastatin Calcium (Lipitor) 40 mg PO DIN [facility] Last Admin: 07/16/18 17:25 Dose: 40 mg Betamethasone/Clotrimazole (Lotrisone) 1 gm TOP BID [facility] Last Admin: 07/17/18 10:24 Dose: 1 applic Budesonide (Pulmicort Respules) 0.5 mg IH [id number] [facility] Last Admin: 07/17/18 07:21 Dose: 0.5 mg Finasteride (Proscar) 5 mg PO DAILY [facility] Last Admin: 07/17/18 10:24 Dose: 5 mg Glimepiride (Amaryl) 4 mg PO BIDWM [facility] Last Admin: 07/17/18 08:10 Dose: 4 mg Sodium Chloride (Sodium Chloride 0.45%) 1,000 mls @ 60 mls/hr IV .[id number] [facility] Last Admin: 07/16/18 23:01 Dose: 60 mls/hr Meropenem (Merrem Iv 1 Gm Premix) 1 gm in 50 mls @ 100 mls/hr IVPB Q8 [facility]; Protocol Last Admin: 07/17/18 05:59 Dose: 100 mls/hr Insulin Human Lispro (Humalog Low) 0 units SC ACHS [facility]; Protocol Last Admin: 07/17/18 12:09 Dose: 2 units Tamsulosin HCl (Flomax) 0.4 mg PO DAILY [facility] Last Admin: 07/17/18 10:24 Dose: 0.4 mg Ticagrelor (Brilinta) 60 mg PO BID [facility] Last Admin: 07/17/18 10:24 Dose: 60 mg Results - Vital Signs Recent Vital Signs: Last Vital Signs Temp 97.5 F L 07/16/18 10:00 Pulse 88 07/17/18 11:31 Resp 201 H 07/16/18 10:00 BP 129/78 07/16/18 10:00 Pulse Ox 99 07/17/18 11:31 - Labs Result Diagrams: 07/17/18 07:00 07/17/18 07:00 Labs: Laboratory Results - last 24 hr 07/17/18 07/17/18 07/17/18 05:55 07:00 07:00 WBC 7.8 D RBC 3.40 L Hgb 10.1 L Hct 31.3 L MCV 92.1 MCH 29.7 MCHC 32.3 RDW 12.9 Plt Count 241 MPV 8.7 Sodium 138 Potassium 4.5 Chloride 101 Carbon Dioxide 31 Anion Gap 10 BUN 13 Creatinine 0.8 Est GFR ( Amer) > 60 Est GFR (Non-Af Amer) > 60 POC Glucose (mg/dL) 139 H Random Glucose 123 H Calcium 8.9 Total Bilirubin 0.5 AST 45 ALT 64 H Alkaline Phosphatase 92 Total Protein 6.2 Albumin 3.2 Globulin 3.0 Albumin/Globulin Ratio 1.1 07/17/18 11:25 WBC RBC Hgb Hct MCV MCH MCHC RDW Plt Count MPV Sodium Potassium Chloride Carbon Dioxide Anion Gap BUN Creatinine Est GFR ( Amer) Est GFR (Non-Af Amer) POC Glucose (mg/dL) 223 H Random Glucose Calcium Total Bilirubin AST ALT Alkaline Phosphatase Total Protein Albumin Globulin Albumin/Globulin Ratio Attending/Attestation - Attestation I have personally seen and examined this patient.: Yes I have fully participated in the care of the patient.: Yes I have reviewed all pertinent clinical information: Yes Notes (Text): 07/17/18 13:01 I have seen and examined the patient with the GI fellow. In summary, this is a 87 yo M with PMH of CVA, CHF, and CAD s/p stents (06/2018) on ASA/Brilinta here with nephrolithiasis and urosepsis found to have mild elevation in AST/ALT. CT abd/pelvis essentially unremarkable except for small hemangioma. No family h/o liver disease. Currently, still on statin. However, AST/ALT improving and have almost normalized. Denies NSAID use. Minimal Tylenol use. General: NAD, elderly man, sitting up in the chair Abd: soft, nt, nd Plan: -possibly with some underlying NAFLD, less likely 2/2 abx or statin -no abnormalities noted on CT abdomen -regardless, very mild elevation and now normalizing -no evidence of portal htn or synthetic dysfunction -ok to continue statin -check hepatitis panel -otherwise, stable from GI standpoint and will sign off 07/17/18 13:05
[2018-07-17 08:05] LABS: ALB/GLOB RATIO 1.1 (1.1-1.8); ALBUMIN 3.2 g/dL (3.0-4.8); ALT/SGPT 64 U/L (7-56); AST/SGOT 45 U/L (17-59); BLOOD UREA NITROGEN 13 mg/dL (7-21); CALCIUM 8.9 mg/dL (8.4-10.5); GFR NON-AFRICAN AMERICAN > 60
[2018-07-17] MEDS: Clotrimazole/Betamethasone Cream(15 gm) TOP SCH ×2 (10:24→17:32)
--- NOTE | 2018-07-17 10:49 | PN ---
DATE: 07/17/2018 PULMONARY NOTE SUBJECTIVE: The patient appears quite comfortable this morning. He is not short of breath at rest. OBJECTIVE: VITALS (Last noted in the computer): Temperature is 97.5, pulse 71, respirations 18, blood pressure 129/78. Oxygen saturation on room air - 97%. HEENT: Normocephalic, atraumatic. No JVD. CARDIOVASCULAR: Systolic ejection murmur at the lower left sternal border. No S3 gallop. LUNGS: Decreased breath sounds at the bases. No rhonchi or wheezing this morning. EXTREMITIES: No clubbing, cyanosis, or edema. Calves are nontender to palpation. GASTROINTESTINAL: Abdomen is soft, nontender, and nondistended. Bowel sounds are positive. SKIN: No acute rash. NEUROLOGIC: Limited at the present time. IMPRESSION: 1. Urosepsis. 2. Mild bronchitis. 3. Pulmonary fibrosis. 4. Coronary artery disease, status post multiple cardiac stents. 5. Anemia. PLAN: The patient appears quite comfortable this morning. He is not short of breath at rest. He does state to feeling much better overall. On physical exam, his bronchospasm continues to resolve. In addition, there is no significant alveolar arterial gradient. I will continue the current nebulizer treatments and inhaled steroids for now. The patient remains on antibiotic therapy - as per Infectious Disease. Input by Dr. Casper is noted. Clinical status of the patient is certainly improved - compared to the initial presentation. However, given the above, the future status/prognosis for this elderly patient does remain guarded. I will discuss the above with Dr. Lozada. José Miguel Wood MD [facility]
--- NOTE | 2018-07-17 12:33 | PN ---
DATE: 07/17/2018 SUBJECTIVE: He is doing well in the TCU. He is getting his IV antibiotics. He is in good spirits. He is trying physical therapy. He is eating well. No chest pain or shortness of breath. No bladder pains. His urine in the Redman catheter is shiny bright yellow, no sediment. PHYSICAL EXAMINATION: VITAL SIGNS: He has a 97.5 temperature, 71 pulse, 129/78 blood pressure, 18 respiratory rate, 97% O2 sat on room air. HEAD: Atraumatic, normocephalic. Throat is moist. NECK: Supple. HEART: Regular rate. LUNGS: Decreased breath sounds but clear. ABDOMEN: Soft. EXTREMITIES: No edema. He is walking well with physical therapy. He has a 138 sodium, potassium 4.5, BUN 30, creatinine 0.8, GFR is greater than 60, sugar is 123, calcium 8.9, total bili is 0.5, AST is 45, ALT is 64, alk phos 92. The liver enzymes definitely improved greatly. Total protein 6.2. White count 7.8, hemoglobin 10.1, better, hematocrit 31.3, platelets of 241. We will continue as per Infectious Disease. He is improving. He had SIRS, urinary bladder stones. He is on Merrem. As per Infectious Disease, will likely discharge him from the TCU, I will. Discussed with the family. Continue aggressive treatment and care on Reinaldo Stokes. Lane Lozada DO
--- NOTE | 2018-07-17 14:14 | PN ---
DATE: 07/17/2018 LOCATION: Room 321 U. SUBJECTIVE: This is an 87-year-old male with recent admission for urosepsis and currently receiving IV antibiotic management and is also being followed closely for metabolic management because of recent hyperglycemic accelerations as noted thereof. His chemistry showed a BUN of 13, sodium 138, potassium 4.5, chloride 101, CO2 of 31, glucose 123 and creatinine 0.8. His glucose levels today have ranged from 137 to 139 mg/dL. His A1c was reported as 7.8%. So, at this time, we will continue Amaryl given as 4 mg b.i.d. with meals as ordered. We will continue also the low-dose correction scale using Humalog insulin as given. We will hold off the addition of any basal insulin at this time. We will consider, however, the addition of Januvia given as 50 mg if hyperglycemic accelerations persist thereof. We will obtain serial chemistries and supplement accordingly as needed. We will follow. Barbra Lee MD
[2018-07-17] MEDS: Sodium Chloride 0.45% 1,000 ML IV SCH (15:19)
--- NOTE | 2018-07-17 16:17 | PN ---
DATE: 07/17/2018 CARDIOLOGY FOLLOWUP SUBJECTIVE: The patient is in the TCU, ambulating with physical therapy without issues. PHYSICAL EXAMINATION VITAL SIGNS: Blood pressure is 113/60, heart rates in the 80s. NECK: Negative JVD. LUNGS: Without rales. HEART: S1, S2. EXTREMITIES: Without edema. LABORATORY DATA: Hemoglobin is 10.1. Chemistries, BUN and creatinine are unremarkable. Glucose is 123. IMPRESSION 1. Stable angina. 2. Coronary artery disease. 3. History of non-ST elevation myocardial infarction in the past. 4. Nonreactive to Plavix. 5. Urinary tract infection. 6. Hypercholesterolemia. PLAN: Given these findings, the patient is doing well in rehab. We will continue his aspirin and Brilinta. Aleks Alexander MD
--- NOTE | 2018-07-17 22:35 | PN ---
DATE: 07/17/2018 SUBJECTIVE: The patient is seen in bed, in no acute distress. He was seen earlier today, nontoxic. PHYSICAL EXAMINATION: VITAL SIGNS: Temperature is 98, blood pressure is 109/60, respiratory rate of 20, heart rate of 69. HEENT: Unremarkable. NECK: Supple. LUNGS: Have decreased breath sounds. HEART: Normal S1 and S2. ABDOMEN: Soft, nontender. LABORATORY EXAMINATION: Reveals a white count of 7.8, hemoglobin of 10. BUN of 13, creatinine of 0.8. Microbiology is noted. ASSESSMENT AND PLAN: This is an 87-year-old male who was seen in 321 earlier today with systemic inflammatory response syndrome, urinary bladder stone, negative blood cultures, negative urine cultures, on meropenem. Dr. Alexander's progress note is reviewed. We will discontinue the meropenem. No further antibiotics needed. Benson Casper MD
--- NOTE | 2018-07-18 04:56 | PN ---
DATE: 07/17/2018 ENDOCRINOLOGY FOLLOWUP NOTE LOCATION: In room 321, [facility]. SUBJECTIVE: This is an 87-year-old male with recent uncontrolled type 2 diabetes with recent hyperglycemic accelerations related to the intercurrent urinary tract infection with bacteremia and is now being followed closely for metabolic management. He is receiving also ongoing IV antibiotics as noted and tolerated. His glucose values overnight have ranged from 196-215 mg/dL. LABORATORY DATA: His chemistry showed a BUN of 13, sodium 138, potassium 4.5, chloride 101, CO2 of 31, glucose 123, and creatinine 0.8. ASSESSMENT AND PLAN: So, at this time, we will continue the Amaryl given as 4 mg b.i.d. with meals as ordered. We will consider the addition of Januvia if hyperglycemic levels persists otherwise. We will obtain serial chemistries and supplement accordingly as needed. We will follow. Barbra Lee MD
[2018-07-18] MEDS: Insulin Lispro (humaLOG) LOW Coverage SC SCH ×4 (06:31→21:43)
[2018-07-18] MEDS: Budesonide 0.5 mg/2 ml Inhal Susp UD IH SCH ×2 (07:14→20:38)
[2018-07-18] MEDS: Arformoterol 15 mcg/2 ml Inh Sol IH SCH ×2 (07:15→20:38)
[2018-07-18 07:19] LABS: MEAN CELL VOLUME 92.2 fl (80.0-105.0); MEAN CORPUSCULAR HEMOGLOBIN 29.9 pg (25.0-35.0); MEAN CORPUSCULAR HGB CONC 32.4 g/dl (31.0-37.0); MEAN PLATELET VOLUME 8.3 fl (7.0-11.0); RBC 3.35 {null, 10^6/uL} (3.5-6.1); RED CELL DISTRIBUTION WIDTH 13.1 % (11.5-14.5); WHITE BLOOD COUNT 9.9 {null, 10^3/uL} (4.5-11.0)
[2018-07-18 07:41] LABS: ALBUMIN 3.1 g/dL (3.0-4.8); ALT/SGPT 54 U/L (7-56); AST/SGOT 41 U/L (17-59); BLOOD UREA NITROGEN 14 mg/dL (7-21); CALCIUM 8.8 mg/dL (8.4-10.5); GFR NON-AFRICAN AMERICAN > 60
--- NOTE | 2018-07-18 09:01 | CP.PCM.PN ---
Subjective - Date & Time of Evaluation Date of Evaluation: 07/18/18 Time of Evaluation: 08:58 - Subjective Subjective: PGY-[address] Lee, Endo Pt finished all 100% of his breakfast. He took some candies yesterday morning. No acute complaint. Objective - Vital Signs/Intake and Output Vital Signs (last 24 hours): Temp Pulse Resp BP Pulse Ox 98.6 F 79 20 134/72 97 07/18/18 06:00 07/18/18 06:00 07/18/18 06:00 07/18/18 06:00 07/18/18 06:00 - Medications Medications: Current Medications Acetaminophen (Tylenol 325 Mg Supp) 325 mg RC Q4H PRN PRN Reason: Fever >100.4 F Acetaminophen (Tylenol 325mg Tab) 650 mg PO Q4H PRN PRN Reason: mild pain 1-4 Arformoterol Tartrate (Brovana) 15 mcg IH [id number] [facility] Last Admin: 07/18/18 07:15 Dose: 15 mcg Aspirin (Ecotrin) 81 mg PO 0800 [facility] Last Admin: 07/18/18 08:06 Dose: 81 mg Atorvastatin Calcium (Lipitor) 40 mg PO DIN [facility] Last Admin: 07/17/18 17:35 Dose: 40 mg Betamethasone/Clotrimazole (Lotrisone) 1 gm TOP BID [facility] Last Admin: 07/17/18 17:32 Dose: Not Given Budesonide (Pulmicort Respules) 0.5 mg IH [id number] [facility] Last Admin: 07/18/18 07:14 Dose: 0.5 mg Finasteride (Proscar) 5 mg PO DAILY [facility] Last Admin: 07/17/18 10:24 Dose: 5 mg Glimepiride (Amaryl) 4 mg PO BIDWM [facility] Last Admin: 07/18/18 08:06 Dose: 4 mg Sodium Chloride (Sodium Chloride 0.45%) 1,000 mls @ 60 mls/hr IV .[id number] [facility] Last Admin: 07/17/18 15:19 Dose: 60 mls/hr Insulin Human Lispro (Humalog Low) 0 units SC ACHS [facility]; Protocol Last Admin: 07/18/18 06:31 Dose: Not Given Tamsulosin HCl (Flomax) 0.4 mg PO DAILY [facility] Last Admin: 07/17/18 10:24 Dose: 0.4 mg Ticagrelor (Brilinta) 60 mg PO BID [facility] Last Admin: 07/17/18 17:35 Dose: 60 mg - Labs Labs: 07/18/18 06:40 07/18/18 06:40 - Constitutional Appears: No Acute Distress - Head Exam Head Exam: ATRAUMATIC, NORMAL INSPECTION, NORMOCEPHALIC - Eye Exam Eye Exam: EOMI, Normal appearance, PERRL. absent: Scleral icterus Pupil Exam: NORMAL ACCOMODATION - ENT Exam ENT Exam: Mucous Membranes Moist - Neck Exam Additional comments: supple - Respiratory Exam Respiratory Exam: Clear to Ausculation Bilateral, NORMAL BREATHING PATTERN. absent: Rales, Rhonchi, Wheezes - Cardiovascular Exam Cardiovascular Exam: REGULAR RHYTHM, +S1, +S2 - GI/Abdominal Exam GI & Abdominal Exam: Soft, Normal Bowel Sounds. absent: Guarding, Rigid, Tenderness Additional comments: No suprapubic tendenrss - Extremities Exam Extremities Exam: absent: Calf Tenderness, Pedal Edema Additional comments: alexander intact, urine clear, non-bloody, not cloudy - Back Exam Back Exam: absent: CVA tenderness (L), CVA tenderness (R) - Neurological Exam Neurological Exam: Alert, Awake, Oriented x3 Neuro motor strength exam: Left Upper Extremity: 5, Right Upper Extremity: 5, Left Lower Extremity: 5, Right Lower Extremity: 5 - Psychiatric Exam Psychiatric exam: Normal Affect, Normal Mood - Skin Skin Exam: Dry, Warm Assessment and Plan - Assessment and Plan (Free Text) Plan: Mr Stokes, 87M, with PMHx CVA, CAD with MORALES x 4 (PCI with balloon on 07/11/18, prior stents 4 weeks ago), basal cell carcinoma (R arm, recently L ear recently), HLD, DM, BPH complicated by urinary retention with chronic alexander, recently admitted for SIRS with urinary bladder stone s/p merem, negative blood and urine culture. Uncontrolled DM2 with labile sugar, A1C 7.8 - Amaryl 4mg bid with meal - ISSS - low - On Heart health/Carb consist diet - If sugar consistently in 200s, will add low dose januvia - (Home: Metformin max) - HOLD; He was on amaryl 4 BID but stopped since the New Year. s/r/d/w Dr Lee
--- NOTE | 2018-07-18 09:12 | US ---
HISTORY: Leg pain and swelling. Evaluate for DVT PHYSICIAN(S): Aleks Downing MD. TECHNIQUE: Duplex sonography and color-flow Doppler with graded compression were used to evaluate the deep venous systems of both lower extremities. FINDINGS: The visualized deep venous systems of both lower extremities are sonographically normal and compressible. Normal wave forms and augmentation are seen. There is no sonographic evidence for deep venous thrombosis in the visualized segments of both lower extremities. IMPRESSION: No sonographic evidence for deep venous thrombosis in the visualized segments of both lower extremities.
[2018-07-18] MEDS: Clotrimazole/Betamethasone Cream(15 gm) TOP SCH ×2 (10:29→18:07)
--- NOTE | 2018-07-18 10:36 | PN ---
DATE: 07/18/2018 PULMONARY NOTE SUBJECTIVE: The patient appears quite comfortable this morning. He is not short of breath at rest. PHYSICAL EXAMINATION: VITAL SIGNS: (Last noted in the computer): Temperature is 97.6, pulse 69, respirations 18/20, blood pressure 109/64. Oxygen saturation on room air - 96-99%. HEENT: Normocephalic, atraumatic. No JVD. CARDIOVASCULAR: Systolic ejection murmur at the lower left sternal border. No S3 gallop. LUNGS: Decreased breath sounds at the bases. No rhonchi. No wheezing. GASTROINTESTINAL: Abdomen is soft, nontender and nondistended. Bowel sounds are positive. EXTREMITIES: No clubbing, cyanosis or edema. Calves are nontender to palpation. SKIN: No acute rash. NEUROLOGIC: Exam limited at the present time. IMPRESSION: 1. Urosepsis. 2. Mild bronchitis. 3. Pulmonary fibrosis. 4. Coronary artery disease, status post multiple cardiac stents. 5. Anemia. PLAN: The patient appears quite comfortable this morning. He is not short of breath at rest. He does state to feeling much better overall. On physical exam, his bronchospasm has resolved. In addition, the oxygen saturation on room air is now 96-99%. I will continue the current nebulizer treatments and inhaled steroids for now. Inputs by Endocrine, Cardiology, and Infectious Disease are also noted. Clinical status of the patient has significantly improved overall. However, given the above, the future status/prognosis for this elderly patient does remain guarded. I will discuss the above with Dr. Lozada. José Miguel Wood MD MTDGregory
--- NOTE | 2018-07-18 11:38 | PN ---
DATE: 07/18/2018 SUBJECTIVE: He is actually doing quite well today. His urine looks nice, clear and yellow. No sediment. No bladder stones. He is alert. He is eating. He is doing well with therapy. He tells me he did not get therapy yesterday. He needs to see what he does today. PHYSICAL EXAMINATION: VITAL SIGNS: Temperature 98.6, 79 pulse, 134/72 blood pressure, 20 respiratory rate, 97% O2 sat on room air. HEAD: Atraumatic, normocephalic. HEART: Regular rate. LUNGS: Clear to auscultation. ABDOMEN: Soft. EXTREMITIES: No edema. He is on Amaryl, Brilinta, Brovana, Ecotrin, Flomax, insulin, Lipitor, Lotrisone, Proscar, Pulmicort, IV fluids, Tylenol. He is off the Merrem. He has a 136 sodium, potassium 4.2, BUN 40, creatinine 0.8, GFR is greater than 60, sugar is 106, calcium is 8.8, total bili is 0.6. AST is 41, ALT is 54, alk phos 89, total protein is 6.1. He has a 9.9 white count, 10 hemoglobin, 30.9 hematocrit with 229 platelets. He is being seen by Endocrinology, Infectious Disease, Cardiology. His ultrasounds of both lower extremities were negative. I will see how he is doing with physical therapy. I am hoping in the next 24 to 48 hours, he has a chance of being discharged. In the next 2 to 3 days, see what he does with his therapy and his urine. Continue aggressive treatment and care on Reinaldo Stokes. He is now off antibiotics. Lane Lozada DO
[2018-07-18 12:03] LABS: HEPATITIS B SURFACE AG Negative (NEGATIVE)
[2018-07-18 12:09] LABS: HEPATITIS A IGM NEGATIVE (NEGATIVE); HEPATITIS B CORE AB NEGATIVE (NEGATIVE)
[2018-07-18 12:21] LABS: HEPATITIS C ANTIBODY NEGATIVE (NEGATIVE)
--- NOTE | 2018-07-18 15:50 | PN ---
DATE: 07/18/2018 SUBJECTIVE: The patient is seen in 321. He is awake and alert, doing well, uneventful evening last night. PHYSICAL EXAMINATION: VITAL SIGNS: Temperature is 98, blood pressure is 130/70, respiratory 20. HEENT: Unremarkable. NECK: Supple. LUNGS: Have decreased breath sounds. HEART: Normal S1 and S2. ABDOMEN: Soft. LABORATORY DATA: Laboratory examination reveals a white count of 9.9, hemoglobin of 10. Chemistries are noted. Microbiology is reviewed. Blood cultures from acute care are negative. MEDICATIONS: Review of orders reveals the patient to be off of antibiotics. ASSESSMENT AND PLAN: This is an 87-year-old male was seen in transitional care earlier today, awake and alert doing well with systemic inflammatory response syndrome, with urinary bladder stone, negative urine culture, negative blood cultures. He had received meropenem, currently now off of antibiotics, afebrile. We have encouraged to discontinue the heparin lock to minimize the development of new infections. Benson Casper MD
[2018-07-18] MEDS: Sodium Chloride 0.45% 1,000 ML IV SCH ×2 (18:08→22:49)
[2018-07-19] MEDS: Sodium Chloride 0.45% 1,000 ML IV SCH ×2 (01:05→10:17)
[2018-07-19] MEDS: Insulin Lispro (humaLOG) LOW Coverage SC SCH ×4 (06:39→22:32)
[2018-07-19] MEDS: Budesonide 0.5 mg/2 ml Inhal Susp UD IH SCH (07:16)
[2018-07-19] MEDS: Arformoterol 15 mcg/2 ml Inh Sol IH SCH (07:16)
[2018-07-19 07:27] LABS: MEAN CELL VOLUME 90.5 fl (80.0-105.0); MEAN CORPUSCULAR HEMOGLOBIN 29.7 pg (25.0-35.0); MEAN CORPUSCULAR HGB CONC 32.8 g/dl (31.0-37.0); MEAN PLATELET VOLUME 8.5 fl (7.0-11.0); RBC 3.37 {null, 10^6/uL} (3.5-6.1); RED CELL DISTRIBUTION WIDTH 13.1 % (11.5-14.5)
[2018-07-19 08:03] LABS: ALBUMIN 3.1 g/dL (3.0-4.8); ALT/SGPT 38 U/L (7-56); AST/SGOT 35 U/L (17-59); BLOOD UREA NITROGEN 13 mg/dL (7-21); CALCIUM 8.8 mg/dL (8.4-10.5); GFR NON-AFRICAN AMERICAN > 60
--- NOTE | 2018-07-19 08:14 | CP.PCM.PN ---
Subjective - Date & Time of Evaluation Date of Evaluation: 07/19/18 Time of Evaluation: 09:26 - Subjective Subjective: PGY-[address] Lee, Carlos Pt in bed comfortably. tolerated physical therapy. No acute event overnight Objective - Vital Signs/Intake and Output Vital Signs (last 24 hours): Temp Pulse Resp BP Pulse Ox 97.8 F 106 H 20 132/63 93 L 07/18/18 16:00 07/18/18 16:00 07/18/18 16:00 07/18/18 16:00 07/18/18 16:00 Intake and Output: 07/19/18 07/19/18 06:59 18:59 Output Total 1800 Balance -1800 - Medications Medications: Current Medications Acetaminophen (Tylenol 325 Mg Supp) 325 mg RC Q4H PRN PRN Reason: Fever >100.4 F Acetaminophen (Tylenol 325mg Tab) 650 mg PO Q4H PRN PRN Reason: mild pain 1-4 Arformoterol Tartrate (Brovana) 15 mcg IH [id number] [facility] Last Admin: 07/19/18 07:16 Dose: 15 mcg Aspirin (Ecotrin) 81 mg PO 0800 [facility] Last Admin: 07/19/18 08:03 Dose: 81 mg Atorvastatin Calcium (Lipitor) 40 mg PO DIN [facility] Last Admin: 07/18/18 18:05 Dose: 40 mg Betamethasone/Clotrimazole (Lotrisone) 1 gm TOP BID [facility] Last Admin: 07/18/18 18:07 Dose: 1 applic Budesonide (Pulmicort Respules) 0.5 mg IH [id number] [facility] Last Admin: 07/19/18 07:16 Dose: 0.5 mg Finasteride (Proscar) 5 mg PO DAILY [facility] Last Admin: 07/18/18 10:29 Dose: 5 mg Glimepiride (Amaryl) 4 mg PO BIDWM [facility] Last Admin: 07/19/18 08:03 Dose: 4 mg Sodium Chloride (Sodium Chloride 0.45%) 1,000 mls @ 60 mls/hr IV .[id number] [facility] Last Admin: 07/19/18 01:05 Dose: Not Given Insulin Human Lispro (Humalog Low) 0 units SC ACHS [facility]; Protocol Last Admin: 07/19/18 06:39 Dose: Not Given Tamsulosin HCl (Flomax) 0.4 mg PO DAILY [facility] Last Admin: 07/18/18 10:29 Dose: 0.4 mg Ticagrelor (Brilinta) 60 mg PO BID [facility] Last Admin: 07/18/18 18:05 Dose: 60 mg - Labs Labs: 07/19/18 07:00 07/19/18 07:00 - Constitutional Appears: No Acute Distress - Head Exam Head Exam: ATRAUMATIC, NORMAL INSPECTION, NORMOCEPHALIC - Eye Exam Eye Exam: EOMI, Normal appearance, PERRL. absent: Scleral icterus Pupil Exam: NORMAL ACCOMODATION - ENT Exam ENT Exam: Mucous Membranes Moist - Neck Exam Additional comments: supple - Respiratory Exam Respiratory Exam: Clear to Ausculation Bilateral. absent: Rales, Rhonchi, Wheezes - Cardiovascular Exam Cardiovascular Exam: REGULAR RHYTHM, +S1, +S2 - GI/Abdominal Exam GI & Abdominal Exam: Soft, Normal Bowel Sounds. absent: Tenderness - Extremities Exam Extremities Exam: absent: Calf Tenderness, Pedal Edema - Neurological Exam Neurological Exam: Alert, Awake, Oriented x3 - Psychiatric Exam Psychiatric exam: Normal Affect, Normal Mood - Skin Skin Exam: Dry, Warm Assessment and Plan - Assessment and Plan (Free Text) Plan: Mr Stokes, 87M, with PMHx CVA, CAD with MORALES x 4 (PCI with balloon on 07/11/18, prior stents 4 weeks ago), basal cell carcinoma (R arm, recently L ear recently), HLD, DM, BPH complicated by urinary retention with chronic alexander, recently admitted for SIRS with urinary bladder stone s/p merem, negative blood and urine culture. Uncontrolled DM2 with labile sugar, A1C 7.8 - Amaryl 4mg bid with meal - ISSS - low - On Heart health/Carb consist diet - If sugar consistently in 200s, will add low dose januvia 25 daily - (Home: Metformin max) - HOLD; He was on amaryl 4 BID but stopped since the New Year. s/r/d/w Dr Lee
--- NOTE | 2018-07-19 08:16 | PN ---
DATE: 07/19/2018 SUBJECTIVE: The patient appears quite comfortable this morning. He is not short of breath at rest. PHYSICAL EXAMINATION: VITAL SIGNS: Temperature is 97.8, pulse is 88, respiratory rate 18/20, blood pressure 132/63. Oxygen saturation on room air 93%--99%. HEENT: Normocephalic, atraumatic. No JVD. CARDIOVASCULAR: Systolic ejection murmur at the lower left sternal border. No S3 gallop. LUNGS: Decreased breath sounds at the bases. No rhonchi. No wheezing. EXTREMITIES: No clubbing, cyanosis or edema. Calves are nontender to palpation. GASTROINTESTINAL: Abdomen is soft, nontender and nondistended. Bowel sounds are positive. SKIN: No acute rash. NEUROLOGIC: Exam limited at the present time. IMPRESSION: 1. Urosepsis. 2. Mild bronchitis. 3. Pulmonary fibrosis. 4. Coronary artery disease, status post multiple cardiac stents. 5. Anemia. PLAN: The patient appears quite comfortable this morning. He is not short of breath at rest. He does state to feeling much better overall. On physical exam, there is no bronchospasm noted. In addition, there is no significant alveolar arterial gradient. I will continue the current nebulizer treatments and inhaled steroids for now. Inputs by Infectious Disease, Endocrine, and Cardiology are also noted. Clinical status of the patient is significantly improved - compared to the initial presentation. However, given the above, the future status/prognosis for this elderly patient does remain guarded. I will discuss the above with Dr. Lozada. José Miguel Wood MD MTDD
[2018-07-19] MEDS: Clotrimazole/Betamethasone Cream(15 gm) TOP SCH ×2 (10:16→17:26)
--- NOTE | 2018-07-19 11:57 | PN ---
DATE: 07/19/2018 SUBJECTIVE: I saw him resting comfortably in the bed this morning. Last night, he had some discomfort, I believe, the Redman catheter was clogged with bladder stones. He has a bunch of them in there. They were able to flush it and made a big difference and then they got out the urine, it is still clear. No signs of blood. He is on IV fluids. I decreased from 60 to 30 mL an hour. He started drinking more by himself. He is on Amaryl, Brilinta, Brovana, Ecotrin, Flomax, insulin coverage, Lipitor, Lotrisone, Proscar, Pulmicort, Tylenol. Also, he tells me his left ankle is hurting him. He is not sure what he did or what happened. It is tender to palpation. I am going to get an x-ray to make sure it is okay. PHYSICAL EXAMINATION: VITAL SIGNS: He has 97.8 temperature, 79 pulse, , 132/63 blood pressure, 20 respiratory rate, 93% up to 97% O2 sat. HEENT: Head is atraumatic, normocephalic. GENERAL: He is quite comfortable now in the bed, but the left ankle is tender to palpation. The Redman catheter is draining nicely with clear bright urine. HEART: Regular rate. LUNGS: Clear to auscultation. ABDOMEN: Soft, nontender. Positive bowel sounds. No bladder palpable pressure. EXTREMITIES: No edema with the left ankle hurts to palpation. LABORATORY DATA: He has an 11 white count, 10 hemoglobin, 30.5 hematocrit with 236 platelets. I am watching that white count. He stopped the antibiotics a day ago. Sodium 135, potassium 4.2, BUN 13, creatinine 0.8, GFR is greater than 60, sugar 124, calcium 8.8, total bilirubin is 0.6, AST is 35, ALT is 38, alk phos 91, total protein 6.1. Hepatitis A, B and C are all negative. ASSESSMENT AND PLAN: He is being seen by multiple physicians. He had multiple issues. He has urosepsis, mild bronchitis, pulmonary fibrosis, coronary artery disease, and multiple cardiac stents and caths, anemia, and he has got left ankle pain, and we are going to hopefully get him to drink more water and decrease IV fluids and hopefully would do physical therapy. Lane Lozada DO MTDD
--- NOTE | 2018-07-19 12:40 | RAD ---
Date of service: 07/19/2018 PROCEDURE: Left Ankle Radiographs. HISTORY: pain COMPARISON: None available. TECHNIQUE: 3 views obtained. FINDINGS: BONES: Normal. No fracture. JOINTS: Normal. No osteoarthritis. Ankle mortise maintained. Talar dome intact SOFT TISSUES: Normal. OTHER FINDINGS: Vascular calcifications IMPRESSION: Normal left ankle radiographs.
--- NOTE | 2018-07-19 22:31 | PN ---
DATE: 07/19/2018 SUBJECTIVE: The patient is in bed in no acute distress, nontoxic. PHYSICAL EXAMINATION VITAL SIGNS: Temperature is 97, blood pressure is 101/40, respiratory rate of 18. HEENT: Unremarkable. NECK: Supple. LUNGS: Have decreased breath sounds. HEART: Normal S1, S2. ABDOMEN: Soft. LABORATORY DATA: Reveals white count of 11,000. BUN of 13, creatinine 0.8. Serology is noted. Microbiology reviewed. The patient had an ankle x-ray which showed normal x-ray of the ankle. ASSESSMENT AND PLAN: An 87-year-old male transitional care, was seen earlier today in room 321, awake and alert, doing well with systemic inflammatory response syndrome, urinary bladder stone, negative urine culture, negative blood culture, meropenem currently, now off of antibiotics. We will follow with you. Benson Casper MD
--- NOTE | 2018-07-20 00:30 | PN ---
DATE: 07/19/2018 ENDOCRINOLOGY FOLLOWUP NOTE LOCATION: Room 321. SUBJECTIVE: This is an 87-year-old male with recent uncontrolled type 2 insulin-requiring diabetes, now being followed closely for metabolic management. His glycemic levels are fluctuating with a variability of his oral intake and the glucose levels overnight have ranged from 274 to 301 mg/dL. It was 262 at bedtime last night. LABORATORY DATA: His chemistries today showed a BUN of 13, sodium 135, potassium 4.2, chloride of 100, CO2 of 28, glucose of 124, and creatinine 0.8. His glucose levels today have ranged from 130 to 288 mg/dL. ASSESSMENT: This is an 87-year-old male undergoing intravenous antibiotic management for urinary tract infection with no culture evidence of any bacteremia at this time as noted. However, he has an indwelling Redman catheter with underlying bladder calculi and a very strong possibility of bacterial colonization thereof. He also has uncontrolled type 2 diabetes with transient hyperglycemic accelerations and also concomitant dietary discretion contributing to the abovementioned thereof. PLAN OF MANAGEMENT: We will continue the low-dose correction scale, use Humalog insulin as given. We will also add Januvia given as 50 mg once daily as ordered. We will continue the Amaryl given as 4 mg b.i.d. with meals as given. We will obtain serial chemistries and supplement accordingly as needed. We will follow. Barbra Lee MD
[2018-07-20] MEDS: Sodium Chloride 0.45% 1,000 ML IV SCH (04:00)
[2018-07-20] MEDS: Insulin Lispro (humaLOG) LOW Coverage SC SCH ×4 (06:40→22:18)
[2018-07-20 07:18] LABS: HEMOGLOBIN 9.5 g/dL (14.0-18.0); MEAN CELL VOLUME 90.3 fl (80.0-105.0); MEAN CORPUSCULAR HEMOGLOBIN 29.9 pg (25.0-35.0); MEAN CORPUSCULAR HGB CONC 33.1 g/dl (31.0-37.0); MEAN PLATELET VOLUME 8.3 fl (7.0-11.0); RBC 3.18 {null, 10^6/uL} (3.5-6.1)
[2018-07-20] MEDS: Arformoterol 15 mcg/2 ml Inh Sol IH SCH ×2 (07:48→21:55)
[2018-07-20] MEDS: Budesonide 0.5 mg/2 ml Inhal Susp UD IH SCH ×2 (07:48→21:55)
[2018-07-20 07:50] LABS: ALBUMIN 2.9 g/dL (3.0-4.8); ALT/SGPT 49 U/L (7-56); AST/SGOT 44 U/L (17-59); BLOOD UREA NITROGEN 14 mg/dL (7-21); CALCIUM 8.6 mg/dL (8.4-10.5); GFR NON-AFRICAN AMERICAN > 60
--- NOTE | 2018-07-20 08:08 | CP.PCM.PN ---
Subjective - Date & Time of Evaluation Date of Evaluation: 07/20/18 Time of Evaluation: 08:07 - Subjective Subjective: PGY-3 for Carlos Salmon In physical therapy, no acute complaint Objective - Vital Signs/Intake and Output Vital Signs (last 24 hours): Temp Pulse Resp BP Pulse Ox 97.3 F L 93 H 20 101/43 L 99 07/19/18 14:00 07/19/18 14:00 07/19/18 14:00 07/19/18 11:39 07/19/18 14:00 Intake and Output: 07/20/18 07/20/18 06:59 18:59 Intake Total 1860 Output Total 2350 Balance -490 - Medications Medications: Current Medications Acetaminophen (Tylenol 325 Mg Supp) 325 mg RC Q4H PRN PRN Reason: Fever >100.4 F Acetaminophen (Tylenol 325mg Tab) 650 mg PO Q4H PRN PRN Reason: mild pain 1-4 Arformoterol Tartrate (Brovana) 15 mcg IH [id number] [facility] Last Admin: 07/20/18 07:48 Dose: 15 mcg Aspirin (Ecotrin) 81 mg PO 0800 [facility] Last Admin: 07/19/18 08:03 Dose: 81 mg Atorvastatin Calcium (Lipitor) 40 mg PO DIN [facility] Last Admin: 07/19/18 17:26 Dose: 40 mg Betamethasone/Clotrimazole (Lotrisone) 1 gm TOP BID [facility] Last Admin: 07/19/18 17:26 Dose: 1 applic Budesonide (Pulmicort Respules) 0.5 mg IH [id number] [facility] Last Admin: 07/20/18 07:48 Dose: Not Given Finasteride (Proscar) 5 mg PO 0600 [facility]; Protocol Last Admin: 07/20/18 05:12 Dose: 5 mg Glimepiride (Amaryl) 4 mg PO BIDWM [facility] Last Admin: 07/19/18 17:25 Dose: 4 mg Sodium Chloride (Sodium Chloride 0.45%) 1,000 mls @ 30 mls/hr IV .Q24H [facility] Last Admin: 07/20/18 04:00 Dose: 30 mls/hr Insulin Human Lispro (Humalog Low) 0 units SC ACHS [facility]; Protocol Last Admin: 07/20/18 06:40 Dose: Not Given Sitagliptin Phosphate (Januvia) 50 mg PO DAILY [facility] Tamsulosin HCl (Flomax) 0.4 mg PO 1800 [facility]; Protocol Last Admin: 07/19/18 17:25 Dose: 0.4 mg Ticagrelor (Brilinta) 60 mg PO BID [facility] Last Admin: 07/19/18 17:24 Dose: 60 mg - Labs Labs: 07/20/18 07:00 07/20/18 07:00 - Constitutional Appears: No Acute Distress - Head Exam Head Exam: ATRAUMATIC, NORMAL INSPECTION, NORMOCEPHALIC - Eye Exam Eye Exam: EOMI, Normal appearance, PERRL. absent: Scleral icterus Pupil Exam: NORMAL ACCOMODATION - ENT Exam ENT Exam: Mucous Membranes Moist - Neck Exam Additional comments: supple - Respiratory Exam Respiratory Exam: Clear to Ausculation Bilateral. absent: Rales, Rhonchi, Wheezes - Cardiovascular Exam Cardiovascular Exam: REGULAR RHYTHM, +S1, +S2 - GI/Abdominal Exam GI & Abdominal Exam: Soft. absent: Guarding, Rigid, Tenderness - Extremities Exam Extremities Exam: absent: Calf Tenderness, Pedal Edema Additional comments: alexander intact - Neurological Exam Neurological Exam: Alert, Awake, Oriented x3 - Psychiatric Exam Psychiatric exam: Normal Affect, Normal Mood - Skin Skin Exam: Warm Assessment and Plan - Assessment and Plan (Free Text) Plan: Mr Stokes, 87M, with PMHx CVA, CAD with MORALES x 4 (PCI with balloon on 07/11/18, prior stents 4 weeks ago), basal cell carcinoma (R arm, recently L ear recently), HLD, DM, BPH complicated by urinary retention with chronic alexander, recently admitted for SIRS with urinary bladder stone s/p merem, negative blood and urine culture. Uncontrolled DM2 with labile sugar, A1C 7.8 - Amaryl 4mg bid with meal, added januvia 50 daily - ISSS - low starting BG > 300 - On Heart health/Carb consist diet - (Home: Metformin max) - HOLD; He was on amaryl 4 BID but stopped since the New Year. s/r/d/w Dr Lee
--- NOTE | 2018-07-20 08:10 | PN ---
DATE: 07/20/2018 SUBJECTIVE: The patient appears very comfortable this morning. He is not short of breath at rest. PHYSICAL EXAMINATION: VITAL SIGNS: (Last noted in the computer): Temperature is 97.3, pulse this morning is 88, respiratory rate 18/20, blood pressure 101/43. Oxygen saturation on room air - 99%. HEENT: Normocephalic, atraumatic. No JVD. CARDIOVASCULAR: Systolic ejection murmur at the lower left sternal border. No S3 gallop. LUNGS: Decreased breath sounds at the bases. No rhonchi. No wheezing. EXTREMITIES: No clubbing, cyanosis or edema. Calves are nontender to palpation. GASTROINTESTINAL: Abdomen is soft, nontender and nondistended. Bowel sounds are positive. SKIN: No acute rash. NEUROLOGIC: Exam limited at the present time. IMPRESSION: 1. Urosepsis. 2. Mild bronchitis. 3. Pulmonary fibrosis. 4. Coronary artery disease, status post multiple cardiac stents. 5. Anemia. PLAN: The patient appears very comfortable this morning. He is not short of breath at rest. He does state to feeling much better overall. On physical exam, there is no bronchospasm noted. In addition, the oxygen saturation on room air is 99%. I will continue the current nebulizer treatments and inhaled steroids for now. Inputs by Endocrine and Infectious Disease are also noted. Clinical status of the patient is significantly improved - compared to the initial presentation. However, again, the future status/prognosis for this elderly patient does remain guarded. I will discuss the above with Dr. Lozada. José Miguel Wood MD MTDD
[2018-07-20] MEDS: Clotrimazole/Betamethasone Cream(15 gm) TOP SCH ×2 (11:23→17:42)
--- NOTE | 2018-07-20 11:34 | PN ---
DATE: 07/20/2018 SUBJECTIVE: I saw him in the transitional care unit. He is resting comfortably in bed. He had a problem with his catheter last night but it got fixed by the Nursing. The family needs to understand how to manage his Redman catheter when he goes home, also had it flushed if he gets bladder stones in it. Hopefully that will be thought by nurse. I will put a physician nurse communication about that. He is on glimepiride or Amaryl, Brilinta, Brovana, Ecotrin, Flomax, insulin, Januvia, Lipitor, Lotrisone cream, Proscar, Pulmicort, Tylenol. I discontinued the IV fluids today. He is going to have to drink 4 pitches of water a day, discussed that with him that is important. PHYSICAL EXAMINATION: VITAL SIGNS: He has 97.3 temperature, 86 pulse, 101/42 blood pressure, 20 respiratory rate, 99% O2 sat on room air. HEENT: Head is atraumatic, normocephalic. HEART: Regular rate. LUNGS: Clear to auscultation. ABDOMEN: Soft, nontender. Positive bowel sounds. No guarding. No rebound. It is very soft, especially above the bladder is fine. EXTREMITIES: No edema. The left ankle does not even hurt today, it hurt yesterday. LABORATORY DATA: He has a 9 white count, 9.5 hemoglobin, 28.7 hematocrit with 229 platelets. Sodium 132, potassium 4, BUN is 40, creatinine 0.8, GFR is greater than 60, sugar is 127, calcium is 8.6, total bilirubin is 0.5, AST is 44, ALT is 49, alk phos is 86, total protein is 6. His hepatitis screen is completely normal. He did have x-ray of the ankle yesterday, which was hurting him, which was normal, left ankle radiograph and it does not hurt him today. The venous Dopplers were negative. ASSESSMENT AND PLAN: We are stopping his intravenous fluids today. Encouraged him to drink 4 pitches of water a day to keep up his fluid. We will check his urine tomorrow. He has to get out of bed every day and walk and he is in the transitional care unit. Reinaldo Stokes has a urinary tract infection with bladder stones. Lane Lozada DO [facility] # [id number]
--- NOTE | 2018-07-20 12:14 | PN ---
DATE: 07/20/2018 LOCATION: Room [facility]. SUBJECTIVE: This is an 87-year-old male with recent uncontrolled type 2 insulin-requiring diabetes with frequent glycemic fluctuations as noted thereof. His oral intake is also quite variable with occasional episodes of dietary indiscretion with preferential food intake from home. His glucose levels overnight have improved and have ranged from 94 to 146 mg/dL. His chemistry showed a BUN of 14, sodium 133, potassium 4, chloride 99, CO2 of 27, glucose 127 and creatinine 0.8. ASSESSMENT: This is an 87-year-old male with uncontrolled type 2 insulin-requiring diabetes with ongoing intravenous antibiotic treatment for urosepsis and urinary tract infection as noted. PLAN OF MANAGEMENT: We will continue only the low-dose correction scale using Humalog insulin just for inpatient diabetic management. We will continue the dual oral hypoglycemic drug therapy as given to improve his metabolic profile otherwise. We will continue the Januvia given as 50 mg once daily and Amaryl given as 4 mg b.i.d. with meals as ordered. We will obtain serial chemistries and supplement accordingly as needed. We will follow. Barbra Lee MD
--- NOTE | 2018-07-20 22:12 | PN ---
DATE: 07/20/2018 SUBJECTIVE: The patient is in bed, in no acute distress, nontoxic. No fevers and chills. PHYSICAL EXAMINATION: VITAL SIGNS: Temperature is 98, blood pressure is 120/60, respiratory rate 16. HEENT: Unremarkable. NECK: Supple. LUNGS: Have decreased breath sounds. HEART: Normal S1 and S2. ABDOMEN: Soft, nontender. LABORATORY EXAMINATION: Reveals a white count of 9, hemoglobin of 9. Chemistries are noted. ASSESSMENT AND PLAN: This is an 87-year-old male, was seen in room 321 today who is awake and alert, doing well, with systemic inflammatory response syndrome, urinary bladder stone, negative urine cultures, negative blood cultures. He is currently off of antibiotics. The patient was treated with antibiotics initially. Review of orders confirms that the patient is off of antibiotics. He is at risk for developing nosocomial infections. Benson Casper MD
[2018-07-21] MEDS: Insulin Lispro (humaLOG) LOW Coverage SC SCH ×4 (06:41→21:49)
[2018-07-21 07:02] LABS: HEMOGLOBIN 9.5 g/dL (14.0-18.0); MEAN CELL VOLUME 89.2 fl (80.0-105.0); MEAN CORPUSCULAR HEMOGLOBIN 30.1 pg (25.0-35.0); MEAN CORPUSCULAR HGB CONC 33.7 g/dl (31.0-37.0); RBC 3.16 {null, 10^6/uL} (3.5-6.1); RED CELL DISTRIBUTION WIDTH 12.8 % (11.5-14.5); WHITE BLOOD COUNT 8.5 {null, 10^3/uL} (4.5-11.0)
[2018-07-21 07:32] LABS: ALT/SGPT 58 U/L (7-56); AST/SGOT 60 U/L (17-59); BLOOD UREA NITROGEN 16 mg/dL (7-21); CALCIUM 8.7 mg/dL (8.4-10.5); GFR NON-AFRICAN AMERICAN > 60
--- NOTE | 2018-07-21 07:40 | PN ---
DATE: 07/21/2018 PULMONARY NOTE SUBJECTIVE: The patient appears very comfortable this morning. He is not short of breath at rest. OBJECTIVE: VITAL SIGNS: (Last noted in the computer): Temperature is 97.0, pulse 72, respirations 18, blood pressure 122/64. Oxygen saturation on room air - 100%. HEENT: Normocephalic, atraumatic. No JVD. CARDIOVASCULAR: Systolic ejection murmur at the lower left sternal border. No S3 gallop. LUNGS: Decreased breath sounds at the bases. No rhonchi. No wheezing. EXTREMITIES: No clubbing, cyanosis or edema. Calves are nontender to palpation. GASTROINTESTINAL: Abdomen is soft, nontender and nondistended. Bowel sounds are positive. SKIN: No acute rash. NEUROLOGIC: Exam limited at the present time. IMPRESSION: 1. Urosepsis. 2. Mild bronchitis. 3. Pulmonary fibrosis. 4. Coronary artery disease, status post multiple cardiac stents. 5. Anemia. PLAN: The patient appears very comfortable this morning. He is not short of breath at rest. He does state to feeling much better overall. On physical exam, his bronchospasm has resolved. In addition, the alveolar arterial gradient has also resolved. Oxygen saturation on room air is now 100%. I will continue the current nebulizer treatments and inhaled steroids for now. Inputs by Infectious Disease and Endocrine are also noted. Clinical status of the patient is significantly improved - compared to the initial presentation. However, again, the future status/prognosis for this elderly patient does remain guarded. I will discuss the above with Dr. Lozada. José Miguel Wood MD MTDGregory
[2018-07-21] MEDS: Budesonide 0.5 mg/2 ml Inhal Susp UD IH SCH ×2 (08:30→19:40)
[2018-07-21] MEDS: Arformoterol 15 mcg/2 ml Inh Sol IH SCH ×2 (08:30→19:40)
[2018-07-21] MEDS: Clotrimazole/Betamethasone Cream(15 gm) TOP SCH ×2 (10:07→17:45)
--- NOTE | 2018-07-21 10:47 | CP.PCM.PN ---
Subjective - Date & Time of Evaluation Date of Evaluation: 07/21/18 Time of Evaluation: 10:47 - Subjective Subjective: PGY-[address] Lee, Endo Sugar 60 at 5am, but pt had no symptoms of tachycardia, sweating, nervous, shaking. by bedside. Objective - Vital Signs/Intake and Output Vital Signs (last 24 hours): Temp Pulse Resp BP Pulse Ox 98.2 F 86 16 126/77 97 07/21/18 10:00 07/21/18 10:00 07/21/18 10:00 07/21/18 10:00 07/21/18 10:00 - Medications Medications: Current Medications Acetaminophen (Tylenol 325 Mg Supp) 325 mg RC Q4H PRN PRN Reason: Fever >100.4 F Acetaminophen (Tylenol 325mg Tab) 650 mg PO Q4H PRN PRN Reason: mild pain 1-4 Arformoterol Tartrate (Brovana) 15 mcg IH [id number] [facility] Last Admin: 07/21/18 08:30 Dose: 15 mcg Aspirin (Ecotrin) 81 mg PO 0800 [facility] Last Admin: 07/21/18 08:43 Dose: 81 mg Atorvastatin Calcium (Lipitor) 40 mg PO DIN [facility] Last Admin: 07/20/18 17:42 Dose: 40 mg Betamethasone/Clotrimazole (Lotrisone) 1 gm TOP BID [facility] Last Admin: 07/21/18 10:07 Dose: 1 applic Budesonide (Pulmicort Respules) 0.5 mg IH [id number] [facility] Last Admin: 07/21/18 08:30 Dose: 0.5 mg Finasteride (Proscar) 5 mg PO 0600 [facility]; Protocol Last Admin: 07/21/18 05:34 Dose: 5 mg Glimepiride (Amaryl) 4 mg PO BIDWM [facility] Last Admin: 07/21/18 08:43 Dose: 4 mg Insulin Human Lispro (Humalog Low) 0 units SC ACHS [facility]; Protocol Last Admin: 07/21/18 06:41 Dose: Not Given Sitagliptin Phosphate (Januvia) 50 mg PO DAILY [facility] Last Admin: 07/21/18 10:06 Dose: 50 mg Tamsulosin HCl (Flomax) 0.4 mg PO 1800 [facility]; Protocol Last Admin: 07/20/18 17:42 Dose: 0.4 mg Ticagrelor (Brilinta) 60 mg PO BID [facility] Last Admin: 07/21/18 10:06 Dose: 60 mg - Labs Labs: 07/21/18 06:30 07/21/18 06:30 - Constitutional Appears: No Acute Distress - Head Exam Head Exam: ATRAUMATIC, NORMAL INSPECTION, NORMOCEPHALIC - Eye Exam Eye Exam: EOMI, Normal appearance, PERRL. absent: Scleral icterus Pupil Exam: NORMAL ACCOMODATION - ENT Exam ENT Exam: Mucous Membranes Moist - Neck Exam Additional comments: supple - Respiratory Exam Respiratory Exam: Clear to Ausculation Bilateral. absent: Rales, Rhonchi, Wheezes - Cardiovascular Exam Cardiovascular Exam: REGULAR RHYTHM, +S1, +S2 - GI/Abdominal Exam GI & Abdominal Exam: Soft, Normal Bowel Sounds. absent: Tenderness - Extremities Exam Extremities Exam: absent: Calf Tenderness, Pedal Edema - Back Exam Back Exam: absent: CVA tenderness (L), CVA tenderness (R) Additional comments: alexander intact - Neurological Exam Neurological Exam: Alert, Awake, Oriented x3 - Psychiatric Exam Psychiatric exam: Normal Affect, Normal Mood - Skin Skin Exam: Dry, Warm Assessment and Plan - Assessment and Plan (Free Text) Plan: Mr Stokes, 87M, with PMHx CVA, CAD with MORALES x 4 (PCI with balloon on 07/11/18, prior stents 4 weeks ago), basal cell carcinoma (R arm, recently L ear recently), HLD, DM, BPH complicated by urinary retention with chronic alexander, recently admitted for SIRS with urinary bladder stone s/p merem, negative blood and urine culture. Uncontrolled DM2 with labile sugar, A1C 7.8 Hypoglyvemic at 5am @ 60, hypoglycemia unaware - Amaryl 4mg bid with meal, discontinue januvia - Add back metformin, (Creatinine clearance 59), however, will start at 500 BID because of age and bladder pathology effect on kidney - ISSS - low starting BG > 300 - On Heart health/Carb consist diet - (Home: Metformin max) - HOLD; He was on amaryl 4 BID only take it PRN s/r/d/w Dr Lee
--- NOTE | 2018-07-21 12:21 | PN ---
DATE: 07/21/2018 SUBJECTIVE: I saw him in the Transitional Care Unit. He is resting comfortably in bed. He slept fairly well last night. He is walking better in physical therapy. He has got a Redman catheter that will be prominent for the time being. MEDICATIONS: He is on Amaryl, Brilinta, Brovana, Ecotrin, Flomax, insulin, Januvia, Lipitor, Lotrisone, Proscar, Pulmicort, and Tylenol. He is now off the IV fluids. He has to drink fluids now. He keep away . PHYSICAL EXAMINATION: VITAL SIGNS: He has a 97 temperature, 94 pulse, 122/64 blood pressure, 18 respiratory rate, and 100% O2 sat on room air. HEENT: His head is atraumatic, normocephalic. HEART: Regular rate. LUNGS: Decreased breath sounds, but clear. ABDOMEN: Soft, nontender. EXTREMITIES: No edema. LABORATORY DATA: He has a 8.5 white count, 9.5 hemoglobin, 28.2 hematocrit with 217 platelets. Sodium 133, potassium 4.3, BUN 16, creatinine 0.8, GFR is greater than 60, sugar is 87, calcium is 8.7. AST is 60, ALT is 58, alk phos is 80. His hepatitis was negative. He is going to drink, drink, drink over the next 2-3 days to keep the urine clear at the down fall and hopefully he will do well without the IV fluids. The patient has bladder stones. Lane Lozada DO MTDD
--- NOTE | 2018-07-21 15:18 | PN ---
DATE: 07/21/2018 ENDOCRINOLOGY FOLLOWUP NOTE LOCATION: In room 321. SUBJECTIVE: This is an 87-year-old male with recent uncontrolled type 2 diabetes, now with improved metabolic profile as noted thereof and the glucose levels overnight have ranged from 60 to 97 and 118 mg/dL. It was 219 at lunchtime today as ordered. LABORATORY DATA: His chemistry showed a BUN of 16, sodium 133, potassium 4.3, chloride 98, CO2 of 26, glucose 87, and creatinine 0.8. ASSESSMENT AND PLAN: So at this time, we will recommend the Amaryl given as 4 mg b.i.d. with meals and also quite cautious about the resumption of his metformin because of his advanced age and bladder and renal issues at this time. We would recommend if at all a half of dose of the metformin given as 1 g to have a tablet b.i.d. as indicated. We will discontinue his Januvia 50 mg for now as noted. Moreover, this medication is also not covered by most Medicare plans because of the exorbitant joseph tag of the medication. We will follow and advise accordingly. Barbra Lee MD
--- NOTE | 2018-07-21 22:43 | CP.PCM.PN ---
<Roberto Dockery - Last Filed: 07/21/18 22:28> Subjective - Date & Time of Evaluation Date of Evaluation: 07/21/18 Time of Evaluation: 22:29 - Subjective Subjective: S: 87 y/o male with BPH complicated by urinary retention with chronic alexander that was clogged and failed flushing multiple times. Bladder scan shows 400cc of urine, patient was feeling fullness. O: Gen: patient is lying comfortably in bed in NAD Heart: S1,S2 Lung: CTA Abd: soft, suprapubic tenderness to palpate A: 87 y/o male with chronic BPH, in urinary retention due to clogged alexander P: -Tried flushing the alexander but failed . It was removed and found to be clogged with multiple black stones/debris -Coude cath size 18 placed, good urine output, patient tolerated the procedure. Case discussed with attending Dr Evelia Dockery, DO Objective - Vital Signs/Intake and Output Vital Signs (last 24 hours): Temp Pulse Resp BP Pulse Ox 98.2 F 110 H 16 126/77 94 L 07/21/18 10:00 07/21/18 17:38 07/21/18 10:00 07/21/18 10:00 07/21/18 17:38 Intake and Output: 07/21/18 07/22/18 18:59 06:59 Output Total 900 Balance -900 - Medications Medications: Current Medications Acetaminophen (Tylenol 325 Mg Supp) 325 mg RC Q4H PRN PRN Reason: Fever >100.4 F Acetaminophen (Tylenol 325mg Tab) 650 mg PO Q4H PRN PRN Reason: mild pain 1-4 Arformoterol Tartrate (Brovana) 15 mcg IH [id number] [facility] Last Admin: 07/21/18 19:40 Dose: 15 mcg Aspirin (Ecotrin) 81 mg PO 0800 [facility] Last Admin: 07/21/18 08:43 Dose: 81 mg Atorvastatin Calcium (Lipitor) 40 mg PO DIN [facility] Last Admin: 07/21/18 17:44 Dose: 40 mg Betamethasone/Clotrimazole (Lotrisone) 1 gm TOP BID [facility] Last Admin: 07/21/18 17:45 Dose: 1 applic Budesonide (Pulmicort Respules) 0.5 mg IH [id number] [facility] Last Admin: 07/21/18 19:40 Dose: 0.5 mg Finasteride (Proscar) 5 mg PO 0600 [facility]; Protocol Last Admin: 07/21/18 05:34 Dose: 5 mg Glimepiride (Amaryl) 4 mg PO BIDWM [facility] Last Admin: 07/21/18 17:43 Dose: 4 mg Insulin Human Lispro (Humalog Low) 0 units SC ACHS [facility]; Protocol Last Admin: 07/21/18 21:49 Dose: Not Given Metformin HCl (Glucophage) 500 mg PO BID [facility] Last Admin: 07/21/18 17:44 Dose: 500 mg Tamsulosin HCl (Flomax) 0.4 mg PO 1800 [facility]; Protocol Last Admin: 07/21/18 17:44 Dose: 0.4 mg Ticagrelor (Brilinta) 60 mg PO BID [facility] Last Admin: 07/21/18 17:43 Dose: 60 mg - Labs Labs: 07/21/18 06:30 07/21/18 06:30 <Lory Altamirano - Last Filed: 07/22/18 05:52> Objective - Vital Signs/Intake and Output Vital Signs (last 24 hours): Temp Pulse Resp BP Pulse Ox 98.2 F 110 H 16 126/77 94 L 07/21/18 10:00 07/21/18 17:38 07/21/18 10:00 07/21/18 10:00 07/21/18 17:38 Intake and Output: 07/21/18 07/22/18 18:59 06:59 Output Total 900 Balance -900 - Medications Medications: Current Medications Acetaminophen (Tylenol 325 Mg Supp) 325 mg RC Q4H PRN PRN Reason: Fever >100.4 F Acetaminophen (Tylenol 325mg Tab) 650 mg PO Q4H PRN PRN Reason: mild pain 1-4 Arformoterol Tartrate (Brovana) 15 mcg IH [id number] [facility] Last Admin: 07/21/18 19:40 Dose: 15 mcg Aspirin (Ecotrin) 81 mg PO 0800 [facility] Last Admin: 07/21/18 08:43 Dose: 81 mg Atorvastatin Calcium (Lipitor) 40 mg PO DIN [facility] Last Admin: 07/21/18 17:44 Dose: 40 mg Betamethasone/Clotrimazole (Lotrisone) 1 gm TOP BID [facility] Last Admin: 04/26/19 17:45 Dose: 1 applic Budesonide (Pulmicort Respules) 0.5 mg IH [id number] [facility] Last Admin: 07/21/18 19:40 Dose: 0.5 mg Finasteride (Proscar) 5 mg PO 0600 [facility]; Protocol Last Admin: 07/21/18 05:34 Dose: 5 mg Glimepiride (Amaryl) 4 mg PO BIDWM [facility] Last Admin: 07/21/18 17:43 Dose: 4 mg Insulin Human Lispro (Humalog Low) 0 units SC ACHS [facility]; Protocol Last Admin: 07/21/18 21:49 Dose: Not Given Metformin HCl (Glucophage) 500 mg PO BID [facility] Last Admin: 07/21/18 17:44 Dose: 500 mg Tamsulosin HCl (Flomax) 0.4 mg PO 1800 [facility]; Protocol Last Admin: 07/21/18 17:44 Dose: 0.4 mg Ticagrelor (Brilinta) 60 mg PO BID [facility] Last Admin: 07/21/18 17:43 Dose: 60 mg - Labs Labs: 07/21/18 06:30 07/21/18 06:30 Attending/Attestation - Attestation I have personally seen and examined this patient.: Yes I have fully participated in the care of the patient.: Yes I have reviewed all pertinent clinical information, including history, physical exam and plan: Yes
--- NOTE | 2018-07-22 00:09 | PN ---
DATE: 07/21/2018 SUBJECTIVE: The patient is in bed, in no acute distress. PHYSICAL EXAMINATION: VITAL SIGNS: Temperature is 98, blood pressure is 130/70, respiratory rate of 18. HEENT: Unremarkable. NECK: Supple. LUNGS: Have decreased breath sounds. HEART: Normal S1 and S2. ABDOMEN: Soft. LABORATORY DATA: Reveals a white count of 8.5, hemoglobin of 9, BUN 16, creatinine 0.8. Hepatitis profile is negative. Microbiology is reviewed. ASSESSMENT AND PLAN: This is an 87-year-old male who was seen early this morning in room 321, doing well, awake, and alert, with systemic inflammatory response syndrome, urinary bladder stone, negative urine cultures, negative blood cultures. Currently off of antibiotics, afebrile. The patient is at risk for developing nosocomial infections. Benson Casper MD
[2018-07-22] MEDS: Insulin Lispro (humaLOG) LOW Coverage SC SCH ×4 (07:01→21:55)
[2018-07-22] MEDS: Arformoterol 15 mcg/2 ml Inh Sol IH SCH (07:19)
[2018-07-22] MEDS: Budesonide 0.5 mg/2 ml Inhal Susp UD IH SCH (07:19)
--- NOTE | 2018-07-22 08:43 | PN ---
DATE: 07/22/2018 ENDOCRINOLOGY FOLLOWUP NOTE In room 321 PCU. SUBJECTIVE: This is an 87-year-old male with recent admission for bacteremia and urinary tract infection currently receiving IV antibiotic management and is also being followed closely for metabolic management with recent glycemic fluctuations as noted thereof. LABORATORY DATA: His glucose levels overnight have ranged from 158-268 mg/dL. His chemistry showed a BUN of 16, sodium 133, potassium 4.3, chloride 98, CO2 of 26, glucose 87 and creatinine 0.8. So at this time, we will continue the modified oral hypoglycemic therapy with metformin given as 500 mg twice a day and Amaryl given as 4 mg twice a day before meals as ordered. We will obtain serial chemistries and supplement accordingly needed. We will follow. Barbra Lee MD
[2018-07-22 09:01] LABS: HEMOGLOBIN 9.9 g/dL (14.0-18.0); MEAN CELL VOLUME 90.9 fl (80.0-105.0); MEAN CORPUSCULAR HEMOGLOBIN 30.9 pg (25.0-35.0); MEAN PLATELET VOLUME 8.6 fl (7.0-11.0); RBC 3.2 {null, 10^6/uL} (3.5-6.1); RED CELL DISTRIBUTION WIDTH 12.8 % (11.5-14.5); WHITE BLOOD COUNT 8.4 {null, 10^3/uL} (4.5-11.0)
[2018-07-22 09:24] LABS: ALBUMIN 3.1 g/dL (3.0-4.8); ALT/SGPT 66 U/L (7-56); AST/SGOT 60 U/L (17-59); BLOOD UREA NITROGEN 17 mg/dL (7-21); CALCIUM 8.9 mg/dL (8.4-10.5); GFR NON-AFRICAN AMERICAN > 60
[2018-07-22] MEDS: Clotrimazole/Betamethasone Cream(15 gm) TOP SCH ×2 (09:51→17:19)
--- NOTE | 2018-07-22 14:33 | PN ---
DATE: 07/22/2018 SUBJECTIVE: He is resting comfortably in bed at this time. Last night, he had a problem with his Redman catheter. Second night, he really had problems where stones got clogged in it. The ER doctor had to come up and change his Redman catheter. There were two stones clogged. Right now, the urine is clear. No blood. He is comfortable. He is on the same medications he has been on. PHYSICAL EXAMINATION: VITAL SIGNS: He has a 98.1 temperature, 90 pulse, 121/55 blood pressure, 18 respiratory rate, 94% O2 sat on room air. HEENT: Head is atraumatic, normocephalic. HEART: Regular rate. LUNGS: Clear to auscultation. ABDOMEN: Soft, nontender. Positive bowel sounds. Right now, the urine is clear. Redman is intact. EXTREMITIES: No edema. Waiting for Dr. August to come in to help us with this. LABORATORY DATA: He has a white count 8.4, hemoglobin 9.9, hematocrit 29.1, platelets 248. Sodium 136, potassium 4.2, BUN 70, creatinine 0.8, GFR is greater than 60, sugars 82, calcium 8.9, total bilirubin is 0.4, AST is 60, ALT is 66, alk phos 83. ASSESSMENT AND PLAN: If it was not for the bladder stone that he had been doing quite well. He is stable now cardiological carreon. He is being seen by Endocrinology, Infectious Disease, Pulmonary, Cardiology. We have to fix his bladder stones, Redman catheter from being clogged and he has to drink a lot more water to keep himself from getting into urinary tract infection and also helping with stones to flush. I will try and reach out to the family, let them know that tomorrow is his discharge day and hopefully, we could follow him while at home. Reinaldo Stokes has got bladder stones, chronic kidney disease, and had a long-term debility. Lane Lozada DO
[2018-07-22 16:36] VITALS: BP 113/65; PULSE 93; RESP 20; O2SAT 97
[2018-07-22 16:48] VITALS: TEMP 98
--- NOTE | 2018-07-22 22:24 | PN ---
DATE: 07/22/2018 SUBJECTIVE: The patient is in bed in no acute distress, nontoxic. PHYSICAL EXAMINATION: VITAL SIGNS: Temperature is 98, blood pressure is 113/60, respiratory rate of 16. HEENT: Unremarkable. NECK: Supple. LUNGS: Decreased breath sounds. HEART: Normal S1 and S2. ABDOMEN: Soft. LABORATORY DATA: Reveals the white count is 8.4 and hemoglobin of 9. Review of orders reveals the patient is off of antibiotics. ASSESSMENT AND PLAN: This is an 87-year-old male who is seen earlier this morning awake and alert, doing well with systemic inflammatory response syndrome, urinary bladder stone, negative urine cultures, negative blood cultures, off of antibiotics. The patient is at risk for developing nosocomial infections. Benson Casper MD
[2018-07-22 23:01] LABS: URINE BILIRUBIN NEGATIVE (NEGATIVE); URINE BLOOD SMALL (NEGATIVE); URINE GLUCOSE (UA) NEGATIVE (NEGATIVE); URINE LEUKOCYTE ESTERASE LARGE Leu/uL (NEGATIVE); URINE PROTEIN 30 mg/dL (<30 mg/dL); URINE UROBILINOGEN 0.2 E.U./dL (<1 E.U./dL)
[2018-07-22 23:03] LABS: URINE APPEARANCE SL CLOUDY (CLEAR); URINE COLOR YELLOW (YELLOW)
[2018-07-22 23:13] LABS: URINE EPITHELIAL CELLS 0 - 2 /hpf (0-5); URINE WBC TNTC /hpf (0-6)
[2018-07-22 23:14] LABS: URINE BACTERIA MOD /hpf
[2018-07-23] MEDS: Insulin Lispro (humaLOG) LOW Coverage SC SCH ×2 (06:32→11:38)
[2018-07-23] MEDS: Arformoterol 15 mcg/2 ml Inh Sol IH SCH (07:26)
[2018-07-23] MEDS: Budesonide 0.5 mg/2 ml Inhal Susp UD IH SCH (07:26)
[2018-07-23 08:10] LABS: HEMOGLOBIN 9.3 g/dL (14.0-18.0); MEAN CELL VOLUME 90.6 fl (80.0-105.0); MEAN CORPUSCULAR HEMOGLOBIN 29.2 pg (25.0-35.0); MEAN CORPUSCULAR HGB CONC 32.3 g/dl (31.0-37.0); MEAN PLATELET VOLUME 8.4 fl (7.0-11.0); RBC 3.18 {null, 10^6/uL} (3.5-6.1); WHITE BLOOD COUNT 9.2 {null, 10^3/uL} (4.5-11.0)
[2018-07-23 08:26] LABS: ALBUMIN 3.1 g/dL (3.0-4.8); ALT/SGPT 101 U/L (7-56); AST/SGOT 99 U/L (17-59); BLOOD UREA NITROGEN 16 mg/dL (7-21); CALCIUM 8.9 mg/dL (8.4-10.5); GFR NON-AFRICAN AMERICAN > 60
[2018-07-23] MEDS: Clotrimazole/Betamethasone Cream(15 gm) TOP SCH (09:37)
--- NOTE | 2018-07-23 11:55 | PN ---
DATE: 07/23/2018 ENDO FOLLOWUP SUBJECTIVE: . This is an 87-year-old male with recent uncontrolled type 2 diabetes, now being followed closely for metabolic management. He has also ongoing IV antibiotics for the recent urinary tract infection as noted. His glycemic levels are fluctuating with low normal glycemic values overnight as noted. His glucose levels apparently dropped 40 mg early this morning with the repeat level of 76 mg/dL. His chemistry showed the BUN of 17, sodium 136, potassium 4.2, chloride of 102, CO2 of 26, glucose 82 and creatinine 0.8. ASSESSMENT AND PLAN: So, at this time we will discontinue his metformin given as 500 mg b.i.d. as ordered. We will continue, however, the Amaryl given as 4 mg b.i.d. with meals as given. We will obtain serial chemistries and supplement accordingly as needed. We will follow. Barbra Lee MD
--- NOTE | 2018-07-23 12:54 | PN ---
DATE: 07/23/2018 SUBJECTIVE: The patient is in bed, in no acute distress, nontoxic. No fevers and chills. PHYSICAL EXAMINATION: VITAL SIGNS: Temperature is 98, blood pressure is 113/50, respiratory rate of 20, heart rate of 93. HEENT: Unremarkable. NECK: Supple. LUNGS: Have decreased breath sounds. HEART: Normal S1, S2. ABDOMEN: Soft, nontender. LABORATORY DATA: Laboratory examination reveals the patient to have a white count of 9.2 and chemistries are noted. Urinalysis is noted. Serology is reviewed. The patient's urinalysis from yesterday reveals the patient to have [id number] wbc. ASSESSMENT AND PLANS: This is an 87-year-old who has systemic inflammatory response syndrome, urinary bladder stone, negative cultures. Currently off of antibiotics with a Redman catheter. We will follow with the urine culture, currently no antibiotics indicated. Benson Casper MD
--- NOTE | 2018-07-23 13:16 | US ---
Date of service: 07/23/2018 PROCEDURE: Ultrasound of the Bladder HISTORY: residual/eval stones - how many? COMPARISON: None available. TECHNIQUE: Sonographic evaluation of the bladder was performed. FINDINGS: Trabecular wall thickening. Redman catheter present. No free fluid in pelvis. Multiple bladder diverticula seen with shadowing calculi identified within the diverticula dependently within the bladder. Prevoid Volume: 524.5 cc around Redman catheter. Post void residual: Empty around Redman catheter. Enlarged prostate measuring 7.5 x 6.0 x 6.3 cm compatible with volume of 148.3 mL. IMPRESSION: Multiple bladder calculi, some dependently within the urinary bladder and some within bladder diverticula. Prostatomegaly.
--- NOTE | 2018-07-23 21:13 | PN ---
DATE: 07/23/2018 PULMONARY PROGRESS NOTE SUBJECTIVE: The patient is awake and alert, oriented. He is feeling well. He denies shortness of breath. We had a long conversation regarding his past history. He denied having shortness of breath. He was a former smoker. He knows that he has pulmonary fibrosis. He remains asymptomatic. He had been receiving inhaled bronchodilators and corticosteroids during this hospitalization. Discharge is planned today. OBJECTIVE: VITAL SIGNS: Remain stable. The patient is afebrile. His oxygenation is superb on room air. HEENT: Normocephalic, atraumatic. There is no jugular venous distention. CARDIOVASCULAR: Regular rhythm. S1, S2 without murmur, gallop or rub. LUNGS: Global decrease in breath sounds. Minimal coarse rales. No rhonchi or wheezing noted. ABDOMEN: Soft. Bowel sounds normoactive. EXTREMITIES: Reveal no clubbing, cyanosis or edema. There is no evidence of deep vein thrombosis.GENERAL: The patient appears comfortable, in no distress. GASTROINTESTINAL; Soft. Bowel sounds normoactive without mass, guarding, rebound or organomegaly. SKIN: No rash or excoriation but significant sacral decubitus persists. NEUROLOGIC: No focal findings. Exam is otherwise unremarkable. CLINICAL IMPRESSION: 1. Status post urosepsis. 2. Status post mild bronchitis. 3. Mild pulmonary fibrosis. 4. Coronary artery disease with stent placement. PLAN: The patient will be discharged later today. He has been on bronchodilators and inhaled corticosteroids during the course of this hospitalization. There is no evidence of bronchospasm at this time. We have discussed the possible need for meter-dosed inhaler or other inhalation device for treatment at home. He states that he does not feel ill, and he has not felt the need for continued therapy. I have advised the patient if further inhaled bronchodilators and steroids are not permitted, then he should at least have a followup pulmonary function study tests once discharged. I have discussed followup in my office with either myself or Dr. Matamoros who has seen him in the hospital. Followup for pulmonary fibrosis is advisable in any case. I have explained to the patient should he have any respiratory symptoms upon discharge, call my office immediately over the phone intervention. I have discussed the case at length with the patient's registered nurse. She is aware of our discussions and will relate this information to the attending, Dr. Lane Lozada. We will be happy to intervene with this patient in the future. The patient should have followup regarding the pulmonary fibrosis. There does not appear in need for inhaled bronchodilator at this time as the lungs were clear and show no evidence of bronchospasm. Thank you for the opportunity to care for this patient. Mark Watson MD MTDD
--- NOTE | 2018-07-24 02:53 | DS ---
DISCHARGE SUMMARY: I saw him resting comfortably in bed this morning. Actually he had a very good night last night. No problems with his Redman catheter, no problems with bladder stones. He is on Amaryl, Brilinta, Brovana, Ecotrin, Flomax, insulin, Lipitor, Lotrisone, Proscar, Pulmicort, and Tylenol. He has these medications at home. He has a Redman catheter, the and family being told how to flush it and how to empty the leg bag. PHYSICAL EXAMINATION VITAL SIGNS: He has a 98 temperature, 93 pulse, 113/65 blood pressure, 20 respiratory rate, and 97% O2 sat on room air. GENERAL: He slept well last night, in good spirits. He is alert, comfortable. HEENT: Head is atraumatic, normocephalic. Throat is moist. NECK: Supple. HEART: Regular rate. LUNGS: Decreased breath sounds but clear. ABDOMEN: Completely soft and nontender. Positive bowel sounds. Redman in place, clear shanita urine is flowing. EXTREMITIES: Legs with no edema. He is walking well. LABORATORY DATA: He has a 9.2 white count, 9.3 hemoglobin, 28.8 hematocrit with 254 platelets. A 133 sodium, potassium 4.2, BUN 16, creatinine 0.9, GFR is greater than 60, sugar is 112, calcium is 8.9, total bili is 0.3. AST is 99, ALT is 101, alk phos 84. Total protein is 6.2. ASSESSMENT AND PLAN: The liver enzymes have been up and down for the past three or four days. He has to drink more water, he understands that it is all about fluids, fluids, fluids to keep the bladder flushed. He had systemic inflammatory response syndrome, urinary bladder with multiple stones. He is off of IV antibiotics. I was hoping Urology would have seen him in the past 24 hours for their opinion with the Redman catheter. Family does know how to flush the Redman catheter well. He will be seen on the outpatient this week. Hopefully he will do very well. There is a bladder ultrasound pending this morning just to make sure we know how many bladder stones are left. I will see him on the outpatient. Lane Lozada DO [facility] # [id number]
== END 2018-07-23 16:11 | disposition home or self-care (01) | DRG 694 ==
LOC: TRCU 13:23
PROVIDERS: ADMIT Family Medicine; ATTEND Family Medicine
PROC: F07Z9FZ Gait Training/Functional Ambulation Treatment using Assistive, Adaptive, Supportive or Protective Equipment (ICD-10-PCS; principal; 2018-07-16)
PROC: F07L6YZ Therapeutic Exercise Treatment of Musculoskeletal System - Lower Back / Lower Extremity using Other Equipment (ICD-10-PCS; 2018-07-16)
PROC: F08Z1FZ Dressing Techniques Treatment using Assistive, Adaptive, Supportive or Protective Equipment (ICD-10-PCS; 2018-07-18)
PROC: F08Z2ZZ Grooming/Personal Hygiene Treatment (ICD-10-PCS; 2018-07-20)
DX: N21.0 Calculus in bladder (principal); N39.0 Urinary tract infection, site not specified; D64.9 Anemia, unspecified; E11.51 Type 2 diabetes mellitus with diabetic peripheral angiopathy without gangrene; E78.00 Pure hypercholesterolemia, unspecified; E11.65 Type 2 diabetes mellitus with hyperglycemia; E78.5 Hyperlipidemia, unspecified; I25.118 Atherosclerotic heart disease of native coronary artery with other forms of angina pectoris; I11.0 Hypertensive heart disease with heart failure; I50.9 Heart failure, unspecified; J84.10 Pulmonary fibrosis, unspecified; K21.9 Gastro-esophageal reflux disease without esophagitis; N40.1 Benign prostatic hyperplasia with lower urinary tract symptoms; R33.8 Other retention of urine; J40 Bronchitis, not specified as acute or chronic; T83.091A Other mechanical complication of indwelling urethral catheter, initial encounter; Y84.6 Urinary catheterization as the cause of abnormal reaction of the patient, or of later complication, without mention of misadventure at the time of the procedure; I25.2 Old myocardial infarction; Z79.84 Long term (current) use of oral hypoglycemic drugs; Z86.73 Personal history of transient ischemic attack (TIA), and cerebral infarction without residual deficits; Z87.891 Personal history of nicotine dependence; Z95.5 Presence of coronary angioplasty implant and graft; Z85.828 Personal history of other malignant neoplasm of skin

== ENCOUNTER 2018-07-26 10:32 | Observation (INO) | payer MEDICARE, BC ==
[2018-07-26 10:37] VITALS: BMI 22.4
[2018-07-26 11:32] LABS: VENOUS BLOOD GAS BASE EXCESS 3.1 mmol/L (0.0-2.0); VENOUS BLOOD GAS PO2 24 mm/Hg (30-55); VENOUS BLOOD PH 7.46 (7.32-7.43)
--- NOTE | 2018-07-26 11:43 | RAD ---
Date of service: 07/26/2018 HISTORY: Weakness COMPARISON: 07/12/2018 CT thorax 07/01/2018 single-view chest radiograph FINDINGS: LUNGS: No active pulmonary disease. Stable interstitial findings at the lung bases left greater than right. PLEURA: No significant pleural effusion identified, no pneumothorax apparent. CARDIOVASCULAR: No atherosclerotic calcification present Normal. OSSEOUS STRUCTURES: No significant abnormalities. VISUALIZED UPPER ABDOMEN: Normal. OTHER FINDINGS: None. IMPRESSION: No active pulmonary disease. No significant interval change compared to the prior examination(s).
[2018-07-26 11:48] LABS: BASO # 0.04 K/mm3 (0.0-2.0); BASO % 0.5 % (0.0-3.0); EOS # 0.2 (0.0-0.7); EOS % 3.1 % (1.5-5.0); HEMOGLOBIN 10.1 g/dL (14.0-18.0); LYMPH # 0.4 (1.2-3.4); LYMPH % 5.6 % (22.0-35.0); MEAN CELL VOLUME 90.2 fl (80.0-105.0); MEAN CORPUSCULAR HGB CONC 33.2 g/dl (31.0-37.0); MEAN PLATELET VOLUME 8.7 fl (7.0-11.0); MONO # 0.4 (0.1-0.6); MONO % 5.7 % (1.0-6.0); RBC 3.37 10^6/uL (3.5-6.1); RED CELL DISTRIBUTION WIDTH 13.3 % (11.5-14.5); WHITE BLOOD COUNT 7.7 10^3/uL (4.5-11.0)
[2018-07-26 11:53] LABS: INR 1.22; PARTIAL THROMBOPLASTIN TIME 30.9 Seconds (26.9-38.3); PROTHROMBIN TIME 13.8 SECONDS (9.4-12.5)
[2018-07-26] MEDS ORDERED: Levalbuterol 1.25 MG/3 ML Inhal Soln UD IH STA (13:10)
[2018-07-26 13:38] LABS: ALBUMIN 3.3 g/dL (3.0-4.8); ALT/SGPT 109 U/L (7-56); AST/SGOT 56 U/L (17-59); BLOOD UREA NITROGEN 21 mg/dL (7-21); CALCIUM 9.3 mg/dL (8.4-10.5); GFR NON-AFRICAN AMERICAN > 60
[2018-07-26 13:39] LABS: B-TYPE NATRIURETIC PEPTIDE 265 pg/mL (0-450); TROPONIN I < 0.01 ng/mL
[2018-07-26] MEDS ORDERED: Iohexol 350 MG/100 ML VIAL ONE (14:27)
--- NOTE | 2018-07-26 15:14 | CT ---
Date of service: 07/26/2018 PROCEDURE: CT Chest with contrast (Pulmonary Angiogram) HISTORY: sob/cough COMPARISON: 07/12/2018 TECHNIQUE: Axial computed tomography images were obtained of the chest in the pulmonary arterial phase of enhancement. Coronal and sagittal reformatted images were created and reviewed. Intravenous contrast dose: Radiation dose: Total exam DLP = 341.18 mGy-cm. This CT exam was performed using one or more of the following dose reduction techniques: Automated exposure control, adjustment of the mA and/or kV according to patient size, and/or use of iterative reconstruction technique. FINDINGS: PULMONARY ARTERIES: Unremarkable. No pulmonary embolism. AORTA: No acute findings. No thoracic aortic aneurysm. Aortic calcification. And coronary artery calcification LUNGS: There is peripheral interstitial fibrosis bilaterally. Emphysematous changes are also seen. No change from recent study. PLEURAL SPACES: Unremarkable. No effusion or pneumothorax. HEART: Unremarkable. No cardiomegaly. No significant pericardial effusion. LYMPH NODES: No lymphadenopathy. BONES, CHEST WALL: Unremarkable. No fracture or destructive lesion there ossification of the anterior longitudinal ligament OTHER FINDINGS: Unremarkable. IMPRESSION: Unremarkable CT pulmonary angiogram. No pulmonary embolus. There is peripheral interstitial fibrosis bilaterally. Emphysematous changes are also seen. No change from recent study.
--- NOTE | 2018-07-26 15:19 | ED PDOC ---
Arrival/HPI - General Chief Complaint: Weakness/Neurological Deficit Time Seen by Provider: 07/26/18 10:43 Historian: Patient, Family - History of Present Illness Narrative History of Present Illness (Text): 07/26/18 15:07 Patient is an 87 year old male whose past medical history includes CAD, s/p coronary stent placement(stentx4 two weeks ago by Dr. espinoza), diabetes, CVA, and UTI, who was brought to the ED by family members for generalized weakness. Family member reports noticing patient experiencing slight dry cough, dyspnea on exertion, and some lower extremity swelling since being discharged from the TCU a few days ago. Patient's daughter stated that he received two doses of Lasix 20mg and swelling improved. Although swelling improved he is becoming more fatigued and dyspneic. Patient denies any chest pain, abdominal pain, nausea, vomiting, or any other complaints. 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: < week Symptom Onset: Gradual Symptom Course: Unchanged Context: Home Past Medical History - Provider Review Nursing Documentation Reviewed: Yes - Infectious Disease Hx of Infectious Diseases: None - Cardiac Hx Cardiac Disorders: Yes (cad, AAA) - Pulmonary Hx Respiratory Disorders: Yes (USED TO SMOKE CIGARETTES.QUIT IN HIS 30'S) - Neurological HX Cerebrovascular Accident: Yes - HEENT Hx HEENT Disorder: Yes (PECHANGA) - Renal Hx Renal Disorder: Yes (BLADDER INFECTION-EDUARDO URINARY RETENTION) Hx Kidney Stones: Yes - Endocrine/Metabolic Hx Diabetes Mellitus Type 2: Yes - Hematological/Oncological Hx Blood Disorders: Yes Hx Cancer: Yes (skin cancer WITH SX BASAL CELL,LEFT EAR,RIGHT ARM.) - Integumentary Hx Dermatological Disorder: Yes Hx Basal Cell Carcinoma: Yes Other/Comment: skin cancer surgery on right arm and recently the left ear - Musculoskeletal/Rheumatological Hx Falls: Yes - Gastrointestinal Hx Gastrointestinal Disorders: No - Genitourinary/Gynecological Hx Genitourinary Disorders: Yes (RETENTION) Hx Hematuria: Yes Hx Prostate Problems: Yes (ENLARGED-BPH) Hx Urinary Tract Infection: Yes Other/Comment: work up in progress for bladder stones HAD PASSED 19 STONES AND MORE - Psychiatric Hx Psychophysiologic Disorder: No Hx Substance Use: No - Surgical History Other/Comment: surgery X4 for skin cancer. cardiac cath - Anesthesia Hx Anesthesia: Yes Hx Anesthesia Reactions: No Hx Malignant Hyperthermia: No - Suicidal Assessment Feels Threatened In Home Enviroment: No Family/Social History - Physician Review Nursing Documentation Reviewed: Yes Family/Social History: No Known Family HX Smoking Status: Former Smoker Hx Alcohol Use: No Hx Substance Use: No Allergies/Home Meds Allergies/Adverse Reactions: Allergies No Known Allergies Allergy (Verified 07/26/18 17:51) Home Medications: Home Meds Medication Instructions Recorded Confirmed Tamsulosin [Flomax] 0.4 mg PO Q12 01/04/17 07/26/18 Atorvastatin [Lipitor] 40 mg PO DAILY 04/28/17 07/26/18 Finasteride [Proscar] 5 mg PO DAILY 06/26/18 07/26/18 Aspirin [Ecotrin] 81 mg PO DAILY 07/03/18 07/26/18 Ticagrelor [Brilinta] 60 mg PO BID 07/03/18 07/26/18 Celecoxib [Celebrex] 200 mg PO DAILY 07/12/18 07/26/18 Clopidogrel [Plavix] 75 mg PO DAILY 07/12/18 07/26/18 Review of Systems - Physician Review All systems were reviewed & negative as marked: Yes - Review of Systems Constitutional: Fatigue. absent: Fevers ENT: Epistaxis. absent: Sore Throat, Sinus Congestion Respiratory: SOB Cardiovascular: absent: Chest Pain, Palpitations Gastrointestinal: absent: Abdominal Pain, Nausea, Vomiting Genitourinary Male: absent: Dysuria Musculoskeletal: absent: Back Pain, Neck Pain Skin: absent: Rash Neurological: absent: Headache, Dizziness Physical Exam Vital Signs Reviewed: Yes Vital Signs Temp Pulse Resp BP BP Pulse Ox 07/26/18 13:18 97.8 F 86 20 100/45 L 100 07/26/18 11:27 111/52 L 07/26/18 10:33 97.4 F L 85 18 111/52 L 100 Temperature: Afebrile Blood Pressure: Normal Pulse: Regular Respiratory Rate: Normal Appearance: Positive for: Well-Appearing Mental Status: Positive for: Alert and Oriented X 3 Finger Stick Blood Glucose: 209 - Systems Exam Head: Present: Atraumatic, Normocephalic Conjunctiva: Present: Normal Mouth: Present: Moist Mucous Membranes Nose (Internal): Present: Other (cotton noted in right nostril; blood tinged. no active bleeding; (pt refusing to allow me to remove it)) Neck: Present: Normal Range of Motion Respiratory/Chest: Present: Clear to Auscultation, Good Air Exchange. No: Respiratory Distress, Accessory Muscle Use Cardiovascular: Present: Regular Rate and Rhythm, Normal S1, S2. No: Murmurs Abdomen: No: Tenderness, Distention, Peritoneal Signs, Rebound, Guarding Back: Present: Normal Inspection. No: CVA Tenderness, Midline Tenderness, Paraspinal Tenderness Upper Extremity: Present: Normal Inspection. No: Cyanosis, Edema Lower Extremity: Present: Normal Inspection. No: Edema Neurological: Present: GCS=15, Speech Normal Skin: Present: Warm, Dry, Normal Color. No: Rashes Psychiatric: Present: Alert, Oriented x 3 Medical Decision Making ED Course and Treatment: 07/26/18 15:07 Impression: 87 year old patient s/p stent placement, who presents to the ED for generalized weakness s/p discharge from TCU a few days ago. Plan: -- EKG -- Tylenol -- Xopenex -- Blood work -- Urine culture -- Urinalysis -- Reassess and disposition Prior Visits: Notes and results from previous visits were reviewed. Progress Notes: 07/26/18 15:07 A ball of cotton/tissue noted in patient's right nare. Patient is refusing to h ave Eduardo catheter changed. 07/26/18 15:09 Discussed case with , who knows the patient well. 07/26/18 15:12 Discussed case with : accepts tele obs admission. 07/26/18 15:34 Chest X Ray -- No active pulmonary disease. No significant interval change compared to the prior examination(s) Chest CT: -- Unremarkable CT pulmonary angiogram. No pulmonary embolus. -- There is peripheral interstitial fibrosis bilaterally. Emphysematous changes are also seen. No change from recent study. cbc: wnl cmp; wnl trop; wnl BNP; wnl Dimer; elevated pt refused to have eduardo removed; urine sample taken from contaminated urine bag/eduardo: all results discussed with patient/family in depth. will admit observational status to tele for shortness of breath. impression; shortness of breath admit obs/ tele. - Lab Interpretations Lab Results: pO2 24 mm/Hg (30-55) L 07/26/18 11:20 VBG pH 7.46 (7.32-7.43) H 07/26/18 11:20 VBG pCO2 38.0 (40-60) L 07/26/18 11:20 VBG HCO3 27.0 mmol/l (21-28) 07/26/18 11:20 VBG Total CO2 28.2 mmol.L (22-28) H 07/26/18 11:20 VBG O2 Sat (Calc) 51.3 % (40-65) 07/26/18 11:20 VBG Base Excess 3.1 mmol/L (0.0-2.0) H 07/26/18 11:20 VBG Potassium 4.8 mmol/L (3.6-5.2) 07/26/18 11:20 Sodium 133.0 mmol/L (132-148) 07/26/18 11:20 Chloride 100.0 mmol/L (98-107) 07/26/18 11:20 Glucose 186 mg/dl (75-110) H 07/26/18 11:20 Lactate 1.4 mmol/L (0.7-2.1) 07/26/18 11:20 FiO2 21.0 % 07/26/18 11:20 PT 13.8 SECONDS (9.4-12.5) H 07/26/18 11:15 INR 1.22 07/26/18 11:15 APTT 30.9 Seconds (26.9-38.3) 07/26/18 11:15 D-Dimer, Quantitative 636 ng/mlDDU (0-243) H 07/26/18 13:00 Troponin I < 0.01 ng/mL D 07/26/18 13:00 NT-Pro-B Natriuret Pep 265 pg/mL (0-450) 07/26/18 13:00 Total Bilirubin 0.6 mg/dL (0.2-1.3) 07/26/18 13:00 AST 56 U/L (17-59) 07/26/18 13:00 ALT 109 U/L (7-56) H 07/26/18 13:00 Alkaline Phosphatase 99 U/L (38-126) 07/26/18 13:00 Total Protein 6.8 g/dL (5.8-8.3) 07/26/18 13:00 Albumin 3.3 g/dL (3.0-4.8) 07/26/18 13:00 Globulin 3.5 gm/dL 07/26/18 13:00 Albumin/Globulin Ratio 1.0 (1.1-1.8) L 07/26/18 13:00 - RAD Interpretation Radiology Orders: 07/26/18 11:03 CHEST PORTABLE [RAD] Stat 07/26/18 13:43 ANGIO CHEST PE PROTOCOL [CT] Stat - Medication Orders Current Medication Orders: Discontinued Medications Acetaminophen (Tylenol 325mg Tab) 650 mg PO STAT STA Stop: 07/26/18 12:34 Last Admin: 07/26/18 13:37 Dose: 650 mg MAR Pain/Vitals Document 07/26/18 13:37 TROMD (Rec: 07/26/18 13:38 TROMD [id number]) Pain Reassessment Is This A Pain ReAssessment? Yes Sleep Is patient sleeping during reassessment? No Presence of Pain Presence of Pain Yes Pain Scale Used Protocol: PSCALES Pain Scale Used Numeric Location Left, Right or Bilateral Bilateral Pain Location Body Site buttocks Description Constant Intensity 5 Scale Used Numeric Levalbuterol HCl (Xopenex) 1.25 mg IH STAT STA Stop: 07/26/18 13:11 Last Admin: 07/26/18 13:37 Dose: 1.25 mg - Scribe Statement The provider has reviewed the documentation as recorded by the Tawnya Bal Provider Scribe Attestation: All medical record entries made by the Scribe were at my direction and personally dictated by me. I have reviewed the chart and agree that the record accurately reflects my personal performance of the history, physical exam, medical decision making, and the department course for this patient. I have also personally directed, reviewed, and agree with the discharge instructions and disposition. Disposition/Present on Arrival - Present on Arrival Any Indicators Present on Arrival: Yes History of DVT/PE: No History of Uncontrolled Diabetes: No Urinary Catheter: Yes History of Decub. Ulcer: No History Surgical Site Infection Following: None - Disposition Have Diagnosis and Disposition been Completed?: Yes Diagnosis: Shortness of breath Disposition: HOME/ ROUTINE Disposition Time: 14:30 Patient Plan: Observation Condition: FAIR
[2018-07-26 16:06] LABS: PH,URINE 6.5 (4.7-8.0); URINE BILIRUBIN NEGATIVE (NEGATIVE); URINE BLOOD SMALL (NEGATIVE); URINE GLUCOSE (UA) NEGATIVE (NEGATIVE); URINE LEUKOCYTE ESTERASE LARGE Leu/uL (NEGATIVE); URINE PROTEIN TRACE mg/dL (<30 mg/dL); URINE UROBILINOGEN 0.2 E.U./dL (<1 E.U./dL)
[2018-07-26 16:07] LABS: URINE APPEARANCE SL CLOUDY (CLEAR); URINE COLOR YELLOW (YELLOW)
[2018-07-26 16:12] LABS: URINE BACTERIA MANY /hpf; URINE EPITHELIAL CELLS MANY /hpf (0-5); URINE WBC TNTC /hpf (0-6)
--- NOTE | 2018-07-26 18:28 | PCM.URO ---
Urology Progress Note - Objective Lab Studies: Reviewed (gu plans to be discusssed we would want to recommend a cysto removal of stones we could try to do without stopping blood thinner if ok with dr espinoza, dr stephenson, and the pt and the family) Lab Results Last 24 Hours: Laboratory Results - last 24 hr 07/26/18 07/26/18 07/26/18 11:15 11:15 11:20 WBC 7.7 RBC 3.37 L Hgb 10.1 L Hct 30.4 L MCV 90.2 MCH 30.0 MCHC 33.2 RDW 13.3 Plt Count 338 MPV 8.7 Neut % (Auto) 85.1 H Lymph % (Auto) 5.6 L Davidson % (Auto) 5.7 Eos % (Auto) 3.1 Baso % (Auto) 0.5 Lymph # (Auto) 0.4 L Davidson # (Auto) 0.4 Eos # (Auto) 0.2 Baso # (Auto) 0.04 Absolute Neuts (auto) 6.57 H PT 13.8 H INR 1.22 APTT 30.9 D-Dimer, Quantitative pO2 24 L VBG pH 7.46 H VBG pCO2 38.0 L VBG HCO3 27.0 VBG Total CO2 28.2 H VBG O2 Sat (Calc) 51.3 VBG Base Excess 3.1 H VBG Potassium 4.8 Sodium 133.0 Chloride 100.0 Glucose 186 H Lactate 1.4 FiO2 21.0 Potassium Carbon Dioxide Anion Gap BUN Creatinine Est GFR ( Amer) Est GFR (Non-Af Amer) Random Glucose Calcium Total Bilirubin AST ALT Alkaline Phosphatase Lactate Dehydrogenase Total Creatine Kinase Troponin I NT-Pro-B Natriuret Pep Total Protein Albumin Globulin Albumin/Globulin Ratio Venous Blood Potassium 4.8 Urine Color Urine Appearance Urine pH Ur Specific Gary Urine Protein Urine Glucose (UA) Urine Ketones Urine Blood Urine Nitrate Urine Bilirubin Urine Urobilinogen Ur Leukocyte Esterase Urine RBC Urine WBC Ur Epithelial Cells Urine Bacteria Urine Other 07/26/18 07/26/18 07/26/18 13:00 13:00 16:00 WBC RBC Hgb Hct MCV MCH MCHC RDW Plt Count MPV Neut % (Auto) Lymph % (Auto) Davidson % (Auto) Eos % (Auto) Baso % (Auto) Lymph # (Auto) Davidson # (Auto) Eos # (Auto) Baso # (Auto) Absolute Neuts (auto) PT INR APTT D-Dimer, Quantitative 636 H pO2 VBG pH VBG pCO2 VBG HCO3 VBG Total CO2 VBG O2 Sat (Calc) VBG Base Excess VBG Potassium Sodium 134 Chloride 97 L Glucose Lactate FiO2 Potassium 4.2 Carbon Dioxide 27 Anion Gap 15 BUN 21 Creatinine 0.8 Est GFR ( Amer) > 60 Est GFR (Non-Af Amer) > 60 Random Glucose 204 H Calcium 9.3 Total Bilirubin 0.6 AST 56 ALT 109 H Alkaline Phosphatase 99 Lactate Dehydrogenase 339 Total Creatine Kinase < 20 L Troponin I < 0.01 D NT-Pro-B Natriuret Pep 265 Total Protein 6.8 Albumin 3.3 Globulin 3.5 Albumin/Globulin Ratio 1.0 L Venous Blood Potassium Urine Color Yellow Urine Appearance Sl cloudy Urine pH 6.5 Ur Specific Gary 1.015 Urine Protein Trace H Urine Glucose (UA) Negative Urine Ketones 15 H Urine Blood Small H Urine Nitrate Negative Urine Bilirubin Negative Urine Urobilinogen 0.2 Ur Leukocyte Esterase Large H Urine RBC 10 - 15 H Urine WBC Tntc H Ur Epithelial Cells Many H Urine Bacteria Many Urine Other Uyeast Intake & Output: Intake & Output 07/25/18 07/26/18 07/26/18 18:59 06:59 18:59 Weight 170 lb Vital Signs: Vital Signs - 24 hr 07/26/18 07/26/18 07/26/18 10:33 11:27 13:18 Temperature 97.4 F L 97.8 F Pulse Rate 85 86 Respiratory 18 20 Rate Blood Pressure 111/52 L 100/45 L Blood Pressure 111/52 L [Right] O2 Sat by Pulse 100 100 Oximetry 07/26/18 15:00 Temperature 98.1 F Pulse Rate 69 Respiratory 19 Rate Blood Pressure 100/51 L Blood Pressure [Right] O2 Sat by Pulse 100 Oximetry
[2018-07-26] MEDS ORDERED: Pneumococcal 23-Valent Vaccine IM ONE (20:20)
--- NOTE | 2018-07-26 21:24 | CARD ---
APPROVED REPORT Date of service: 07/26/2018 EKG Measurement Heart [id number] ID [id number] <Conclusion> Normal sinus rhythm Incomplete right bundle branch block Possible Inferior infarct, age undetermined Abnormal ECG
[2018-07-26] MEDS: Insulin Reg-MEDIUM-Coverage SC SCH (23:09)
--- NOTE | 2018-07-27 01:20 | HP ---
DATE OF EXAM: 07/26/2018 HISTORY OF PRESENT ILLNESS: I saw Mr. Stokes three times in the past week. He has been having some edema since he left the hospital. He is on Lasix 20 mg and each day he is diuresing more and more, but today was an interesting day where he walked 2 or 3 feet and got very short of breath even though he is diuresing. Family was very concerned and brought him to the emergency room. He is an 87-year-old white man who has been having a very rough month with bladder stones, numerous Redman catheters in an out, multiple stones, hematuria. He has had a cardiac catheterization x2, once with 4 stents and another in less than 24 hours for a balloon. He had a small inferior wall NE at that time that was fixed with an hour and a half of when he the episode. Overall, he is short of breath today. PAST MEDICAL HISTORY: CAD status post coronary stents x4, diabetes, CVA, UTI. He is having a slight dry cough, dyspnea on exertion, as well as lower extremity edema, which is improved. He was discharged from the TCU for 8 days, he did great until the last day when he had a little bit of edema in the legs after having pretzels that were full of salt. He had Lasix for 3 days and the swelling was improving, but his shortness of breath was not improving and it was getting worse. He has a coronary artery disease, he got a AAA. He used to smoke cigarettes, quit 30 years ago. He has CVA, hard of hearing. 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 He has had skin cancer surgery, Mohs surgery. He has had falls, urinary retention, hematuria, a severely enlarged prostate with BPH, urinary tract infections. He has passed over 40 stones in the past month, those were bladder stones. He had surgery x4 for skin cancer and a cardiac cath. FAMILY HISTORY: He has had no known family history. SOCIAL HISTORY: A former smoker. No alcohol. No drugs. ALLERGIES: NO KNOWN DRUG ALLERGIES. CURRENT MEDICATIONS: He is on Flomax, Lipitor, Proscar, Ecotrin, Brilinta. He is not on Plavix anymore and no Celebrex. REVIEW OF SYSTEMS: No acute vision or hearing changes. No sore throat. No chest pain or palpitations. He is a little bit short of breath if he exerts himself-or take a couple of steps, not even really exerting. At rest he is calm, no shortness of breath. No abdominal pain. No nausea, vomiting, constipation, or diarrhea. The Redman catheter is working well. No lower abdominal cramping. The urine in the catheter is clear. His extremities have no edema at this time, maybe trace in the left lateral part, it was +1 before we started the Lasix 20 mg, now it is down to trace if any on the left lateral part of the foot. PHYSICAL EXAMINATION VITAL SIGNS: A 97.8 temperature, 86 pulse, 20 respiratory rate, 100/45 blood pressure, and 100% O2 sat on room air. Blood sugar was 209. GENERAL: He is well-appearing, alert and oriented x3. HEENT: Head; atraumatic, normocephalic. Extraocular muscles are intact. Pupils equally react to light and accommodation. Throat is moist. NECK: Supple. No JVD. No palpable lymphadenopathy. Thyroid midline. LUNGS: Clear to auscultation bilaterally. No accessory muscle use. No wheezes, rhonchi or rales. HEART: Regular rate. Normal S1, S2. ABDOMEN: Soft, nontender. Positive bowel sounds. No guarding, no rebound or CVA tenderness. EXTREMITIES: Have no edema, maybe trace left leg laterally but much better than 3 or 4 days ago and it was definitely +1 in both legs. NEUROLOGIC: GCS is 15. Cranial nerves II through XII grossly intact. Speech is normal. He is very calm at rest. Alert and oriented x3. Normal insight. SKIN: Warm and dry. No rashes or ulcers present. DIAGNOSTIC DATA: Chest x-ray; shows no active pulmonary disease. No change compared to the last one. CT angio shows no pulmonary embolus but there is pulmonary fibrosis with emphysematous changes that are seen. LABORATORY DATA: He had multiple other tests. A 7.7 white count, 10.1 hemoglobin, 30.4 hematocrit with a 338 platelets. A 13.8 PT. INR is 1.22. The D-dimer was 636, quite high but the CT angio was negative. He had a 7.46 pH. Lactate is 1.4. A 134 sodium, potassium 4.2, BUN is 21, creatinine 0.8, GFR is greater than 60, sugar is to 204, calcium is 9.3, total bili is 0.6. AST is 56, ALT is 109, alk phos is 99. Lactate dehydrogenase is 339. Troponin I is less than 0.01. BNP is 265, which is normal. Total protein is 6.8. The urine though showed large leukocytes too many to count white blood cells, bacteria many. ASSESSMENT AND PLAN: So he is having urinary tract infection again. He is to have consults with Cardiology for his coronary artery disease and also his shortness of breath, Pulmonary for his shortness of breath, Infectious Disease for IV antibiotics, and Children for his bladder stones for a possible procedure. He is on observation right now. We will get a 2-D echo and put him on oxygen, Physical Therapy to see him. I am very concerned about the dyspnea on exertion, shortness of breath, the recent edema. I did not put him on Lasix at this time, we will see what Dr. Alexander the phone engineer has to say about that. We will watch him very closely. Discussed at length with the family and answered many questions. Lane Lozada DO
[2018-07-27 07:08] LABS: HEMOGLOBIN 9.3 g/dL (14.0-18.0); MEAN CELL VOLUME 88.8 fl (80.0-105.0); MEAN CORPUSCULAR HGB CONC 32.6 g/dl (31.0-37.0); MEAN PLATELET VOLUME 8.2 fl (7.0-11.0); RBC 3.21 10^6/uL (3.5-6.1); RED CELL DISTRIBUTION WIDTH 13.1 % (11.5-14.5); WHITE BLOOD COUNT 7.6 10^3/uL (4.5-11.0)
[2018-07-27 07:45] LABS: ALB/GLOB RATIO 0.9 (1.1-1.8); ALBUMIN 2.9 g/dL (3.0-4.8); ALT/SGPT 94 U/L (7-56); AST/SGOT 70 U/L (17-59); BLOOD UREA NITROGEN 17 mg/dL (7-21); CALCIUM 8.9 mg/dL (8.4-10.5); GFR NON-AFRICAN AMERICAN > 60
[2018-07-27] MEDS: Insulin Reg-MEDIUM-Coverage SC SCH ×4 (08:30→21:50)
--- NOTE | 2018-07-27 11:47 | CON ---
DATE: 07/27/2018 PULMONARY CONSULTATION HISTORY OF PRESENT ILLNESS: Mr. Stokes has been in the hospital several times. He recently was discharged on diuretic for edema. He had significant coronary artery disease, having had stents in the past. The patient had complaints of progressive shortness of breath after discharge and came to the emergency room with complaints of shortness of breath. The patient had been a smoker for many years. He had a history of pulmonary fibrosis. He was not taking any inhalation therapy upon discharge. His chart has been reviewed. There is a history of bladder stones, history of cardiac stents, history of angioplasty. Today, the patient is feeling comfortable, occasional cough is noted. No expectoration. No hemoptysis. The patient denies fever or chills. He does state that there is an occasional wheeze. The past history as described above in addition cerebrovascular accident has been identified. The patient has had significant amount of edema from congestive heart failure. In addition to the coronary artery disease, he has an abdominal aortic aneurysm. FAMILY HISTORY: Negative. SOCIAL HISTORY: As described above, a former smoker, quit 20 years ago. No drug use. No occupational exposure. ALLERGIES: NO KNOWN ALLERGIES. REVIEW OF SYSTEMS: No acute findings other than that described above. Shortness of breath and cough. The shortness of breath seems to never have fully resolved despite vigorous diuretic therapy and cardiac intervention. All other systems negative. PHYSICAL EXAMINATION: GENERAL: The patient is comfortable in no acute distress. VITAL SIGNS: He is afebrile. Temperature 98.6, pulse 80, respiratory rate 16, blood pressure 110/70, oxygen sat 100% on room air. The patient looks well. Occasional cough is noted. HEENT: Normocephalic, atraumatic. EOMs full. NECK: Supple. No JVD. No bruit. No mass. HEART: Regular rhythm, S1, S2. Soft systolic ejection murmur noted. CHEST: Increased AP diameter. Prolonged expiratory phase. Rare rhonchus noted. GASTROINTESTINAL: Abdomen is soft. Bowel sounds normoactive without mass, guarding, or rebound. No organomegaly. EXTREMITIES: Reveals no edema. No signs of deep vein thrombosis. No clubbing. NEUROLOGIC: Awake, alert, oriented. Normal mental status. The patient is awake and alert and oriented. SKIN: Warm and dry. No rashes or excoriation. LYMPH NODES: No lymphadenopathy noted. DIAGNOSTIC DATA: CAT scan of the chest shows no evidence of pulmonary emboli. Noted, is small amount of pulmonary fibrosis and significant emphysematous changes. EKG sinus tach, nonspecific ST-T wave changes. LABORATORY DATA: White count 7,000, hemoglobin 7, hematocrit 30. D-dimer 636, BUN 21, creatinine 0.8. Troponin negative. ASSESSMENT: 1. Shortness of breath. 2. Chronic obstructive pulmonary disease. 3. Pulmonary fibrosis. 4. Coronary artery disease. 5. Chronic congestive heart failure. PLAN: Continue diuresis as per Cardiology. The patient should be on vigorous inhaled bronchodilators and corticosteroids. Due to the emphysema seen on CAT scan, the patient should be on a long-acting muscarinic antagonist aches as well. Spiriva will be ordered. There is no evidence of glaucoma and the patient denies BPH. Should any problems develop, this can be cut back. The patient should have a complete pulmonary function study prior to discharge. Thank you for the opportunity to evaluate this gentleman. We will follow with you during the course of this hospitalization. Mark Watson MD [facility]
--- NOTE | 2018-07-27 11:51 | PCM.URO ---
Urology Progress Note - Objective Lab Studies: Reviewed (no gu changes plans: maintian alexander when pt is cleared -- gu plans are out pt management) Lab Results Last 24 Hours: Laboratory Results - last 24 hr 07/26/18 07/26/18 07/26/18 10:51 11:15 13:00 WBC RBC Hgb Hct MCV MCH MCHC RDW Plt Count MPV PT 13.8 H INR 1.22 APTT 30.9 D-Dimer, Quantitative Sodium 134 Potassium 4.2 Chloride 97 L Carbon Dioxide 27 Anion Gap 15 BUN 21 Creatinine 0.8 Est GFR ( Amer) > 60 Est GFR (Non-Af Amer) > 60 POC Glucose (mg/dL) 209 H Random Glucose 204 H Calcium 9.3 Total Bilirubin 0.6 AST 56 ALT 109 H Alkaline Phosphatase 99 Lactate Dehydrogenase 339 Total Creatine Kinase < 20 L Troponin I < 0.01 D NT-Pro-B Natriuret Pep 265 Total Protein 6.8 Albumin 3.3 Globulin 3.5 Albumin/Globulin Ratio 1.0 L Urine Color Urine Appearance Urine pH Ur Specific [place] Urine Protein Urine Glucose (UA) Urine Ketones Urine Blood Urine Nitrate Urine Bilirubin Urine Urobilinogen Ur Leukocyte Esterase Urine RBC Urine WBC Ur Epithelial Cells Urine Bacteria Urine Other 07/26/18 07/26/18 07/26/18 13:00 16:00 21:21 WBC RBC Hgb Hct MCV MCH MCHC RDW Plt Count MPV PT INR APTT D-Dimer, Quantitative 636 H Sodium Potassium Chloride Carbon Dioxide Anion Gap BUN Creatinine Est GFR ( Amer) Est GFR (Non-Af Amer) POC Glucose (mg/dL) 299 H Random Glucose Calcium Total Bilirubin AST ALT Alkaline Phosphatase Lactate Dehydrogenase Total Creatine Kinase Troponin I NT-Pro-B Natriuret Pep Total Protein Albumin Globulin Albumin/Globulin Ratio Urine Color Yellow Urine Appearance Sl cloudy Urine pH 6.5 Ur Specific [place] 1.015 Urine Protein Trace H Urine Glucose (UA) Negative Urine Ketones 15 H Urine Blood Small H Urine Nitrate Negative Urine Bilirubin Negative Urine Urobilinogen 0.2 Ur Leukocyte Esterase Large H Urine RBC 10 - 15 H Urine WBC Tntc H Ur Epithelial Cells Many H Urine Bacteria Many Urine Other Uyeast 07/26/18 07/27/18 07/27/18 22:28 06:45 06:45 WBC 7.6 RBC 3.21 L Hgb 9.3 L Hct 28.5 L MCV 88.8 MCH 29.0 MCHC 32.6 RDW 13.1 Plt Count 280 MPV 8.2 PT INR APTT D-Dimer, Quantitative Sodium 134 Potassium 4.1 Chloride 99 Carbon Dioxide 28 Anion Gap 12 BUN 17 Creatinine 0.9 Est GFR ( Amer) > 60 Est GFR (Non-Af Amer) > 60 POC Glucose (mg/dL) Random Glucose 164 H Calcium 8.9 Total Bilirubin 0.4 AST 70 H D ALT 94 H Alkaline Phosphatase 87 Lactate Dehydrogenase Total Creatine Kinase Troponin I < 0.01 NT-Pro-B Natriuret Pep Total Protein 6.1 Albumin 2.9 L Globulin 3.2 Albumin/Globulin Ratio 0.9 L Urine Color Urine Appearance Urine pH Ur Specific [place] Urine Protein Urine Glucose (UA) Urine Ketones Urine Blood Urine Nitrate Urine Bilirubin Urine Urobilinogen Ur Leukocyte Esterase Urine RBC Urine WBC Ur Epithelial Cells Urine Bacteria Urine Other 07/27/18 07:23 WBC RBC Hgb Hct MCV MCH MCHC RDW Plt Count MPV PT INR APTT D-Dimer, Quantitative Sodium Potassium Chloride Carbon Dioxide Anion Gap BUN Creatinine Est GFR ( Amer) Est GFR (Non-Af Amer) POC Glucose (mg/dL) 197 H Random Glucose Calcium Total Bilirubin AST ALT Alkaline Phosphatase Lactate Dehydrogenase Total Creatine Kinase Troponin I NT-Pro-B Natriuret Pep Total Protein Albumin Globulin Albumin/Globulin Ratio Urine Color Urine Appearance Urine pH Ur Specific [place] Urine Protein Urine Glucose (UA) Urine Ketones Urine Blood Urine Nitrate Urine Bilirubin Urine Urobilinogen Ur Leukocyte Esterase Urine RBC Urine WBC Ur Epithelial Cells Urine Bacteria Urine Other Intake & Output: Intake & Output 07/26/18 07/27/18 07/27/18 18:59 06:59 18:59 Intake Total 780 Output Total 1250 Balance -470 Weight 170 lb 135 lb 11.2 oz Intake: Oral 540 Other 240 Output: Urine 1250 Urine, Voided 1250 Other: Voiding Method Indwelling Catheter # Bowel Movements 0 Vital Signs: Vital Signs - 24 hr 07/26/18 07/26/18 07/26/18 13:18 15:00 18:00 Temperature 97.8 F 98.1 F 97.5 F L Pulse Rate 86 69 76 Respiratory 20 19 18 Rate Blood Pressure 100/45 L 100/51 L 116/55 L O2 Sat by Pulse 100 100 97 Oximetry 0507/26/18 07/26/18 18:17 19:26 20:22 Temperature Pulse Rate 75 Respiratory 19 19 Rate Blood Pressure O2 Sat by Pulse Oximetry 07/26/18 07/27/18 07/27/18 22:00 00:01 02:00 Temperature 97.6 F Pulse Rate 68 75 66 Respiratory 19 Rate Blood Pressure 100/56 L O2 Sat by Pulse 97 Oximetry 07/27/18 07/27/18 05:55 05:57 Temperature 97.9 F Pulse Rate 66 76 Respiratory 20 Rate Blood Pressure 118/52 L O2 Sat by Pulse 96 Oximetry
--- NOTE | 2018-07-27 11:54 | CON ---
DATE: 07/27/2018 CARDIOLOGY CONSULTATION HISTORY OF PRESENT ILLNESS: The patient is an 87-year-old male who presents with progressive exertional shortness of breath and weakness. He denies chest pain. PAST MEDICAL HISTORY: Includes multivessel PTCA and stent of an RCA and LAD. He had an episode in which he had a subacute thrombosis of his RCA which required emergency PTCA. He was found to be subtherapeutic with his Plavix and was started on Brilinta and has tolerated his Brilinta. He denies angina. In addition, the patient suffers from diabetes mellitus and hypercholesterolemia. SOCIAL HISTORY: The patient is a former smoker in his early years, in which he was smoking a pack a day, but stopped in his late 30s. REVIEW OF SYSTEMS: Is dominated by exertional shortness of breath, no dyspnea at rest. No edema in the lower extremities. No angina. PHYSICAL EXAMINATION: VITAL SIGNS: The blood pressure is 118/52, the heart rate is in the 70s. NECK: Negative JVD. LUNGS: Without rales, there are mild rhonchi. HEART: Reveals S1, S2. EXTREMITIES: Without edema. LABORATORY DATA: EKG shows no changes from his previous. Laboratories reveals a hemoglobin of 9.3. Chemistries: The troponins are negative x2. The proBNP is 265, glucose is 164. CT scan of the chest shows emphysema without evidence for pulmonary embolism. IMPRESSION: 1. Exertional dyspnea. 2. Weakness. 3. Anemia. 4. Stable angina. 5. History of multivessel percutaneous transluminal coronary angioplasty and stent. 6. Chronic obstructive pulmonary disease. 7. History of normal left ventricular function. 8. Recurrent kidney stones with bladder stones. 9. Diabetes mellitus. RECOMMENDATIONS: Given these findings, we will repeat an echocardiogram to evaluate LV function. I do not feel his dyspnea is cardiac-related. There is no evidence for acute coronary syndrome. If his LV is preserved, we would consider pulmonary consultation with pulmonary intervention. In terms of his procedure for his kidney stones and bladder stones, the patient needs to remain on Brilinta, an aspirin for the procedure. Given his recent catheterization, the patient is at high risk. However, his cardiac status is at its optimum at this time. Aleks Alexander MD [facility] # [id number]
[2018-07-27] MEDS: Tiotropium 18 mcg Cap For Inhalation IH SCH (12:19)
--- NOTE | 2018-07-27 13:37 | PN ---
DATE: 07/27/2018 SUBJECTIVE: He is resting comfortably in bed. He slept very well last night. His urinary catheter is working well. It was changed, and it has very clear urine. No lower abdominal pain. He does have a little bit of an appetite. He is comfortable. No chest pain. No shortness of breath. No abdominal pain. I asked him to take couple of deep breaths. He did cough right after the deep breath on one occasion, so we are trying to find out why that is going on. He also has bladder stones. Dr. August wants to do a procedure to get rid of the bladder stones without anesthesia and without stopping the Brilinta. I am waiting to see if Dr. Alexander thinks that it is an appropriate idea at this time. We are concerned about his short of breath and then he is not able to walk at home 2-3 steps if it is a sudden change. PHYSICAL EXAMINATION: VITAL SIGNS: His vital signs are 97.9 temp, 76 pulse, 118/52 blood pressure, 20 respiratory rate, and 96% O2 sat on room air. HEENT: Head is atraumatic and normocephalic. HEART: Regular rate. LUNGS: Decreased breath sounds, but clear to auscultation. No wheezing. No rhonchi. No rales. Actually, he did take some good inspiration. I ordered incentive spirometry, he has had that before. ABDOMEN: Soft and nontender. Positive bowel sounds. : Redman catheter in place. His urine is very good. EXTREMITIES: No edema at all in the feet. NEUROLOGIC: He is in good spirits, no acute distress. LABORATORY DATA: His urine showed large, but negative in the micro. He has 134 sodium, potassium 4.1, BUN 17, creatinine 0.9, GFR is greater than 60, sugar is 164, calcium is 8.9, total bili is 0.4, AST is ALT is 94, and alk phos 87. All troponins so far are less than 0.01. Total protein is 6.1. His lactate is 1.4. INR is 1.22. His D-dimer was elevated 636, but the CAT scan angio was negative. A 7.6 white count, 9.3 hemoglobin, 20.5 hematocrit with 280 platelets. Urological consult is trying to do a cysto to get rid of all the bladder stones. Awaiting to see if that is okay with Cardiology, and I also need Physical Therapy to see once if he could walk or he might need a rehab. We will continue with aggressive treatment and care on Reinaldo Stokes. Reinaldo is here with dyspnea on exertion. Lane Lozada DO MTDD
[2018-07-27] MEDS: Levalbuterol 0.63 MG/3 ML Inhal Soln UD IH PRN (18:25)
[2018-07-27] MEDS: Budesonide 0.5 mg/2 ml Inhal Susp UD IH SCH (18:25)
--- NOTE | 2018-07-27 23:28 | CARD ---
APPROVED REPORT Date of service: 07/27/2018 EXAM: Two-dimensional and M-mode echocardiogram with Doppler and color Doppler. INDICATION Dyspnea 2D DIMENSIONS Left Atrium (2D)4.0 (1.6-4.0cm)IVSd1.1 (0.7-1.1cm) LVDd4.3 (3.9-5.9cm)PWd1.1 (0.7-1.1cm) LVDs3.0 (2.5-4.0cm)FS (%) 29.8 % LVEF (%)57.3 (>50%) M-Mode DIMENSIONS Aortic Root2.70 (2.2-3.7cm)Aortic Cusp Exc.1.40 (1.5-2.0cm) Aortic Valve AoV Peak Nmfxviyl364.0cm/Mary Peak GR.9mmHg Mitral Valve MV E Bxjvskfd17.6cm/sMV A Ysgrlxlb883.0cm/sE/A ratio0.8 TDI E/Lateral E'0.0E/Medial E'0.0 Tricuspid Valve TR Peak Wjpsioqf250kg/sRAP [id number] Peak Gr.21mmHg [id number] LEFT VENTRICLE The left ventricle is normal size. There is normal left ventricular wall thickness. The left ventricular function is normal. The left ventricular ejection fraction is within the normal range. There is normal LV segmental wall motion. Transmitral Doppler flow pattern is Grade I-abnormal relaxation pattern. RIGHT VENTRICLE The right ventricle is normal size. There is normal right ventricular wall thickness. The right ventricular systolic function is normal. ATRIA The left atrium size is normal. The right atrium size is normal. AORTIC VALVE The aortic valve is moderately to severely thickened. No aortic regurgitation is present. There is no aortic valvular stenosis. MITRAL VALVE The mitral valve is mildly thickened. Mitral regurgitation is trace. There is no mitral valve stenosis. TRICUSPID VALVE There is mild tricuspid regurgitation. PULMONIC VALVE There is mild pulmonic valvular regurgitation. GREAT VESSELS The aortic root is normal in size. The IVC is normal in size and collapses >50% with inspiration. <Conclusion> There is normal left ventricular wall thickness. The left ventricular function is normal. The left ventricular ejection fraction is within the normal range. There is normal LV segmental wall motion. Transmitral Doppler flow pattern is Grade I-abnormal relaxation pattern. There is mild tricuspid regurgitation. There is mild pulmonic valvular regurgitation.
--- NOTE | 2018-07-28 05:30 | CON ---
DATE: 07/27/2018 LOCATION: The patient is seen earlier this morning in room 270, bed 1. CHIEF COMPLAINT: Weakness times several days. HISTORY OF PRESENT ILLNESS: This is an 87-year-old male with history of cerebrovascular accident, left [employer] distribution, hypertension, BPH, GERD, diabetes mellitus, congestive heart failure, urinary retention, coronary artery disease, and cardiovascular disease who was admitted on this admission with weakness and shortness of breath. The patient states that there is no fever. No chills. He has a Redman catheter in, which was placed because of urinary retention. No abdominal pain, diarrhea, or constipation. No bright red blood per rectum. No melena. REVIEW OF SYSTEMS: Reveals a 12-point review of systems . PAST MEDICAL HISTORY: Significant for cerebrovascular accident, hypertension, BPH, GERD, urinary retention, diabetes, congestive heart failure, and coronary artery disease. PAST SURGICAL HISTORY: Significant for cardiac catheterization with stent placement. ALLERGIES: THE PATIENT HAS NO KNOWN ALLERGIES. MEDICATIONS AT HOME: Reviewed and include metformin, Flomax, Plavix, and atorvastatin. PHYSICAL EXAMINATION: GENERAL: The patient is seen in bed, in no acute distress. VITAL SIGNS: Temperature is 97, blood pressure is 113/50, respiratory rate of 20, and heart rate of 64. HEENT: Unremarkable. NECK: Supple. LUNGS: Decreased breath sounds. HEART: Normal S1 and S2. ABDOMEN: Soft. LABORATORY DATA: Reveals the white count is 7.6. Chemistries reveal the BUN of 17 and creatinine of 0.5. Urinalysis reveals many WBCs, many yeast and bacteria, and large leukocyte esterase. Microbiology reveals urine culture is negative. Blood culture is negative. The patient's imaging reveals the patient has a CAT scan of the chest with negative PE. Chest x-ray, which is negative for any infiltrates. ASSESSMENT AND PLAN: This is an 87-year-old male with urinary retention with positive urinalysis; however, urine culture is negative. Currently, the patient is off of antibiotics. We will follow with you. No indication for antibiotic at this point since the urine culture is negative and most likely underlying benign prostatic hyperplasia as per Urology. Benson Casper MD
[2018-07-28 06:01] VITALS: O2SAT 94
[2018-07-28 07:12] LABS: HEMOGLOBIN 9.2 g/dL (14.0-18.0); MEAN CORPUSCULAR HGB CONC 32.6 g/dl (31.0-37.0); MEAN PLATELET VOLUME 8.2 fl (7.0-11.0); RBC 3.17 10^6/uL (3.5-6.1); RED CELL DISTRIBUTION WIDTH 13.2 % (11.5-14.5); WHITE BLOOD COUNT 6.1 10^3/uL (4.5-11.0)
[2018-07-28] MEDS: Budesonide 0.5 mg/2 ml Inhal Susp UD IH SCH (07:16)
[2018-07-28 07:32] LABS: ALB/GLOB RATIO 0.9 (1.1-1.8); ALBUMIN 2.8 g/dL (3.0-4.8); ALT/SGPT 87 U/L (7-56); AST/SGOT 63 U/L (17-59); BLOOD UREA NITROGEN 17 mg/dL (7-21); CALCIUM 8.8 mg/dL (8.4-10.5); GFR NON-AFRICAN AMERICAN > 60
[2018-07-28] MEDS: Insulin Reg-MEDIUM-Coverage SC SCH ×2 (08:40→13:00)
[2018-07-28] MEDS: Tiotropium 18 mcg Cap For Inhalation IH SCH (09:11)
--- NOTE | 2018-07-28 10:41 | PN ---
DATE: 07/28/2018 PULMONARY PROGRESS NOTE SUBJECTIVE: The patient was seen and examined at the bedside. He states he feels better in terms of shortness of breath. He is less short of breath. He is receiving inhalation treatments with levalbuterol, budesonide and he is also on Spiriva. PHYSICAL EXAMINATION: VITAL SIGNS: Follows; temperature is 98.4, blood pressure 110/70, pulse 84, respirations 18, and pulse oximetry is 94% on nasal cannula. HEENT: Head is normocephalic and atraumatic. NECK: Supple with no jugular vein distentions. CARDIOVASCULAR: S1, S2. No S3, regular. PULMONARY: Prolonged expiratory phase, few rhonchi. No wheezing. GASTROINTESTINAL: Soft and nontender. No organomegaly. : Within normal limits EXTREMITIES: No pedal edema. No cyanosis. NEUROLOGIC: No focal deficits. SKIN: No acute skin rash. DIAGNOSTIC DATA: Reviewed. CAT scan of the chest shows no evidence of pulmonary emboli, small amount of pulmonary fibrosis and emphysematous changes. ASSESSMENT: 1. Chronic obstructive pulmonary disease exacerbation. 2. Shortness of breath. 3. Pulmonary fibrosis. 4. Chronic congestive heart failure. PLAN: Continue diuretics per Cardiology. Continue supplemental oxygen. Continue nebulizer treatment with beta-agonist and inhaler corticosteroids. We will followup closely. Abhijeet Anderson MD MTDGregory
[2018-07-28] MEDS: Levalbuterol 0.63 MG/3 ML Inhal Soln UD IH PRN (13:55)
--- NOTE | 2018-07-28 14:47 | PN ---
DATE: 07/28/2018 SUBJECTIVE: The patient ambulated with physical therapy. His breathing was stable. PHYSICAL EXAMINATION: VITAL SIGNS: Blood pressure 116/53, heart rate is in the 60s. NECK: Negative JVD. LUNGS: Decreased breath sounds. HEART: Reveals S1, S2. EXTREMITIES: Without edema. LABORATORY DATA: Hemoglobin is 9.2. Chemistries, BUN and creatinine are unremarkable. Glucose is 168. Echocardiogram reveals good LV function with an ejection fraction of 57%. There is no pulmonary hypertension. IMPRESSION: 1. Stable angina. 2. Coronary artery disease. 3. Diabetes mellitus. 4. History of percutaneous transluminal coronary angioplasty and stent. 5. Emphysema. PLAN: Given these findings, Pulmonary has started him on bronchodilators. There is no further cardiac workup necessary, we will discontinue telemetry today. Aleks Alexander MD
[2018-07-28 16:31] VITALS: BP 142/81; PULSE 95; RESP 20; TEMP 98.3
--- NOTE | 2018-07-28 16:51 | PN ---
DATE: 07/28/2018 SUBJECTIVE: The patient is in bed, in no acute distress, nontoxic. PHYSICAL EXAMINATION: VITAL SIGNS: Temperature is 98, blood pressure is 120/70, respiratory 16. HEENT: Unremarkable. NECK: Supple. LUNGS: Decreased breath sounds. HEART: Normal S1, S2. ABDOMEN: Soft. LABORATORY DATA: Laboratory examination is noted to be a white count of 6.1. Chemistries are reviewed. Urinalysis is noted. Microbiology reveals the gram-positive cocci and initial urine culture was negative. ASSESSMENT AND PLAN: This is an 87-year-old with history of cerebrovascular accident left [employer] distribution, hypertension, benign prostatic hyperplasia, gastroesophageal reflux disease, diabetes, congestive heart failure, urinary retention, coronary artery disease, cardiovascular disease and now with the patient is currently off of antibiotics no indication of antibiotics at this time. Repeat urine culture gram-positive probably a colonizer not requiring treatment. We will follow with you. The patient is at risk for developing nosocomial infection. Benson Casper MD
--- NOTE | 2018-07-29 01:25 | DS ---
HISTORY OF PRESENT ILLNESS: He is resting comfortably in bed this morning. He is in good spirits. He slept well. The Redman catheter and urine looks very clear and clean. No complaints. There are no shortness of breath. No abdominal pain. No chest pain at this time. He is comfortable, wants to go home. There was a suggestion of doing a urological procedure to get out all of the bladder stones. Family at this time refuses, it was okay by Cardiology that he is cardiologically optimized. He is on Brilinta, Ecotrin, they would have to be continue, they will not be stopped if they did do the procedure. Flomax, Glucophage, insulin, Lipitor and Proscar also. He had shortness of breath. We called in Pulmonary and they recommended Pulmicort, Spiriva and Xopenex, now family does not want him on this offers although I think it might helped him a little bit. PHYSICAL EXAMINATION: VITAL SIGNS: Temperature 97.9, pulse 67, blood pressure 116/53, respiratory rate 18 and O2 sat 94% on room air. HEENT: Head is atraumatic and normocephalic. HEART: Regular rate. LUNGS: Decreased breath sounds, but clear. ABDOMEN: Soft and nontender. Positive bowel sounds. EXTREMITIES: No edema at this time. MEDICATIONS: He was on Lasix 20 mg for a little while, he had edema of the legs from some salt he was eating although, they did say he was not taking salt until I found out he was given by a relative, but they have Lasix 20 mg at home just in case, would be on Brilinta, Ecotrin, Flomax, Glucophage 500 mg daily, Lipitor, Proscar, and he has got the Pulmicort, Spiriva and Xopenex which they do not want to continue, I think he needs them. LABORATORY DATA: White count 6.1, hemoglobin 9.2, hematocrit 28.2 and platelets 303. Sodium 135, potassium 4.1, BUN is 17, creatinine 0.8, GFR is greater than 60, sugar is 168, calcium is 8.8, total bili is 0.2, AST is 63, ALT is 87, alk phos 94 and total protein is 5.8. DISCHARGE PLAN: He was seen by Infectious Disease, Urology, Cardiology, Pulmonology and we will discharge him home today. He should have home PT. He has incentive spirometry already at home. We will continue all his medications. I called them all into the Pharmacy, so they have them all plus the Lasix just in case and hopefully he will continue to do well. They will call me for house call if they need me and when they are ready we will bring him in for this cysto with bladder stone removal. Lane Lozada DO MTDGregory
== END 2018-07-28 17:51 | disposition home or self-care (01) ==
LOC: ED 10:32 → ERH 15:50 → 2RSO 17:54
PROVIDERS: ADMIT Family Medicine; ATTEND Family Medicine
DX: J43.9 Emphysema, unspecified (principal); N39.0 Urinary tract infection, site not specified; J84.10 Pulmonary fibrosis, unspecified; I25.118 Atherosclerotic heart disease of native coronary artery with other forms of angina pectoris; E11.9 Type 2 diabetes mellitus without complications; I11.0 Hypertensive heart disease with heart failure; I50.9 Heart failure, unspecified; N21.0 Calculus in bladder; E78.00 Pure hypercholesterolemia, unspecified; N40.1 Benign prostatic hyperplasia with lower urinary tract symptoms; K21.9 Gastro-esophageal reflux disease without esophagitis; R33.8 Other retention of urine; I71.4 Abdominal aortic aneurysm, without rupture; I25.2 Old myocardial infarction; D64.9 Anemia, unspecified; Z95.5 Presence of coronary angioplasty implant and graft; Z87.891 Personal history of nicotine dependence; H91.90 Unspecified hearing loss, unspecified ear; N20.0 Calculus of kidney; Z79.02 Long term (current) use of antithrombotics/antiplatelets; Z79.82 Long term (current) use of aspirin; Z86.73 Personal history of transient ischemic attack (TIA), and cerebral infarction without residual deficits; Z85.828 Personal history of other malignant neoplasm of skin; Z91.81 History of falling
CPT/HCPCS: 36415; 71045; 71275; 80053; 81001; 82550; 82803; 82948; 83615; 83880; 84484; 85025; 85027; 85378; 85610; 85730; 87040; 87086; 87181; 93005; 93306; 94010; 94640; 94727; 94729; 97116; 97162; 97164; 99285; G0378; G8978; G8979; G8980; Q9967